=== PATIENT | female | born 1975 | race Hispanic/Latino ===

== ENCOUNTER → 2018-05-16 | Outpatient (CLI) | payer MEDICAID | END | disposition home or self-care (01) | LOC: SLP 20:23 | PROVIDERS: ATTEND Family Medicine | DX: G47.9 Sleep disorder, unspecified (principal); R06.01 Orthopnea | CPT/HCPCS: 95811 ==

== ENCOUNTER 2018-07-28 00:29 | Emergency (ER) | payer MEDICAID ==
[2018-07-28 01:25] LABS: BASOPHILS % (AUTO) 1.1 % (0.0-5.0); EOSINOPHILS % (AUTO) 1.3 % (0.0-8.0); HEMATOCRIT 33.6 % (36-48); LYMPHOCYTES % (AUTO) 22.4 % (21.0-51.0); MEAN CORPUSCULAR HEMOGLOBIN 33.5 pg (27.0-33.0); MEAN CORPUSCULAR HGB CONC 33.5 g/dL (32.0-36.0); MEAN CORPUSCULAR VOLUME 99.8 fL (79-99); MONOCYTES % (AUTO) 8.3 % (3.0-13.0); NEUTROPHILS % (AUTO) 66.9 % (40.0-77.0); PLATELET COUNT (AUTO) 197 K/uL (130-400); RED BLOOD CELL COUNT(AUTO) 3.37 MIL/uL (4.00-5.50); RED CELL DISTRIBUTION WIDTH 15.9 % (11.0-15.5); WHITE BLOOD COUNT (AUTO) 5.4 K/uL (4.8-10.8)
[2018-07-28] MEDS ORDERED: ONDANSETRON HCL 4 MG/2 ML VIAL ONE (01:28)
[2018-07-28] MEDS ORDERED: MORPHINE SULFATE 4 MG/1ML SYG ONE (01:28)
[2018-07-28 01:34] LABS: POTASSIUM 4.2 mmol/L (3.5-5.1)
[2018-07-28 01:38] LABS: ALBUMIN 3.1 g/dL (3.5-5.0); BILIRUBIN,TOTAL 0.6 mg/dL (0.2-1.0); TOTAL PROTEIN, SERUM 7.5 g/dL (6.0-8.3)
[2018-07-28 01:42] LABS: APPEARANCE,URINE Clear (CLEAR); BILIRUBIN,URINE Negative (NEGATIVE); COLOR,URINE Yellow (YELLOW); GLUCOSE, URINE (UA) 250 mg/dL (NEGATIVE); KETONES,URINE Negative (NEGATIVE); LEUKOCYTE ESTERASE ,URINE Small (NEGATIVE); NITRATE,URINE Negative (NEGATIVE); OCCULT BLOOD,URINE Small (NEGATIVE); PH,URINE 8.5 (5.0-8.0); PROTEIN,URINE >=1000 mg/dL (NEGATIVE); UROBILINOGEN,URINE 0.2 mg/dL (0.2-1.0)
[2018-07-28 01:51] LABS: BACTERIA,URINE Few /HPF (None Seen)
[2018-07-28] MEDS ORDERED: SULFAMETHOX-TMP DS 800/160 TAB ONE (03:11)
== END 2018-07-28 03:29 | disposition home or self-care (01) ==
LOC: EDH 00:29
DX: N39.0 Urinary tract infection, site not specified (principal); I12.0 Hypertensive chronic kidney disease with stage 5 chronic kidney disease or end stage renal disease; E11.22 Type 2 diabetes mellitus with diabetic chronic kidney disease; N18.6 End stage renal disease; E78.5 Hyperlipidemia, unspecified; Z99.2 Dependence on renal dialysis; Z79.4 Long term (current) use of insulin
CPT/HCPCS: 36415; 74176; 80053; 81001; 83690; 85025; 96374; 96375; 99284; J2270; J2405

== ENCOUNTER 2018-08-30 08:43 | Emergency (ER) | payer MEDICAID ==
[2018-08-30 09:40] LABS: BASOPHILS % (AUTO) 0.9 % (0.0-5.0); EOSINOPHILS % (AUTO) 1.5 % (0.0-8.0); HEMATOCRIT 34.2 % (36-48); LYMPHOCYTES % (AUTO) 16.7 % (21.0-51.0); MEAN CORPUSCULAR HEMOGLOBIN 32.8 pg (27.0-33.0); MEAN CORPUSCULAR HGB CONC 32.5 g/dL (32.0-36.0); MONOCYTES % (AUTO) 9.1 % (3.0-13.0); NEUTROPHILS % (AUTO) 71.8 % (40.0-77.0); NUCLEATED RED BLOOD CELLS 0.3 % (0.0-0.19); PLATELET COUNT (AUTO) 210 K/uL (130-400); RED BLOOD CELL COUNT(AUTO) 3.38 MIL/uL (4.00-5.50); RED CELL DISTRIBUTION WIDTH 16.6 % (11.0-15.5); WHITE BLOOD COUNT (AUTO) 5.9 K/uL (4.8-10.8)
[2018-08-30 09:46] LABS: CREATININE 7.1 mg/dL (0.5-1.5); POTASSIUM 4.6 mmol/L (3.5-5.1)
[2018-08-30 09:51] LABS: ALBUMIN 3.3 g/dL (3.5-5.0); BILIRUBIN,DIRECT 0.3 mg/dL (0.0-0.3); BILIRUBIN,TOTAL 0.8 mg/dL (0.2-1.0)
[2018-08-30 10:03] LABS: APPEARANCE,URINE CLEAR (CLEAR); BILIRUBIN,URINE SMALL (NEGATIVE); COLOR,URINE YELLOW (YELLOW); GLUCOSE, URINE (UA) 250 mg/dL (NEGATIVE); KETONES,URINE NEGATIVE (NEGATIVE); LEUKOCYTE ESTERASE ,URINE TRACE (NEGATIVE); NITRATE,URINE NEGATIVE (NEGATIVE); OCCULT BLOOD,URINE MODERATE (NEGATIVE); PH,URINE 7.5 (5.0-8.0); PROTEIN,URINE >=300 mg/dL (NEGATIVE)
[2018-08-30 10:09] LABS: BACTERIA,URINE Few /HPF (None Seen); RBC,URINE 0-1 /HPF (0-1)
[2018-08-30 10:10] LABS: HYALINE CASTS, URINE 0-1 /LPF (0-1 /LPF)
[2018-08-30] MEDS ORDERED: CEFTRIAXONE SODIUM 1 GM ONE (11:39)
== END 2018-08-30 12:17 | disposition home or self-care (01) ==
LOC: EDH 08:43
DX: N39.0 Urinary tract infection, site not specified (principal); I12.0 Hypertensive chronic kidney disease with stage 5 chronic kidney disease or end stage renal disease; E11.22 Type 2 diabetes mellitus with diabetic chronic kidney disease; N18.6 End stage renal disease; Z99.2 Dependence on renal dialysis
CPT/HCPCS: 36415; 80048; 80076; 81001; 85025; 96374; 99284; J0696

== ENCOUNTER 2021-01-30 04:38 | Emergency (ER) | payer MEDICAID ==
[~2021-01-30] VITALS: Ht 165.1 cm; Wt 98.9 kg
[2021-01-30 04:39] VITALS: BP 193/89
== END 2021-01-30 05:14 | disposition home or self-care (01) ==
LOC: EDH 04:38
DX: E87.70 Fluid overload, unspecified (principal); E11.22 Type 2 diabetes mellitus with diabetic chronic kidney disease; N18.6 End stage renal disease; I50.9 Heart failure, unspecified; I25.10 Atherosclerotic heart disease of native coronary artery without angina pectoris; Z99.2 Dependence on renal dialysis
CPT/HCPCS: 99281

== ENCOUNTER 2021-02-06 05:43 | Emergency (ER) | payer MEDICAID ==
[~2021-02-06] VITALS: Ht 170.2 cm; Wt 94.8 kg
[2021-02-06] MEDS ORDERED: MAG/ALUM/SIMETH 30 ML UDCUP ONE (06:20)
[2021-02-06] MEDS ORDERED: LIDOCAINE HCL 2% VISCOUS 15 ML UDCUP ONE (06:21)
[2021-02-06 06:27] VITALS: BP 176/82
[2021-02-06 06:28] LABS: BASOPHILS % (AUTO) 0.6 % (0.0-5.0); EOSINOPHILS % (AUTO) 1.7 % (0.0-8.0); HEMATOCRIT 28.6 % (36-48); LYMPHOCYTES % (AUTO) 20.2 % (21.0-51.0); MEAN CORPUSCULAR HEMOGLOBIN 32.6 pg (27.0-33.0); MEAN CORPUSCULAR HGB CONC 31.8 g/dL (32.0-36.0); MEAN CORPUSCULAR VOLUME 102.5 fL (79-99); MONOCYTES % (AUTO) 4.8 % (3.0-13.0); NEUTROPHILS % (AUTO) 72.4 % (40.0-77.0); NUCLEATED RED BLOOD CELLS 0.4 % (0.0-0.19); PLATELET COUNT (AUTO) 273 K/uL (130-400); RED BLOOD CELL COUNT(AUTO) 2.79 MIL/uL (4.00-5.50); RED CELL DISTRIBUTION WIDTH 15.2 % (11.0-15.5); WHITE BLOOD COUNT (AUTO) 6.9 K/uL (4.8-10.8)
[2021-02-06] MEDS ORDERED: MAG/ALUM/SIMETH 30 ML UDCUP PO SCH (06:50)
[2021-02-06 06:55] LABS: ALBUMIN 3.7 g/dL (3.5-5.0); BILIRUBIN,TOTAL 0.5 mg/dL (0.2-1.0); TOTAL PROTEIN, SERUM 8.3 g/dL (6.0-8.3)
[2021-02-06 06:58] LABS: CREATININE 12.8 mg/dL (0.5-1.5); POTASSIUM 6.1 mmol/L (3.5-5.1)
[2021-02-06] MEDS ORDERED: KAYEXALATE 15GM/60ML PO SCH (07:30)
[2021-05-12] MEDS ORDERED: PANT40TA PO (09:11)
[2021-05-12] MEDS ORDERED: DEXA6TAB PO (09:11)
== END 2021-02-06 08:16 | disposition home or self-care (01) ==
LOC: EDH 05:43
DX: K29.70 Gastritis, unspecified, without bleeding (principal); I12.0 Hypertensive chronic kidney disease with stage 5 chronic kidney disease or end stage renal disease; E11.22 Type 2 diabetes mellitus with diabetic chronic kidney disease; N18.6 End stage renal disease
CPT/HCPCS: 36415; 80053; 83690; 85025

== ENCOUNTER 2021-03-06 09:26 | Inpatient (IN) | payer MEDICAID ==
[~2021-03-06] VITALS: Ht 167.6 cm; Wt 92.4 kg
[2021-03-06] VITALS (15 sets, daily range): BP systolic 169–204; BP diastolic 82–110
[2021-03-06 10:33] LABS: BASOPHILS % (AUTO) 0.8 % (0.0-5.0); EOSINOPHILS % (AUTO) 2.5 % (0.0-8.0); HEMATOCRIT 34.1 % (36-48); LYMPHOCYTES % (AUTO) 21.2 % (21.0-51.0); MEAN CORPUSCULAR HEMOGLOBIN 32.5 pg (27.0-33.0); MEAN CORPUSCULAR HGB CONC 30.2 g/dL (32.0-36.0); MEAN CORPUSCULAR VOLUME 107.6 fL (79-99); MONOCYTES % (AUTO) 6.3 % (3.0-13.0); NEUTROPHILS % (AUTO) 68.8 % (40.0-77.0); PLATELET COUNT (AUTO) 231 K/uL (130-400); RED BLOOD CELL COUNT(AUTO) 3.17 MIL/uL (4.00-5.50); WHITE BLOOD COUNT (AUTO) 5.2 K/uL (4.8-10.8)
[2021-03-06 10:52] LABS: CREATININE 7.7 mg/dL (0.5-1.5); POTASSIUM 5.3 mmol/L (3.5-5.1)
[2021-03-06 10:56] LABS: ALBUMIN 3.9 g/dL (3.5-5.0); BILIRUBIN,TOTAL 0.5 mg/dL (0.2-1.0); TOTAL PROTEIN, SERUM 8.5 g/dL (6.0-8.3)
[2021-03-06] MEDS: PANTOPRAZOLE 40 MG/VIAL IVP SCH (12:33)
[2021-03-06] MEDS ORDERED: ACETAMINOPHEN 325 MG TAB PO PRN ×2 (15:00)
[2021-03-06] MEDS ORDERED: DIPHENHYDRAMINE HCL 25 MG CAPSULE PO PRN (15:00)
[2021-03-06] MEDS ORDERED: ONDANSETRON 4MG INJ IV PRN (15:00)
[2021-03-06] MEDS ORDERED: HYDRALAZINE 20MG/ML VIAL ONE (18:56)
[2021-03-06] MEDS ORDERED: HYDRALAZINE 20MG/ML VIAL IV SCH (19:00)
[2021-03-06] MEDS: FAMOTIDINE 20MG VIAL IV SCH (21:03)
[2021-03-06] MEDS ORDERED: MORPHINE 2 MG SYG IVP PRN (22:30)
[2021-03-06] MEDS ORDERED: LABETALOL 20MG VIAL IV PRN (22:30)
[2021-03-07 05:33] LABS: HEMATOCRIT 36.1 % (36-48); MEAN CORPUSCULAR HEMOGLOBIN 33.3 pg (27.0-33.0); MEAN CORPUSCULAR HGB CONC 31.3 g/dL (32.0-36.0); MEAN CORPUSCULAR VOLUME 106.5 fL (79-99); RED BLOOD CELL COUNT(AUTO) 3.39 MIL/uL (4.00-5.50); WHITE BLOOD COUNT (AUTO) 5.9 K/uL (4.8-10.8)
[2021-03-07 05:46] LABS: ALBUMIN 3.9 g/dL (3.5-5.0); BILIRUBIN,DIRECT 0.2 mg/dL (0.0-0.3); BILIRUBIN,TOTAL 0.7 mg/dL (0.2-1.0); CREATININE 6.2 mg/dL (0.5-1.5); POTASSIUM 4.6 mmol/L (3.5-5.1); TOTAL PROTEIN, SERUM 8.6 g/dL (6.0-8.3)
[2021-03-07 08:00] VITALS: BP 164/78
[2021-03-07] MEDS: ENOXAPARIN SODIUM 30 MG/0.3 ML SQ SCH (09:00)
[2021-03-07] MEDS: FAMOTIDINE 20MG VIAL IV SCH ×2 (10:44→20:53)
[2021-03-07] MEDS: PANTOPRAZOLE 40 MG/VIAL IVP SCH (11:30)
[2021-03-07 11:49] VITALS: BP 170/86
[2021-03-07 16:00] VITALS: BP 180/84
[2021-03-07 20:00] VITALS: BP 161/79
[2021-03-08] VITALS (22 sets, daily range): BP systolic 152–190; BP diastolic 68–108
[2021-03-08] MEDS: HYDRALAZINE 20MG/ML VIAL IV PRN ×2 (02:16→15:38)
[2021-03-08 05:38] LABS: BASOPHILS % (AUTO) 0.8 % (0.0-5.0); EOSINOPHILS % (AUTO) 2.3 % (0.0-8.0); HEMATOCRIT 33.9 % (36-48); LYMPHOCYTES % (AUTO) 20.9 % (21.0-51.0); MEAN CORPUSCULAR HEMOGLOBIN 32.8 pg (27.0-33.0); MEAN CORPUSCULAR HGB CONC 31.3 g/dL (32.0-36.0); MONOCYTES % (AUTO) 7.5 % (3.0-13.0); NEUTROPHILS % (AUTO) 68.1 % (40.0-77.0); PLATELET COUNT (AUTO) 221 K/uL (130-400); RED BLOOD CELL COUNT(AUTO) 3.23 MIL/uL (4.00-5.50); RED CELL DISTRIBUTION WIDTH 15.6 % (11.0-15.5); WHITE BLOOD COUNT (AUTO) 5.3 K/uL (4.8-10.8)
[2021-03-08 05:54] LABS: ALBUMIN 3.5 g/dL (3.5-5.0); BILIRUBIN,TOTAL 0.4 mg/dL (0.2-1.0); POTASSIUM 5.2 mmol/L (3.5-5.1); TOTAL PROTEIN, SERUM 7.9 g/dL (6.0-8.3)
[2021-03-08 05:57] LABS: CREATININE 8.3 mg/dL (0.5-1.5)
[2021-03-08] MEDS: INSULIN HUMULIN R 100 UNIT/ML 3ML SQ SCH ×2 (06:18→11:30)
[2021-03-08 07:40] LABS: HEPATITIS Bs ANTIGEN SCREEN P Negative (Negative)
[2021-03-08] MEDS: ENOXAPARIN SODIUM 30 MG/0.3 ML SQ SCH (09:00)
[2021-03-08] MEDS: FAMOTIDINE 20MG VIAL IV SCH (10:25)
[2021-03-08] MEDS: PANTOPRAZOLE 40 MG/VIAL IVP SCH (11:30)
== END 2021-03-08 17:45 | disposition home or self-care (01) ==
LOC: EDH 09:26 → EDHIP 09:27 → 3CH 03-07 04:48
PROVIDERS: ADMIT Hospitalist; ATTEND Hospitalist
PROC: 5A1D70Z Performance of Urinary Filtration, Intermittent, Less than 6 Hours Per Day (ICD-10-PCS; principal; 2021-03-06)
PROC: 5A1D70Z Performance of Urinary Filtration, Intermittent, Less than 6 Hours Per Day (ICD-10-PCS; 2021-03-08)
DX: K80.70 Calculus of gallbladder and bile duct without cholecystitis without obstruction (principal); E11.22 Type 2 diabetes mellitus with diabetic chronic kidney disease; I12.0 Hypertensive chronic kidney disease with stage 5 chronic kidney disease or end stage renal disease; E87.5 Hyperkalemia; N18.6 End stage renal disease; K83.8 Other specified diseases of biliary tract; D64.9 Anemia, unspecified; Z20.822 Contact with and (suspected) exposure to COVID-19; G89.29 Other chronic pain; Z99.2 Dependence on renal dialysis; Z91.19 Patient's noncompliance with other medical treatment and regimen
CPT/HCPCS: 36415; 74181; 76705; 80048; 80053; 80076; 82948; 83690; 85025; 85027; 86704; 86706; 87340; 87635; 90935; C9113; G0378; J0360; J1650; J2405; J3490

== ENCOUNTER 2021-03-31 08:39 | Observation (INO) | payer MEDICAID ==
[2021-03-31] VITALS (12 sets, daily range): BP systolic 173–194; BP diastolic 61–92
[~2021-03-31] VITALS: Ht 165.1 cm; Wt 99.8 kg
[2021-03-31 09:13] LABS: BASOPHILS % (AUTO) 0.9 % (0.0-5.0); EOSINOPHILS % (AUTO) 2.8 % (0.0-8.0); HEMATOCRIT 37.2 % (36-48); LYMPHOCYTES % (AUTO) 26.4 % (21.0-51.0); MEAN CORPUSCULAR HEMOGLOBIN 32.7 pg (27.0-33.0); MEAN CORPUSCULAR HGB CONC 30.4 g/dL (32.0-36.0); MEAN CORPUSCULAR VOLUME 107.5 fL (79-99); MONOCYTES % (AUTO) 6.7 % (3.0-13.0); NEUTROPHILS % (AUTO) 62.9 % (40.0-77.0); NUCLEATED RED BLOOD CELLS 0.5 % (0.0-0.19); PLATELET COUNT (AUTO) 233 K/uL (130-400); RED BLOOD CELL COUNT(AUTO) 3.46 MIL/uL (4.00-5.50); RED CELL DISTRIBUTION WIDTH 15.9 % (11.0-15.5); WHITE BLOOD COUNT (AUTO) 6.4 K/uL (4.8-10.8)
[2021-03-31 09:45] LABS: ALBUMIN 3.7 g/dL (3.5-5.0); BILIRUBIN,TOTAL 0.5 mg/dL (0.2-1.0); TOTAL PROTEIN, SERUM 8.2 g/dL (6.0-8.3)
[2021-03-31 09:55] LABS: POTASSIUM 6.9 mmol/L (3.5-5.1)
[2021-03-31 09:56] LABS: CREATININE 10.9 mg/dL (0.5-1.5)
[2021-03-31] MEDS: FENTANYL CITRATE PF 50 MCG/1 ML 2ML VIAL IVP SCH (09:59)
[2021-03-31] MEDS ORDERED: CALCIUM GLUC 1GM 1 GM in 0.9%NACL 100ML 100 ML IV SCH (10:00)
[2021-03-31] MEDS ORDERED: SODIUM BICARB 8.4% 50ML SYRINGE IVP ONE (10:00)
[2021-03-31] MEDS ORDERED: INSULIN HUMULIN R 100 UNIT/ML 3ML IV ONE (10:00)
[2021-03-31] MEDS ORDERED: SODIUM BICARB 50MEQ 50ML VIAL 50 ML ONE (10:15)
[2021-03-31] MEDS: DEXTROSE 50%-WATER 50 ML DISP.SYRIN IV SCH ×2 (10:27→10:49)
[2021-03-31] MEDS: KAYEXALATE 15GM/60ML PO SCH ×2 (10:28→12:00)
[2021-03-31] MEDS ORDERED: ALBUTEROL 0.083% 2.5 MG/3 ML INH IH ONE (10:35)
[2021-03-31] MEDS ORDERED: IPRATROPIUM 0.5 MG/2.5 ML INH IH PRN (11:30)
[2021-03-31] MEDS ORDERED: ACETAMINOPHEN 325 MG TAB PO PRN ×2 (11:30)
[2021-03-31] MEDS ORDERED: MAG/ALUM/SIMETH 30 ML UDCUP PO PRN (11:30)
[2021-03-31] MEDS ORDERED: HYDROMORPHONE 0.5 MG SYG (0.5MG/0.5ML) IVP PRN (11:30)
[2021-03-31] MEDS: AMLODIPINE 5 MG TAB PO ONE ×2 (11:46→15:05)
[2021-03-31] MEDS: PANTOPRAZOLE 40 MG TAB DR PO SCH (11:52)
[2021-03-31 13:25] LABS: POTASSIUM 5.5 mmol/L (3.5-5.1)
[2021-03-31] MEDS: CEFTRIAXONE 1G VIAL IVP SCH (13:54)
[2021-03-31] MEDS: ALBUTEROL 0.083% 2.5 MG/3 ML INH IH SCH ×2 (14:23→18:00)
[2021-03-31] MEDS ORDERED: AMLODIPINE 5 MG TAB ONE (14:53)
[2021-03-31] MEDS: METRONIDAZOLE 500MG/100ML BAG 100 ML IVPB SCH ×2 (15:05→21:58)
[2021-03-31] MEDS: HYDRALAZINE 25MG TABLET PO SCH ×2 (16:08→20:33)
[2021-03-31] MEDS: HYDRALAZINE 20MG/ML VIAL IV PRN (17:39)
[2021-03-31] MEDS: ONDANSETRON 4MG INJ IV PRN (22:12)
[2021-04-01] VITALS (15 sets, daily range): BP systolic 152–178; BP diastolic 69–82
[2021-04-01] MEDS: ONDANSETRON 4MG INJ IV PRN (04:04)
[2021-04-01] MEDS: ALBUTEROL 0.083% 2.5 MG/3 ML INH IH SCH ×5 (06:00→23:31)
[2021-04-01] MEDS: METRONIDAZOLE 500MG/100ML BAG 100 ML IVPB SCH ×3 (06:08→22:51)
[2021-04-01 06:24] LABS: % IRON SATURATION 19.2 % (22-44)
[2021-04-01 06:27] LABS: HEMOGLOBIN A1C 5.7 % (4.0-6.0)
[2021-04-01 06:50] LABS: THYROID STIMULATING HORMONE 2.93 uIU/mL (0.36-3.74)
[2021-04-01] MEDS: FENTANYL CITRATE PF 50 MCG/1 ML 2ML VIAL IVP SCH (08:28)
[2021-04-01] MEDS: PANTOPRAZOLE 40 MG TAB DR PO SCH ×2 (09:00→09:03)
[2021-04-01] MEDS: HYDRALAZINE 25MG TABLET PO SCH ×3 (09:31→21:06)
[2021-04-01] MEDS: CEFTRIAXONE 1G VIAL IVP SCH (11:28)
[2021-04-01] MEDS ORDERED: 0.9%NACL 1000ML 1,000 ML IV PRN (13:30)
[2021-04-01] MEDS ORDERED: AMLODIPINE 5 MG TAB PO ONE (21:00)
[2021-04-02] MEDS: HYDRALAZINE 20MG/ML VIAL IV PRN (01:09)
[2021-04-02 03:42] LABS: BASOPHILS % (AUTO) 0.5 % (0.0-5.0); EOSINOPHILS % (AUTO) 2.1 % (0.0-8.0); LYMPHOCYTES % (AUTO) 18.7 % (21.0-51.0); MEAN CORPUSCULAR HEMOGLOBIN 32.8 pg (27.0-33.0); MEAN CORPUSCULAR HGB CONC 32.3 g/dL (32.0-36.0); MEAN CORPUSCULAR VOLUME 101.4 fL (79-99); MONOCYTES % (AUTO) 8.4 % (3.0-13.0); NUCLEATED RED BLOOD CELLS 0.3 % (0.0-0.19); PLATELET COUNT (AUTO) 215 K/uL (130-400); RED BLOOD CELL COUNT(AUTO) 3.45 MIL/uL (4.00-5.50); RED CELL DISTRIBUTION WIDTH 15.7 % (11.0-15.5); WHITE BLOOD COUNT (AUTO) 6.2 K/uL (4.8-10.8)
[2021-04-02 04:00] VITALS: BP 133/70
[2021-04-02 04:06] LABS: ALBUMIN 3.4 g/dL (3.5-5.0); BILIRUBIN,TOTAL 0.5 mg/dL (0.2-1.0); CREATININE 6.9 mg/dL (0.5-1.5); PHOSPHORUS 7.3 mg/dL (2.5-4.9); POTASSIUM 4.7 mmol/L (3.5-5.1); TOTAL PROTEIN, SERUM 7.9 g/dL (6.0-8.3)
[2021-04-02] MEDS: METRONIDAZOLE 500MG/100ML BAG 100 ML IVPB SCH ×2 (06:08→14:33)
[2021-04-02] MEDS: ONDANSETRON 4MG INJ IV PRN (06:17)
[2021-04-02 08:07] VITALS: BP 163/88
[2021-04-02 08:14] LABS: HEPATITIS Bs ANTIGEN SCREEN P Negative (Negative)
[2021-04-02] MEDS: HYDRALAZINE 25MG TABLET PO SCH ×2 (09:58→14:33)
[2021-04-02] MEDS: FENTANYL CITRATE PF 50 MCG/1 ML 2ML VIAL IVP SCH (10:00)
[2021-04-02] MEDS: DEXTROSE 50%-WATER 50 ML DISP.SYRIN IV SCH (10:00)
[2021-04-02] MEDS: PANTOPRAZOLE 40 MG TAB DR PO SCH ×2 (10:00→11:30)
[2021-04-02 10:32] VITALS: BP 150/75
[2021-04-02] MEDS: CEFTRIAXONE 1G VIAL IVP SCH (12:56)
[2021-04-02] MEDS ORDERED: AMLODIPINE 5 MG TAB PO SCH (15:00)
[2021-04-02 15:49] VITALS: BP 162/83
== END 2021-04-02 19:13 | disposition home or self-care (01) ==
LOC: EDH 08:39 → INTOOBSV 08:40 → EDHIP 08:40 → UNDOADMIN 10:59 → 4CH 04-01 21:37 → EDHIP 04-01 21:53 → 4CH 04-01 23:51
PROVIDERS: ADMIT Internal Medicine; ATTEND Internal Medicine
DX: K82.8 Other specified diseases of gallbladder (principal); E87.5 Hyperkalemia; I12.0 Hypertensive chronic kidney disease with stage 5 chronic kidney disease or end stage renal disease; E11.22 Type 2 diabetes mellitus with diabetic chronic kidney disease; N18.6 End stage renal disease; D53.9 Nutritional anemia, unspecified; E78.00 Pure hypercholesterolemia, unspecified; E87.70 Fluid overload, unspecified; I44.0 Atrioventricular block, first degree; I45.2 Bifascicular block; N27.0 Small kidney, unilateral; Z99.2 Dependence on renal dialysis; Z87.19 Personal history of other diseases of the digestive system; Z91.19 Patient's noncompliance with other medical treatment and regimen
CPT/HCPCS: 36415 ×3; 74176; 76705; 78227; 80048; 80053 ×2; 82150; 82550; 82607; 82746; 82948 ×8; 83036; 83540; 83550; 83690; 83735; 84100; 84132 ×3; 84145; 84443; 84484; 84702; 85025 ×2; 86140; 86704; 86706; 87340; 93005; 94640 ×5; 96365; 96366 ×3; 96367; 96375; 96376 ×2; 99291; A9537; G0378 ×4; J0360 ×2; J0610; J0696 ×3; J1170; J1815; J2405 ×3; J3010; J3490 ×8; J7070; 90935

== ENCOUNTER 2021-04-21 02:32 | Emergency (ER) | payer MEDICAID ==
[~2021-04-21] VITALS: Ht 170.2 cm; Wt 99.4 kg
[2021-04-21] MEDS ORDERED: ACETAMINOPHEN 500 MG TABLET PO ONE (03:00)
[2021-04-21 03:38] VITALS: BP 171/76
== END 2021-04-21 03:47 | disposition home or self-care (01) ==
LOC: EDH 02:32
DX: J06.9 Acute upper respiratory infection, unspecified (principal); Z20.822 Contact with and (suspected) exposure to COVID-19; I12.0 Hypertensive chronic kidney disease with stage 5 chronic kidney disease or end stage renal disease; E11.22 Type 2 diabetes mellitus with diabetic chronic kidney disease; N18.6 End stage renal disease; Z99.2 Dependence on renal dialysis
CPT/HCPCS: 87635; 87804 ×2; 87880; 99283; C9803

== ENCOUNTER 2021-04-23 01:29 | Emergency (ER) | payer MEDICAID ==
[~2021-04-23] VITALS: Ht 152.4 cm; Wt 102.5 kg
[2021-04-23] MEDS ORDERED: DICYCLOMINE HCL 10 MG/5 ML ML PO ONE (08:00)
[2021-04-23] MEDS ORDERED: MAG/ALUM/SIMETH 30 ML UDCUP PO ONE (08:00)
[2021-04-23] MEDS ORDERED: LIDOCAINE HCL 2% VISCOUS 15 ML UDCUP PO ONE (08:00)
[2021-04-23] MEDS ORDERED: ONDANSETRON 4MG INJ ONE (08:05)
[2021-04-23 08:18] LABS: BASOPHILS % (AUTO) 0.6 % (0.0-5.0); HEMATOCRIT 39.4 % (36-48); LYMPHOCYTES % (AUTO) 21.7 % (21.0-51.0); MEAN CORPUSCULAR HEMOGLOBIN 32.2 pg (27.0-33.0); MEAN CORPUSCULAR HGB CONC 31.7 g/dL (32.0-36.0); MEAN CORPUSCULAR VOLUME 101.5 fL (79-99); MONOCYTES % (AUTO) 6.8 % (3.0-13.0); NEUTROPHILS % (AUTO) 68.5 % (40.0-77.0); PLATELET COUNT (AUTO) 192 K/uL (130-400); RED BLOOD CELL COUNT(AUTO) 3.88 MIL/uL (4.00-5.50); RED CELL DISTRIBUTION WIDTH 15.9 % (11.0-15.5); WHITE BLOOD COUNT (AUTO) 6.9 K/uL (4.8-10.8)
[2021-04-23 08:27] LABS: ALANINE AMINOTRANSFERASE 27 U/L (12-78); ALBUMIN 3.8 g/dL (3.5-5.0); ASPARTATE AMINOTRANSFERASE 18 U/L (10-37); BILIRUBIN,TOTAL 0.6 mg/dL (0.2-1.0); CARBON DIOXIDE 24 mmol/L (21-32); CHLORIDE 95 mmol/L (101-111); GLOMERULAR FILTR. RATE CALC 4 mL/min (>60); GLUCOSE,RANDOM 97 mg/dL (70-105); POTASSIUM 5.3 mmol/L (3.5-5.1); SODIUM SERUM 132 mmol/L (136-145); TOTAL PROTEIN, SERUM 8.4 g/dL (6.0-8.3); UREA NITROGEN, BLOOD 57 mg/dL (7-18)
[2021-04-23 08:28] LABS: LIPASE < 50 U/L (114-286)
[2021-04-23 08:29] LABS: CREATININE 10.9 mg/dL (0.5-1.5)
[2021-04-23 08:55] VITALS: BP 143/100
[2021-04-23] MEDS ORDERED: MAG-55 PO (09:17)
[2021-04-23] MEDS ORDERED: ESOM20CA60 PO (09:17)
[2021-04-23] MEDS ORDERED: ONDANSETRON 4MG INJ IVP ONE (09:30)
== END 2021-04-23 10:17 | disposition home or self-care (01) ==
LOC: EDH 01:29
DX: K29.00 Acute gastritis without bleeding (principal); I12.0 Hypertensive chronic kidney disease with stage 5 chronic kidney disease or end stage renal disease; E11.22 Type 2 diabetes mellitus with diabetic chronic kidney disease; N18.6 End stage renal disease; E78.00 Pure hypercholesterolemia, unspecified
CPT/HCPCS: 36415; 80053; 83690; 85025; 96374; 99284; J2405

== ENCOUNTER 2021-04-27 18:18 | Observation (INO) | payer MEDICAID ==
[~2021-04-27] VITALS: Ht 165.1 cm; Wt 102.6 kg
[~2021-04-27 18:18] MED LIST: ESOM20CA60 PO; MAG-55 PO
[2021-04-27] MEDS ORDERED: IPRATROPIUM/ALBUTEROL SULFATE 3 ML SOLUTION IH ONE (19:00)
[2021-04-27 19:14] LABS: BASOPHILS % (AUTO) 0.3 % (0.0-5.0); EOSINOPHILS % (AUTO) 1.8 % (0.0-8.0); HEMATOCRIT 37.7 % (36-48); LYMPHOCYTES % (AUTO) 19.3 % (21.0-51.0); MEAN CORPUSCULAR HEMOGLOBIN 32.1 pg (27.0-33.0); MEAN CORPUSCULAR HGB CONC 31.3 g/dL (32.0-36.0); MEAN CORPUSCULAR VOLUME 102.4 fL (79-99); NEUTROPHILS % (AUTO) 70.5 % (40.0-77.0); PLATELET COUNT (AUTO) 189 K/uL (130-400); RED BLOOD CELL COUNT(AUTO) 3.68 MIL/uL (4.00-5.50); RED CELL DISTRIBUTION WIDTH 15.9 % (11.0-15.5); WHITE BLOOD COUNT (AUTO) 6.9 K/uL (4.8-10.8)
[2021-04-27 19:28] LABS: INR 1.04 (0.85-1.15); PROTHROMBIN TIME 11.3 SEC (9.6-11.6)
[2021-04-27 19:30] LABS: PARTIAL THROMBOPLASTIN TIME 27.2 SEC (26.3-35.5)
[2021-04-27] MEDS ORDERED: HYDRALAZINE 20MG/ML VIAL IV ONE (19:30)
[2021-04-27 19:32] LABS: ALANINE AMINOTRANSFERASE 27 U/L (12-78); ALBUMIN 3.7 g/dL (3.5-5.0); ASPARTATE AMINOTRANSFERASE 25 U/L (10-37); BILIRUBIN,TOTAL 0.5 mg/dL (0.2-1.0); CARBON DIOXIDE 27 mmol/L (21-32); CHLORIDE 96 mmol/L (101-111); GLOMERULAR FILTR. RATE CALC 4 mL/min (>60); GLUCOSE,RANDOM 101 mg/dL (70-105); SODIUM SERUM 135 mmol/L (136-145); TOTAL PROTEIN, SERUM 8.1 g/dL (6.0-8.3); UREA NITROGEN, BLOOD 69 mg/dL (7-18)
[2021-04-27 19:43] LABS: POTASSIUM 6.7 mmol/L (3.5-5.1)
[2021-04-27 19:49] LABS: CRP QUANTITATIVE < 2.00 mg/L (0.00-9.0)
[2021-04-27] MEDS ORDERED: SODIUM BICARB 50MEQ 50ML VIAL 50 ML ONE (19:50)
[2021-04-27] MEDS ORDERED: KAYEXALATE 15GM/60ML ONE (19:50)
[2021-04-27] MEDS ORDERED: DEXTROSE 50%-WATER 50 ML DISP.SYRIN IV ONE (19:50)
[2021-04-27] MEDS ORDERED: INSULIN HUMULIN R 100 UNIT/ML 3ML ONE (19:51)
[2021-04-27] MEDS ORDERED: SODIUM BICARB 8.4% 50ML SYRINGE IVP ONE (20:00)
[2021-04-27] MEDS ORDERED: INSULIN HUMULIN R 100 UNIT/ML 3ML IV ONE (20:00)
[2021-04-27] MEDS ORDERED: NA ZIRCON CYCLOSIL(LOKELMA 10GM) PO ONE (20:00)
[2021-04-27] MEDS: KAYEXALATE 15GM/60ML PO NR (20:09)
[2021-04-27] MEDS ORDERED: ALBUTEROL 0.083% 2.5 MG/3 ML INH IH ONE (20:15)
[2021-04-27] MEDS ORDERED: CALCIUM GLUC 1GM 1 GM in 0.9%NACL 100ML 100 ML IV ONE (20:30)
[2021-04-27 23:43] VITALS: BP 184/81
[2021-04-27 23:45] VITALS: BP 177/77
[2021-04-28] VITALS (9 sets, daily range): BP systolic 158–193; BP diastolic 63–91
[2021-04-28] MEDS: ALBUTEROL 0.083% 2.5 MG/3 ML INH IH SCH ×5 (00:46→23:38)
[2021-04-28 07:23] LABS: BASOPHILS % (AUTO) 0.5 % (0.0-5.0); HEMATOCRIT 35.8 % (36-48); LYMPHOCYTES % (AUTO) 16.5 % (21.0-51.0); MEAN CORPUSCULAR HEMOGLOBIN 32.5 pg (27.0-33.0); MEAN CORPUSCULAR HGB CONC 31.8 g/dL (32.0-36.0); MONOCYTES % (AUTO) 8.5 % (3.0-13.0); NEUTROPHILS % (AUTO) 73.2 % (40.0-77.0); PLATELET COUNT (AUTO) 174 K/uL (130-400); RED BLOOD CELL COUNT(AUTO) 3.51 MIL/uL (4.00-5.50); WHITE BLOOD COUNT (AUTO) 7.9 K/uL (4.8-10.8)
[2021-04-28] MEDS: INSULIN HUMULIN R 100 UNIT/ML 3ML SQ SCH ×4 (07:30→21:00)
[2021-04-28 07:51] LABS: POTASSIUM 4.6 mmol/L (3.5-5.1)
[2021-04-28 08:00] LABS: CREATININE 9.2 mg/dL (0.5-1.5)
[2021-04-28 08:16] LABS: HEMOGLOBIN A1C 5.9 % (4.0-6.0)
[2021-04-28] MEDS: METOPROLOL SUCCINATE 50 MG TAB.SR.24H PO SCH (08:31)
[2021-04-28] MEDS: FAMOTIDINE 20MG TAB PO SCH (08:31)
[2021-04-28] MEDS: HEPARIN 5,000 UNIT VIAL SQ SCH ×5 (08:31→21:00)
[2021-04-28] MEDS: AMLODIPINE 5 MG TAB PO SCH ×2 (08:31→21:09)
[2021-04-28 10:27] LABS: ALBUMIN 3.5 g/dL (3.5-5.0); BILIRUBIN,DIRECT 0.2 mg/dL (0.0-0.3); BILIRUBIN,TOTAL 0.6 mg/dL (0.2-1.0); TOTAL PROTEIN, SERUM 7.9 g/dL (6.0-8.3)
[2021-04-28] MEDS: KAYEXALATE 15GM/60ML PO NR (20:00)
[2021-04-28] MEDS: HYDRALAZINE 25MG TABLET PO SCH (21:08)
[2021-04-29] VITALS (18 sets, daily range): BP systolic 141–186; BP diastolic 69–94
[2021-04-29 06:30] LABS: ALBUMIN 3.5 g/dL (3.5-5.0); BILIRUBIN,TOTAL 0.6 mg/dL (0.2-1.0); POTASSIUM 5.3 mmol/L (3.5-5.1); TOTAL PROTEIN, SERUM 7.7 g/dL (6.0-8.3)
[2021-04-29 06:33] LABS: CREATININE 11.1 mg/dL (0.5-1.5)
[2021-04-29] MEDS: INSULIN HUMULIN R 100 UNIT/ML 3ML SQ SCH ×2 (06:54→11:30)
[2021-04-29] MEDS: ALBUTEROL 0.083% 2.5 MG/3 ML INH IH SCH ×2 (07:00→11:33)
[2021-04-29 08:14] LABS: HEPATITIS Bs ANTIGEN SCREEN P Negative (Negative)
[2021-04-29] MEDS: HEPARIN 5,000 UNIT VIAL SQ SCH ×2 (09:00→14:00)
[2021-04-29] MEDS: HYDRALAZINE 25MG TABLET PO SCH (09:51)
[2021-04-29] MEDS: METOPROLOL SUCCINATE 50 MG TAB.SR.24H PO SCH (09:52)
[2021-04-29] MEDS: FAMOTIDINE 20MG TAB PO SCH (09:52)
[2021-04-29] MEDS: AMLODIPINE 5 MG TAB PO SCH (09:52)
[2021-04-29] MEDS ORDERED: HYDR25 PO (09:55)
[2021-04-29] MEDS ORDERED: AMLO5TAB4 PO (09:55)
[2021-04-29] MEDS ORDERED: METO50TA9 PO (09:55)
[2021-04-29] MEDS ORDERED: FAMO20TA8 PO (09:55)
[2021-04-29] MEDS ORDERED: ALBUMIN (HUMAN) 25% 100 ML IV PRN (10:30)
== END 2021-04-29 16:55 | disposition home or self-care (01) ==
LOC: EDH 18:18 → INTOOBSV 18:19 → EDHIP 18:19 → 4CH 04-29 03:35
PROVIDERS: ADMIT Internal Medicine; ATTEND Internal Medicine
DX: E87.5 Hyperkalemia (principal); Z20.822 Contact with and (suspected) exposure to COVID-19; I12.0 Hypertensive chronic kidney disease with stage 5 chronic kidney disease or end stage renal disease; N18.6 End stage renal disease; E87.70 Fluid overload, unspecified; E11.22 Type 2 diabetes mellitus with diabetic chronic kidney disease; D63.1 Anemia in chronic kidney disease; E11.21 Type 2 diabetes mellitus with diabetic nephropathy; J90 Pleural effusion, not elsewhere classified; E78.5 Hyperlipidemia, unspecified; E78.00 Pure hypercholesterolemia, unspecified; B19.10 Unspecified viral hepatitis B without hepatic coma; J10.1 Influenza due to other identified influenza virus with other respiratory manifestations; Z99.2 Dependence on renal dialysis; Z91.15 Patient's noncompliance with renal dialysis; Z91.19 Patient's noncompliance with other medical treatment and regimen
CPT/HCPCS: 36415 ×3; 71045; 76705; 80048; 80053 ×2; 80076; 82948 ×5; 83036; 83690; 83735; 84100; 84484; 85025 ×2; 85610; 85730; 86140; 86704; 86706; 87340; 87635; 87804 ×2; 94640 ×9; 94664; 96365; 96375; 99285; C9803; G0378 ×3; J0360; J0610; J1644 ×2; J1815; J3490; J7070; 90935

== ENCOUNTER 2021-05-21 02:21 | Observation (INO) | payer MEDICAID ==
[~2021-05-21] VITALS: Ht 165.1 cm; Wt 101.8 kg
[2021-05-21] VITALS (9 sets, daily range): BP systolic 147–169; BP diastolic 78–89
[~2021-05-21 02:21] MED LIST changes: +AMLO5TAB4 PO; +DEXA6TAB PO; -ESOM20CA60 PO; +HYDR25 PO; -MAG-55 PO; +METO50TA9 PO; +PANT40TA PO
[2021-05-21] MEDS ORDERED: ASPIRIN 325MG TAB PO ONE (03:00)
[2021-05-21] MEDS ORDERED: NITROGLYCERIN 1GM OINT 1 INCH/1GM TD ONE (03:00)
[2021-05-21 03:33] LABS: BASOPHILS % (AUTO) 0.3 % (0.0-5.0); HEMATOCRIT 31.2 % (36-48); LYMPHOCYTES % (AUTO) 6.3 % (21.0-51.0); MEAN CORPUSCULAR HEMOGLOBIN 32.4 pg (27.0-33.0); MEAN CORPUSCULAR HGB CONC 32.7 g/dL (32.0-36.0); MONOCYTES % (AUTO) 2.4 % (3.0-13.0); NEUTROPHILS % (AUTO) 90.7 % (40.0-77.0); PLATELET COUNT (AUTO) 218 K/uL (130-400); RED BLOOD CELL COUNT(AUTO) 3.15 MIL/uL (4.00-5.50); RED CELL DISTRIBUTION WIDTH 15.1 % (11.0-15.5); WHITE BLOOD COUNT (AUTO) 6.2 K/uL (4.8-10.8)
[2021-05-21 03:49] LABS: B-TYPE NATRIURETIC PEPTIDE 1880 pg/mL (0-100)
[2021-05-21 04:15] LABS: ALBUMIN 3.6 g/dL (3.5-5.0); BILIRUBIN,TOTAL 0.8 mg/dL (0.2-1.0); POTASSIUM 4.6 mmol/L (3.5-5.1); TOTAL PROTEIN, SERUM 8.2 g/dL (6.0-8.3)
[2021-05-21 04:21] LABS: CREATININE 9.3 mg/dL (0.5-1.5)
[2021-05-21] MEDS ORDERED: DIPHENHYDRAMINE HCL 25 MG CAPSULE PO PRN (05:00)
[2021-05-21] MEDS ORDERED: ONDANSETRON 4MG INJ IV PRN (05:00)
[2021-05-21] MEDS ORDERED: ACETAMINOPHEN 325 MG TAB PO ONE (05:30)
[2021-05-21] MEDS ORDERED: TRAMADOL HCL 50 MG TABLET PO PRN (09:00)
[2021-05-21] MEDS: HYDRALAZINE 25MG TABLET PO SCH ×2 (09:39→21:07)
[2021-05-21] MEDS: FAMOTIDINE 20MG VIAL IV SCH ×2 (09:39→21:07)
[2021-05-21] MEDS: AMLODIPINE 5 MG TAB PO SCH ×2 (09:40→21:07)
[2021-05-21] MEDS: METOPROLOL SUCCINATE 50 MG TAB.SR.24H PO SCH (09:40)
[2021-05-22] VITALS (19 sets, daily range): BP systolic 141–167; BP diastolic 72–94
[2021-05-22 06:33] LABS: BASOPHILS % (AUTO) 0.5 % (0.0-5.0); EOSINOPHILS % (AUTO) 2.1 % (0.0-8.0); HEMATOCRIT 33.3 % (36-48); LYMPHOCYTES % (AUTO) 23.4 % (21.0-51.0); MEAN CORPUSCULAR HEMOGLOBIN 31.1 pg (27.0-33.0); MEAN CORPUSCULAR HGB CONC 31.2 g/dL (32.0-36.0); MEAN CORPUSCULAR VOLUME 99.7 fL (79-99); MONOCYTES % (AUTO) 9.2 % (3.0-13.0); NEUTROPHILS % (AUTO) 64.6 % (40.0-77.0); PLATELET COUNT (AUTO) 197 K/uL (130-400); RED BLOOD CELL COUNT(AUTO) 3.34 MIL/uL (4.00-5.50); RED CELL DISTRIBUTION WIDTH 15.1 % (11.0-15.5); WHITE BLOOD COUNT (AUTO) 6.3 K/uL (4.8-10.8)
[2021-05-22 06:47] LABS: ALBUMIN 3.5 g/dL (3.5-5.0); BILIRUBIN,TOTAL 0.6 mg/dL (0.2-1.0); MAGNESIUM 2.3 mg/dL (1.80-2.40); PHOSPHORUS 6.2 mg/dL (2.5-4.9); POTASSIUM 4.3 mmol/L (3.5-5.1); TOTAL PROTEIN, SERUM 7.7 g/dL (6.0-8.3)
[2021-05-22 06:56] LABS: CREATININE 8.2 mg/dL (0.5-1.5)
[2021-05-22] MEDS ORDERED: Folic Acid/Vitamin B Comp W-C PO (08:55)
[2021-05-22] MEDS ORDERED: ASPI-1005 PO (08:55)
[2021-05-22] MEDS: FAMOTIDINE 20MG VIAL IV SCH ×2 (09:59→10:01)
[2021-05-22] MEDS: Vitamin B Complex/Vit C/Folic Acid PO SCH (09:59)
[2021-05-22] MEDS: ASPIRIN 81MG CHEW TAB PO SCH (10:00)
[2021-05-22] MEDS: HYDRALAZINE 25MG TABLET PO SCH ×2 (10:42→21:36)
[2021-05-22] MEDS: AMLODIPINE 5 MG TAB PO SCH ×2 (10:42→21:36)
[2021-05-22] MEDS: METOPROLOL SUCCINATE 50 MG TAB.SR.24H PO SCH (10:42)
[2021-05-23] VITALS: BP 150/86
[2021-05-23 04:00] VITALS: BP 132/63
[2021-05-23 08:02] VITALS: BP_SYST 157; BP_DIAS 57; BP_DIAS 73
[2021-05-23] MEDS: ASPIRIN 81MG CHEW TAB PO SCH (09:41)
[2021-05-23] MEDS: FAMOTIDINE 20MG VIAL IV SCH (09:41)
[2021-05-23] MEDS: METOPROLOL SUCCINATE 50 MG TAB.SR.24H PO SCH (09:41)
[2021-05-23] MEDS: HYDRALAZINE 25MG TABLET PO SCH (09:41)
[2021-05-23] MEDS: Vitamin B Complex/Vit C/Folic Acid PO SCH (09:41)
[2021-05-23] MEDS: AMLODIPINE 5 MG TAB PO SCH (09:41)
[2021-05-23] MEDS ORDERED: ATORVASTATIN 10 MG TABLET PO SCH (21:00)
== END 2021-05-23 11:50 | disposition home or self-care (01) ==
LOC: EDH 02:21 → EDHIP 02:22 → INTOOBSV 02:22 → 4DH 05-22 04:07
PROVIDERS: ADMIT Internal Medicine; ATTEND Internal Medicine
DX: R07.89 Other chest pain (principal); Z20.822 Contact with and (suspected) exposure to COVID-19; E11.22 Type 2 diabetes mellitus with diabetic chronic kidney disease; E78.5 Hyperlipidemia, unspecified; E87.5 Hyperkalemia; I12.9 Hypertensive chronic kidney disease with stage 1 through stage 4 chronic kidney disease, or unspecified chronic kidney disease; N18.6 End stage renal disease; I21.A1 Myocardial infarction type 2; I35.8 Other nonrheumatic aortic valve disorders; I45.10 Unspecified right bundle-branch block; J45.909 Unspecified asthma, uncomplicated; Z91.14 Patient's other noncompliance with medication regimen; Z79.899 Other long term (current) drug therapy; Z91.15 Patient's noncompliance with renal dialysis; Z91.19 Patient's noncompliance with other medical treatment and regimen; Z99.2 Dependence on renal dialysis
CPT/HCPCS: 36415 ×2; 71045; 80053 ×2; 80061; 82550 ×5; 82948 ×9; 83735; 83874 ×3; 83880; 84100; 84484 ×5; 85025 ×2; 85378; 93005 ×2; 93880; 96374; 96376 ×2; 99285; G0378 ×58; S0028 ×4; 90935; J3490

== ENCOUNTER 2021-06-05 17:16 | Emergency (ER) | payer MEDICAID ==
[~2021-06-05] VITALS: Ht 165.1 cm; Wt 103.0 kg
[~2021-06-05 17:16] MED LIST changes: +ASPI-1005 PO; +Folic Acid/Vitamin B Comp W-C PO
[2021-06-05 17:18] VITALS: BP 168/81
[2021-06-05 18:28] LABS: BASOPHILS % (AUTO) 0.2 % (0.0-5.0); EOSINOPHILS % (AUTO) 2.1 % (0.0-8.0); HEMATOCRIT 31.8 % (36-48); LYMPHOCYTES % (AUTO) 16.5 % (21.0-51.0); MEAN CORPUSCULAR HEMOGLOBIN 31.4 pg (27.0-33.0); MEAN CORPUSCULAR HGB CONC 31.1 g/dL (32.0-36.0); MONOCYTES % (AUTO) 7.4 % (3.0-13.0); NEUTROPHILS % (AUTO) 73.4 % (40.0-77.0); PLATELET COUNT (AUTO) 172 K/uL (130-400); RED BLOOD CELL COUNT(AUTO) 3.15 MIL/uL (4.00-5.50); RED CELL DISTRIBUTION WIDTH 16.1 % (11.0-15.5); WHITE BLOOD COUNT (AUTO) 5.7 K/uL (4.8-10.8)
[2021-06-05] MEDS ORDERED: 0.9% NACL 500ML IV.SOLN 500 ML IV ONE (18:30)
[2021-06-05 19:00] LABS: POTASSIUM 4.5 mmol/L (3.5-5.1)
[2021-06-05 19:08] LABS: ALBUMIN 3.6 g/dL (3.5-5.0); BILIRUBIN,TOTAL 0.6 mg/dL (0.2-1.0); TOTAL PROTEIN, SERUM 8.3 g/dL (6.0-8.3)
== END 2021-06-05 21:47 | disposition home or self-care (01) ==
LOC: EDH 17:16
DX: R42 Dizziness and giddiness (principal); I12.0 Hypertensive chronic kidney disease with stage 5 chronic kidney disease or end stage renal disease; E11.22 Type 2 diabetes mellitus with diabetic chronic kidney disease; J45.909 Unspecified asthma, uncomplicated; E78.5 Hyperlipidemia, unspecified; N18.6 End stage renal disease; Z79.52 Long term (current) use of systemic steroids; Z79.82 Long term (current) use of aspirin; Z79.899 Other long term (current) drug therapy; Z99.2 Dependence on renal dialysis
CPT/HCPCS: 36415; 70450; 80053; 84703; 85025; 93005

== ENCOUNTER 2021-07-07 18:55 | Emergency (ER) | payer MEDICAID ==
[2021-07-07 19:16] LABS: BASOPHILS % (AUTO) 0.8 % (0.0-5.0); EOSINOPHILS % (AUTO) 1.8 % (0.0-8.0); HEMATOCRIT 33.9 % (36-48); LYMPHOCYTES % (AUTO) 13.8 % (21.0-51.0); MEAN CORPUSCULAR HEMOGLOBIN 32.7 pg (27.0-33.0); MEAN CORPUSCULAR HGB CONC 31.6 g/dL (32.0-36.0); MEAN CORPUSCULAR VOLUME 103.7 fL (79-99); MONOCYTES % (AUTO) 5.2 % (3.0-13.0); NEUTROPHILS % (AUTO) 78.1 % (40.0-77.0); PLATELET COUNT (AUTO) 206 K/uL (130-400); RED BLOOD CELL COUNT(AUTO) 3.27 MIL/uL (4.00-5.50); RED CELL DISTRIBUTION WIDTH 15.3 % (11.0-15.5); WHITE BLOOD COUNT (AUTO) 7.3 K/uL (4.8-10.8)
[2021-07-07 19:40] LABS: ALBUMIN 3.5 g/dL (3.5-5.0); BILIRUBIN,TOTAL 0.6 mg/dL (0.2-1.0); TOTAL PROTEIN, SERUM 8.2 g/dL (6.0-8.3)
[2021-07-07 19:41] LABS: CREATININE 9.5 mg/dL (0.5-1.5)
[2021-07-07] MEDS ORDERED: ALBUTEROL 0.083% 2.5 MG/3 ML INH IH ONE (20:28)
[2021-07-07] MEDS ORDERED: INSULIN HUMULIN R 100 UNIT/ML 3ML IV ONE (20:30)
[2021-07-07] MEDS ORDERED: DEXTROSE 50%-WATER 50 ML DISP.SYRIN IV ONE (20:30)
[2021-07-07] MEDS ORDERED: CALCIUM GLUC 1GM 1 GM in 0.9%NACL 100ML 100 ML IV ONE (21:00)
[2021-07-07] MEDS ORDERED: KAYEXALATE 15GM/60ML PO ONE (21:30)
[2021-07-07 23:10] VITALS: BP 146/79
[2021-07-08] MEDS ORDERED: ALBUTEROL 0.083% 2.5 MG/3 ML INH IH SCH
== END 2021-07-07 23:23 | disposition home or self-care (01) ==
LOC: EDH 18:55
DX: E87.5 Hyperkalemia (principal); I12.0 Hypertensive chronic kidney disease with stage 5 chronic kidney disease or end stage renal disease; E11.22 Type 2 diabetes mellitus with diabetic chronic kidney disease; N18.6 End stage renal disease; E78.00 Pure hypercholesterolemia, unspecified; Z99.2 Dependence on renal dialysis; Z79.899 Other long term (current) drug therapy; Z79.82 Long term (current) use of aspirin; Z98.890 Other specified postprocedural states
CPT/HCPCS: 36415; 71045; 80053; 83880; 84132; 84484 ×2; 84703; 85025; 93005; 94640; 96365; 96375; 99285; J0610; J1815; J7070

== ENCOUNTER 2021-09-15 14:48 | Emergency (ER) | payer MEDICAID ==
[~2021-09-15] VITALS: Ht 165.1 cm; Wt 94.8 kg
[2021-09-15 15:49] LABS: BASOPHILS % (AUTO) 0.9 % (0.0-5.0); EOSINOPHILS % (AUTO) 2.9 % (0.0-8.0); HEMATOCRIT 36.3 % (36-48); LYMPHOCYTES % (AUTO) 25.4 % (21.0-51.0); MEAN CORPUSCULAR HEMOGLOBIN 32.9 pg (27.0-33.0); MEAN CORPUSCULAR HGB CONC 30.9 g/dL (32.0-36.0); MEAN CORPUSCULAR VOLUME 106.8 fL (79-99); MONOCYTES % (AUTO) 8.8 % (3.0-13.0); NEUTROPHILS % (AUTO) 61.6 % (40.0-77.0); NUCLEATED RED BLOOD CELLS 0.4 % (0.0-0.19); PLATELET COUNT (AUTO) 147 K/uL (130-400); RED CELL DISTRIBUTION WIDTH 14.7 % (11.0-15.5); WHITE BLOOD COUNT (AUTO) 5.6 K/uL (4.8-10.8)
[2021-09-15] MEDS ORDERED: 0.9%NACL 1000ML 1,000 ML IV ONE (16:00)
[2021-09-15 16:05] LABS: ALBUMIN 3.7 g/dL (3.5-5.0); BILIRUBIN,TOTAL 0.6 mg/dL (0.2-1.0); POTASSIUM 4.6 mmol/L (3.5-5.1)
[2021-09-15 16:11] LABS: CREATININE 9.8 mg/dL (0.5-1.5)
[2021-09-15 19:10] VITALS: BP 167/77
== END 2021-09-15 19:10 | disposition home or self-care (01) ==
LOC: EDH 14:48
DX: R42 Dizziness and giddiness (principal); I12.0 Hypertensive chronic kidney disease with stage 5 chronic kidney disease or end stage renal disease; E11.22 Type 2 diabetes mellitus with diabetic chronic kidney disease; N18.6 End stage renal disease; Z99.2 Dependence on renal dialysis; Z79.899 Other long term (current) drug therapy; Z79.82 Long term (current) use of aspirin; Z98.890 Other specified postprocedural states
CPT/HCPCS: 36415; 70450; 80053; 82550; 84484; 84702; 85025; 93005

== ENCOUNTER 2021-09-28 06:16 | Emergency (ER) | payer MEDICAID ==
[~2021-09-28] VITALS: Ht 165.1 cm; Wt 100.2 kg
[2021-09-28 07:03] LABS: BASOPHILS % (AUTO) 0.9 % (0.0-5.0); EOSINOPHILS % (AUTO) 3.2 % (0.0-8.0); HEMATOCRIT 35.4 % (36-48); LYMPHOCYTES % (AUTO) 25.1 % (21.0-51.0); MEAN CORPUSCULAR HEMOGLOBIN 33.4 pg (27.0-33.0); MEAN CORPUSCULAR HGB CONC 31.9 g/dL (32.0-36.0); MEAN CORPUSCULAR VOLUME 104.7 fL (79-99); MONOCYTES % (AUTO) 8.3 % (3.0-13.0); NEUTROPHILS % (AUTO) 62.3 % (40.0-77.0); PLATELET COUNT (AUTO) 169 K/uL (130-400); RED BLOOD CELL COUNT(AUTO) 3.38 MIL/uL (4.00-5.50); RED CELL DISTRIBUTION WIDTH 14.8 % (11.0-15.5); WHITE BLOOD COUNT (AUTO) 5.3 K/uL (4.8-10.8)
[2021-09-28 07:19] LABS: ALBUMIN 3.6 g/dL (3.5-5.0); POTASSIUM 5.2 mmol/L (3.5-5.1)
[2021-09-28 07:23] LABS: BILIRUBIN,TOTAL 0.6 mg/dL (0.2-1.0); TOTAL PROTEIN, SERUM 8.1 g/dL (6.0-8.3)
[2021-09-28 07:38] LABS: CREATININE 9.6 mg/dL (0.5-1.5)
[2021-09-28 07:47] VITALS: BP 129/76
[2021-09-28] MEDS ORDERED: MAG/ALUM/SIMETH 30 ML UDCUP PO ONE (08:00)
[2021-09-28] MEDS ORDERED: LIDOCAINE HCL 2% VISCOUS 15 ML UDCUP PO ONE (08:00)
[2021-09-28] MEDS ORDERED: LIDO20SO MM (08:25)
[2021-09-29] MEDS ORDERED: GABA-529 PO (04:25)
== END 2021-09-28 08:28 | disposition home or self-care (01) ==
LOC: EDH 06:16
DX: K29.70 Gastritis, unspecified, without bleeding (principal); E11.9 Type 2 diabetes mellitus without complications; E78.00 Pure hypercholesterolemia, unspecified; I10 Essential (primary) hypertension; Z79.899 Other long term (current) drug therapy; Z79.82 Long term (current) use of aspirin
CPT/HCPCS: 36415; 80053; 83690; 85025

== ENCOUNTER 2021-09-29 02:23 | Emergency (ER) | payer MEDICAID ==
[~2021-09-29] VITALS: Ht 165.1 cm; Wt 100.7 kg
[~2021-09-29 02:23] MED LIST changes: +LIDO20SO MM
[2021-09-29] MEDS ORDERED: GABA-529 PO (04:25)
[2021-09-29 04:30] VITALS: BP 148/76
== END 2021-09-29 04:35 | disposition home or self-care (01) ==
LOC: EDH 02:23
DX: E11.40 Type 2 diabetes mellitus with diabetic neuropathy, unspecified (principal); I12.0 Hypertensive chronic kidney disease with stage 5 chronic kidney disease or end stage renal disease; E11.22 Type 2 diabetes mellitus with diabetic chronic kidney disease; N18.6 End stage renal disease; E78.00 Pure hypercholesterolemia, unspecified; Z79.52 Long term (current) use of systemic steroids; Z79.82 Long term (current) use of aspirin; Z79.899 Other long term (current) drug therapy; Z99.2 Dependence on renal dialysis

== ENCOUNTER 2021-10-25 04:59 | Emergency (ER) | payer MEDICAID ==
[~2021-10-25] VITALS: Ht 167.6 cm; Wt 97.5 kg
[~2021-10-25 04:59] MED LIST changes: +GABA-529 PO
[2021-10-25 07:30] VITALS: BP 140/70
== END 2021-10-25 09:05 | disposition home or self-care (01) ==
LOC: EDH 04:59
DX: M25.522 Pain in left elbow (principal); Z53.21 Procedure and treatment not carried out due to patient leaving prior to being seen by health care provider

== ENCOUNTER 2021-12-23 04:18 | Emergency (ER) | payer MEDICAID ==
[2021-12-23 04:35] LABS: BASOPHILS % (AUTO) 0.6 % (0.0-5.0); HEMATOCRIT 33.9 % (36-48); LYMPHOCYTES % (AUTO) 19.9 % (21.0-51.0); MEAN CORPUSCULAR HEMOGLOBIN 34.3 pg (27.0-33.0); MEAN CORPUSCULAR HGB CONC 33.6 g/dL (32.0-36.0); MEAN CORPUSCULAR VOLUME 102.1 fL (79-99); NEUTROPHILS % (AUTO) 70.3 % (40.0-77.0); PLATELET COUNT (AUTO) 164 K/uL (130-400); RED BLOOD CELL COUNT(AUTO) 3.32 MIL/uL (4.00-5.50); RED CELL DISTRIBUTION WIDTH 13.3 % (11.0-15.5); WHITE BLOOD COUNT (AUTO) 6.5 K/uL (4.8-10.8)
[2021-12-23 04:51] LABS: ALBUMIN 3.8 g/dL (3.5-5.0); POTASSIUM 4.8 mmol/L (3.5-5.1); TOTAL PROTEIN, SERUM 8.6 g/dL (6.0-8.3)
[2021-12-23 04:55] LABS: CREATININE 10.9 mg/dL (0.5-1.5)
[2021-12-23] MEDS ORDERED: SUCRALFATE 1 GM TABLET ONE (05:08)
[2021-12-23] MEDS ORDERED: SUCRALFATE 1 GM TABLET PO SCH (05:30)
[2021-12-23] MEDS ORDERED: OMEP20CA12 PO (06:59)
[2021-12-23 07:07] VITALS: BP 164/89
== END 2021-12-23 07:21 | disposition home or self-care (01) ==
LOC: EDH 04:18
DX: K20.90 Esophagitis, unspecified without bleeding (principal); R07.89 Other chest pain; I12.0 Hypertensive chronic kidney disease with stage 5 chronic kidney disease or end stage renal disease; E11.22 Type 2 diabetes mellitus with diabetic chronic kidney disease; N18.6 End stage renal disease; Z79.52 Long term (current) use of systemic steroids; Z79.82 Long term (current) use of aspirin; Z79.899 Other long term (current) drug therapy
CPT/HCPCS: 36415; 71045; 80053; 84484; 84703; 85025; 93005

== ENCOUNTER 2021-12-29 02:09 | Emergency (ER) | payer MEDICAID ==
[~2021-12-29] VITALS: Ht 170.2 cm; Wt 100.7 kg
[~2021-12-29 02:09] MED LIST changes: +OMEP20CA12 PO
[2021-12-29] MEDS ORDERED: IBUPROFEN 800 MG TAB PO ONE (02:30)
[2021-12-29 02:53] VITALS: BP 175/80
[2021-12-29] MEDS ORDERED: IBUP-2071 PO (03:10)
== END 2021-12-29 03:15 | disposition home or self-care (01) ==
LOC: EDH 02:09
DX: M79.10 Myalgia, unspecified site (principal); R51.9 Headache, unspecified; Z20.822 Contact with and (suspected) exposure to COVID-19; I12.0 Hypertensive chronic kidney disease with stage 5 chronic kidney disease or end stage renal disease; E11.22 Type 2 diabetes mellitus with diabetic chronic kidney disease; N18.6 End stage renal disease; Z99.2 Dependence on renal dialysis; E78.00 Pure hypercholesterolemia, unspecified; Z79.899 Other long term (current) drug therapy; Z79.82 Long term (current) use of aspirin
CPT/HCPCS: 99283; 87635; 87804 ×2; C9803

== ENCOUNTER 2022-01-14 01:52 | Emergency (ER) | payer MEDICAID ==
[~2022-01-14] VITALS: Ht 170.2 cm; Wt 97.5 kg
[~2022-01-14 01:52] MED LIST changes: +IBUP-2071 PO
[2022-01-14 01:53] VITALS: BP 152/76
[2022-01-14] MEDS ORDERED: ALBU8.5H8 IH (04:09)
[2022-01-14] MEDS ORDERED: PRED20TA3 PO (04:09)
[2022-01-14 04:58] LABS: BASOPHILS % (AUTO) 0.7 % (0.0-5.0); EOSINOPHILS % (AUTO) 3.2 % (0.0-8.0); HEMATOCRIT 34.4 % (36-48); LYMPHOCYTES % (AUTO) 16.7 % (21.0-51.0); MEAN CORPUSCULAR HEMOGLOBIN 33.8 pg (27.0-33.0); MEAN CORPUSCULAR HGB CONC 33.4 g/dL (32.0-36.0); MEAN CORPUSCULAR VOLUME 101.2 fL (79-99); MONOCYTES % (AUTO) 7.7 % (3.0-13.0); NEUTROPHILS % (AUTO) 71.2 % (40.0-77.0); PLATELET COUNT (AUTO) 147 K/uL (130-400); RED CELL DISTRIBUTION WIDTH 13.8 % (11.0-15.5)
== END 2022-01-14 05:05 | disposition home or self-care (01) ==
LOC: EDH 01:52
DX: U07.1 COVID-19 (principal); I12.0 Hypertensive chronic kidney disease with stage 5 chronic kidney disease or end stage renal disease; E11.22 Type 2 diabetes mellitus with diabetic chronic kidney disease; N18.6 End stage renal disease; M79.18 Myalgia, other site; Z99.2 Dependence on renal dialysis; Z98.890 Other specified postprocedural states; Z79.899 Other long term (current) drug therapy; Z79.82 Long term (current) use of aspirin
CPT/HCPCS: 99285; 71045; 87635; 85025; 36415; 93005; C9803

== ENCOUNTER 2022-02-01 10:15 | Emergency (ER) | payer MEDICAID ==
[~2022-02-01] VITALS: Ht 165.1 cm; Wt 90.7 kg
[~2022-02-01 10:15] MED LIST changes: +ALBU8.5H8 IH; +PRED20TA3 PO
[2022-02-01 10:42] LABS: BASOPHILS % (AUTO) 0.6 % (0.0-5.0); EOSINOPHILS % (AUTO) 2.8 % (0.0-8.0); HEMATOCRIT 34.7 % (36-48); LYMPHOCYTES % (AUTO) 19.7 % (21.0-51.0); MEAN CORPUSCULAR HEMOGLOBIN 33.7 pg (27.0-33.0); MEAN CORPUSCULAR VOLUME 105.5 fL (79-99); MONOCYTES % (AUTO) 6.6 % (3.0-13.0); NEUTROPHILS % (AUTO) 70.1 % (40.0-77.0); PLATELET COUNT (AUTO) 120 K/uL (130-400); RED BLOOD CELL COUNT(AUTO) 3.29 MIL/uL (4.00-5.50)
[2022-02-01 10:44] VITALS: BP 169/81
[2022-02-01 10:55] LABS: CREATININE 6.3 mg/dL (0.5-1.5); POTASSIUM 4.6 mmol/L (3.5-5.1)
[2022-02-01 11:00] LABS: ALBUMIN 3.6 g/dL (3.5-5.0); TOTAL PROTEIN, SERUM 8.6 g/dL (6.0-8.3)
[2022-02-01] MEDS ORDERED: MECLIZINE HCL 25 MG TABLET PO ONE (12:00)
[2022-02-01] MEDS ORDERED: MECL-226 PO (12:06)
== END 2022-02-01 12:27 | disposition home or self-care (01) ==
LOC: EDH 10:15
DX: H81.10 Benign paroxysmal vertigo, unspecified ear (principal); Z20.822 Contact with and (suspected) exposure to COVID-19; E78.00 Pure hypercholesterolemia, unspecified; I10 Essential (primary) hypertension; E11.22 Type 2 diabetes mellitus with diabetic chronic kidney disease
CPT/HCPCS: 99283; 87635; 80053; 85025; 87804 ×2; 36415; C9803

== ENCOUNTER 2022-06-25 01:52 | Emergency (ER) | payer MEDICAID ==
[~2022-06-25] VITALS: Ht 165.1 cm; Wt 95.3 kg
[~2022-06-25 01:52] MED LIST changes: +MECL-226 PO
[2022-06-25 02:52] LABS: BASOPHILS % (AUTO) 0.5 % (0.0-5.0); EOSINOPHILS % (AUTO) 1.1 % (0.0-8.0); LYMPHOCYTES % (AUTO) 18.1 % (21.0-51.0); MEAN CORPUSCULAR HEMOGLOBIN 33.8 pg (27.0-33.0); MEAN CORPUSCULAR VOLUME 105.7 fL (79-99); MONOCYTES % (AUTO) 5.6 % (3.0-13.0); NEUTROPHILS % (AUTO) 74.2 % (40.0-77.0); PLATELET COUNT (AUTO) 166 K/uL (130-400); RED BLOOD CELL COUNT(AUTO) 3.31 MIL/uL (4.00-5.50); RED CELL DISTRIBUTION WIDTH 15.3 % (11.0-15.5); WHITE BLOOD COUNT (AUTO) 7.3 K/uL (4.8-10.8)
[2022-06-25 03:03] LABS: CREATININE 7.3 mg/dL (0.5-1.5); POTASSIUM 5.6 mmol/L (3.5-5.1)
[2022-06-25 03:07] LABS: ALBUMIN 3.7 g/dL (3.5-5.0); TOTAL PROTEIN, SERUM 8.5 g/dL (6.0-8.3)
[2022-06-25] MEDS ORDERED: ACET-2079 PO (04:53)
[2022-06-25] MEDS ORDERED: ACETAMINOPHEN WITH CODEINE 1 TAB TAB PO ONE (05:00)
[2022-06-25 05:39] VITALS: BP 138/66
== END 2022-06-25 05:50 | disposition home or self-care (01) ==
LOC: EDH 01:52
DX: R10.30 Lower abdominal pain, unspecified (principal); E11.22 Type 2 diabetes mellitus with diabetic chronic kidney disease; I12.0 Hypertensive chronic kidney disease with stage 5 chronic kidney disease or end stage renal disease; N18.6 End stage renal disease; Z79.899 Other long term (current) drug therapy
CPT/HCPCS: 36415; 74176; 80053; 83690; 84703; 85025

== ENCOUNTER 2023-02-26 01:43 | Emergency (ER) | payer MEDICAID ==
[~2023-02-26] VITALS: Ht 165.1 cm; Wt 97.1 kg
[~2023-02-26 01:43] MED LIST changes: +ACET-2079 PO
[2023-02-26 01:45] VITALS: BP 143/87; PULSE 53; RESP 20
[2023-02-26] MEDS ORDERED: HYDROXYZINE 25 MG TABLET PO ONE (02:30)
[2023-02-26] MEDS ORDERED: ACETAMINOPHEN 500 MG TABLET PO ONE (02:30)
[2023-02-26] MEDS ORDERED: MELO-106 PO (03:05)
[2023-02-26] MEDS ORDERED: HYDR50CA50 PO (03:05)
== END 2023-02-26 03:09 | disposition home or self-care (01) ==
LOC: EDH 01:43
DX: M25.50 Pain in unspecified joint (principal); F41.9 Anxiety disorder, unspecified; G47.00 Insomnia, unspecified; I12.0 Hypertensive chronic kidney disease with stage 5 chronic kidney disease or end stage renal disease; E11.22 Type 2 diabetes mellitus with diabetic chronic kidney disease; N18.5 Chronic kidney disease, stage 5; Z99.2 Dependence on renal dialysis; Z79.52 Long term (current) use of systemic steroids; Z79.82 Long term (current) use of aspirin; Z79.899 Other long term (current) drug therapy

== ENCOUNTER 2023-05-22 12:18 | Observation (INO) | payer MEDICAID ==
[~2023-05-22] VITALS: Ht 165.1 cm; Wt 100.7 kg
[~2023-05-22 12:18] MED LIST changes: -ACET-2079 PO; -ALBU8.5H8 IH; -AMLO5TAB4 PO; -ASPI-1005 PO; +CINA30TA5 PO; -DEXA6TAB PO; +FAMO20TA8 PO; -Folic Acid/Vitamin B Comp W-C PO; -GABA-529 PO; -HYDR25 PO; +HYDR50CA50 PO; -IBUP-2071 PO; -LIDO20SO MM; -MECL-226 PO; +METO25TA3 PO; -METO50TA9 PO; -OMEP20CA12 PO; -PANT40TA PO; -PRED20TA3 PO; +ROPI0.5T37 PO
[2023-05-22] MEDS: MORPHINE 2 MG SYG IVP ONE (12:51)
[2023-05-22] MEDS: ONDANSETRON 4MG INJ IVP ONE (12:51)
[2023-05-22 12:53] LABS: BASOPHILS # (AUTO) 0.04 K/uL (0.00-0.20); EOSINOPHILS # (AUTO) 0.09 K/uL (0.00-0.70); EOSINOPHILS % (AUTO) 2.3 % (0.0-8.0); HEMATOCRIT 27.2 % (36-48); IMMATURE GRANULOCYTE ABSOLUTE 0.01 K/uL (0-1); LYMPHOCYTES # (AUTO) 1.7 K/uL (1.0-4.8); LYMPHOCYTES % (AUTO) 41.5 % (21.0-51.0); MEAN CORPUSCULAR HEMOGLOBIN 33.1 pg (27.0-33.0); MEAN CORPUSCULAR HGB CONC 33.8 g/dL (32.0-36.0); MEAN CORPUSCULAR VOLUME 97.8 fL (79-99); MONOCYTES # (AUTO) 0.4 K/uL (0.1-1.0); NEUTROPHILS # (AUTO) 1.8 K/uL (1.8-7.7); NEUTROPHILS % (AUTO) 45.9 % (40.0-77.0); PLATELET COUNT (AUTO) 137 K/uL (130-400); RED BLOOD CELL COUNT(AUTO) 2.78 MIL/uL (4.00-5.50); RED CELL DISTRIBUTION WIDTH 17.3 % (11.0-15.5)
[2023-05-22 13:14] LABS: ALBUMIN 2.9 g/dL (3.5-5.0); CREATININE 4.8 mg/dL (0.5-1.5); POTASSIUM 3.7 mmol/L (3.5-5.1); TOTAL PROTEIN, SERUM 7.5 g/dL (6.0-8.3)
[2023-05-22 14:22] LABS: COVID19 (SARS ANTIGEN RAPID) PRESUMPTIVE NEGATIVE (NEGATIVE)
[2023-05-22 14:24] LABS: INFLUENZA TYPE A Negative For Type A (NEGATIVE); INFLUENZA TYPE B Negative For Type B (NEGATIVE)
[2023-05-22] MEDS: HYDROMORPHONE 0.5 MG SYG (0.5MG/0.5ML) IVP PRN (15:48)
[2023-05-22] MEDS: CEFTRIAXONE 2GM VIAL IVPB SCH (15:49)
[2023-05-22 16:10] LABS: INR 1.07 (0.85-1.15); PROTHROMBIN TIME 12.4 SEC (9.6-11.6)
[2023-05-22 16:20] LABS: THYROID STIMULATING HORMONE 4.48 uIU/mL (0.36-3.74)
[2023-05-22 17:15] VITALS: BP 116/75; PULSE 58; RESP 20; O2SAT 99
[2023-05-22 18:00] VITALS: O2SAT 99
[2023-05-22] MEDS ORDERED: HYDRALAZINE 20MG/ML VIAL IV PRN (19:00)
[2023-05-22 19:48] VITALS: O2SAT 99
[2023-05-22 19:52] VITALS: BP 139/73; PULSE 63; RESP 18
[2023-05-22] MEDS: FAMOTIDINE 20MG VIAL IV SCH (20:35)
[2023-05-22] MEDS: HEPARIN 5,000 UNIT VIAL SQ SCH (20:37)
[2023-05-22] MEDS ORDERED: IBUPROFEN 600 MG TABLET PO SCH (21:00)
[2023-05-22] MEDS ORDERED: IBUPROFEN 600 MG TABLET PO PRN (21:00)
[2023-05-23] VITALS (14 sets, daily range): BP systolic 122–163; BP diastolic 65–91; PULSE 64–71; RESP 18–20; O2SAT 99
[2023-05-23 05:55] LABS: BASOPHILS # (AUTO) 0.05 K/uL (0.00-0.20); BASOPHILS % (AUTO) 1.1 % (0.0-5.0); EOSINOPHILS # (AUTO) 0.08 K/uL (0.00-0.70); EOSINOPHILS % (AUTO) 1.8 % (0.0-8.0); HEMATOCRIT 27.8 % (36-48); IMMATURE GRANULOCYTE ABSOLUTE 0.01 K/uL (0-1); LYMPHOCYTES # (AUTO) 2.1 K/uL (1.0-4.8); LYMPHOCYTES % (AUTO) 45.7 % (21.0-51.0); MEAN CORPUSCULAR HGB CONC 33.5 g/dL (32.0-36.0); MEAN CORPUSCULAR VOLUME 98.6 fL (79-99); MONOCYTES # (AUTO) 0.4 K/uL (0.1-1.0); MONOCYTES % (AUTO) 8.8 % (3.0-13.0); NEUTROPHILS # (AUTO) 1.9 K/uL (1.8-7.7); NEUTROPHILS % (AUTO) 42.4 % (40.0-77.0); PLATELET COUNT (AUTO) 134 K/uL (130-400); RED BLOOD CELL COUNT(AUTO) 2.82 MIL/uL (4.00-5.50); RED CELL DISTRIBUTION WIDTH 17.6 % (11.0-15.5); WHITE BLOOD COUNT (AUTO) 4.6 K/uL (4.8-10.8)
[2023-05-23 06:05] LABS: CREATININE 5.7 mg/dL (0.5-1.5); POTASSIUM 4.3 mmol/L (3.5-5.1)
[2023-05-23 07:20] LABS: ABG BASE EXCESS -0.7 mmol/L (-2.0-3.0); ABG HCO3 23.1 mmol/L (21.0-28.0); ABG OXYGEN SATURATION 86.1 % (95.0-99.0); ABG PCO2 36 mmHg (32-45); ABG PH 7.426 (7.35-7.450); DEVICE COMMENT RR RN; PO2, ARTERIAL BG 49.4 mmHg (83.0-108.0); VENT MODE, BG RA (ROOM AIR)
[2023-05-23] MEDS ORDERED: VANCOMYCIN 750MG VIAL IVPB SCH (12:00)
[2023-05-23] MEDS ORDERED: VANCOMYCIN PROTOCOL PER PHARMACY IV SCH (12:00)
[2023-05-23] MEDS ORDERED: 0.9% NACL 250ML IVPB SCH (12:00)
[2023-05-23] MEDS: PHARMACY COMMUNICATION MISC SCH (13:00)
[2023-05-23] MEDS: VANCOMYCIN 2GM/500 ML BAG 500 ML IV ONE (13:29)
[2023-05-23] MEDS: ZOSYN 3.375GM +NS 50ML IV SCH (14:53)
[2023-05-23] MEDS ORDERED: PHARMACY COMMUNICATION MISC SCH ×2 (17:00→17:30)
[2023-05-23 17:49] LABS: BODY FLUID RBC 1081 /cu. mm.; BODY FLUID WBC 1159 /cu. mm.
[2023-05-23 18:11] LABS: GLUCOSE PLEURAL FLUID 101; PROTEIN PLEURAL FLUID 4.2 mg/dL
[2023-05-23 18:14] LABS: APPEARANCE BODY FLUID SLIGHTLY CLOUDY (CLEAR); COLOR,BODY FLUID YELLOW (LT YELLOW); SPECIMENTYPE,BODY FLUID PLEURAL
[2023-05-23 18:15] LABS: PH PLEURAL FLUID 7; TOTAL VOLUME,BODY FLUID 1100 mL
[2023-05-23 18:20] LABS: BF BASOPHIL 2 %; BF EOSINOPHIL 2 %; BF LYMPHOCYTE 42 %; BF MACROPHAGE 46; BF MESOTHELIAL 2 %; BF MONOCYTE 3 %; BF TOTAL CELLS COUNTED 100
[2023-05-24 03:45] VITALS: BP 134/81; PULSE 64; RESP 18
[2023-05-24 04:04] LABS: CREATININE 7.4 mg/dL (0.5-1.5); POTASSIUM 4.3 mmol/L (3.5-5.1)
[2023-05-24] MEDS: ACETAMINOPHEN 500 MG TABLET PO PRN (06:02)
[2023-05-24 08:00] VITALS: BP 147/75; PULSE 65; RESP 18; O2SAT 96
[2023-05-24 12:00] VITALS: BP 133/71; PULSE 58; RESP 18
[2023-05-24 15:30] VITALS: BP 134/68; PULSE 67; RESP 18
[2023-05-25] MEDS ORDERED: VANCOMYCIN 1G/250ML KIT 250 ML IV SCH (16:00)
== END 2023-05-24 16:10 | disposition home or self-care (01) ==
LOC: EDH 12:18 → EDHIP 12:19 → INTOOBSV 12:19 → EDHIP 15:20 → UNDOADMIN 15:20 → 2AH 16:59
PROVIDERS: ADMIT Internal Medicine; ATTEND Internal Medicine
DX: J96.01 Acute respiratory failure with hypoxia (principal); Z20.822 Contact with and (suspected) exposure to COVID-19; M00.20 Other streptococcal arthritis, unspecified joint; B95.5 Unspecified streptococcus as the cause of diseases classified elsewhere; E87.70 Fluid overload, unspecified; J90 Pleural effusion, not elsewhere classified; J81.1 Chronic pulmonary edema; E87.1 Hypo-osmolality and hyponatremia; I13.0 Hypertensive heart and chronic kidney disease with heart failure and stage 1 through stage 4 chronic kidney disease, or unspecified chronic kidney disease; E11.22 Type 2 diabetes mellitus with diabetic chronic kidney disease; I50.30 Unspecified diastolic (congestive) heart failure; N18.6 End stage renal disease; E78.00 Pure hypercholesterolemia, unspecified; E78.5 Hyperlipidemia, unspecified; K21.9 Gastro-esophageal reflux disease without esophagitis; G89.29 Other chronic pain; J18.9 Pneumonia, unspecified organism; R94.31 Abnormal electrocardiogram [ECG] [EKG]; Z99.2 Dependence on renal dialysis; Z79.899 Other long term (current) drug therapy; W19.XXXA Unspecified fall, initial encounter; Y93.89 Activity, other specified; Y92.89 Other specified places as the place of occurrence of the external cause; Y99.8 Other external cause status
CPT/HCPCS: 99285; 96365; 96375; 71045 ×2; 87426; 84443; 82550; 84484 ×3; 80053; 80305; 84703; 85025 ×2; 85610; 85730; 85651; 87040 ×2; 87804 ×2; 86140; 36415 ×3; 73560; 93005; 84145; 96372 ×3; 93306; 96366 ×2; 71250; 96367; 96368; 82945; 83615 ×2; 84157; 84155; 80048 ×2; 83986; 82803; 89051; 87071; 87205; 87116; 87206; 36600; 96376 ×2; 82948 ×3; J2270; J0696; J2405; J1644 ×4; J1170 ×2; J2543 ×2; J3370; G0378; S0028 ×3; J3490

== ENCOUNTER 2023-07-01 19:07 | Observation (INO) | payer MEDICAID ==
[~2023-07-01] VITALS: Ht 165.1 cm; Wt 102.3 kg
[2023-07-01 19:38] VITALS: PULSE 80; RESP 16
[2023-07-01] MEDS: ALBUTEROL 0.083% 2.5 MG/3 ML INH IH ONE (19:38)
[2023-07-01 19:44] LABS: BASOPHILS # (AUTO) 0.05 K/uL (0.00-0.20); BASOPHILS % (AUTO) 0.7 % (0.0-5.0); EOSINOPHILS % (AUTO) 1.3 % (0.0-8.0); HEMATOCRIT 30.8 % (36-48); IMMATURE GRANULOCYTE ABSOLUTE 0.03 K/uL (0-1); LYMPHOCYTES # (AUTO) 2.6 K/uL (1.0-4.8); LYMPHOCYTES % (AUTO) 34.3 % (21.0-51.0); MEAN CORPUSCULAR HEMOGLOBIN 33.8 pg (27.0-33.0); MEAN CORPUSCULAR HGB CONC 31.5 g/dL (32.0-36.0); MEAN CORPUSCULAR VOLUME 107.3 fL (79-99); MONOCYTES # (AUTO) 0.5 K/uL (0.1-1.0); MONOCYTES % (AUTO) 6.2 % (3.0-13.0); NEUTROPHILS # (AUTO) 4.4 K/uL (1.8-7.7); NEUTROPHILS % (AUTO) 57.1 % (40.0-77.0); PLATELET COUNT (AUTO) 169 K/uL (130-400); RED BLOOD CELL COUNT(AUTO) 2.87 MIL/uL (4.00-5.50); RED CELL DISTRIBUTION WIDTH 16.4 % (11.0-15.5); WHITE BLOOD COUNT (AUTO) 7.6 K/uL (4.8-10.8)
[2023-07-01] MEDS: HYDROCODONE/ACETAMINOPHEN 5/325 MG TAB PO ONE (19:46)
[2023-07-01 20:11] LABS: B-TYPE NATRIURETIC PEPTIDE 1870 pg/mL (0-100)
[2023-07-01 20:13] LABS: CREATININE 4.3 mg/dL (0.5-1.5); POTASSIUM 4.7 mmol/L (3.5-5.1)
[2023-07-01 20:18] LABS: BILIRUBIN,TOTAL 0.8 mg/dL (0.2-1.0); TOTAL PROTEIN, SERUM 8.8 g/dL (6.0-8.3)
[2023-07-01] MEDS: CEFTRIAXONE 2GM VIAL IVPB ONE (21:54)
[2023-07-01] MEDS ORDERED: ACETAMINOPHEN 325 MG TAB PO PRN (22:30)
[2023-07-01] MEDS: HEPARIN 5,000 UNIT VIAL SQ SCH (22:56)
[2023-07-02] VITALS (11 sets, daily range): BP systolic 136–170; BP diastolic 71–82; PULSE 69–87; RESP 16–20; O2SAT 96–100
[2023-07-02] MEDS ORDERED: POTASSIUM CHLORIDE 10% ELIXIR 20 MEQ/15 ML UDCUP PO PRN (01:30)
[2023-07-02] MEDS ORDERED: MAGNESIUM 2GM PREMIX 50ML 50 ML IV PRN (01:30)
[2023-07-02] MEDS ORDERED: POTASSIUM CHLORIDE 10MEQ/100ML 100 ML IV PRN (01:30)
[2023-07-02] MEDS ORDERED: KCL 20 MEQ ERTAB PO PRN (01:30)
[2023-07-02 05:26] LABS: BASOPHILS # (AUTO) 0.04 K/uL (0.00-0.20); BASOPHILS % (AUTO) 0.5 % (0.0-5.0); EOSINOPHILS # (AUTO) 0.07 K/uL (0.00-0.70); EOSINOPHILS % (AUTO) 0.9 % (0.0-8.0); HEMATOCRIT 28.8 % (36-48); IMMATURE GRANULOCYTE ABSOLUTE 0.02 K/uL (0-1); LYMPHOCYTES # (AUTO) 2.3 K/uL (1.0-4.8); LYMPHOCYTES % (AUTO) 29.1 % (21.0-51.0); MEAN CORPUSCULAR HEMOGLOBIN 33.3 pg (27.0-33.0); MEAN CORPUSCULAR HGB CONC 30.9 g/dL (32.0-36.0); MEAN CORPUSCULAR VOLUME 107.9 fL (79-99); MONOCYTES # (AUTO) 0.7 K/uL (0.1-1.0); MONOCYTES % (AUTO) 8.8 % (3.0-13.0); NEUTROPHILS # (AUTO) 4.7 K/uL (1.8-7.7); NEUTROPHILS % (AUTO) 60.4 % (40.0-77.0); PLATELET COUNT (AUTO) 159 K/uL (130-400); RED BLOOD CELL COUNT(AUTO) 2.67 MIL/uL (4.00-5.50); RED CELL DISTRIBUTION WIDTH 16.7 % (11.0-15.5); WHITE BLOOD COUNT (AUTO) 7.7 K/uL (4.8-10.8)
[2023-07-02 05:38] LABS: ALBUMIN 2.7 g/dL (3.5-5.0); BILIRUBIN,TOTAL 0.9 mg/dL (0.2-1.0); CREATININE 4.9 mg/dL (0.5-1.5); POTASSIUM 4.9 mmol/L (3.5-5.1); TOTAL PROTEIN, SERUM 8.4 g/dL (6.0-8.3)
[2023-07-02] MEDS: METOPROLOL TARTRATE 25 MG TAB PO SCH (09:12)
[2023-07-02] MEDS: FAMOTIDINE 20MG TAB PO SCH (09:12)
[2023-07-02] MEDS: ACETAMINOPHEN 325 MG TAB PO PRN (09:19)
[2023-07-02] MEDS ORDERED: ACETAMINOPHEN 500 MG TABLET PO PRN (11:30)
[2023-07-02] MEDS: DOXYCYCLINE 100MG+NS 250ML 250 ML IV SCH (11:42)
[2023-07-02] MEDS: IPRATROPIUM/ALBUTEROL SULFATE 3 ML SOLUTION IH ONE ×2 (13:18→13:27)
[2023-07-02] MEDS: SODIUM CHLORIDE 3% FOR INHALATION 4 ML/AMP VIAL.NEB IH ONE ×2 (13:49→21:09)
[2023-07-02] MEDS: IPRATROPIUM/ALBUTEROL SULFATE 3 ML SOLUTION IH SCH (13:49)
[2023-07-02] MEDS ORDERED: VANCOMYCIN PROTOCOL PER PHARMACY IV SCH (15:30)
[2023-07-02] MEDS: ZOSYN 3.375GM +NS 50ML IV SCH (16:50)
[2023-07-02] MEDS: SEVELAMER HCL 800 MG TABLET PO SCH (17:00)
[2023-07-02] MEDS: VANCOMYCIN 1.75 GM/250 ML BAG 250 ML IV ONE (20:54)
[2023-07-02] MEDS ORDERED: PHARMACY COMMUNICATION MISC SCH (21:00)
[2023-07-02] MEDS ORDERED: CEFTRIAXONE 1G VIAL IVPB SCH (22:30)
[2023-07-03] VITALS (21 sets, daily range): BP systolic 122–162; BP diastolic 52–79; PULSE 67–84; RESP 16–20; TEMP 97.7–98; O2SAT 95–96
[2023-07-03] MEDS ORDERED: SEVE800T27 PO (03:40)
[2023-07-03] MEDS ORDERED: MELO-106 PO (03:40)
[2023-07-03] MEDS ORDERED: ROPI0.5T37 PO (03:40)
[2023-07-03] MEDS ORDERED: HYDR-4030 PO (03:40)
[2023-07-03 04:39] LABS: BASOPHILS # (AUTO) 0.06 K/uL (0.00-0.20); BASOPHILS % (AUTO) 0.9 % (0.0-5.0); EOSINOPHILS # (AUTO) 0.19 K/uL (0.00-0.70); EOSINOPHILS % (AUTO) 2.9 % (0.0-8.0); HEMATOCRIT 30.5 % (36-48); IMMATURE GRANULOCYTE ABSOLUTE 0.01 K/uL (0-1); LYMPHOCYTES # (AUTO) 2.5 K/uL (1.0-4.8); LYMPHOCYTES % (AUTO) 37.3 % (21.0-51.0); MEAN CORPUSCULAR HEMOGLOBIN 33.6 pg (27.0-33.0); MEAN CORPUSCULAR HGB CONC 31.5 g/dL (32.0-36.0); MEAN CORPUSCULAR VOLUME 106.6 fL (79-99); MONOCYTES # (AUTO) 0.7 K/uL (0.1-1.0); NEUTROPHILS # (AUTO) 3.2 K/uL (1.8-7.7); NEUTROPHILS % (AUTO) 48.7 % (40.0-77.0); PLATELET COUNT (AUTO) 153 K/uL (130-400); RED BLOOD CELL COUNT(AUTO) 2.86 MIL/uL (4.00-5.50); RED CELL DISTRIBUTION WIDTH 16.1 % (11.0-15.5); WHITE BLOOD COUNT (AUTO) 6.6 K/uL (4.8-10.8)
[2023-07-03 04:55] LABS: ALBUMIN 2.9 g/dL (3.5-5.0); BILIRUBIN,TOTAL 0.8 mg/dL (0.2-1.0); CREATININE 6.5 mg/dL (0.5-1.5); MAGNESIUM 2.7 mg/dL (1.80-2.40); PHOSPHORUS 6.4 mg/dL (2.5-4.9); POTASSIUM 5.1 mmol/L (3.5-5.1); TOTAL PROTEIN, SERUM 8.7 g/dL (6.0-8.3)
[2023-07-03] MEDS: HYDROXYZINE 25 MG TABLET PO PRN (06:38)
[2023-07-03] MEDS: SODIUM CHLORIDE 3% FOR INHALATION 4 ML/AMP VIAL.NEB IH ONE (07:04)
[2023-07-03] MEDS: CINACALCET 30 MG TAB PO SCH (08:49)
[2023-07-03] MEDS: METOPROLOL SUCCINATE 25 MG TAB.SR.24H PO SCH (08:49)
[2023-07-03] MEDS: SEVELAMER HCL 800 MG TABLET PO SCH (08:49)
[2023-07-03] MEDS: MELOXICAM 7.5 MG TABLET PO SCH (08:49)
[2023-07-03] MEDS ORDERED: EPOETIN ALFA-EPBX (NON-ESRD) 10,000 UNIT/ML VIAL SQ SCH (09:00)
[2023-07-03] MEDS ORDERED: KETOROLAC 15MG/ML VIAL (15MG/ML) IV STA (09:54)
[2023-07-03] MEDS ORDERED: ACETAZOLAMIDE SODIUM 500 MG VIAL IV STA (10:09)
[2023-07-03] MEDS: ACETAMINOPHEN 1,000 MG/100 ML VIAL IV ONE (10:17)
[2023-07-03] MEDS: HYDROMORPHONE 0.5 MG SYG (0.5MG/0.5ML) IVP SCH (10:58)
[2023-07-03] MEDS: ONDANSETRON 4MG INJ IVP PRN (13:19)
[2023-07-03] MEDS ORDERED: VANCOMYCIN 750MG VIAL IVPB SCH (16:00)
[2023-07-03] MEDS ORDERED: ROPINIROLE HCL 0.25 MG TABLET PO SCH (21:00)
[2023-07-05] MEDS ORDERED: EPOETIN ALFA-EPBX (NON-ESRD) 10,000 UNIT/ML VIAL SQ SCH (21:00)
== END 2023-07-03 14:45 | disposition home or self-care (01) ==
LOC: EDH 19:07 → EDHIP 22:25 → 3BH 07-02 00:22
PROVIDERS: ADMIT Internal Medicine; ATTEND Internal Medicine
DX: A41.9 Sepsis, unspecified organism (principal); R65.20 Severe sepsis without septic shock; J96.21 Acute and chronic respiratory failure with hypoxia; J15.69 Pneumonia due to other Gram-negative bacteria; L03.115 Cellulitis of right lower limb; I13.2 Hypertensive heart and chronic kidney disease with heart failure and with stage 5 chronic kidney disease, or end stage renal disease; E11.22 Type 2 diabetes mellitus with diabetic chronic kidney disease; I50.33 Acute on chronic diastolic (congestive) heart failure; N18.6 End stage renal disease; M79.661 Pain in right lower leg; D64.9 Anemia, unspecified; E78.00 Pure hypercholesterolemia, unspecified; E87.1 Hypo-osmolality and hyponatremia; E87.8 Other disorders of electrolyte and fluid balance, not elsewhere classified; F41.9 Anxiety disorder, unspecified; I44.0 Atrioventricular block, first degree; I45.10 Unspecified right bundle-branch block; E66.9 Obesity, unspecified; Z99.2 Dependence on renal dialysis; Z68.37 Body mass index [BMI] 37.0-37.9, adult; Z98.890 Other specified postprocedural states; Z79.899 Other long term (current) drug therapy
CPT/HCPCS: 96372 ×3; 96365; 99285; 84484; 80053 ×3; 83880; 85025 ×3; 85378; 87040 ×2; 83605 ×2; 36415 ×3; 71045 ×2; 93971; 93005; 94640 ×8; 94668 ×4; 96366 ×2; 96367 ×2; 82948 ×6; 78582; 36600; 96375 ×2; 80202; 83735; 84100; 90935; G0378 ×37; J0696; J1644 ×4; J2543; J3490; J3370; A9540; A9558; J2405; J1170; 94667; G0257; Q5106

== ENCOUNTER 2024-01-25 21:36 | Observation (INO) | payer MEDICAID ==
[~2024-01-25] VITALS: Ht 165.1 cm; Wt 116.1 kg
[~2024-01-25 21:36] MED LIST changes: +ACET-66 PO; -FAMO20TA8 PO; +HYDR-4030 PO; -HYDR50CA50 PO; +MELO-106 PO; +SEVE800T27 PO
[2024-01-25 22:24] LABS: BASOPHILS # (AUTO) 0.05 K/uL (0.00-0.20); BASOPHILS % (AUTO) 1.1 % (0.0-5.0); EOSINOPHILS # (AUTO) 0.12 K/uL (0.00-0.70); EOSINOPHILS % (AUTO) 2.7 % (0.0-8.0); HEMATOCRIT 33.2 % (36-48); IMMATURE GRANULOCYTE ABSOLUTE 0.02 K/uL (0-1); LYMPHOCYTES % (AUTO) 23.4 % (21.0-51.0); MEAN CORPUSCULAR HEMOGLOBIN 32.3 pg (27.0-33.0); MEAN CORPUSCULAR HGB CONC 32.2 g/dL (32.0-36.0); MEAN CORPUSCULAR VOLUME 100.3 fL (79-99); MONOCYTES # (AUTO) 0.5 K/uL (0.1-1.0); MONOCYTES % (AUTO) 10.2 % (3.0-13.0); NEUTROPHILS # (AUTO) 2.7 K/uL (1.8-7.7); NEUTROPHILS % (AUTO) 62.1 % (40.0-77.0); PLATELET COUNT (AUTO) 186 K/uL (130-400); RED BLOOD CELL COUNT(AUTO) 3.31 MIL/uL (4.00-5.50); RED CELL DISTRIBUTION WIDTH 15.3 % (11.0-15.5); WHITE BLOOD COUNT (AUTO) 4.4 K/uL (4.8-10.8)
[2024-01-25 22:28] LABS: CREATININE 5.1 mg/dL (0.5-1.0); POTASSIUM 3.7 mmol/L (3.5-5.1)
[2024-01-25] MEDS ORDERED: ROPI0.2535 PO (23:15)
[2024-01-25] MEDS ORDERED: GABA-529 PO (23:15)
[2024-01-25] MEDS: morPHINE 2 MG SYG IVP ONE (23:50)
[2024-01-26] VITALS (19 sets, daily range): BP systolic 141–179; BP diastolic 73–96; PULSE 71–77; RESP 16–22; TEMP 97–97.6; O2SAT 97–99
[2024-01-26] MEDS ORDERED: GLUCAGON 1MG KIT 1 MG ML IM PRN (01:30)
[2024-01-26] MEDS ORDERED: guaiFENesin-DM 200/20MG 10ML PO PRN (01:30)
[2024-01-26] MEDS ORDERED: DEXTROSE 50%-WATER 50 ML DISP.SYRIN IV PRN (01:30)
[2024-01-26 06:31] LABS: BASOPHILS # (AUTO) 0.05 K/uL (0.00-0.20); BASOPHILS % (AUTO) 1.2 % (0.0-5.0); EOSINOPHILS # (AUTO) 0.15 K/uL (0.00-0.70); EOSINOPHILS % (AUTO) 3.5 % (0.0-8.0); HEMATOCRIT 31.8 % (36-48); IMMATURE GRANULOCYTE ABSOLUTE 0.01 K/uL (0-1); LYMPHOCYTES # (AUTO) 1.3 K/uL (1.0-4.8); LYMPHOCYTES % (AUTO) 29.7 % (21.0-51.0); MEAN CORPUSCULAR HEMOGLOBIN 32.1 pg (27.0-33.0); MEAN CORPUSCULAR HGB CONC 31.4 g/dL (32.0-36.0); MEAN CORPUSCULAR VOLUME 101.9 fL (79-99); MONOCYTES # (AUTO) 0.5 K/uL (0.1-1.0); MONOCYTES % (AUTO) 11.2 % (3.0-13.0); NEUTROPHILS # (AUTO) 2.3 K/uL (1.8-7.7); NEUTROPHILS % (AUTO) 54.2 % (40.0-77.0); PLATELET COUNT (AUTO) 185 K/uL (130-400); RED BLOOD CELL COUNT(AUTO) 3.12 MIL/uL (4.00-5.50); RED CELL DISTRIBUTION WIDTH 15.7 % (11.0-15.5); WHITE BLOOD COUNT (AUTO) 4.3 K/uL (4.8-10.8)
[2024-01-26] MEDS: INSULIN humuLIN R 100 UNIT/ML 3ML SQ SCH (06:42)
[2024-01-26 07:06] LABS: B-TYPE NATRIURETIC PEPTIDE 1210 pg/mL (0-100)
[2024-01-26 07:08] LABS: ALBUMIN 2.8 g/dL (3.5-5.0); BILIRUBIN,DIRECT 0.6 mg/dL (0.0-0.3); CREATININE 5.5 mg/dL (0.5-1.0); MAGNESIUM 2.3 mg/dL (1.80-2.40); POTASSIUM 3.7 mmol/L (3.5-5.1); TOTAL PROTEIN, SERUM 8.5 g/dL (6.0-8.3)
[2024-01-26 07:39] LABS: ERYTHROCYTE SEDIMENTATION RATE 92 MM/HR (0-20)
[2024-01-26 09:28] LABS: % IRON SATURATION 36.5 % (22-44)
[2024-01-26] MEDS: metOPROLol sucCINATE 25 MG TAB.SR.24H PO SCH (09:29)
[2024-01-26] MEDS: furoSEMIDE 20 MG TABLET PO SCH (09:30)
[2024-01-26] MEDS: sevELAMer HCL 800 MG TABLET PO SCH (09:30)
[2024-01-26] MEDS ORDERED: hydrOXYzine 25 MG TABLET PO PRN (09:30)
[2024-01-26] MEDS: GABApentin 100 MG CAPSULE PO SCH (09:32)
[2024-01-26] MEDS: CINACALCET 30 MG TAB PO SCH (09:32)
[2024-01-26] MEDS: FAMOTIDINE 20MG TAB PO SCH (09:33)
[2024-01-26] MEDS: 0.9%NACL 1000ML 1,000 ML IV SCH (15:00)
[2024-01-26] MEDS: ropiNIRole HCL 0.25 MG TABLET PO SCH (21:43)
[2024-01-26] MEDS: hydrALAZine 20MG/ML VIAL IV PRN (21:44)
[2024-01-27] VITALS (18 sets, daily range): BP systolic 130–175; BP diastolic 64–98; PULSE 68–77; RESP 16–18; TEMP 97.3–98
[2024-01-27] MEDS: HYDROcodone/APAP 5/325 1 TAB TABLET PO ONE (00:52)
[2024-01-27 04:37] LABS: HEMATOCRIT 33.8 % (36-48); MEAN CORPUSCULAR HEMOGLOBIN 32.4 pg (27.0-33.0); MEAN CORPUSCULAR HGB CONC 31.4 g/dL (32.0-36.0); MEAN CORPUSCULAR VOLUME 103.4 fL (79-99); RED BLOOD CELL COUNT(AUTO) 3.27 MIL/uL (4.00-5.50); RED CELL DISTRIBUTION WIDTH 15.5 % (11.0-15.5); WHITE BLOOD COUNT (AUTO) 3.8 K/uL (4.8-10.8)
[2024-01-27 04:58] LABS: ALBUMIN 2.7 g/dL (3.5-5.0); BILIRUBIN,TOTAL 0.9 mg/dL (0.2-1.0); CREATININE 5.4 mg/dL (0.5-1.0); MAGNESIUM 2.2 mg/dL (1.80-2.40); PHOSPHORUS 4.8 mg/dL (2.5-4.9); POTASSIUM 3.6 mmol/L (3.5-5.1); TOTAL PROTEIN, SERUM 8.6 g/dL (6.0-8.3)
[2024-01-27] MEDS ORDERED: METO25TA3 PO (11:51)
[2024-01-27] MEDS ORDERED: METO-408 PO (11:52)
[2024-01-27] MEDS: 0.9%NACL 1000ML 1,000 ML IV SCH (12:54)
[2024-02-08] MEDS ORDERED: ACET-2079 PO (23:48)
== END 2024-01-27 17:18 | disposition home or self-care (01) ==
LOC: EDH 21:36 → INTOOBSV 21:37 → EDHIP 21:37 → 2DH 01-26 03:14
PROVIDERS: ADMIT Internal Medicine; ATTEND Internal Medicine
DX: I26.09 Other pulmonary embolism with acute cor pulmonale (principal); I13.2 Hypertensive heart and chronic kidney disease with heart failure and with stage 5 chronic kidney disease, or end stage renal disease; E11.22 Type 2 diabetes mellitus with diabetic chronic kidney disease; I50.33 Acute on chronic diastolic (congestive) heart failure; N18.6 End stage renal disease; I50.811 Acute right heart failure; D63.1 Anemia in chronic kidney disease; R34 Anuria and oliguria; E87.70 Fluid overload, unspecified; I27.20 Pulmonary hypertension, unspecified; E66.01 Morbid (severe) obesity due to excess calories; G25.81 Restless legs syndrome; M79.89 Other specified soft tissue disorders; E78.5 Hyperlipidemia, unspecified; R60.1 Generalized edema; R19.00 Intra-abdominal and pelvic swelling, mass and lump, unspecified site; I16.0 Hypertensive urgency; R60.0 Localized edema; Z99.2 Dependence on renal dialysis; Z79.899 Other long term (current) drug therapy; Z86.718 Personal history of other venous thrombosis and embolism; Z68.42 Body mass index [BMI] 45.0-49.9, adult
CPT/HCPCS: 80048 ×2; 85025 ×2; 36415 ×3; 71045; 73562; 93970; 96374; 99291; 96375; 83540; 83550; 80076; 83735 ×2; 84484; 83880; 85651; 82948 ×8; 76705; 93306; 93005; 90935 ×2; 84100; 80053; 85027; J2270; J0360; G0378 ×2; 86704; 86706; 86803; 87340; G0257

== ENCOUNTER 2024-03-01 10:25 | Emergency (ER) | payer MEDICAID ==
[~2024-03-01] VITALS: Ht 165.1 cm; Wt 99.8 kg
[~2024-03-01 10:25] MED LIST changes: +GABA-529 PO; +LACT PO; +LEVO-70 PO; +LOSA-417 PO; -MELO-106 PO
[2024-03-01 10:26] VITALS: TEMP 99
--- NOTE | 2024-03-01 10:36 | ERN ---
General Chief Complaint: Hip Pain/Injury Stated Complaint: HIP PAIN Time Seen by MD: 10:26 History of Present Illness Initial Comments 48-year-old female brought in by EMS from home with left hip pain for the last three days. Patient reports no trauma. Pain is in the left lower back left hip and radiates down the left buttock to the left lower knee. Waxes and wanes. Moderate to severe at times. She reports feeling hot, subjective fever, but did not take her temperature. No nausea or vomiting. She is dialysis dependent, she does not produce urine. There is no flank pain. No abdominal pain. No GI symptoms. 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 Helper: Aisha Allergies: Coded Allergies: No Known Allergies (Verified Allergy, Unknown, 07/03/23) Home Meds Active Scripts Lactulose (Cephulac/Enulose Soln) 20 Gram/30 Ml Soln, 20 GM PO BID, #500 ML 1 Refill Titrate to 2-3 bowel movements per day Prov:NOLBERTO DAVILA MD 02/15/24 Levofloxacin (Levofloxacin) 500 Mg Tablet, 1 TAB PO Q48H, #5 TAB 0 Refills Prov:NOLBERTO DAVILA MD 02/15/24 Losartan Potassium (Cozaar) 25 Mg Tablet, 25 MG PO DAILY, #30 TAB 0 Refills Prov:NOLBERTO DAVILA MD 02/15/24 Metoprolol Succinate (Toprol Xl) 25 Mg Tab.er.24h, 25 MG PO DAILY for HIGH BLOOD PRESSURE for 30 Days, #30 TAB 2 Refills Prov:KADEN WHITE MD 01/27/24 Acetaminophen (Tylenol) 500 Mg Tab, 500 MG PO q6 for 5 Days, #30 TAB Prov:KATHRYN TURNER MD 01/02/24 Reported Medications Gabapentin (Gabapentin) 100 Mg Capsule, 100 MG PO TID, CAP 01/25/24 Sevelamer HCl (Sevelamer HCl) 800 Mg Tablet, 2400 MG PO TID, #270 TAB 07/03/23 Hydroxyzine Pamoate (Hydroxyzine Pamoate) 25 Mg Capsule, 25 MG PO QIDP PRN for Anxiety and/or insomnia, #60 CAP 1 Refill 07/03/23 Ropinirole HCl (Ropinirole HCl) 0.5 Mg Tablet, 0.5 MG PO PM, #30 TAB 0 Refills 07/03/23 Cinacalcet HCl (Cinacalcet HCl) 30 Mg Tablet, 60 MG PO DAILY, TAB 3 Refills 05/08/23 Past Medical History Past Medical History: Diabetes-Type II, High Cholesterol, Hypertension, Renal Disese Medical History Other: CKD ON DIALYSIS Past Surgical History: LAVA Surgical History Other: DIALYSIS SHUNT TO LEFT ARM Family History Family History: Negative Social History Social History: Negative, Lives with family Female( History) History: Not Applicable ROS Dictation CONSTITUTIONAL: No chills, no fever, no weakness, no diaphoresis, no malaise. HEAD/FACE: No signs of trauma. EENT: No eye pain, no blurred vision, no tearing, no double vision, no ear pain, no ear discharge, no nose pain, no nasal congestion, no throat pain, no throat swelling, no mouth pain. RESPIRATORY: No cough, no orthopnea, no SOB, no stridor, no wheezing. CARDIOVASCULAR: No chest pain, no edema, no palpitations, no syncope. GASTROINTESTINAL/ABDOMINAL: No abdominal pain, no constipation, no diarrhea, no nausea, no vomiting. GENITOURINARY: No abnormal discharge, no dysuria, no frequent urination, no hematuria. No complaints of pain in the genitals. MUSCULOSKELETAL: Left hip pain, left lower back pain INTEGUMENTARY: No change in color, no change in hair/nails, no dryness, no lesion, no lumps, no rash. NEUROLOGICAL/PSYCH: No anxiety, not depressed, no emotional problem, no headache, no numbness, no pre-existing deficit, no history of seizures, no tremors, no weakness. HEMATOLOGIC/LYMPHATIC: Not anemic, no history of blood clots, no apparent bleeding, no bruising, glands not swollen. All Systems Negative, Except as Noted. Physical Exam Physical Exam Dictation VITAL SIGNS: Reviewed. GENERAL APPEARANCE: Alert, oriented x3, no acute distress, obese. HEAD AND FACE: Non-traumatic. EYES: PERRL, pink conjunctivas, eyelid no trauma, anterior chamber clear. EARS: Pinnas intact and no signs of trauma or erythema. Ear canals clear and no discharge. TMs no erythema. NOSE: No discharge, no bleeding. OROPHARYNX: Mouth normal, teeth no caries, tongue pink. Pharynx clear, no erythema. Tonsils no exudates, no abscesses noted. Mucous membrane moist. NECK: Supple, non-tender, no thyromegaly, no masses, no JVD, no bruits. BREAST: Deferred. CHEST: No tenderness, no crepitus, no paradoxical movement, no retractions. LUNGS: Clear, well-ventilated, symmetric, no rales, no wheezing, no rhonchi, no stridor, good breath sounds bilaterally. HEART: Regular rate, regular rhythm, no murmur, no gallops. VASCULAR: No peripheral edema. ABDOMEN: Soft, positive bowel sounds, nondistended, no guarding, nontender, no rebound, no masses no hepatomegaly, no splenomegaly, no Sam's sign, no hernias. RECTAL: Deferred. GENITAL: Deferred. NEUROLOGICAL: Normal speech, gross motor function intact, gross sensory function intact. MUSCULOSKELETAL: Neck nontender, full range of motion, back nontender, full range of motion. EXTREMITIES: Nontender, full range of motion. SKIN: Color pink, dry, no turgor, no rash, no lacerations, no abrasions, no contusions. LYMPHATICS: Deferred. Results Laboratory and Microbiology Lab and Micro Result Laboratory Tests Test 03/01/24 10:50 White Blood Count 5.9 K/uL (4.8-10.8) Red Blood Count 3.51 MIL/uL (4.00-5.50) L Hemoglobin 11.7 g/dL (12.0-16.0) L Hematocrit 36.2 % (36-48) Mean Corpuscular Volume 103.1 fL (79-99) H Mean Corpuscular Hemoglobin 33.3 pg (27.0-33.0) H Mean Corpuscular Hemoglobin Concent 32.3 g/dL (32.0-36.0) Red Cell Distribution Width 16.8 % (11.0-15.5) H Platelet Count 153 K/uL (130-400) Mean Platelet Volume 8.8 fL (7.5-10.5) Immature Granulocyte % (Auto) 0.2 % (0-1) Neutrophils (%) (Auto) 72.3 % (40.0-77.0) Lymphocytes (%) (Auto) 17.1 % (21.0-51.0) L Monocytes (%) (Auto) 9.4 % (3.0-13.0) Eosinophils (%) (Auto) 0.5 % (0.0-8.0) Basophils (%) (Auto) 0.5 % (0.0-5.0) Neutrophils # (Auto) 4.2 K/uL (1.8-7.7) Lymphocytes # (Auto) 1.0 K/uL (1.0-4.8) Monocytes # (Auto) 0.6 K/uL (0.1-1.0) Eosinophils # (Auto) 0.03 K/uL (0.00-0.70) Basophils # (Auto) 0.03 K/uL (0.00-0.20) Absolute Immature Granulocyte (auto 0.01 K/uL (0-1) Nucleated Red Blood Cells 0.0 % (0.0-0.19) Sodium Level 137 mmol/L (136-145) Potassium Level 3.9 mmol/L (3.5-5.1) Chloride Level 97 mmol/L (101-111) L Carbon Dioxide Level 30 mmol/L (21-32) Blood Urea Nitrogen 26 mg/dL (7-18) H Creatinine 4.9 mg/dL (0.5-1.0) H Glomerular Filtration Rate Calc 10 mL/min (>90) Random Glucose 107 mg/dL (70-105) H Total Calcium 7.7 mg/dL (8.5-10.1) L MDM CC: L hip & back pain, atraumatic Historian: patient Comorbidities: Obesity, ESRD on dialysis, HTN, DM Initial concern for bony abnormality, musculoskeletal type pain, sciatica, other Blood pressure shows hypertension otherwise unremarkable. Patient is on 2 L nasal cannula is a baseline for patient. CBC no leukocytosis. Macrocytic anemia hemoglobin 11.7. Chemistries stable electrolytes. Creatinine 4.9 BUN 26. Patient received IV Toradol, p.o. [place] in the ER. CT L spine per my independent interpretation: no obvious fractures. DJD. CT pelvis per my independent interpretation: no obvious bony abnormalities. Symptoms consistent with sciatica. WIll DC w/ pain control and recommend PCP f/u. REASON: L lower back pain ORDERING PHYSICIAN: BILL WISE DO PROCEDURE: PELVIS WO - CT PELVIS W/O CONTRAST CT PELVIS W/O CONTRAST REASON: L lower back pain COMPARISON: None TECHNIQUE: Routine imaging protocol was performed from above the iliac crests through the perineum. Sagittal and coronal reconstruction images were performed. FINDINGS: There is a periumbilical ventral hernia. This contains a bowel loop, there is no evidence of strangulation or obstruction. Bowel loops appear otherwise unremarkable. There are some calcified fibroids in the uterus, pelvic soft tissues appear otherwise normal. Lower lumbar spine appears normal as do bones of the pelvis. Proximal femurs appear normal as well. There is diffuse edema in the subcutaneous soft tissues the anterior abdominal wall which anasarca. IMPRESSION: 1. Small peribronchial ventral hernia containing at least one bowel loop, no evidence of strangulation or obstruction. 2. Probable anasarca. 3. Otherwise unremarkable exam. REASON: L lower back pain ORDERING PHYSICIAN: BILL WISE DO PROCEDURE: L SPIN WO - CT LUMBAR SPINE W/O CONTRAST CT LUMBAR SPINE W/O CONTRAST REASON: L lower back pain COMPARISON: None TECHNIQUE: Routine lumbar imaging protocol was performed from T11-12 through the sacrum. Sagittal and coronal reconstruction images were then performed. FINDINGS: There are normal-appearing lumbar vertebral bodies. Interspace heights are preserved. Alignment is normal. There are no focal osseous lesions. Axial images show moderate degenerative change in the facets and ligamenta flava. There is diffuse annular bulging at the L5-S1 level. AP diameter in the midline is decreased to between 7 and 8 mm consistent with mild spinal stenosis, narrowing is more prominent in the lateral recesses. There are similar findings at the L4-5 level. AP diameter is also between 7 and 8 mm. There is annular bulge but no discrete the disc herniation. Remaining interspaces are widely patent. Surrounding soft tissues appear unremarkable. IMPRESSION: 1. Mild to moderate degenerative changes in the posterior facets, there is mild spinal stenosis at L4-5 and L5-S1 on a degenerative basis. 2. Otherwise unremarkable exam. ED Course Orders Procedure Category Date Status Time Cbc With Differential LAB 03/01/24 Complete 10: Basic Metabolic Panel LAB 03/01/24 Complete 10: Ketorolac PHA 03/01/24 Complete Tromethamine 15mg/Ml 10:30 Hydrocodone/Apap PHA 03/01/24 Complete 5/325 ([place] 5/325mg) 10:30 Ct Lumbar Spine W/O CT 03/01/24 Resulted Contrast 10:26 Ct Pelvis W/O Contrast CT 03/01/24 Resulted 10:26 Current Medications Medications (Trade) Dose Ordered Sig/[place] Route PRN Reason Start Time Stop Time Status Last Admin Dose Admin Acetaminophen/ Hydrocodone Bitart (NORco 5/325MG) 1 tab ONCE ONCE PO 03/01/24 10:30 03/01/24 10:31 DC 03/01/24 10:56 Ketorolac Tromethamine (toRADol) 15 mg ONCE ONCE IV 03/01/24 10:30 03/01/24 10:31 DC 03/01/24 10:56 Vital Signs Date Time Temp Pulse Resp B/P (MAP) Pulse Ox O2 Delivery O2 Flow Rate FiO2 03/01/24 11:03 72 17 147/60 96 Nasal Cannula* 2 28 03/01/24 10:26 99.0 89 16 173/85 93 Nasal Cannula* 2 28 03/01/24 10:26 99.0 89 16 173/85 93 2.0 DX & DISP Disposition: Discharge Departure Impression: Primary Impression: Sciatic nerve pain Additional Impression: ESRD (end stage renal disease) on dialysis Condition: Stable Scripts Acetaminophen with Codeine (Acetaminophen-Cod #3 Tablet) 300 Mg-30 Mg Tablet 1 TAB PO Q6HPRN PRN for pain for 5 Days, #20 TAB 0 Refills Prov: BILL WISE DO 03/01/24 Orphenadrine Citrate (Norflex) 100 Mg Srtab 100 MG PO BID for back spasm, #20 TAB.SR Prov: BILL WISE DO 03/01/24 Meloxicam (Meloxicam) 15 Mg Tablet 15 MG PO DAILY PRN for PAIN for 5 Days, #5 TAB Prov: BILL WISE DO 03/01/24 Additional Instructions: Your symptoms are consistent with sciatic nerve pain. Your lab work is stable. The CT scan does show a small ventral hernia that is unlikely related to your symptoms. You also have some degenerative disc disease in your lower back. These appear to be chronic problems. I have prescribed meloxicam, orphenadrine, and Tylenol with codeine (T3) to use as needed for the next few days for pain. I also recommend the use a heating pad. Please follow up with your primary doctor. You may need further treatment or studies. Return to the emergency department as needed. Referrals: EPIFANIO BOWMAN MD (PCP) BILL WISE DO Mar 01, 2024 10:36
--- NOTE | 2024-03-01 10:41 | NUR ---
PT JUST NOW BEING PLACED IN MY ED BED [address] [facility].
--- NOTE | 2024-03-01 10:53 | NUR ---
ASSESSMENT CONTINUED: PT HAS = STRENGTH RYAN BUT C/O DISCOMFORT TO MID L BUTTOCK. +CMS DISTALLY.
[2024-03-01 10:56] LABS: BASOPHILS # (AUTO) 0.03 K/uL (0.00-0.20); BASOPHILS % (AUTO) 0.5 % (0.0-5.0); EOSINOPHILS # (AUTO) 0.03 K/uL (0.00-0.70); EOSINOPHILS % (AUTO) 0.5 % (0.0-8.0); HEMATOCRIT 36.2 % (36-48); IMMATURE GRANULOCYTE ABSOLUTE 0.01 K/uL (0-1); LYMPHOCYTES % (AUTO) 17.1 % (21.0-51.0); MEAN CORPUSCULAR HEMOGLOBIN 33.3 pg (27.0-33.0); MEAN CORPUSCULAR HGB CONC 32.3 g/dL (32.0-36.0); MEAN CORPUSCULAR VOLUME 103.1 fL (79-99); MONOCYTES # (AUTO) 0.6 K/uL (0.1-1.0); MONOCYTES % (AUTO) 9.4 % (3.0-13.0); NEUTROPHILS # (AUTO) 4.2 K/uL (1.8-7.7); NEUTROPHILS % (AUTO) 72.3 % (40.0-77.0); PLATELET COUNT (AUTO) 153 K/uL (130-400); RED BLOOD CELL COUNT(AUTO) 3.51 MIL/uL (4.00-5.50); RED CELL DISTRIBUTION WIDTH 16.8 % (11.0-15.5); WHITE BLOOD COUNT (AUTO) 5.9 K/uL (4.8-10.8)
[2024-03-01] MEDS: HYDROcodone/APAP 5/325 1 TAB TABLET PO ONE (10:56)
[2024-03-01] MEDS: ketOROlac 15MG/ML VIAL (15MG/ML) IV ONE (10:56)
[2024-03-01 11:03] VITALS: BP 147/60; PULSE 72; RESP 17; O2SAT 96
[2024-03-01 11:05] LABS: CREATININE 4.9 mg/dL (0.5-1.0); POTASSIUM 3.9 mmol/L (3.5-5.1)
--- NOTE | 2024-03-01 12:45 | NUR ---
PT JUST RETURNED FROM CT SCAN VIA STRETCHER AND TRANSPORTER JOVANA
--- NOTE | 2024-03-01 13:26 | HMCIMG ---
CT PELVIS W/O CONTRAST REASON: L lower back pain COMPARISON: None TECHNIQUE: Routine imaging protocol was performed from above the iliac crests through the perineum. Sagittal and coronal reconstruction images were performed. FINDINGS: There is a periumbilical ventral hernia. This contains a bowel loop, there is no evidence of strangulation or obstruction. Bowel loops appear otherwise unremarkable. There are some calcified fibroids in the uterus, pelvic soft tissues appear otherwise normal. Lower lumbar spine appears normal as do bones of the pelvis. Proximal femurs appear normal as well. There is diffuse edema in the subcutaneous soft tissues the anterior abdominal wall which anasarca. IMPRESSION: 1. Small peribronchial ventral hernia containing at least one bowel loop, no evidence of strangulation or obstruction. 2. Probable anasarca. 3. Otherwise unremarkable exam.
--- NOTE | 2024-03-01 13:29 | HMCIMG ---
CT LUMBAR SPINE W/O CONTRAST REASON: L lower back pain COMPARISON: None TECHNIQUE: Routine lumbar imaging protocol was performed from T11-12 through the sacrum. Sagittal and coronal reconstruction images were then performed. FINDINGS: There are normal-appearing lumbar vertebral bodies. Interspace heights are preserved. Alignment is normal. There are no focal osseous lesions. Axial images show moderate degenerative change in the facets and ligamenta flava. There is diffuse annular bulging at the L5-S1 level. AP diameter in the midline is decreased to between 7 and 8 mm consistent with mild spinal stenosis, narrowing is more prominent in the lateral recesses. There are similar findings at the L4-5 level. AP diameter is also between 7 and 8 mm. There is annular bulge but no discrete the disc herniation. Remaining interspaces are widely patent. Surrounding soft tissues appear unremarkable. IMPRESSION: 1. Mild to moderate degenerative changes in the posterior facets, there is mild spinal stenosis at L4-5 and L5-S1 on a degenerative basis. 2. Otherwise unremarkable exam.
[2024-03-01] MEDS ORDERED: ACET-2079 PO (13:52)
[2024-03-01] MEDS ORDERED: MELO-108 PO (13:52)
[2024-03-01] MEDS ORDERED: ORPH100 PO (13:52)
--- NOTE | 2024-03-01 14:50 | NUR ---
I JUST SPOKE TO PTS SIGNIFICANT OTHER AND HE STATED HE WOULD MAKE SOME CALLS AND TRY TO GET SOMEONE TO COME AND ZONE MANAGER THE PT. HE WOULD RETURN MY CALL.
== END 2024-03-01 15:15 | disposition home or self-care (01) ==
LOC: EDH 10:25
DX: M54.32 Sciatica, left side (principal); I12.0 Hypertensive chronic kidney disease with stage 5 chronic kidney disease or end stage renal disease; E11.22 Type 2 diabetes mellitus with diabetic chronic kidney disease; N18.6 End stage renal disease; Z99.2 Dependence on renal dialysis; E66.9 Obesity, unspecified; E78.00 Pure hypercholesterolemia, unspecified; Z79.899 Other long term (current) drug therapy
CPT/HCPCS: 36415; 72131; 72192; 80048; 85025; 96374; 99285; J1885

== ENCOUNTER 2024-03-20 14:45 | Emergency (ER) | payer MEDICAID ==
[~2024-03-20] VITALS: Ht 165.1 cm; Wt 98.4 kg
[~2024-03-20 14:45] MED LIST changes: -LEVO-70 PO; +MELO-108 PO; +ORPH100 PO
--- NOTE | 2024-03-20 15:17 | EKG ---
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
--- NOTE | 2024-03-20 15:35 | ERN ---
ED Note History of Present Illness Stated Complaint: NAUSEA AND FEET PAIN Chief Complaint: Nausea,Vomiting,Diarrhea Time Seen by MD: 14:48 Time Seen by Midlevel: 14:50 Dictation: 48-year-old female with a history of ESRD, TTS, last dialysis being Wednesday and hypertension coming in complaining of nausea that started couple hours ago. Denies any abdominal pain or actual vomiting or diarrhea. Denies having any shortness of breath, chest pain, fever, body aches or chills. Allergies: Coded Allergies: No Known Allergies (Verified Allergy, Unknown, 07/03/23) Home Meds Active Scripts Orphenadrine Citrate (Norflex) 100 Mg Srtab, 100 MG PO BID for back spasm, #20 TAB.SR Prov:BILL WISE DO 03/01/24 Meloxicam (Meloxicam) 15 Mg Tablet, 15 MG PO DAILY PRN for PAIN for 5 Days, #5 TAB Prov:BILL WISE DO 03/01/24 Lactulose (Cephulac/Enulose Soln) 20 Gram/30 Ml Soln, 20 GM PO BID, #500 ML 1 Refill Titrate to 2-3 bowel movements per day Prov:NOLBERTO DAVILA MD 02/15/24 Losartan Potassium (Cozaar) 25 Mg Tablet, 25 MG PO DAILY, #30 TAB 0 Refills Prov:NOLBERTO DAVILA MD 02/15/24 Metoprolol Succinate (Toprol Xl) 25 Mg Tab.er.24h, 25 MG PO DAILY for HIGH BLOOD PRESSURE for 30 Days, #30 TAB 2 Refills Prov:KADEN WHITE MD 01/27/24 Acetaminophen (Tylenol) 500 Mg Tab, 500 MG PO q6 for 5 Days, #30 TAB Prov:KATHRYN TURNER MD 01/02/24 Reported Medications Gabapentin (Gabapentin) 100 Mg Capsule, 100 MG PO TID, CAP 01/25/24 Sevelamer HCl (Sevelamer HCl) 800 Mg Tablet, 2400 MG PO TID, #270 TAB 07/03/23 Hydroxyzine Pamoate (Hydroxyzine Pamoate) 25 Mg Capsule, 25 MG PO QIDP PRN for Anxiety and/or insomnia, #60 CAP 1 Refill 07/03/23 Ropinirole HCl (Ropinirole HCl) 0.5 Mg Tablet, 0.5 MG PO PM, #30 TAB 0 Refills 07/03/23 Cinacalcet HCl (Cinacalcet HCl) 30 Mg Tablet, 60 MG PO DAILY, TAB 3 Refills 05/08/23 Discontinued Scripts Acetaminophen with Codeine (Acetaminophen-Cod #3 Tablet) 300 Mg-30 Mg Tablet, 1 TAB PO Q6HPRN PRN for pain for 5 Days, #20 TAB 0 Refills Prov:BILL WISE DO 03/01/24 Levofloxacin (Levofloxacin) 500 Mg Tablet, 1 TAB PO Q48H, #5 TAB 0 Refills Prov:NOLBERTO DAVILA MD 02/15/24 Past Medical History Past Medical History: Diabetes-Type II, Hypertension, Renal Failure Additional Past Medical Hx: HD Surgical History: Other Surgical History Other: PICC LINE, HD CATH Family History: Negative Social History: Negative, Lives with family History: Not Applicable Review of System Dictation Constitutional: Negative for fever,chills, and weight loss Eyes: Negative for injury, pain,redness, and discharge ENT: Negative for injury,pain or swelling Cardiovascular: Negative for chest pain, palpitations, and edema Respiratory: Negative for shortness of breath, cough, and wheezing, Abdomen/GI: Negative for abdominal pain, , vomiting, diarrhea, and constipation, complaining of nausea Back: Negative for injury and pain : Negative for injury, bleeding and discharge MS/Extremity: Negative for injury and deformity Skin: Negative for rash, and discoloration Neuro: Negative for headache, weakness, numbness, tingling, and seizure Psych: Negative for suicide ideation, homicidal ideation, and hallucinations Review of Systems: was completed Initial Vital Sign VS Vital Signs Date Time Temp Pulse Resp B/P (MAP) Pulse Ox O2 Delivery O2 Flow Rate FiO2 03/20/24 14:47 97.7 62 18 155/79 94 Room Air 0 03/20/24 15:49 21 Physical Exam Dictation General: awake, alert, NAD Head/Face: Normocephalic, atraumatic Eyes: PERRL, EOMI, vision at baseline ENT: oral cavity clear, TMs clear, no signs of infection Neck: Trachea midline, supple, no nuchal rigidity Cardiovascular: RRR, normal S1/S2, No MRGs, no JVD Respiratory: CTAB, no respiratory distress, No rales or wheezes Abdomen: Soft, non-tender, non-distended, normal bowel sounds, no guarding or rebound. Skin: Warm, dry, normal turgor, no rash MS/Extremity: Pulses equal, no cyanosis, neurovascular intact, FROM Neuro: COAx4, GCS 15, strength 5/5, CN 2-12 intact, normal cerebellar exam, norm al gait, Psych: Normal behavior, mood, and affect normal Results (Laboratory/Radiology) Laboratory/Radiology Laboratory Tests Test 03/20/24 15:43 03/20/24 17:21 03/20/24 18:55 White Blood Count 5.2 K/uL (4.8-10.8) Red Blood Count 2.15 MIL/uL (4.00-5.50) L Hemoglobin 7.3 g/dL (12.0-16.0) L Hematocrit 22.7 % (36-48) L Mean Corpuscular Volume 105.6 fL (79-99) H Mean Corpuscular Hemoglobin 34.0 pg (27.0-33.0) H Mean Corpuscular Hemoglobin Concent 32.2 g/dL (32.0-36.0) Red Cell Distribution Width 18.9 % (11.0-15.5) H Platelet Count 204 K/uL (130-400) Mean Platelet Volume 9.1 fL (7.5-10.5) Immature Granulocyte % (Auto) 0.2 % (0-1) Neutrophils (%) (Auto) 57.9 % (40.0-77.0) Lymphocytes (%) (Auto) 29.1 % (21.0-51.0) Monocytes (%) (Auto) 10.3 % (3.0-13.0) Eosinophils (%) (Auto) 1.5 % (0.0-8.0) Basophils (%) (Auto) 1.0 % (0.0-5.0) Neutrophils # (Auto) 3.0 K/uL (1.8-7.7) Lymphocytes # (Auto) 1.5 K/uL (1.0-4.8) Monocytes # (Auto) 0.5 K/uL (0.1-1.0) Eosinophils # (Auto) 0.08 K/uL (0.00-0.70) Basophils # (Auto) 0.05 K/uL (0.00-0.20) Absolute Immature Granulocyte (auto 0.01 K/uL (0-1) Nucleated Red Blood Cells 0.0 % (0.0-0.19) Red Blood Cell Morphology See comments Sodium Level 133 mmol/L (136-145) L Potassium Level 5.7 mmol/L (3.5-5.1) H 5.3 mmol/L (3.5-5.1) H Chloride Level 96 mmol/L (101-111) L Carbon Dioxide Level 29 mmol/L (21-32) Blood Urea Nitrogen 74 mg/dL (7-18) H Creatinine 6.4 mg/dL (0.5-1.0) H Glomerular Filtration Rate Calc 8 mL/min (>90) Random Glucose 108 mg/dL (70-105) H Total Calcium 9.0 mg/dL (8.5-10.1) Total Creatine Kinase 63 U/L (21-232) # Whole Blood Glucose 111 MG/DL (70-110) H Labs Reviewed?: Yes EKG Comment: Date:03/20/24 Time:1514 Ventricular rate:63 IA interval:210 QRS duration:81 QT/QTc:490/502 EKG interpretation: Sinus rhythm, prolonged IA interval, IRBBB Reviewed by ED Attending no STEMI interpreted by ER MD ED Course ED Course Orders Procedure Category Date Status Time Cbc With Differential LAB 03/20/24 Complete 14:57 Basic Metabolic Panel LAB 03/20/24 Complete 14:57 12 Lead Ekg Tracing- EKG 03/20/24 Resulted Technical 14:57 Creatine Kinase, Total LAB 03/20/24 Complete 14:57 Chest 1vw RAD 03/20/24 Resulted 14:57 Ondansetron 4mg Inj PHA 03/20/24 Complete (Zofran 4mg Inj) 15:00 Na Zircon PHA 03/20/24 Complete Cyclosil-Lokelma 10g 16:43 Calcium Gluc 1gm PHA 03/20/24 Complete (Calcium Gluc 1gm 16:43 Insulin Regular, PHA 03/20/24 Complete Human 3ml (Humulin R 16:43 Dextrose 50%-Water PHA 03/20/24 Complete (D50w) 16:43 Sodium Bicarb 50meq PHA 03/20/24 Complete 50ml Vial (Sodium Bi 16:43 Morphine 2mg Syg PHA 03/20/24 Complete (Morphine 2mg Syg) 17:22 Acetaminophen 500mg PHA 03/20/24 Complete Tab (Tylenol 500mg T 17:22 Potassium LAB 03/20/24 Complete 18:40 Sodium Polystyr Sulf PHA 03/20/24 Complete 15gm (Kayexalate 15 19:17 Current Medications Medications (Trade) Dose Ordered Sig/Haven Route PRN Reason Start Time Stop Time Status Last Admin Dose Admin Acetaminophen (TYLenol 500MG TAB) 1,000 mg ONCE STAT PO 03/20/24 17:22 03/20/24 17:23 DC 03/20/24 17:26 Calcium Gluconate (Calcium Gluc 1gm Vial) 1 gm PROTOCOL STAT IVPB 03/20/24 16:43 03/20/24 16:46 DC 03/20/24 17:20 Dextrose (D50w) 50 ml ONCE STAT IV 03/20/24 16:43 03/20/24 16:46 DC 03/20/24 17:23 Insulin Human Regular (humuLIN R 100 UNIT/ML 3ML) 5 unit ONCE STAT IV 03/20/24 16:43 03/20/24 16:46 DC 03/20/24 17:23 Morphine Sulfate (morPHINE 2MG SYG) 2 mg ONCE STAT IVP 03/20/24 17:22 03/20/24 17:23 DC 03/20/24 17:26 Ondansetron HCl (zoFRAN 4MG INJ) 4 mg ONCE STAT IVP 03/20/24 15:00 03/20/24 15:01 DC 03/20/24 15:45 Sodium Polystyrene Sulfonate (kayEXALate 15 GM/60 ML) 30 gm ONCE STAT PO 03/20/24 19:17 03/20/24 19:21 DC 03/20/24 19:33 Sodium Bicarbonate (Sodium Bicarb 50meq 50ml Vial) 50 meq ONCE STAT IV 03/20/24 16:43 03/20/24 16:46 DC 03/20/24 17:20 Sodium Zirconium Cyclosilicate (Lokelma 10gm Powder) 10 gm ONCE STAT PO 03/20/24 16:43 03/20/24 16:46 DC 03/20/24 17:20 Vital Signs Date Time Temp Pulse Resp B/P (MAP) Pulse Ox O2 Delivery O2 Flow Rate FiO2 03/20/24 19:39 98.6 60 17 128/52 96 Room Air* 0 21 24 18:20 97.7 62 18 136/78 94 Room Air* 0 03/20/24 17:45 97.7 62 18 151/96 94 Room Air* 0 03/20/24 17:00 97.7 62 18 140/71 94 Room Air* 0 03/20/24 15:49 62 18 132/69 97 Room Air* 0 03/20/24 14:47 97.7 62 18 155/79 94 Room Air 0 Medical Decision Making MDM MDM: 48-year-old female with a history of ESRD, TTS, last dialysis being Wednesday and hypertension coming in complaining of nausea that started couple hours ago. Denies any abdominal pain or actual vomiting or diarrhea. Denies having any shortness of breath, chest pain, fever, body aches or chills.CBC shows no leukocytosis, macrocytic anemia, no thrombocytopenia. Chemistry shows mild hyponatremia at 1:33 a.m., potassium is 5.7. Elevated creatinine at six this is consistent with patient's history of ESRD and on dialysis. Spoke to Dr. Leonard for possible dialysis orders, he stated to give patient Lokelma and have patient go to her scheduled dialysis tomorrow morning. Gave patient the hyperkalemic cocktail, a repeat potassium is 5.3, we will give Kayexalate prior to discharge and have patient go tomorrow to her regular dialysis. Vital signs have remained stable, no tachypnea or hypoxia. Educated patient on plan, patient agreed. Differential diagnosis: Gastroenteritis, by dehydration, electrolyte abnormality, elevated potassium Rationale: Tests considered and ordered secondary to shared decision making include: Previous outside records reviewed: Old ER visits. Risk of complication and/or morbidity or mortality of patient management: None Medications-Per medication reconciliation Need for hospitalization: Patient does not meet criteria for hospitalization. Need for emergency major/minor surgery: No There are no social concerns with this patient. Prescription drug management Prescriptions will include symptomatic care Patient's prior external medical records from other ER visits were reviewed by me as indicated. Prior testing and results from previous visits were reviewed. Prior tests were taken into account with medical decision making and resource utilization, independent historian/historians were used to obtain complete me dical history. I independently interpreted the test that were performed, results were reviewed by me and considered findings on radiology if ordered. Medical management and examination interpretation discussions were had by me with other qualified healthcare professionals as indicated for the patient's care. DX & DISP Disposition: Discharge Departure Impression: Primary Impression: Nausea Additional Impressions: Hyperkalemia, ESRD (end stage renal disease) Condition: Stable Additional Instructions: Go to your scheduled dialysis tomorrow morning. Return to the ER if your symptoms worsen. Referrals: EPIFANIO BOWMAN MD (PCP) Time of Disposition: 19:24 I have reviewed the case, and I agree with, Diagnosis and Plan I performed this substantive portion of this visit. I have reviewed and personally made and approve the management plan that is documented in the note by myself or the MONO. I acknowledge full responsibility for the patient's management plan. SRINIVASAN GARRIDO NP Mar 20, 2024 15:35 KATHRYN TURNER MD Mar 21, 2024 10:18
[2024-03-20] MEDS: ondanSETRON 4MG INJ IVP STA (15:45)
[2024-03-20 15:50] LABS: BASOPHILS # (AUTO) 0.05 K/uL (0.00-0.20); EOSINOPHILS # (AUTO) 0.08 K/uL (0.00-0.70); EOSINOPHILS % (AUTO) 1.5 % (0.0-8.0); HEMATOCRIT 22.7 % (36-48); IMMATURE GRANULOCYTE ABSOLUTE 0.01 K/uL (0-1); LYMPHOCYTES # (AUTO) 1.5 K/uL (1.0-4.8); LYMPHOCYTES % (AUTO) 29.1 % (21.0-51.0); MEAN CORPUSCULAR HGB CONC 32.2 g/dL (32.0-36.0); MEAN CORPUSCULAR VOLUME 105.6 fL (79-99); MONOCYTES # (AUTO) 0.5 K/uL (0.1-1.0); MONOCYTES % (AUTO) 10.3 % (3.0-13.0); NEUTROPHILS % (AUTO) 57.9 % (40.0-77.0); PLATELET COUNT (AUTO) 204 K/uL (130-400); RED BLOOD CELL COUNT(AUTO) 2.15 MIL/uL (4.00-5.50); RED CELL DISTRIBUTION WIDTH 18.9 % (11.0-15.5); WHITE BLOOD COUNT (AUTO) 5.2 K/uL (4.8-10.8)
[2024-03-20 16:07] LABS: CREATININE 6.4 mg/dL (0.5-1.0); POTASSIUM 5.7 mmol/L (3.5-5.1)
--- NOTE | 2024-03-20 16:07 | HMCIMG ---
CHEST 1VW HISTORY: Nausea COMPARISON: 03/04/2024 FINDINGS: A frontal projection of the chest was obtained. There are bilateral pulmonary infiltrates suggestive of pulmonary vascular congestion with possible superimposed pneumonitis. The heart is borderline enlarged. Poor inspiratory effort is seen. No evidence of aortic calcification is seen. IMPRESSION: 1. Bilateral pulmonary infiltrates are seen suggestive of pulmonary vascular congestion with possible superimposed pneumonitis.
[2024-03-20] MEDS: NA ZIRCON CYCLOSIL(LOKELMA 10GM) PO STA (17:20)
[2024-03-20] MEDS: CALCIUM GLUC 1GM/10ML VIAL IVPB STA (17:20)
[2024-03-20] MEDS: SODIUM BICARB 50MEQ 50ML VIAL IV STA (17:20)
[2024-03-20] MEDS: DEXTROSE 50%-WATER 50 ML DISP.SYRIN IV STA (17:23)
[2024-03-20] MEDS: INSULIN humuLIN R 100 UNIT/ML 3ML IV STA (17:23)
[2024-03-20] MEDS: morPHINE 2 MG SYG IVP STA (17:26)
[2024-03-20] MEDS: acetaMINOPHEN 500 MG TABLET PO STA (17:26)
[2024-03-20] MEDS: kayEXALate 15GM/60ML PO STA (19:33)
[2024-03-20 19:39] VITALS: BP 128/52; PULSE 60; RESP 17; TEMP 98.6; O2SAT 96
[2024-03-24] MEDS ORDERED: TRAM50TA4 PO (08:17)
[2024-03-24] MEDS ORDERED: ACET-2079 PO (08:17)
[2024-03-24] MEDS ORDERED: AMIT25TA9 PO (08:17)
[2024-03-24] MEDS ORDERED: LOSA25TA41 PO (08:17)
[2024-03-29] MEDS ORDERED: PANT40TA55 PO (16:53)
== END 2024-03-20 19:40 | disposition home or self-care (01) ==
LOC: EDH 14:45
DX: E87.5 Hyperkalemia (principal); I12.0 Hypertensive chronic kidney disease with stage 5 chronic kidney disease or end stage renal disease; E11.22 Type 2 diabetes mellitus with diabetic chronic kidney disease; N18.6 End stage renal disease; R11.0 Nausea; Z79.899 Other long term (current) drug therapy
CPT/HCPCS: 99285; 96365; 96375; 71045; 82550; 80048; 85025; 82948; 36415; 93005; 84132; J1815; J0612; J2270; J3490; J7070; J2405

== ENCOUNTER 2024-09-16 15:11 | Inpatient (IN) | payer MEDICAID ==
[2024-09-16] VITALS (7 sets, daily range): BP systolic 96–123; BP diastolic 40–59; PULSE 68–80; RESP 18–22; TEMP 96.5–97.5; O2SAT 94
[~2024-09-16] VITALS: Ht 165.1 cm; Wt 103.9 kg
[~2024-09-16 15:11] MED LIST changes: +AMIT25TA9 PO; -LOSA-417 PO; +LOSA25TA41 PO; -MELO-108 PO; +METO-408 PO; -METO25TA3 PO; -ORPH100 PO; +PANT40TA55 PO; +PRED20TA3 PO
[2024-09-16 15:50] LABS: BASOPHILS # (AUTO) 0.04 K/uL (0.00-0.20); BASOPHILS % (AUTO) 0.8 % (0.0-5.0); EOSINOPHILS # (AUTO) 0.05 K/uL (0.00-0.70); HEMATOCRIT 24.5 % (36-48); IMMATURE GRANULOCYTE ABSOLUTE 0.01 K/uL (0-1); LYMPHOCYTES # (AUTO) 1.5 K/uL (1.0-4.8); LYMPHOCYTES % (AUTO) 29.7 % (21.0-51.0); MEAN CORPUSCULAR HEMOGLOBIN 32.1 pg (27.0-33.0); MEAN CORPUSCULAR HGB CONC 31.4 g/dL (32.0-36.0); MEAN CORPUSCULAR VOLUME 102.1 fL (79-99); MONOCYTES # (AUTO) 0.5 K/uL (0.1-1.0); MONOCYTES % (AUTO) 9.8 % (3.0-13.0); NEUTROPHILS % (AUTO) 58.5 % (40.0-77.0); PLATELET COUNT (AUTO) 173 K/uL (130-400); RED CELL DISTRIBUTION WIDTH 16.9 % (11.0-15.5); WHITE BLOOD COUNT (AUTO) 5.1 K/uL (4.8-10.8)
[2024-09-16 16:24] LABS: ALBUMIN 2.4 g/dL (3.5-5.0); BILIRUBIN,TOTAL 0.8 mg/dL (0.2-1.0); CREATININE 6.5 mg/dL (0.5-1.0); POTASSIUM 5.2 mmol/L (3.5-5.1); TOTAL PROTEIN, SERUM 7.6 g/dL (6.0-8.3)
--- NOTE | 2024-09-16 17:03 | ERN ---
General Chief Complaint: Hematemesis/Vomiting Blood Stated Complaint: VOMITING BLOOD Time Seen by MD: 15:13 Source: patient History of Present Illness Initial Comments Patient is a 49-year-old female coming in to be evaluated for vomiting blood. Patient states that this began a couple of days ago. She also states that she has had similar episodes in the past. No fever no chills. Allergies: Coded Allergies: No Known Allergies (Verified Allergy, Unknown, 07/03/23) Home Meds Active Scripts Prednisone (Prednisone) 20 Mg Tablet, 1 TAB PO DAILY for 5 Days, #5 TAB 0 Refills Prov:NOLBERTO DAVLIA MD 08/05/24 Pantoprazole Sodium (Protonix) 40 Mg Ectab, 40 MG PO BID, #60 TAB.EC Prov:NOLBERTO DAVILA MD 03/29/24 Lactulose (Cephulac/Enulose Soln) 20 Gram/30 Ml Soln, 20 GM PO BID, #500 ML 1 Re fill Titrate to 2-3 bowel movements per day Prov:NOLBERTO DAVILA MD 02/15/24 Acetaminophen (Tylenol) 500 Mg Tab, 500 MG PO q6 for 5 Days, #30 TAB Prov:KATHRYN TURNER MD 01/02/24 Reported Medications Metoprolol Succinate (Metoprolol Succinate) 25 Mg Tab.er.24h, 1 TAB PO DAILY 08/03/24 Losartan Potassium (Losartan Potassium) 25 Mg Tablet, 1 TAB PO DAILY 03/24/24 Amitriptyline HCl (Amitriptyline HCl) 25 Mg Tablet, 1 TAB PO HS 03/24/24 Gabapentin (Gabapentin) 100 Mg Capsule, 100 MG PO TID, CAP 01/25/24 Sevelamer HCl (Sevelamer HCl) 800 Mg Tablet, 2400 MG PO TID, #270 TAB 07/03/23 Hydroxyzine Pamoate (Hydroxyzine Pamoate) 25 Mg Capsule, 25 MG PO QIDP PRN for Anxiety and/or insomnia, #60 CAP 1 Refill 07/03/23 Ropinirole HCl (Ropinirole HCl) 0.5 Mg Tablet, 0.5 MG PO PM, #30 TAB 0 Refills 07/03/23 Cinacalcet HCl (Cinacalcet HCl) 30 Mg Tablet, 60 MG PO DAILY, TAB 3 Refills 05/08/23 Past Medical History Past Medical History: Diabetes-Type II, GERD, Hypertension, Renal Disese, Renal Failure Medical History Other: HD, BLOODY EMESIS, BLOOD TRANSFUSION Past Surgical History: Other Surgical History Other: PICC LINE, HD CATH Family History Family History: Negative Social History Social History: Negative, Lives with family Female( History) History: Not Applicable ROS Dictation CONSTITUTIONAL: No chills, no fever, no weakness, no diaphoresis, no malaise. HEAD/FACE: No signs of trauma. EENT: No eye pain, no blurred vision, no tearing, no double vision, no ear pain, no ear discharge, no nose pain, no nasal congestion, no throat pain, no throat swelling, no mouth pain. RESPIRATORY: No cough, no orthopnea, no SOB, no stridor, no wheezing. CARDIOVASCULAR: No chest pain, no edema, no palpitations, no syncope. GASTROINTESTINAL/ABDOMINAL: No abdominal pain, no constipation, no diarrhea, no nausea, no vomiting. GENITOURINARY: No abnormal discharge, no dysuria, no frequent urination, no hematuria. No complaints of pain in the genitals. MUSCULOSKELETAL: No back pain, no gout, no joint pain, no joint swelling, no muscle pain, no muscle stiffness, no neck pain. INTEGUMENTARY: No change in color, no change in hair/nails, no dryness, no lesion, no lumps, no rash. NEUROLOGICAL/PSYCH: No anxiety, not depressed, no emotional problem, no headache, no numbness, no pre-existing deficit, no history of seizures, no tremors, no weakness. HEMATOLOGIC/LYMPHATIC: Not anemic, no history of blood clots, no apparent bleeding, no bruising, glands not swollen. All Systems Negative, Except as Noted. Physical Exam Physical Exam Dictation VITAL SIGNS: Reviewed. GENERAL APPEARANCE: Alert, oriented x3, no acute distress, obese. HEAD AND FACE: Non-traumatic. EYES: PERRL, pink conjunctivas, eyelid no trauma, anterior chamber clear. EARS: Pinnas intact and no signs of trauma or erythema. Ear canals clear and no discharge. TMs no erythema. NOSE: No discharge, no bleeding. OROPHARYNX: Mouth normal, teeth no caries, tongue pink. Pharynx clear, no erythema. Tonsils no exudates, no abscesses noted. Mucous membrane moist. NECK: Supple, non-tender, no thyromegaly, no masses, no JVD, no bruits. BREAST: Deferred. CHEST: No tenderness, no crepitus, no paradoxical movement, no retractions. LUNGS: Clear, well-ventilated, symmetric, no rales, no wheezing, no rhonchi, no stridor, good breath sounds bilaterally. HEART: Regular rate, regular rhythm, no murmur, no gallops. VASCULAR: No peripheral edema. ABDOMEN: Soft, positive bowel sounds, nondistended, no guarding, nontender, no rebound, no masses no hepatomegaly, no splenomegaly, no Sam's sign, no hernias. RECTAL: Deferred. GENITAL: Deferred. NEUROLOGICAL: Normal speech, gross motor function intact, gross sensory function intact. MUSCULOSKELETAL: Neck nontender, full range of motion, back nontender, full range of motion. EXTREMITIES: Nontender, full range of motion. SKIN: Color pink, dry, no turgor, no rash, no lacerations, no abrasions, no contusions. LYMPHATICS: Deferred. Results Laboratory and Microbiology Lab and Micro Result Laboratory Tests Test 09/16/24 15:44 09/16/24 16:00 White Blood Count 5.1 K/uL (4.8-10.8) Red Blood Count 2.40 MIL/uL (4.00-5.50) L Hemoglobin 7.7 g/dL (12.0-16.0) L Hematocrit 24.5 % (36-48) L Mean Corpuscular Volume 102.1 fL (79-99) H Mean Corpuscular Hemoglobin 32.1 pg (27.0-33.0) Mean Corpuscular Hemoglobin Concent 31.4 g/dL (32.0-36.0) L Red Cell Distribution Width 16.9 % (11.0-15.5) H Platelet Count 173 K/uL (130-400) Mean Platelet Volume 9.1 fL (7.5-10.5) Immature Granulocyte % (Auto) 0.2 % (0-1) Neutrophils (%) (Auto) 58.5 % (40.0-77.0) Lymphocytes (%) (Auto) 29.7 % (21.0-51.0) Monocytes (%) (Auto) 9.8 % (3.0-13.0) Eosinophils (%) (Auto) 1.0 % (0.0-8.0) Basophils (%) (Auto) 0.8 % (0.0-5.0) Neutrophils # (Auto) 3.0 K/uL (1.8-7.7) Lymphocytes # (Auto) 1.5 K/uL (1.0-4.8) Monocytes # (Auto) 0.5 K/uL (0.1-1.0) Eosinophils # (Auto) 0.05 K/uL (0.00-0.70) Basophils # (Auto) 0.04 K/uL (0.00-0.20) Absolute Immature Granulocyte (auto 0.01 K/uL (0-1) Nucleated Red Blood Cells 0.0 % (0.0-0.19) Sodium Level 135 mmol/L (136-145) L Potassium Level 5.2 mmol/L (3.5-5.1) H Chloride Level 96 mmol/L (101-111) L Carbon Dioxide Level 30 mmol/L (21-32) Blood Urea Nitrogen 86 mg/dL (7-18) *H Creatinine 6.5 mg/dL (0.5-1.0) H Glomerular Filtration Rate Calc 7 mL/min (>90) Random Glucose 139 mg/dL (70-105) H Total Calcium 8.7 mg/dL (8.5-10.1) Total Bilirubin 0.8 mg/dL (0.2-1.0) Aspartate Amino Transf (AST/SGOT) 34 U/L (10-37) Alanine Aminotransferase (ALT/SGPT) 22 U/L (12-78) Alkaline Phosphatase 215 U/L (50-136) H Total Protein 7.6 g/dL (6.0-8.3) Albumin 2.4 g/dL (3.5-5.0) L Stool Occult Blood POSITIVE (NEGATIVE) H Labs Reviewed?: Yes MDM MDM: Differential diagnosis: GI bleed, end-stage renal disease, anemia Rationale: Tests considered and ordered secondary to shared decision making include: labs, ECG and radiology Previous outside records reviewed: Old ER visits. Risk of complication and/or morbidity or mortality of patient management: None Medications-Per medication reconciliation Need for hospitalization: Patient does meet criteria for hospitalization. Need for emergency major/minor surgery: No There are no social concerns with this patient. Prescription drug management Prescriptions will include symptomatic care Patient's prior external medical records from other ER visits were reviewed by me as indicated. Prior testing and results from previous visits were reviewed. Prior tests were taken into account with medical decision making and resource utilization, independent historian/historians were used to obtain complete medical history. I independently interpreted the test that were performed, results were reviewed by me and considered findings on radiology if ordered. Medical management and examination interpretation discussions were had by me with other qualified healthcare professionals as indicated for the patient's care. Be admitted under the care of hospitalist group for ongoing management ED Course Orders Procedure Category Date Status Time Cbc With Differential LAB 09/16/24 Complete 15:34 Comprehensive LAB 09/16/24 Complete Metabolic Panel 15:34 Urinalysis Profile LAB 09/16/24 Logged 15:34 Occult Blood Stool LAB 09/16/24 Complete Single Only 15:34 Hydroxyzine 25mg Tab PHA 09/16/24 Complete (Atarax 25mg Tab) 17:30 Hydrocortisone 25mg PHA 09/16/24 Complete Supp (Anusol-Hc 25mg 18:30 Current Medications Medications (Trade) Dose Ordered Sig/Haven Route PRN Reason Start Time Stop Time Status Last Admin Dose Admin Hydrocortisone Acetate (anuSOL-HC 25MG SUPP) 1 supp ONCE ONCE WI 09/16/24 18:30 09/16/24 18:31 Hydroxyzine HCl (ATArax 25MG TAB) 25 mg ONCE ONCE PO 09/16/24 17:30 09/16/24 17:31 DC 09/16/24 17:22 Vital Signs Date Time Temp Pulse Resp B/P (MAP) Pulse Ox O2 Delivery O2 Flow Rate FiO2 09/16/24 17:22 97.3 74 16 109/47 100 Room Air* 0 21 09/16/24 15:14 98.1 79 17 114/54 96 Room Air* 0 21 09/16/24 15:14 98.1 79 17 114/54 96 Room Air 0 DX & DISP Disposition: Inpatient Decision to Admit Time: 18:32 Departure Impression: Primary Impression: GI bleeding Additional Impressions: Diabetes mellitus, End-stage renal disease on hemodialysis Condition: Stable Referrals: VIDA ROUSE (PCP) KATHRYN TURNER MD September 16, 2024 17:03
[2024-09-16] MEDS: hydrOXYzine 25 MG TABLET PO ONE (17:22)
[2024-09-16] MEDS: hydroCORTISONE 25 MG SUPPOSITORY PR ONE (18:43)
--- NOTE | 2024-09-16 19:01 | HP ---
[facility] HISTORY AND PHYSICAL Date of Service: September 16, 2024 Time of Service: 18:48 Tu Kapadia SANDRATN HISTORY OF PRESENT ILLNESS: This is a 49 year old female with past medical history of end-stage renal disease on hemodialysis Wednesday and Wednesday, diabetes type 2, hypertension, hyperlipidemia, myalgia diabetic neuropathy, insomnia, anemia, CHF , GI bleed and respiratory failure who as brought by EMS to the ED for complaints of vomiting blood and dark colored stool.Patient reports she started having black stool yesterday.Initially she thought it was nothing but then today she started having another episode of black stool and vomited blood x1 today as well ,she felt weak and having headache so she decided to come to the ED for evaluation.Patient reports she had an EGD and colonoscopy done 2 months ago and there was no findings she said.Patient denies taking any blood thinner. Patient reports his health information director is Dr. Elise and she also missed her dialysis today.Patient states her GI doctor is Seen and examined patient in the ED sitting up in chair,awake,alert and coherent appears uncomfortable ,complaining of abdominal pain and rectal pain. Patient denies fever, chills, cough, chest pain, palpitation and shortness of breaths. V/S temperature 97.3, heart rate 74, blood pressure 109/47 saturation 100% on room air. Labs: Hemoglobin 7.7, hematocrit 24, platelet count 173. Sodium 135, potassium 5.2, chloride 96, BUN 86, creatinine 6.5 GFR seven random glucose 139 alkaline phosphatase 215 albumin 2.4. Stool occult blood positive. While in the ER patient received Atarax 25 mg tab and Anusol suppository. We will admit patient for further medical management. REVIEW OF SYSTEMS CONSTITUTIONAL: Denies fevers, chills, or night sweats. No unintentional weight loss reported. NEUROLOGICAL: Denies headache, amaurosis fugax, motor weakness, sensory deficit, vertigo/spinning sensation, gait abnormalities, or tremors. ENT: No hearing loss, otalgia, otorrhea, rhinitis, rhinorrhea, hoarseness, or sore throat. CARDIOVASCULAR: Denies any exertional angina, dyspnea on exertion, orthopnea, paroxysmal nocturnal dyspnea, palpitations, life-threatening arrhythmias, claudication. PULMONARY: Denies any shortness of breath, cough, phlegm/sputum, hemoptysis, pleuritic chest pain. SLEEP: Denies morning headaches, daytime somnolence or napping. Denies diffic ulty falling asleep, staying asleep, waking from sleep. Denies knowledge of snoring. GASTROINTESTINAL:Complaints of vomiting blood and bloody stool. Denies any type of dysphagia to either liquids or solids. Denies pyrosis, early satiety, diarrhea, constipation. GENITOURINARY: Denies frequency, urgency, nocturia, hematuria or incontinence (Storage/Irritative symptoms.) Low urinary stream, straining to void, urinary intermittency or hesitancy, splitting of the voiding stream, terminal dribbling. ENDOCRINOLOGIC: Denies polyuria, polydipsia, polyphagia or heat/cold intolerances. HEMATOLOGIC: Denies thrombophilia/previous clots, or coagulopathy/bleeding disorders. ONCOLOGIC: Denies personal history of malignancy. DERMATOLOGIC: Denies rashes or pruritus. PSYCHIATRIC: Denies any suicidal or homicidal ideation. Denies hallucinations. PAST MEDICAL HISTORY: [end-stage renal disease on hemodialysis Wednesday and Wednesday, diabetes type 2, hypertension, hyperlipidemia, myalgia diabetic neuropathy, insomnia, anemia, CHF , GI bleed and respiratory failure on home O2 at 2 L ] PAST SURGICAL HISTORY: [ EGD , colonoscopy and Lava] PAST SOCIAL HISTORY: [ Patient lives with . Patient denies alcohol tobacco and recreational drug use ] FAMILY HISTORY: [ Hypertension, lung cancer, kidney cancer, diabetes autism and asthma ] Coded Allergies: No Known Allergies (Verified Allergy, Unknown, 07/03/23) PHYSICAL EXAM GENERAL APPEARANCE: The patient is awake, alert, and oriented, in no acute cardiopulmonary distress. NEUROLOGICAL: Cranial nerves II-XII grossly intact. Motor is 5/5 in bilateral upper and lower extremities proximal to distal. No sensory deficits. HEENT: Face is symmetric. Pupils are equal and reactive. Extraocular movements are intact. NECK: Supple. No JVD. No thyromegaly. No submental, submandibular, pre- /postauricular, occipital or supraclavicular lymphadenopathy. CHEST: Normal chest expansion. No Telemetry. LUNGS: Absence of any rales, rhonchi or any wheezing. CARDIOVASCULAR: Regular. S1 and S2 normal. No appreciable rubs, murmurs or gallops. ABDOMEN: Soft and nondistended. There is no rebound, voluntary guarding, or rigidity. : Deferred. No Georges. EXTREMITIES:edema to bilateral lower extremities SKIN: No skin breakdown. Vital Sign (Last 24 Hours) 09/16/24 17:22 Temp 97.3 Pulse 74 Resp 16 B/P (MAP) 109/47 Pulse Ox 100 O2 Delivery Room Air* O2 Flow Rate 0 FiO2 21 LABS: Laboratory: Test 09/16/24 16:00 09/16/24 15:44 Range/Units Stool Occult Blood POSITIVE H NEGATIVE White Blood Count 5.1 4.8-10.8 K/uL Red Blood Count 2.40 L 4.00-5.50 MIL/uL Hemoglobin 7.7 L 12.0-16.0 g/dL Hematocrit 24.5 L 36-48 % Mean Corpuscular Volume 102.1 H 79-99 fL Mean Corpuscular Hemoglobin 32.1 27.0-33.0 pg Mean Corpuscular Hemoglobin Concent 31.4 L 32.0-36.0 g/dL Red Cell Distribution Width 16.9 H 11.0-15.5 % Platelet Count 173 130-400 K/uL Mean Platelet Volume 9.1 7.5-10.5 fL Immature Granulocyte % (Auto) 0.2 0-1 % Neutrophils (%) (Auto) 58.5 40.0-77.0 % Lymphocytes (%) (Auto) 29.7 21.0-51.0 % Monocytes (%) (Auto) 9.8 3.0-13.0 % Eosinophils (%) (Auto) 1.0 0.0-8.0 % Basophils (%) (Auto) 0.8 0.0-5.0 % Neutrophils # (Auto) 3.0 1.8-7.7 K/uL Lymphocytes # (Auto) 1.5 1.0-4.8 K/uL Monocytes # (Auto) 0.5 0.1-1.0 K/uL Eosinophils # (Auto) 0.05 0.00-0.70 K/uL Basophils # (Auto) 0.04 0.00-0.20 K/uL Absolute Immature Granulocyte (auto 0.01 0-1 K/uL Nucleated Red Blood Cells 0.0 0.0-0.19 % Sodium Level 135 L 136-145 mmol/L Potassium Level 5.2 H 3.5-5.1 mmol/L Chloride Level 96 L 101-111 mmol/L Carbon Dioxide Level 30 21-32 mmol/L Blood Urea Nitrogen 86 *H 7-18 mg/dL Creatinine 6.5 H 0.5-1.0 mg/dL Glomerular Filtration Rate Calc 7 >90 mL/min Random Glucose 139 H 70-105 mg/dL Total Calcium 8.7 8.5-10.1 mg/dL Total Bilirubin 0.8 0.2-1.0 mg/dL Aspartate Amino Transf (AST/SGOT) 34 10-37 U/L Alanine Aminotransferase (ALT/SGPT) 22 12-78 U/L Alkaline Phosphatase 215 H 50-136 U/L Total Protein 7.6 6.0-8.3 g/dL Albumin 2.4 L 3.5-5.0 g/dL DIAGNOSTICS / RADIOLOGY: [ ] ASSESSMENT: Acute GI bleed POA Acute on chronic anemia POA End stage renal disease on hemodialysis POA Diabetes POA Hyponatremia POA Protein calorie malnutrition POA Chronic respiratory failure on home O2 POA HyperlipidemiaPOA CHF POA Diabetic neuropathy POA PLAN: We will admit patient in PCCU We will keep patient nothing by mouth Will start on Protonix 40 mg IV daily for GI prophylaxis We will start on insulin sliding scale AC & HS with hypoglycemia protocol We will add prn medication for fever,pain,cough, nausea and vomiting We will reconcile home meds once medlist available Will do serial H&H Q6H x3 May transfuse PRBC to keep Hemoglobin above 7. Will seek Gastroenterology consultation Will seek Nephrology consultation We will request labs in am Further orders to follow depending on above results Case discussed with attending physician and came up with above treatment and plan of care. ADVANCED CARE PLANNING 1. Which of the following were discussed? Hospice Care - No Therapeutic options - Yes Advance Directives - No Other discussions - 2. Discussed with who? Patient 3. Voluntary nature of this service was explained to the patient? Yes 4. Amount of time spent - __25 5. Reviewed by Physician? (if this service was performed by NPP) Yes Patient seen and examined by me. Agree with note by BEHAVIORAL ASSISTANT SEE ADDITIONAL ORDERS PER CHART DISCUSSED WITH NURSING STAFF GRANT CAUSEY September 16, 2024 19:00
[2024-09-16] MEDS ORDERED: ondanSETRON 4MG INJ IV PRN (19:30)
[2024-09-16] MEDS ORDERED: GLUCAGON 1MG KIT 1 MG ML IM PRN (19:30)
[2024-09-16 19:40] LABS: HEMATOCRIT 24.5 % (36-48)
[2024-09-16] MEDS: INSULIN humuLIN R 100 UNIT/ML 3ML SQ SCH (21:00)
[2024-09-16] MEDS: PANTOPrazole 40 MG/VIAL ONE (21:09)
[2024-09-16] MEDS: PANTOPrazole 40MG INJ 80 MG in 0.9%NACL 100ML 100 ML IV SCH (21:09)
[2024-09-16] MEDS: PANTOPrazole 40 MG/VIAL IVP ONE (21:09)
--- NOTE | 2024-09-16 21:17 | NUR ---
SPOKEN TO BALJIT CONCEPT ARTIST, PT ACTIVELY HAVING MELENA X2 SINCE 19.30, HB 7.7, SHE SAID TO HAVE TRANSFUSION DURING DIALYSIS ALSO TOLD ME TO CALL GI FOR POSSIBLE EGD OR COLO (PAGED, AWAITING TO CALL BACK) AND RENAL DR SPOKEN TO DR CAMPOS ORDERS MADE, TO HAVE IN PATIENT DIALYSIS ARRANGED HD, TO BE DONE IN THE FLOOR SPOKEN TO C/0 HD NURSE [place], TO ASK ON-CALL NURSE NORM TO DIALYSED PT MOE SECURED CONSENTS FOR BLOOD TRANSFUSION AND HD HOUSE SUP, ER CHARGE NURSE AWARE HANDED REPORT TO NURSE PORTER TRANSFERRED PT TO ROOM 405
--- NOTE | 2024-09-16 21:30 | NUR ---
ADMIT Patient admitted from ER, report given by nurse Pérez. Alertx4, assisted to restroom, steady gait. Vitals stable. Denies nausea/vomiting. Denies pain. Educated on fall risk precautions and use of call light, verbalized understanding. Left arm precautions. Protonix drip to Right hand 18 g IV patent/ intact. Plan of care discussed. Call light within reach. Bed alarm on.
--- NOTE | 2024-09-16 22:47 | NUR ---
PATIENT STATES FEELING ITCHY AND VERY ANXIOUS, DIALYSIS NURSE AT BEDSIDE. PAGED GRANT CAUSEY NP. NEW ORDER FOR BENADRYL 12.5 MG IV ONCE. CALL LIGHT WITHIN REACH. BED ALARM ON.
--- NOTE | 2024-09-16 22:55 | NUR ---
As per labor/excavator Rae, patient with positive RBC antibody, special unit of blood to be ordered. Delay for blood possibly until tomorrow.
[2024-09-16] MEDS ORDERED: 0.9% NACL 250ML 250 ML IV SCH (23:00)
[2024-09-16] MEDS: miDODRine HCL 5 MG TABLET PO PRN (23:04)
[2024-09-16] MEDS: DiphenhydrAMINE HCL 50 MG/ML VIAL IV ONE (23:05)
--- NOTE | 2024-09-16 23:13 | NUR ---
Notified Michaela Gonzalez Np regarding delay in blood transfusion.
[2024-09-16] MEDS: hydroMORPHone 0.5 MG SYG (0.5MG/0.5ML) IVP ONE (23:38)
--- NOTE | 2024-09-16 23:40 | NUR ---
Patient screaming stating severe pain all over body while on dialysis. 01/26 pain. Notified Michaela Gonzalez np, new order for Dilaudid 0.2 mg IV once. Vitals stable.
[2024-09-17] VITALS (14 sets, daily range): BP systolic 84–121; BP diastolic 48–70; PULSE 66–80; RESP 14–20; TEMP 96.7–98.2; O2SAT 94–95
--- NOTE | 2024-09-17 | NUR ---
Patient pending to bring home medications, states boyfriend will bring.
[2024-09-17] MEDS: ALBUMIN (HUMAN) 25% 50 ML IV.SOLN. IV PRN (00:27)
[2024-09-17] MEDS: 0.9%NACL 1000ML 1,000 ML IV SCH (00:28)
[2024-09-17 04:01] LABS: BASOPHILS # (AUTO) 0.04 K/uL (0.00-0.20); BASOPHILS % (AUTO) 0.8 % (0.0-5.0); EOSINOPHILS # (AUTO) 0.09 K/uL (0.00-0.70); EOSINOPHILS % (AUTO) 1.8 % (0.0-8.0); HEMATOCRIT 22.8 % (36-48); IMMATURE GRANULOCYTE ABSOLUTE 0.02 K/uL (0-1); LYMPHOCYTES # (AUTO) 1.5 K/uL (1.0-4.8); LYMPHOCYTES % (AUTO) 31.1 % (21.0-51.0); MEAN CORPUSCULAR HEMOGLOBIN 32.6 pg (27.0-33.0); MEAN CORPUSCULAR HGB CONC 32.5 g/dL (32.0-36.0); MEAN CORPUSCULAR VOLUME 100.4 fL (79-99); MONOCYTES # (AUTO) 0.6 K/uL (0.1-1.0); MONOCYTES % (AUTO) 12.9 % (3.0-13.0); NEUTROPHILS # (AUTO) 2.6 K/uL (1.8-7.7); PLATELET COUNT (AUTO) 170 K/uL (130-400); RED BLOOD CELL COUNT(AUTO) 2.27 MIL/uL (4.00-5.50); RED CELL DISTRIBUTION WIDTH 16.8 % (11.0-15.5)
[2024-09-17 04:30] LABS: INR 1.23 (0.85-1.15); PROTHROMBIN TIME 12.8 SEC (9.6-11.6)
[2024-09-17 04:31] LABS: PARTIAL THROMBOPLASTIN TIME 31.3 SEC (26.3-35.5)
[2024-09-17 04:47] LABS: ALBUMIN 2.6 g/dL (3.5-5.0); BILIRUBIN,TOTAL 0.9 mg/dL (0.2-1.0); CREATININE 4.8 mg/dL (0.5-1.0); MAGNESIUM 2.2 mg/dL (1.80-2.40); POTASSIUM 4.3 mmol/L (3.5-5.1); TOTAL PROTEIN, SERUM 7.3 g/dL (6.0-8.3)
[2024-09-17 07:33] LABS: HEMATOCRIT 28.1 % (36-48)
[2024-09-17] MEDS ORDERED: PANTOPrazole 40 MG/VIAL IVP SCH (09:00)
--- NOTE | 2024-09-17 11:10 | NUR ---
MESSAGE SENT TO DR. MACIAS REGARDING CONSULT, PENDING RESPONSE.
[2024-09-17] MEDS ORDERED: COMPOUND IV REFRIGERATED 1 EACH IVSOLN MISC PRN (12:00)
--- NOTE | 2024-09-17 13:33 | CONS ---
NEPHROLOGY CONSULTATION NOTE Date/Time Patient Seen: Sep 17, 2024 HISTORY OF PRESENT ILLNESS: This is a 49 year old female with past medical history of end-stage renal disease on hemodialysis Wednesday and Wednesday, diabetes type 2, hypertension, hyperlipidemia, myalgia diabetic neuropathy, insomnia, anemia, CHF , GI bleed and respiratory failure She was brought by EMS to the ED for complaints of vomiting blood and dark colored stool. Stool occult blood positive. Pending further GI recommendations. Dialysis done yesterday Hemoglobin has remained stable Electrolytes are stable She denies any shortness of breath or chest pain She was seen in the medical floor, in no acute distress She was counseled on the importance of fluid restriction Family at the bedside Prognosis remains guarded REVIEW OF SYSTEMS: GENERAL: Negative for any nausea, vomiting, fevers, chills, or weight loss. NEUROLOGIC: Negative for any blurry vision, blind spots, double vision, facial asymmetry, dysphagia, dysarthria, hemiparesis, hemisensory deficits, vertigo, ataxia. HEENT: Negative for any head trauma, neck trauma, neck stiffness, photophobia, phonophobia, sinusitis, rhinitis. CARDIAC: Negative for any chest pain, dyspnea on exertion, paroxysmal nocturnal dyspnea, peripheral edema. PULMONARY: Negative for any shortness of breath, wheezing, COPD, or TB exposure. GASTROINTESTINAL: Negative for any abdominal pain, nausea, vomiting, bright red blood per rectum, melena. GENITOURINARY: Negative for any dysuria, hematuria, incontinence. INTEGUMENTARY: Negative for any rashes, cuts, insect bites. RHEUMATOLOGIC: Negative for any joint pains, photosensitive rashes, history of vasculitis or kidney problems. HEMATOLOGIC: Negative for any abnormal bruising, frequent infections or bleeding. PAST MEDICAL HISTORY: end-stage renal disease on hemodialysis Wednesday and Wednesday, diabetes type 2, hypertension, hyperlipidemia, myalgia diabetic neuropathy, insomnia, anemia, CHF , GI bleed and respiratory failure PAST SURGICAL HISTORY: EGD, colonoscopy, av access creation PAST SOCIAL HISTORY: Denies use of alcohol, tobacco or illicit drugs FAMILY HISTORY: Noncontributory PHYSICAL EXAM: GENERAL: Alert and oriented x 3. No acute distress. Well-nourished. EYES: EOMI. Anicteric. HENT: Moist mucous membranes. No scleral icterus. No cervical lymphadenopathy. LUNGS: Clear to auscultation bilaterally. No accessory muscle use. CARDIOVASCULAR: Regular rate and rhythm. No murmur. No JVD. ABDOMEN: Soft, non-tender and non-distended. No palpable masses. EXTREMITIES: No edema. Non-tender. SKIN: No rashes or lesions. Warm. NEUROLOGIC: No focal neurological deficits. CN II-XII grossly intact, but not individually tested. PSYCHIATRIC: Cooperative. Appropriate mood and affect. MEDICATIONS: [ ] Current Medications Medications (Trade) Dose Ordered Sig/Haven Route PRN Reason Start Time Stop Time Status Last Admin Dose Admin Albumin Human (Albumin (Human) 25%) 100 ml ONCE PRN IV HYPOTENSION DESPITE FLUIDS 09/16/24 23:00 09/17/24 22:59 09/17/24 00:27 100 ML Dextrose (D50w) 50 ml AD PRN IV HYPOGLYCEMIA PROTOCOL 09/16/24 19:30 10/16/24 19:29 Glucagon (Glucagon 1mg Kit) 1 mg AD PRN IM HYPOGLYCEMIA PROTOCOL 09/16/24 19:30 10/16/24 19:29 Insulin Human Regular (humuLIN R 100 UNIT/ML 3ML) INSULIN SLIDING SCAL... ACHS SQ 09/16/24 21:00 10/16/24 20:59 Midodrine (PROAMatine 5 MG TABLET) 10 mg ONCE PRN PO HYPOTENSION W/HD TX 09/16/24 23:00 10/16/24 22:59 09/16/24 23:04 10 MG Ondansetron HCl (zoFRAN 4MG INJ) 4 mg Q6H PRN IV NAUSEA/VOMITING 09/16/24 19:30 10/16/24 19:29 Pantoprazole Sodium (PROTonix 40MG INJ) 40 mg DAILY IVP 09/17/24 09:00 09/16/24 20:56 DC Pantoprazole Sodium 80 mg/ Sodium Chloride 100 ml @ 10 mls/hr Q10H IV 09/16/24 21:00 10/16/24 20:59 09/17/24 05:15 10 MLS/HR Sodium Chloride 250 ml @ 0 mls/hr AD IV 09/16/24 23:00 10/16/24 22:59 Sodium Chloride 1,000 ml @ 0 mls/hr AD IV 09/16/24 23:00 10/16/24 22:59 09/17/24 00:28 100 MLS/HR Vital Signs (last 8hr) Date Time Temp Pulse Resp B/P (MAP) Pulse Ox O2 Delivery O2 Flow Rate FiO2 09/17/24 11:18 97.5 80 19 115/60 90 Room Air 09/17/24 08:00 94 Room Air* 0 21 09/17/24 07:38 97.9 77 18 107/50 94 Room Air DIAGNOSTICS / RADIOLOGY: LABORATORY: [ ] Hematology Labs: Test 09/17/24 07:19 09/17/24 03:01 Range/Units Hemoglobin 9.2 #L 12.0-16.0 g/dL Hematocrit 28.1 #L 36-48 % White Blood Count 5.0 4.8-10.8 K/uL Red Blood Count 2.27 L 4.00-5.50 MIL/uL Mean Corpuscular Volume 100.4 H 79-99 fL Mean Corpuscular Hemoglobin 32.6 27.0-33.0 pg Mean Corpuscular Hemoglobin Concent 32.5 32.0-36.0 g/dL Red Cell Distribution Width 16.8 H 11.0-15.5 % Platelet Count 170 130-400 K/uL Mean Platelet Volume 9.6 7.5-10.5 fL Immature Granulocyte % (Auto) 0.4 0-1 % Neutrophils (%) (Auto) 53.0 40.0-77.0 % Lymphocytes (%) (Auto) 31.1 21.0-51.0 % Monocytes (%) (Auto) 12.9 3.0-13.0 % Eosinophils (%) (Auto) 1.8 0.0-8.0 % Basophils (%) (Auto) 0.8 0.0-5.0 % Neutrophils # (Auto) 2.6 1.8-7.7 K/uL Lymphocytes # (Auto) 1.5 1.0-4.8 K/uL Monocytes # (Auto) 0.6 0.1-1.0 K/uL Eosinophils # (Auto) 0.09 0.00-0.70 K/uL Basophils # (Auto) 0.04 0.00-0.20 K/uL Absolute Immature Granulocyte (auto 0.02 0-1 K/uL Nucleated Red Blood Cells 0.0 0.0-0.19 % Chemistry Labs: Test 09/17/24 10:35 09/17/24 03:01 Range/Units Whole Blood Glucose 71 70-110 MG/DL Sodium Level 136 136-145 mmol/L Potassium Level 4.3 3.5-5.1 mmol/L Chloride Level 99 L 101-111 mmol/L Carbon Dioxide Level 23 21-32 mmol/L Blood Urea Nitrogen 81 *H 7-18 mg/dL Creatinine 4.8 H 0.5-1.0 mg/dL Glomerular Filtration Rate Calc 11 >90 mL/min Random Glucose 90 70-105 mg/dL Total Calcium 8.2 L 8.5-10.1 mg/dL Magnesium Level 2.20 1.80-2.40 mg/dL Total Bilirubin 0.9 0.2-1.0 mg/dL Aspartate Amino Transf (AST/SGOT) 28 10-37 U/L Alanine Aminotransferase (ALT/SGPT) 19 12-78 U/L Alkaline Phosphatase 195 H 50-136 U/L Total Protein 7.3 6.0-8.3 g/dL Albumin 2.6 L 3.5-5.0 g/dL Coagulation Labs: Test 09/17/24 03:01 Range/Units Prothrombin Time 12.8 H 9.6-11.6 SEC Prothromb Time International Ratio 1.23 H 0.85-1.15 Activated Partial Thromboplast Time 31.3 26.3-35.5 SEC ASSESSMENT: Acute GI bleed POA Acute on chronic anemia POA End stage renal disease on hemodialysis POA Diabetes POA Hyponatremia POA Protein calorie malnutrition POA Chronic respiratory failure on home O2 POA HyperlipidemiaPOA CHF POA Diabetic neuropathy POA PLAN: Labs and Diagnostics/ Radiology personally reviewed and interpreted by myself a nd supervising physician We have reviewed dialysis and external records in detail Continue dialysis schedule Wednesday She was counseled on the importance of fluid restriction Pending further GI recommendations 1.5 L fluid restriction Continue to monitor H&H Epogen on dialysis days, as needed Continue with frequent monitoring of renal function, anemia, and electrolytes Order CBC, BMP, and electrolytes in the morning May use Dilaudid 0.5 mg IV every 6 hours as needed for severe pain Monitor blood pressure adjust medication doses as needed Maintain normotensive state; Strict intake, output, and daily weight should be monitored Please renally adjust medications. Avoid nephrotoxics and nonsteroidal drugs. We will continue to monitor the patient closely We have discussed with the other team physicians in detail about the care plan Thank you for allowing us to participate in the care of this patient ATTESTATION BY PHYSICIAN I have seen and examined the patient. I reviewed the documentation, medical decision making, and treatment plan as noted by the mid-level provider above. I agree with the findings and plan of care. ARELIS CAMPOS MD, [facility] Sep 17, 2024 13:33
[2024-09-17 13:35] LABS: BASOPHILS # (AUTO) 0.04 K/uL (0.00-0.20); EOSINOPHILS % (AUTO) 2.4 % (0.0-8.0); HEMATOCRIT 25.2 % (36-48); IMMATURE GRANULOCYTE ABSOLUTE 0.01 K/uL (0-1); LYMPHOCYTES # (AUTO) 1.2 K/uL (1.0-4.8); LYMPHOCYTES % (AUTO) 29.5 % (21.0-51.0); MEAN CORPUSCULAR HEMOGLOBIN 32.7 pg (27.0-33.0); MEAN CORPUSCULAR HGB CONC 32.1 g/dL (32.0-36.0); MEAN CORPUSCULAR VOLUME 101.6 fL (79-99); MONOCYTES # (AUTO) 0.3 K/uL (0.1-1.0); NEUTROPHILS # (AUTO) 2.4 K/uL (1.8-7.7); NEUTROPHILS % (AUTO) 58.9 % (40.0-77.0); PLATELET COUNT (AUTO) 191 K/uL (130-400); RED BLOOD CELL COUNT(AUTO) 2.48 MIL/uL (4.00-5.50); WHITE BLOOD COUNT (AUTO) 4.1 K/uL (4.8-10.8)
--- NOTE | 2024-09-17 14:13 | NUR ---
DCP: INITIAL ASSESSMENT Patient lives with boyfriend. Shahzad Elise. She has no home health but does have [facility] X 30 hours a week. Patient has dialysis on TTS at [facility] in [place] at 3:45pm. She uses medical transportation to and from treatments. Patient has rollator, O2 concentrator/portable but does not remember the name of the company that services home O2. Patient needs help with ADLs and does not drive. Family assists as needed. PCP is INES Ye. Pharmacy is [facility] in [place]. Patient voiced no safety concerns regarding returning home and states she has no difficulty with housing or buying food. DCP is home. Addendum: 09/17/24 at 1417 by SHIRLEY PERDOMO SS Amended: Links added.
--- NOTE | 2024-09-17 14:37 | PN ---
[facility] PROGRESS NOTE Date of Service: Sep 17, 2024 Time of Service: 14:30 SUBJECTIVE: 09/17 patient seen at bedside, no acute events overnight. Patient was transfused with 1 unit packed red blood cells, hemoglobin increased from 7.4 up to 9.2, before trending back down to 8.1. GI recommendations still pending, we will follow up REVIEW OF SYSTEMS 12 point ROS negative unless noted in HPI PHYSICAL EXAM GENERAL APPEARANCE: The patient is awake, alert, and oriented, in no acute cardiopulmonary distress. NEUROLOGICAL: Cranial nerves II-XII grossly intact. Motor is 5/5 in bilateral upper and lower extremities proximal to distal. No sensory deficits. HEENT: Face is symmetric. Pupils are equal and reactive. Extraocular movements are intact. NECK: Supple. No JVD. No thyromegaly. No submental, submandibular, pre- /postauricular, occipital or supraclavicular lymphadenopathy. CHEST: Normal chest expansion. No Telemetry. LUNGS: Absence of any rales, rhonchi or any wheezing. CARDIOVASCULAR: Regular. S1 and S2 normal. No appreciable rubs, murmurs or gallops. ABDOMEN: Soft and nondistended. There is no rebound, voluntary guarding, or rigidity. : Deferred. No Georges. EXTREMITIES:edema to bilateral lower extremities SKIN: No skin breakdown. Vital Signs (last 8hr) Date Time Temp Pulse Resp B/P (MAP) Pulse Ox O2 Delivery O2 Flow Rate FiO2 09/17/24 11:18 97.5 80 19 115/60 90 Room Air 09/17/24 08:00 94 Room Air* 0 21 09/17/24 07:38 97.9 77 18 107/50 94 Room Air LABS: Laboratory: Test 09/17/24 13:20 09/17/24 10:35 09/17/24 03:01 09/16/24 16:00 Range/Units White Blood Count 4.1 L 4.8-10.8 K/uL Red Blood Count 2.48 L 4.00-5.50 MIL/uL Hemoglobin 8.1 L 12.0-16.0 g/dL Hematocrit 25.2 L 36-48 % Mean Corpuscular Volume 101.6 H 79-99 fL Mean Corpuscular Hemoglobin 32.7 27.0-33.0 pg Mean Corpuscular Hemoglobin Concent 32.1 32.0-36.0 g/dL Red Cell Distribution Width 17.0 H 11.0-15.5 % Platelet Count 191 130-400 K/uL Mean Platelet Volume 9.0 7.5-10.5 fL Immature Granulocyte % (Auto) 0.2 0-1 % Neutrophils (%) (Auto) 58.9 40.0-77.0 % Lymphocytes (%) (Auto) 29.5 21.0-51.0 % Monocytes (%) (Auto) 8.0 3.0-13.0 % Eosinophils (%) (Auto) 2.4 0.0-8.0 % Basophils (%) (Auto) 1.0 0.0-5.0 % Neutrophils # (Auto) 2.4 1.8-7.7 K/uL Lymphocytes # (Auto) 1.2 1.0-4.8 K/uL Monocytes # (Auto) 0.3 0.1-1.0 K/uL Eosinophils # (Auto) 0.10 0.00-0.70 K/uL Basophils # (Auto) 0.04 0.00-0.20 K/uL Absolute Immature Granulocyte (auto 0.01 0-1 K/uL Nucleated Red Blood Cells 0.0 0.0-0.19 % Whole Blood Glucose 71 70-110 MG/DL Prothrombin Time 12.8 H 9.6-11.6 SEC Prothromb Time International Ratio 1.23 H 0.85-1.15 Activated Partial Thromboplast Time 31.3 26.3-35.5 SEC Sodium Level 136 136-145 mmol/L Potassium Level 4.3 3.5-5.1 mmol/L Chloride Level 99 L 101-111 mmol/L Carbon Dioxide Level 23 21-32 mmol/L Blood Urea Nitrogen 81 *H 7-18 mg/dL Creatinine 4.8 H 0.5-1.0 mg/dL Glomerular Filtration Rate Calc 11 >90 mL/min Random Glucose 90 70-105 mg/dL Total Calcium 8.2 L 8.5-10.1 mg/dL Magnesium Level 2.20 1.80-2.40 mg/dL Total Bilirubin 0.9 0.2-1.0 mg/dL Aspartate Amino Transf (AST/SGOT) 28 10-37 U/L Alanine Aminotransferase (ALT/SGPT) 19 12-78 U/L Alkaline Phosphatase 195 H 50-136 U/L Total Protein 7.3 6.0-8.3 g/dL Albumin 2.6 L 3.5-5.0 g/dL Stool Occult Blood POSITIVE H NEGATIVE Current Medications Medications (Trade) Dose Ordered Sig/Haven Route PRN Reason Start Time Stop Time Status Last Admin Dose Admin Albumin Human (Albumin (Human) 25%) 100 ml ONCE PRN IV HYPOTENSION DESPITE FLUIDS 09/16/24 23:00 09/17/24 22:59 09/17/24 00:27 100 ML Dextrose (D50w) 50 ml AD PRN IV HYPOGLYCEMIA PROTOCOL 09/16/24 19:30 10/16/24 19:29 Glucagon (Glucagon 1mg Kit) 1 mg AD PRN IM HYPOGLYCEMIA PROTOCOL 09/16/24 19:30 10/16/24 19:29 Insulin Human Regular (humuLIN R 100 UNIT/ML 3ML) INSULIN SLIDING SCAL... ACHS SQ 09/16/24 21:00 10/16/24 20:59 Midodrine (PROAMatine 5 MG TABLET) 10 mg ONCE PRN PO HYPOTENSION W/HD TX 09/16/24 23:00 10/16/24 22:59 09/16/24 23:04 10 MG Ondansetron HCl (zoFRAN 4MG INJ) 4 mg Q6H PRN IV NAUSEA/VOMITING 09/16/24 19:30 10/16/24 19:29 Pantoprazole Sodium (PROTonix 40MG INJ) 40 mg DAILY IVP 09/17/24 09:00 09/16/24 20:56 DC Pantoprazole Sodium 80 mg/ Sodium Chloride 100 ml @ 10 mls/hr Q10H IV 09/16/24 21:00 10/16/24 20:59 09/17/24 05:15 10 MLS/HR Sodium Chloride 250 ml @ 0 mls/hr AD IV 09/16/24 23:00 10/16/24 22:59 Sodium Chloride 1,000 ml @ 0 mls/hr AD IV 09/16/24 23:00 10/16/24 22:59 09/17/24 00:28 100 MLS/HR DIAGNOSTICS / RADIOLOGY: [ ] ASSESSMENT: Acute GI bleed POA Acute on chronic anemia POA End stage renal disease on hemodialysis POA Diabetes POA Hyponatremia POA Protein calorie malnutrition POA Chronic respiratory failure on home O2 POA HyperlipidemiaPOA CHF POA Diabetic neuropathy POA PLAN: Continue PCCU We will keep patient nothing by mouth Continue Protonix 40 mg IV daily for GI prophylaxis Continue insulin sliding scale AC & HS with hypoglycemia protocol Will do serial H&H Q6H x3 Hold transfusion and defer to nephrology for all transfusions to avoid volume overload GI consulted, appreciate recommendations Nephrology consulted to managed hemodialysis Disposition: Pending GI recommendations, resolution of GI bleed NLOBERTO DAVILA MD Sep 17, 2024 14:37
[2024-09-17] MEDS: DEXTROSE 50%-WATER 50 ML DISP.SYRIN IV PRN (15:39)
[2024-09-17] MEDS: GABApentin 100 MG CAPSULE PO SCH (16:45)
--- NOTE | 2024-09-17 20:00 | NUR ---
NOTE Patient sitting in chair very drowsy, easily aroused. Informed of nothing to eat after midnight due to pending procedure in the morning, verbalized understanding. Refused to get back in bed,states bed hurts her back. Chair alarm in place. Educated on use of call light and fall precautions, verbalized understanding. Patient fell back to sleep in chair. Call light within reach, chair alarm on.
--- NOTE | 2024-09-17 21:01 | NUR ---
NOTE Patient awake and alert x4. Continue to refuse to get back in bed. Chair alarm on. Educated on fall risk precautions and use of call light when ready to get back in bed,verbalized understanding. Patient eating a jello. Denies pain. Denies nausea/vomiting. Call light and bedside table within reach.
--- NOTE | 2024-09-17 21:22 | CONS ---
NEPHROLOGY CONSULTATION REASON FOR CONSULTATION: The patient was brought to the emergency room with GI bleeding, found to have shortness of breath and has end-stage renal disease and missed dialysis. HISTORY OF PRESENT ILLNESS: This patient has multiple medical problems. He has end-stage renal disease, on dialysis on Wednesday, and Wednesday, and noncompliance with dialysis and fluid intake and type 2 diabetes, hypertension, hyperlipidemia, anemia and underlying diabetes with multiple complications. The patient is generally weak. The patient now admitted with acute hypoxic respiratory failure, brought in by EMS Service with GI bleeding. The patient has been vomiting blood as well as having melena. The patient has anemia and has relatively low blood pressure. No other associated findings. No other aggravating or relieving factor. PAST MEDICAL HISTORY: Diabetes, hypertension, end-stage renal disease, anemia, hyperlipidemia, diabetes and multiple complications, insomnia. PAST SURGICAL HISTORY: AV access, EGD, colonoscopies. SOCIAL HISTORY: Denies any smoking. Lives with the family. No alcohol abuse. FAMILY HISTORY: Unremarkable for present contacts. Reported diabetes, lung cancer, kidney cancer, and hypertension in the family. ALLERGIES: None. REVIEW OF SYSTEMS: CONSTITUTIONAL: The patient has been weak. No fever, chills, or rigors. HEENT: With no headache, oral ulcer, sore throat, or difficulty swallowing. No new vision complaints. RESPIRATORY: Has no cough, expectoration. Has shortness of breath. CARDIOVASCULAR: Shortness of breath. No orthopnea or PND. GASTROINTESTINAL: As above with GI bleeding, vomiting blood as well as melena. No abdominal pain. GENITOURINARY: Negative for dysuria or hematuria. Underlying end-stage renal disease. DERMATOLOGIC: No rashes or pruritus. ENDOCRINE: No polyuria, polydipsia, polyphagia. PSYCHIATRIC: Negative for anxiety, depression, or hallucinations. NEUROLOGIC: No seizure or syncope. LYMPHATIC AND HEMATOPOIETIC: No other bleeding tendencies or swelling noted in lymph node areas. Other systems unchanged. PHYSICAL EXAMINATION: GENERAL: Obese, lying in bed. VITAL SIGNS: Blood pressure is 109/47, pulse 74, respiratory rate 16, afebrile. HEENT: Head is atraumatic, normocephalic. Pupils are round, reactive to light. Sclerae are anicteric. Conjunctiva not pale. Oral mucosa is not dry. NECK: Supple. No masses or bruits. Thyroid is palpable. Neck has no bruits. CHEST: Shows equal thoracic percussion note being resonant in all areas. CARDIAC: Regular rhythm. No rub, no S3 or S4. No parasternal heave. ABDOMEN: No guarding, tenderness. Bowel sounds are normoactive. No free fluid. EXTREMITIES: With no edema and no cyanosis or clubbing. NEUROLOGIC: Awake, alert, and nonfocal. LABORATORY DATA: We have reviewed available labs in detail. Labs have shown hemoglobin has been low up to 7.7. White cell count normal. Platelet count has been normal at 173. Potassium is elevated at 5.2, BUN of 86, creatinine is 8.5. IMAGING STUDIES: Personally reviewed. Chest x-ray has been previously increased marking. Old records have been reviewed. External records reviewed. We have discussed with the mother. Comorbidities are present. PROBLEMS: * The patient is admitted with GI bleed. * The patient has shortness of breath and fluid overload. * End-stage renal disease. * Diabetic nephropathy. * Hypertension. * Hyperlipidemia. * Anemia, multifactorial. * Noncompliance. * Hyperlipidemia. * Diabetes, nephropathy, hypertension and multiple other comorbidities. The patient is critically ill. PLAN: * The patient is being admitted. * We will get a dialysis arranged. * Intake, output, weight monitoring. * Protonix 40 mg daily. * Avoid aspirin. * IV Zofran for nausea and vomiting. * GI consultation. * Contrast and nonsteroidal to be avoided. * Transfusion as necessary. * Fluid restriction. * IV Dilaudid can be used for pain 0.5 q. 6 hours. * Previous record, external records reviewed. * Labs and x-rays were personally reviewed and interpreted. * The patient will get followup on blood pressure, electrolyte, renal function, and overall status. Followup CBC, CMP ordered. Condition is critical and guarded. Seen several times. We will be monitoring closely. Overall condition is critical. Total time spent was more than 75 minutes. TID: [id number] RECEIPT: [id number]
[2024-09-18] VITALS (25 sets, daily range): BP systolic 99–151; BP diastolic 46–84; PULSE 70–81; RESP 14–20; TEMP 97.3–98.1; O2SAT 96–100
--- NOTE | 2024-09-18 01:26 | NUR ---
NOTE Patient assisted to restroom and is laying comfortably in bed. Denies pain. Denies nausea/vomiting. Bed alarm on. Call light within reach.
[2024-09-18 06:12] LABS: HEMATOCRIT 23.8 % (36-48); MEAN CORPUSCULAR HEMOGLOBIN 32.5 pg (27.0-33.0); MEAN CORPUSCULAR HGB CONC 32.4 g/dL (32.0-36.0); MEAN CORPUSCULAR VOLUME 100.4 fL (79-99); PLATELET COUNT (AUTO) 189 K/uL (130-400); RED BLOOD CELL COUNT(AUTO) 2.37 MIL/uL (4.00-5.50); RED CELL DISTRIBUTION WIDTH 17.2 % (11.0-15.5); WHITE BLOOD COUNT (AUTO) 4.4 K/uL (4.8-10.8)
[2024-09-18 06:41] LABS: ALBUMIN 2.6 g/dL (3.5-5.0); BILIRUBIN,TOTAL 0.8 mg/dL (0.2-1.0); PHOSPHORUS 6.6 mg/dL (2.5-4.9); POTASSIUM 4.7 mmol/L (3.5-5.1); TOTAL PROTEIN, SERUM 7.5 g/dL (6.0-8.3)
[2024-09-18 07:05] LABS: BASOPHILS % (MANUAL) 2 % (0-2); EOSINOPHILS % (MANUAL) 3 % (1-6); LYMPHOCYTES % (MANUAL) 38 % (22-44); MAN.DIFF COMMENT-IMPRESSION MANUAL DIFFERENTIAL; MONOCYTES % (MANUAL) 3 % (2-9); PLATELET MORPHOLOGY COMMENT ADEQUATE; REACTIVE LYMPHOCYTES 1 % (0-0); SEGMENTED NEUTROPHILS % 53 % (40-70); TOTAL CELLS COUNTED 100; WBC MORPHOLOGY HYPERSEGMENT NEUT 1+
--- NOTE | 2024-09-18 09:49 | PN ---
FOLLOWUP PROGRESS NOTE SUBJECTIVE: A 49-year-old female with history of diabetes mellitus and hypertension. She has a history of end-stage renal disease on dialysis 3 times per week. The patient presented to the hospital and found to have underlying GI bleeding. The patient is scheduled for EGD later today. The patient also with a history of noncompliance with her general medical care including her dialysis sessions. The patient is being seen as a followup visit for all of the above. REVIEW OF SYSTEMS: CONSTITUTIONAL: The patient is feeling weak and tired. HEENT: No change in vision. No change in hearing. No nasal discharge. No sore throat. CARDIOVASCULAR: There are no current chest pain or palpitations. PULMONARY: No shortness of breath. GASTROINTESTINAL: As described above. MUSCULOSKELETAL: Complains of weakness. PHYSICAL EXAMINATION: VITAL SIGNS: Blood pressure is 147/71, pulse 70, afebrile. GENERAL: She is a chronically ill, much older than appearing female, lying in bed on the medical floor. HEENT: Head is atraumatic. Pupils are equal, roving to light. Oropharynx is without exudate. Nares clear. NECK: There is no JVP. There is no thyromegaly, no mass. CARDIOVASCULAR: Regular. There is no S3, S4 or gallop. LUNGS: Coarse with equal thoracic movement. ABDOMEN: Soft, nondistended and nontender. EXTREMITIES: Reveal no clubbing, no cyanosis. NEUROLOGICAL: She is awake. She is alert. She is at her baseline. LABORATORY DATA: Sodium 136, potassium 4.7, BUN 89, creatinine is 6, hemoglobin 7.7, hematocrit 23, white blood cell count is 4000. IMPRESSION: * GI bleeding. * Diabetes mellitus. * Hypertension. * ESRD. PLAN: The patient's GI workup is ongoing. The patient will be started on Epogen with the dialysis sessions. We will obtain iron levels for completeness. Labs can be repeated in the a.m. We will continue to follow closely. The patient with multiple questions, all of which were answered. TID: [id number] RECEIPT: [id number]
[2024-09-18] MEDS: 0.9% NACL 500ML IV.SOLN 500 ML IV ONE (10:34)
--- NOTE | 2024-09-18 10:34 | PN ---
[facility] PROGRESS NOTE Date of Service: Sep 18, 2024 Time of Service: 10:32 SUBJECTIVE: 09/17 patient seen at bedside, no acute events overnight. Patient was transfused with 1 unit packed red blood cells, hemoglobin increased from 7.4 up to 9.2, before trending back down to 8.1. GI recommendations still pending, we will follow up 09/18 patient is seen and examined at bedside, case discussed with the RN, no acute events overnight, blood pressure 147/71, afebrile, saturating 100% on room air. The patient received 1 unit of PRBC since admission, hemoglobin today 7.7, hematocrit 23.8, WBC 4.4, with a platelet count of 189. Sodium 136, potassium 4.7, BUN of 89, creatinine 6.0. Stool occult blood is positive. Patient back in the room from having EGD with the following findings: -grade 1 esophageal varices -portal hypertensive gastropathy -normal examined duodenum -no specimens collected Recommendations: -full liquid diet -no aspirin, ibuprofen, naproxen or other nonsteroidal anti-inflammatory drugs -cirrhosis workup and HCC screening as outpatient -return to GI clinic in one week The above findings were discussed with the patient. REVIEW OF SYSTEMS 12 point ROS negative unless noted in HPI PHYSICAL EXAM GENERAL APPEARANCE: The patient is awake, alert, and oriented, in no acute cardiopulmonary distress. NEUROLOGICAL: Cranial nerves II-XII grossly intact. Motor is 5/5 in bilateral upper and lower extremities proximal to distal. No sensory deficits. HEENT: Face is symmetric. Pupils are equal and reactive. Extraocular movements are intact. NECK: Supple. No JVD. No thyromegaly. No submental, submandibular, pre- /postauricular, occipital or supraclavicular lymphadenopathy. CHEST: Normal chest expansion. No Telemetry. LUNGS: Absence of any rales, rhonchi or any wheezing. CARDIOVASCULAR: Regular. S1 and S2 normal. No appreciable rubs, murmurs or gallops. ABDOMEN: Soft and nondistended. There is no rebound, voluntary guarding, or rigidity. : Deferred. No Georges. EXTREMITIES:edema to bilateral lower extremities SKIN: No skin breakdown. Vital Signs (last 8hr) Date Time Temp Pulse Resp B/P (MAP) Pulse Ox O2 Delivery O2 Flow Rate FiO2 09/18/24 09:57 100 Room Air* 0 21 09/18/24 07:44 98.1 77 20 147/71 100 Room Air 09/18/24 04:13 98.1 76 18 135/69 97 Room Air 21 LABS: Laboratory: Test 09/18/24 09:23 09/18/24 05:57 09/18/24 05:37 09/17/24 13:20 Range/Units Serum Test, Qualitative NEGATIVE NEGATIVE White Blood Count 4.4 L 4.8-10.8 K/uL Red Blood Count 2.37 L 4.00-5.50 MIL/uL Hemoglobin 7.7 L 12.0-16.0 g/dL Hematocrit 23.8 L 36-48 % Mean Corpuscular Volume 100.4 H 79-99 fL Mean Corpuscular Hemoglobin 32.5 27.0-33.0 pg Mean Corpuscular Hemoglobin Concent 32.4 32.0-36.0 g/dL Red Cell Distribution Width 17.2 H 11.0-15.5 % Platelet Count 189 130-400 K/uL Mean Platelet Volume 8.6 7.5-10.5 fL Segmented Neutrophils % 53 40-70 % Lymphocytes % (Manual) 38 22-44 % Monocytes % (Manual) 3 2-9 % Eosinophils % (Manual) 3 1-6 % Basophils % (Manual) 2 0-2 % Nucleated Red Blood Cells 0.0 0.0-0.19 % Differential Comment MANUAL DIFFERENTIAL Reactive Lymphocytes 1 H 0-0 % White Cell Morphology Comment HYPERSEGMENT NEUT 1+ Platelet Morphology Comment ADEQUATE Red Blood Cell Morphology See comments Sodium Level 136 136-145 mmol/L Potassium Level 4.7 3.5-5.1 mmol/L Chloride Level 98 L 101-111 mmol/L Carbon Dioxide Level 24 21-32 mmol/L Blood Urea Nitrogen 89 *H 7-18 mg/dL Creatinine 6.0 H 0.5-1.0 mg/dL Glomerular Filtration Rate Calc 8 >90 mL/min Random Glucose 74 70-105 mg/dL Total Calcium 8.7 8.5-10.1 mg/dL Phosphorus Level 6.6 H 2.5-4.9 mg/dL Total Bilirubin 0.8 0.2-1.0 mg/dL Aspartate Amino Transf (AST/SGOT) 27 10-37 U/L Alanine Aminotransferase (ALT/SGPT) 14 12-78 U/L Alkaline Phosphatase 189 H 50-136 U/L Total Protein 7.5 6.0-8.3 g/dL Albumin 2.6 L 3.5-5.0 g/dL Whole Blood Glucose 77 70-110 MG/DL Immature Granulocyte % (Auto) 0.2 0-1 % Neutrophils (%) (Auto) 58.9 40.0-77.0 % Lymphocytes (%) (Auto) 29.5 21.0-51.0 % Monocytes (%) (Auto) 8.0 3.0-13.0 % Eosinophils (%) (Auto) 2.4 0.0-8.0 % Basophils (%) (Auto) 1.0 0.0-5.0 % Neutrophils # (Auto) 2.4 1.8-7.7 K/uL Lymphocytes # (Auto) 1.2 1.0-4.8 K/uL Monocytes # (Auto) 0.3 0.1-1.0 K/uL Eosinophils # (Auto) 0.10 0.00-0.70 K/uL Basophils # (Auto) 0.04 0.00-0.20 K/uL Absolute Immature Granulocyte (auto 0.01 0-1 K/uL Test 09/17/24 03:01 09/16/24 16:00 Range/Units Prothrombin Time 12.8 H 9.6-11.6 SEC Prothromb Time International Ratio 1.23 H 0.85-1.15 Activated Partial Thromboplast Time 31.3 26.3-35.5 SEC Magnesium Level 2.20 1.80-2.40 mg/dL Stool Occult Blood POSITIVE H NEGATIVE Current Medications Medications (Trade) Dose Ordered Sig/Haven Route PRN Reason Start Time Stop Time Status Last Admin Dose Admin Albumin Human (Albumin (Human) 25%) 100 ml ONCE PRN IV HYPOTENSION DESPITE FLUIDS 09/16/24 23:00 09/17/24 22:59 DC 09/17/24 00:27 100 ML Dextrose (D50w) 50 ml AD PRN IV HYPOGLYCEMIA PROTOCOL 09/16/24 19:30 10/16/24 19:29 09/17/24 15:39 50 ML Epoetin Raúl-epbx (Retacrit) 10,000 unit QTUTHSA[DIALYSIS] SQ 09/19/24 16:00 10/19/24 15:59 Gabapentin (NEURontin 100 mg CAP) 100 mg TID PO 09/17/24 16:30 10/17/24 16:29 09/17/24 20:49 100 MG Glucagon (Glucagon 1mg Kit) 1 mg AD PRN IM HYPOGLYCEMIA PROTOCOL 09/16/24 19:30 10/16/24 19:29 Insulin Human Regular (humuLIN R 100 UNIT/ML 3ML) INSULIN SLIDING SCAL... ACHS SQ 09/16/24 21:00 10/16/24 20:59 Midodrine (PROAMatine 5 MG TABLET) 10 mg ONCE PRN PO HYPOTENSION W/HD TX 09/16/24 23:00 10/16/24 22:59 09/16/24 23:04 10 MG Ondansetron HCl (zoFRAN 4MG INJ) 4 mg Q6H PRN IV NAUSEA/VOMITING 09/16/24 19:30 10/16/24 19:29 Pantoprazole Sodium (PROTonix 40MG INJ) 40 mg DAILY IVP 09/17/24 09:00 09/16/24 20:56 DC Pantoprazole Sodium 80 mg/ Sodium Chloride 100 ml @ 10 mls/hr Q10H IV 09/16/24 21:00 10/16/24 20:59 09/18/24 01:58 10 MLS/HR Sodium Chloride 250 ml @ 0 mls/hr AD IV 09/16/24 23:00 10/16/24 22:59 Sodium Chloride 1,000 ml @ 0 mls/hr AD IV 09/16/24 23:00 10/16/24 22:59 09/17/24 00:28 100 MLS/HR DIAGNOSTICS / RADIOLOGY: [ ] ASSESSMENT: Acute GI bleed POA Acute on chronic anemia POA End stage renal disease on hemodialysis POA Diabetes POA Hyponatremia POA Protein calorie malnutrition POA Chronic respiratory failure on home O2 POA HyperlipidemiaPOA CHF POA Diabetic neuropathy POA PLAN: Remains admitted to the medical floor We will keep patient nothing by mouth Continue Protonix 40 mg IV daily for GI prophylaxis Continue insulin sliding scale AC & HS with hypoglycemia protocol Continue to follow serial CBC transfuse 1 unit of PRBC if hemoglobin less than seven Continue to follow Nephrology input recommendation GI consultation requested, follow input and recommendation A.m. labs Disposition: Pending GI recommendations, resolution of GI bleed KADEN WHITE MD Sep 18, 2024 10:34
[2024-09-18] MEDS ORDERED: proPOFol 10 MG/ML 20ML VIAL IV ONE (11:34)
[2024-09-18] MEDS ORDERED: LIDOCAINE HCL 400MG/20ML VIAL ONE (11:34)
[2024-09-18] MEDS: sevELAMer HCL 800 MG TABLET PO SCH (13:11)
[2024-09-18 13:55] LABS: HEMATOCRIT 26.8 % (36-48); MEAN CORPUSCULAR HEMOGLOBIN 32.2 pg (27.0-33.0); MEAN CORPUSCULAR HGB CONC 32.1 g/dL (32.0-36.0); MEAN CORPUSCULAR VOLUME 100.4 fL (79-99); RED BLOOD CELL COUNT(AUTO) 2.67 MIL/uL (4.00-5.50); RED CELL DISTRIBUTION WIDTH 16.9 % (11.0-15.5); WHITE BLOOD COUNT (AUTO) 3.6 K/uL (4.8-10.8)
[2024-09-18] MEDS: PANTOPrazole 40 MG TAB DR PO SCH (21:40)
[2024-09-18] MEDS: hydrOXYzine 25 MG TABLET PO PRN (23:02)
[2024-09-18 23:35] LABS: HEMATOCRIT 23.2 % (36-48); MEAN CORPUSCULAR HEMOGLOBIN 32.2 pg (27.0-33.0); MEAN CORPUSCULAR HGB CONC 31.5 g/dL (32.0-36.0); MEAN CORPUSCULAR VOLUME 102.2 fL (79-99); RED BLOOD CELL COUNT(AUTO) 2.27 MIL/uL (4.00-5.50); RED CELL DISTRIBUTION WIDTH 16.9 % (11.0-15.5)
[2024-09-19] VITALS (20 sets, daily range): BP systolic 95–121; BP diastolic 41–66; PULSE 64–77; RESP 14–22; TEMP 96.7–98.4; O2SAT 95
[2024-09-19 04:15] LABS: BASOPHILS # (AUTO) 0.04 K/uL (0.00-0.20); EOSINOPHILS # (AUTO) 0.11 K/uL (0.00-0.70); EOSINOPHILS % (AUTO) 2.7 % (0.0-8.0); HEMATOCRIT 22.9 % (36-48); IMMATURE GRANULOCYTE ABSOLUTE 0.01 K/uL (0-1); LYMPHOCYTES # (AUTO) 1.2 K/uL (1.0-4.8); LYMPHOCYTES % (AUTO) 29.7 % (21.0-51.0); MEAN CORPUSCULAR HEMOGLOBIN 32.4 pg (27.0-33.0); MEAN CORPUSCULAR HGB CONC 31.9 g/dL (32.0-36.0); MEAN CORPUSCULAR VOLUME 101.8 fL (79-99); MONOCYTES # (AUTO) 0.3 K/uL (0.1-1.0); MONOCYTES % (AUTO) 7.7 % (3.0-13.0); NEUTROPHILS # (AUTO) 2.4 K/uL (1.8-7.7); NEUTROPHILS % (AUTO) 58.7 % (40.0-77.0); PLATELET COUNT (AUTO) 208 K/uL (130-400); RED BLOOD CELL COUNT(AUTO) 2.25 MIL/uL (4.00-5.50); RED CELL DISTRIBUTION WIDTH 17.2 % (11.0-15.5)
[2024-09-19 04:30] LABS: ALBUMIN 2.8 g/dL (3.5-5.0); BILIRUBIN,TOTAL 0.7 mg/dL (0.2-1.0); CREATININE 7.3 mg/dL (0.5-1.0); MAGNESIUM 2.6 mg/dL (1.80-2.40); PHOSPHORUS 7.8 mg/dL (2.5-4.9); POTASSIUM 5.8 mmol/L (3.5-5.1)
[2024-09-19] MEDS: metOPROLol sucCINATE 25 MG TAB.SR.24H PO SCH (09:47)
--- NOTE | 2024-09-19 10:34 | PN ---
GASTROENTEROLOGY PROGRESS NOTE Date of Visit: Sep 19, 2024 Time of Visit: 10:34 Events / Notes: [ ] Review of Systems: CONSTITUTIONAL: No malaise or change in sensation of wellbeing. ENMT: No rhinorrhea, otorrhea, sinus pain, ear ache. CARDIOVASCULAR: No angina, palpitations, orthopnea or paroxysmal dyspnea. RESPIRATORY: No SOB. GASTROINTESTINAL: No abdominal pain, nausea, vomiting, diarrhea, hematemesis, melena or change in the patient's habitual bowel movements consistency/number. GENITOURINARY: No dysuria, hematuria or change in bladder continence. MUSCULOSKELETAL: No new muscle pain or decrease in muscular strength. No new joint swelling, redness or tenderness. SKIN: No new rash. Physical Exam: GEN: Awake, alert, oriented in person, time and place, and in no acute distress. HEENT: No sinus tenderness. Tympanic membranes were not examined. No rhinorrhea. Oral pharyngeal mucosa is pink, moist and within normal limits. Neck is supple with no cervical lymphadenopathy, thyromegaly or JVD. CHEST: Inspection, palpation and percussion of the chest were unremarkable. Lung auscultation revealed normal breath sounds bilaterally. CARDIAC: PMI is within normal limits. Heart sounds are regular. Normal S1, S2. No gallop or murmur. ABD: Soft, non-tender and not distended. No peritoneal signs on palpation. No organomegaly. Normal bowel sounds. EXT: No cyanosis or clubbing. No edema. SKIN: Intact. No rashes. JOINTS: No evidence of synovitis or acute arthritis. NEURO: Alert and oriented to name, place and person. Cranial nerve examination is unremarkable. No focal motor deficits. Normal speech. Gait is normal. Strength is normal. Vital Signs (last 8hr) Date Time Temp Pulse Resp B/P (MAP) Pulse Ox O2 Delivery O2 Flow Rate FiO2 09/19/24 10:07 95 Room Air* 0 21 09/19/24 08:05 98.1 73 18 118/58 95 Room Air 09/19/24 03:59 98.4 72 18 120/66 94 Room Air 21 Laboratory: [ ] Laboratory: Test 09/19/24 05:35 09/19/24 04:02 09/18/24 09:23 09/18/24 05:57 Range/Units Whole Blood Glucose 97 70-110 MG/DL White Blood Count 4.0 L 4.8-10.8 K/uL Red Blood Count 2.25 L 4.00-5.50 MIL/uL Hemoglobin 7.3 L 12.0-16.0 g/dL Hematocrit 22.9 L 36-48 % Mean Corpuscular Volume 101.8 H 79-99 fL Mean Corpuscular Hemoglobin 32.4 27.0-33.0 pg Mean Corpuscular Hemoglobin Concent 31.9 L 32.0-36.0 g/dL Red Cell Distribution Width 17.2 H 11.0-15.5 % Platelet Count 208 130-400 K/uL Mean Platelet Volume 9.4 7.5-10.5 fL Immature Granulocyte % (Auto) 0.2 0-1 % Neutrophils (%) (Auto) 58.7 40.0-77.0 % Lymphocytes (%) (Auto) 29.7 21.0-51.0 % Monocytes (%) (Auto) 7.7 3.0-13.0 % Eosinophils (%) (Auto) 2.7 0.0-8.0 % Basophils (%) (Auto) 1.0 0.0-5.0 % Neutrophils # (Auto) 2.4 1.8-7.7 K/uL Lymphocytes # (Auto) 1.2 1.0-4.8 K/uL Monocytes # (Auto) 0.3 0.1-1.0 K/uL Eosinophils # (Auto) 0.11 0.00-0.70 K/uL Basophils # (Auto) 0.04 0.00-0.20 K/uL Absolute Immature Granulocyte (auto 0.01 0-1 K/uL Nucleated Red Blood Cells 0.0 0.0-0.19 % Sodium Level 129 L 136-145 mmol/L Potassium Level 5.8 H 3.5-5.1 mmol/L Chloride Level 93 L 101-111 mmol/L Carbon Dioxide Level 25 21-32 mmol/L Blood Urea Nitrogen 100 *H 7-18 mg/dL Creatinine 7.3 H 0.5-1.0 mg/dL Glomerular Filtration Rate Calc 6 >90 mL/min Random Glucose 106 H 70-105 mg/dL Total Calcium 8.8 8.5-10.1 mg/dL Phosphorus Level 7.8 H 2.5-4.9 mg/dL Magnesium Level 2.60 H 1.80-2.40 mg/dL Iron Level 74 50-170 mcg/dL Total Iron Binding Capacity 246 L 250-450 mcg/dL Percent Iron Saturation 30.0 22-44 % Total Bilirubin 0.7 0.2-1.0 mg/dL Aspartate Amino Transf (AST/SGOT) 22 10-37 U/L Alanine Aminotransferase (ALT/SGPT) 16 12-78 U/L Alkaline Phosphatase 203 H 50-136 U/L Total Protein 8.0 6.0-8.3 g/dL Albumin 2.8 L 3.5-5.0 g/dL Serum Test, Qualitative NEGATIVE NEGATIVE Segmented Neutrophils % 53 40-70 % Lymphocytes % (Manual) 38 22-44 % Monocytes % (Manual) 3 2-9 % Eosinophils % (Manual) 3 1-6 % Basophils % (Manual) 2 0-2 % Differential Comment MANUAL DIFFERENTIAL Reactive Lymphocytes 1 H 0-0 % White Cell Morphology Comment HYPERSEGMENT NEUT 1+ Platelet Morphology Comment ADEQUATE Red Blood Cell Morphology See comments Current Medications Medications (Trade) Dose Ordered Sig/Haven Route PRN Reason Start Time Stop Time Status Last Admin Dose Admin Albumin Human (Albumin (Human) 25%) 100 ml ONCE PRN IV HYPOTENSION DESPITE FLUIDS 09/16/24 23:00 09/17/24 22:59 DC 09/17/24 00:27 100 ML Dextrose (D50w) 50 ml AD PRN IV HYPOGLYCEMIA PROTOCOL 09/16/24 19:30 10/16/24 19:29 09/17/24 15:39 50 ML Epoetin Raúl-epbx (Retacrit) 10,000 unit QTUTHSA[DIALYSIS] SQ 09/19/24 16:00 10/19/24 15:59 Gabapentin (NEURontin 100 mg CAP) 100 mg TID PO 09/17/24 16:30 10/17/24 16:29 09/19/24 09:46 100 MG Glucagon (Glucagon 1mg Kit) 1 mg AD PRN IM HYPOGLYCEMIA PROTOCOL 09/16/24 19:30 10/16/24 19:29 Hydroxyzine HCl (ATArax 25MG TAB) 25 mg QID PRN PO Anxiety and/or insomnia 09/18/24 11:00 10/18/24 10:59 09/19/24 10:16 25 MG Insulin Human Regular (humuLIN R 100 UNIT/ML 3ML) INSULIN SLIDING SCAL... ACHS SQ 09/16/24 21:00 10/16/24 20:59 Metoprolol Succinate (TopROL XL) 25 mg DAILY PO 09/19/24 09:00 10/19/24 08:59 09/19/24 09:47 25 MG Midodrine (PROAMatine 5 MG TABLET) 10 mg ONCE PRN PO HYPOTENSION W/HD TX 09/16/24 23:00 09/19/24 07:36 DC 09/16/24 23:04 10 MG Ondansetron HCl (zoFRAN 4MG INJ) 4 mg Q6H PRN IV NAUSEA/VOMITING 09/16/24 19:30 10/16/24 19:29 Pantoprazole Sodium (PROTonix 40MG INJ) 40 mg DAILY IVP 09/17/24 09:00 09/16/24 20:56 DC Pantoprazole Sodium (PROTonix 40MG TAB) 40 mg BID PO 09/18/24 21:00 10/18/24 20:59 09/19/24 09:47 40 MG Pantoprazole Sodium 80 mg/ Sodium Chloride 100 ml @ 10 mls/hr Q10H IV 09/16/24 21:00 09/18/24 12:08 DC 09/18/24 01:58 10 MLS/HR Sevelamer HCl (RENAgel 800 MG TAB) 2,400 mg TID PO 09/18/24 14:00 10/18/24 13:59 09/19/24 09:47 2,400 MG Sodium Chloride 250 ml @ 0 mls/hr AD IV 09/16/24 23:00 10/16/24 22:59 Sodium Chloride 1,000 ml @ 0 mls/hr AD IV 09/16/24 23:00 10/16/24 22:59 09/17/24 00:28 100 MLS/HR Diagnostics / Radiology: [COPY/PASTE HERE IF NO REPORTS PLEASE DELETE SECTION] Assessment: [ ] Plan: [ ] RIGO CELESTIN [facility] Sep 19, 2024 10:34
--- NOTE | 2024-09-19 10:36 | PN ---
[facility] PROGRESS NOTE Date of Service: Sep 19, 2024 Time of Service: 10:34 SUBJECTIVE: 09/17 patient seen at bedside, no acute events overnight. Patient was transfused with 1 unit packed red blood cells, hemoglobin increased from 7.4 up to 9.2, before trending back down to 8.1. GI recommendations still pending, we will follow up 09/18 patient is seen and examined at bedside, case discussed with the RN, no acute events overnight, blood pressure 147/71, afebrile, saturating 100% on room air. The patient received 1 unit of PRBC since admission, hemoglobin today 7.7, hematocrit 23.8, WBC 4.4, with a platelet count of 189. Sodium 136, potassium 4.7, BUN of 89, creatinine 6.0. Stool occult blood is positive. Patient back in the room from having EGD with the following findings: -grade 1 esophageal varices -portal hypertensive gastropathy -normal examined duodenum -no specimens collected Recommendations: -full liquid diet -no aspirin, ibuprofen, naproxen or other nonsteroidal anti-inflammatory drugs -cirrhosis workup and HCC screening as outpatient -return to GI clinic in one week The above findings were discussed with the patient. 09/19 patient remains hemodynamically stable, blood pressure 118/58, afebrile, saturating normal on room air. Patient currently on full liquid diet. Hemoglobin still low at 7.3, hematocrit 22.9. Sodium 129, potassium 5.8, BUN of 100, creatinine 7.3. Discharge home after HD today REVIEW OF SYSTEMS 12 point ROS negative unless noted in HPI PHYSICAL EXAM GENERAL APPEARANCE: The patient is awake, alert, and oriented, in no acute cardiopulmonary distress. NEUROLOGICAL: Cranial nerves II-XII grossly intact. Motor is 5/5 in bilateral upper and lower extremities proximal to distal. No sensory deficits. HEENT: Face is symmetric. Pupils are equal and reactive. Extraocular movements are intact. NECK: Supple. No JVD. No thyromegaly. No submental, submandibular, pre- /postauricular, occipital or supraclavicular lymphadenopathy. CHEST: Normal chest expansion. No Telemetry. LUNGS: Absence of any rales, rhonchi or any wheezing. CARDIOVASCULAR: Regular. S1 and S2 normal. No appreciable rubs, murmurs or gallops. ABDOMEN: Soft and nondistended. There is no rebound, voluntary guarding, or rigidity. : Deferred. No Georges. EXTREMITIES:edema to bilateral lower extremities SKIN: No skin breakdown. Vital Signs (last 8hr) Date Time Temp Pulse Resp B/P (MAP) Pulse Ox O2 Delivery O2 Flow Rate FiO2 09/19/24 10:07 95 Room Air* 0 21 09/19/24 08:05 98.1 73 18 118/58 95 Room Air 09/19/24 03:59 98.4 72 18 120/66 94 Room Air 21 LABS: Laboratory: Test 09/19/24 05:35 09/19/24 04:02 09/18/24 09:23 09/18/24 05:57 Range/Units Whole Blood Glucose 97 70-110 MG/DL White Blood Count 4.0 L 4.8-10.8 K/uL Red Blood Count 2.25 L 4.00-5.50 MIL/uL Hemoglobin 7.3 L 12.0-16.0 g/dL Hematocrit 22.9 L 36-48 % Mean Corpuscular Volume 101.8 H 79-99 fL Mean Corpuscular Hemoglobin 32.4 27.0-33.0 pg Mean Corpuscular Hemoglobin Concent 31.9 L 32.0-36.0 g/dL Red Cell Distribution Width 17.2 H 11.0-15.5 % Platelet Count 208 130-400 K/uL Mean Platelet Volume 9.4 7.5-10.5 fL Immature Granulocyte % (Auto) 0.2 0-1 % Neutrophils (%) (Auto) 58.7 40.0-77.0 % Lymphocytes (%) (Auto) 29.7 21.0-51.0 % Monocytes (%) (Auto) 7.7 3.0-13.0 % Eosinophils (%) (Auto) 2.7 0.0-8.0 % Basophils (%) (Auto) 1.0 0.0-5.0 % Neutrophils # (Auto) 2.4 1.8-7.7 K/uL Lymphocytes # (Auto) 1.2 1.0-4.8 K/uL Monocytes # (Auto) 0.3 0.1-1.0 K/uL Eosinophils # (Auto) 0.11 0.00-0.70 K/uL Basophils # (Auto) 0.04 0.00-0.20 K/uL Absolute Immature Granulocyte (auto 0.01 0-1 K/uL Nucleated Red Blood Cells 0.0 0.0-0.19 % Sodium Level 129 L 136-145 mmol/L Potassium Level 5.8 H 3.5-5.1 mmol/L Chloride Level 93 L 101-111 mmol/L Carbon Dioxide Level 25 21-32 mmol/L Blood Urea Nitrogen 100 *H 7-18 mg/dL Creatinine 7.3 H 0.5-1.0 mg/dL Glomerular Filtration Rate Calc 6 >90 mL/min Random Glucose 106 H 70-105 mg/dL Total Calcium 8.8 8.5-10.1 mg/dL Phosphorus Level 7.8 H 2.5-4.9 mg/dL Magnesium Level 2.60 H 1.80-2.40 mg/dL Iron Level 74 50-170 mcg/dL Total Iron Binding Capacity 246 L 250-450 mcg/dL Percent Iron Saturation 30.0 22-44 % Total Bilirubin 0.7 0.2-1.0 mg/dL Aspartate Amino Transf (AST/SGOT) 22 10-37 U/L Alanine Aminotransferase (ALT/SGPT) 16 12-78 U/L Alkaline Phosphatase 203 H 50-136 U/L Total Protein 8.0 6.0-8.3 g/dL Albumin 2.8 L 3.5-5.0 g/dL Serum Test, Qualitative NEGATIVE NEGATIVE Segmented Neutrophils % 53 40-70 % Lymphocytes % (Manual) 38 22-44 % Monocytes % (Manual) 3 2-9 % Eosinophils % (Manual) 3 1-6 % Basophils % (Manual) 2 0-2 % Differential Comment MANUAL DIFFERENTIAL Reactive Lymphocytes 1 H 0-0 % White Cell Morphology Comment HYPERSEGMENT NEUT 1+ Platelet Morphology Comment ADEQUATE Red Blood Cell Morphology See comments Current Medications Medications (Trade) Dose Ordered Sig/Haven Route PRN Reason Start Time Stop Time Status Last Admin Dose Admin Albumin Human (Albumin (Human) 25%) 100 ml ONCE PRN IV HYPOTENSION DESPITE FLUIDS 09/16/24 23:00 09/17/24 22:59 DC 09/17/24 00:27 100 ML Dextrose (D50w) 50 ml AD PRN IV HYPOGLYCEMIA PROTOCOL 09/16/24 19:30 10/16/24 19:29 09/17/24 15:39 50 ML Epoetin Raúl-epbx (Retacrit) 10,000 unit QTUTHSA[DIALYSIS] SQ 09/19/24 16:00 10/19/24 15:59 Gabapentin (NEURontin 100 mg CAP) 100 mg TID PO 09/17/24 16:30 10/17/24 16:29 09/19/24 09:46 100 MG Glucagon (Glucagon 1mg Kit) 1 mg AD PRN IM HYPOGLYCEMIA PROTOCOL 09/16/24 19:30 10/16/24 19:29 Hydroxyzine HCl (ATArax 25MG TAB) 25 mg QID PRN PO Anxiety and/or insomnia 09/18/24 11:00 10/18/24 10:59 09/19/24 10:16 25 MG Insulin Human Regular (humuLIN R 100 UNIT/ML 3ML) INSULIN SLIDING SCAL... ACHS SQ 09/16/24 21:00 10/16/24 20:59 Metoprolol Succinate (TopROL XL) 25 mg DAILY PO 09/19/24 09:00 10/19/24 08:59 09/19/24 09:47 25 MG Midodrine (PROAMatine 5 MG TABLET) 10 mg ONCE PRN PO HYPOTENSION W/HD TX 09/16/24 23:00 09/19/24 07:36 DC 09/16/24 23:04 10 MG Ondansetron HCl (zoFRAN 4MG INJ) 4 mg Q6H PRN IV NAUSEA/VOMITING 09/16/24 19:30 10/16/24 19:29 Pantoprazole Sodium (PROTonix 40MG INJ) 40 mg DAILY IVP 09/17/24 09:00 09/16/24 20:56 DC Pantoprazole Sodium (PROTonix 40MG TAB) 40 mg BID PO 09/18/24 21:00 10/18/24 20:59 09/19/24 09:47 40 MG Pantoprazole Sodium 80 mg/ Sodium Chloride 100 ml @ 10 mls/hr Q10H IV 09/16/24 21:00 09/18/24 12:08 DC 09/18/24 01:58 10 MLS/HR Sevelamer HCl (RENAgel 800 MG TAB) 2,400 mg TID PO 09/18/24 14:00 10/18/24 13:59 09/19/24 09:47 2,400 MG Sodium Chloride 250 ml @ 0 mls/hr AD IV 09/16/24 23:00 10/16/24 22:59 Sodium Chloride 1,000 ml @ 0 mls/hr AD IV 09/16/24 23:00 10/16/24 22:59 09/17/24 00:28 100 MLS/HR DIAGNOSTICS / RADIOLOGY: [ ] ASSESSMENT: Acute GI bleed POA Status post EGD 09/18/2024 -grade 1 esophageal varices -portal hypertensive gastropathy Acute on chronic anemia POA End stage renal disease on hemodialysis POA Diabetes POA Hyponatremia POA Protein calorie malnutrition POA Chronic respiratory failure on home O2 POA HyperlipidemiaPOA CHF POA Diabetic neuropathy POA PLAN: Remains admitted to the medical floor Patient on full liquid diet, we will advanced to GI soft. Continue Protonix 40 mg IV daily for GI prophylaxis Continue insulin sliding scale AC & HS with hypoglycemia protocol Continue to follow CBC in a.m., transfuse as needed Continue to follow Nephrology input recommendation GI consultation requested, follow input and recommendation A.m. labs Disposition: Pending Improvement in clinical condition KADEN WHITE MD Sep 19, 2024 10:36
[2024-09-19] MEDS ORDERED: PANT40TA55 PO (13:17)
[2024-09-19] MEDS ORDERED: GABA100C PO (13:17)
[2024-09-19] MEDS: EPOETIN ALFA-EPBX (NON-ESRD) 10,000 UNIT/ML VIAL SQ SCH (16:38)
--- NOTE | 2024-09-19 17:16 | NUR ---
DISCHARGE Pt was educated regarding anxiety and self relaxation techniques. IV was removed without complications. Pt verbalized understanding and denied needing further assistance. Pt was transported to the main entrance via W/C by [employer]. No s/s of distress.
--- NOTE | 2024-09-19 18:29 | PN ---
DIALYSIS NOTE SUBJECTIVE: The patient is seen and evaluated on hemodialysis, prescription noted. OBJECTIVE: VITAL SIGNS: Blood pressure 121/41. CARDIOVASCULAR: Regular. LUNGS: Coarse. IMPRESSION: ESRD. PLAN: The patient will continue with maximal ultrafiltration as blood pressure allows. The patient remains on the Epogen for the anemia. We will continue to follow the patient closely. TID: [id number] RECEIPT: [id number]
== END 2024-09-19 17:16 | disposition home or self-care (01) | DRG 242 ==
LOC: EDH 15:11 → EDHIP 15:12 → 4BH 20:54
PROVIDERS: ADMIT Internal Medicine; ATTEND Internal Medicine
PROC: 5A1D70Z Performance of Urinary Filtration, Intermittent, Less than 6 Hours Per Day (ICD-10-PCS; 2024-09-16)
PROC: 0DJ08ZZ Inspection of Upper Intestinal Tract, Via Natural or Artificial Opening Endoscopic (ICD-10-PCS; principal; 2024-09-18)
PROC: 5A1D70Z Performance of Urinary Filtration, Intermittent, Less than 6 Hours Per Day (ICD-10-PCS; 2024-09-19)
DX: I85.01 Esophageal varices with bleeding (principal); I13.2 Hypertensive heart and chronic kidney disease with heart failure and with stage 5 chronic kidney disease, or end stage renal disease; K76.6 Portal hypertension; N18.6 End stage renal disease; E46 Unspecified protein-calorie malnutrition; E87.1 Hypo-osmolality and hyponatremia; E11.22 Type 2 diabetes mellitus with diabetic chronic kidney disease; E11.40 Type 2 diabetes mellitus with diabetic neuropathy, unspecified; K31.89 Other diseases of stomach and duodenum; D62 Acute posthemorrhagic anemia; E78.5 Hyperlipidemia, unspecified; K62.89 Other specified diseases of anus and rectum; I50.9 Heart failure, unspecified; Z99.2 Dependence on renal dialysis; Z91.158 Patient's noncompliance with renal dialysis for other reason; Z99.81 Dependence on supplemental oxygen; Z82.49 Family history of ischemic heart disease and other diseases of the circulatory system; Z82.5 Family history of asthma and other chronic lower respiratory diseases; Z80.1 Family history of malignant neoplasm of trachea, bronchus and lung; Z80.51 Family history of malignant neoplasm of kidney; Z83.3 Family history of diabetes mellitus; Z68.38 Body mass index [BMI] 38.0-38.9, adult
CPT/HCPCS: 36415; 43235; 80053; 82270; 82948; 83540; 83550; 83735; 84100; 84703; 85014; 85018; 85025; 85027; 85610; 85730; 86850; 86870; 86900; 86901; 86905; 86922; 90935; 99285; A4606; G0378; J1171; J1200; J2470; J2704; J3490; J7040; J7070; P9047; A4215; A4620; Q5106

== ENCOUNTER 2025-02-20 11:21 | Inpatient (IN) | payer MEDICAID ==
[~2025-02-20] VITALS: Ht 165.1 cm; Wt 116.1 kg
[2025-02-20] VITALS (7 sets, daily range): BP systolic 98–119; BP diastolic 61–64; PULSE 52–62; RESP 18–24; TEMP 97–97.5; O2SAT 94–96
[~2025-02-20 11:21] MED LIST changes: -ACET-66 PO; -AMIT25TA9 PO; -CINA30TA5 PO; -GABA-529 PO; -HYDR-4030 PO; -LACT PO; -LOSA25TA41 PO; -PANT40TA55 PO; -PRED20TA3 PO; -ROPI0.5T37 PO
--- NOTE | 2025-02-20 11:27 | ERN ---
ED Note History of Present Illness Stated Complaint: CHEST PAIN W/HYPOTENSION Chief Complaint: Chest Pain Time Seen by MD: 11:23 Dictation: PATIENT IS A 49-YEAR-OLD FEMALE COMING IN VIA EMS FROM A LOCAL [facility] WITH CHEST PAIN THAT IS STARTED THIS MORNING INTERMITTENTLY. SHE HAS A HEMODIALYSIS PATIENT WAS SCHEDULED FOR HEMODIALYSIS TODAY AND MISSED IT DUE TO THE CHEST PAIN. ADDITIONALLY SHE HAD BEEN GIVEN A DOSE OF METOPROLOL WHILE AT THE [facility], BECAME HYPOTENSIVE AND REQUIRED A 250 CC BOLUS TO BRING HER BLOOD PRESSURE UP TO THE 90S. Allergies: Coded Allergies: No Known Allergies (Verified Allergy, Unknown, 07/03/23) Home Meds Reported Medications Metoprolol Succinate (Metoprolol Succinate) 25 Mg Tab.er.24h, 1 TAB PO DAILY 08/03/24 Sevelamer HCl (Sevelamer HCl) 800 Mg Tablet, 2400 MG PO TID, #270 TAB 07/03/23 Past Medical History Past Medical History: Diabetes-Type II, GERD, Hypertension, Renal Disese, Renal Failure Additional Past Medical Hx: HD, BLOODY EMESIS, BLOOD TRANSFUSION Surgical History: Other, LAVA Surgical History Other: PICC LINE, HD CATH Family History: Negative Social History: Negative, Lives with family History: Not Applicable RN Note Reviewed/Agreed w/PFSH: Yes Review of System Dictation CONSTITUTIONAL: NEGATIVE EXCEPT FOR HPI HEAD/FACE: NEGATIVE EXCEPT FOR HPI EENT: NEGATIVE EXCEPT FOR HPI RESPIRATORY: NEGATIVE EXCEPT FOR HPI CHEST PAIN GASTROINTESTINAL/ABDOMINAL: NEGATIVE EXCEPT FOR HPI GENITOURINARY: NEGATIVE EXCEPT FOR HPI MUSCULOSKELETAL: NEGATIVE EXCEPT FOR HPI INTEGUMENTARY: NEGATIVE EXCEPT FOR HPI NEUROLOGICAL/PSYCH: NEGATIVE EXCEPT FOR HPI HEMATOLOGIC/LYMPHATIC: NEGATIVE EXCEPT FOR HPI ALL SYSTEMS NEGATIVE, EXCEPT NOTED ABOVE. 13 POINT REVIEW OF SYSTEMS ASSESSED AND ALL NEGATIVE EXCEPT FOR ABOVE. Initial Vital Sign VS Vital Signs Date Time Temp Pulse Resp B/P (MAP) Pulse Ox O2 Delivery O2 Flow Rate FiO2 02/20/25 11:28 98.2 57 18 86/56 98 Nasal Cannula 2.0 02/20/25 12:59 21 Physical Exam Dictation VITAL SIGNS REVIEWED GENERAL APPEARANCE: ALERT, ORIENTED X 3, MILD ACUTE DISTRESS, WELL DEVELOPED, NOURISHED. HEAD AND FACE: NON-TRAUMATIC. EYES: PERRL, PINK CONJUNCTIVAS, EYELID NO TRAUMA, ANTERIOR CHAMBER WITH ARCUS SENILIS. EARS: PINNAS INTACT AND NO SIGNS OF TRAUMA OR ERYTHEMA EAR CANALS CLEAR AND NO DISCHARGE TM NO ERYTHEMA NOSE: NO DISCHARGE, NO BLEEDING. OROPHARYNX: MOUTH NORMAL, TONGUE PINK, PHARYNX CLEAR,NO ERYTHEMA, TONSILS NO EXUDATES, NO ABSCESSES NOTED, MUCOUS MEMBRANE MOIST NECK: SUPPLE, NON-TENDER, NO THYROMEGALY, NO MASSES, NO JVD, NO BRUITS BREAST:DEFERRED CHEST:NO TENDERNESS, NO CREPITUS, NO PARADOXICAL MOVEMENT, NO RETRACTIONS LUNGS:CLEAR, WELL-VENTILATED, SYMMETRIC, NO RALES, NO WHEEZING, NO RHONCHI, NO STRIDOR, GOOD BREATH SOUNDS BILATERALLY HEART: BRADYCARDIC AND REGULAR, NO MURMUR, NO GALLOPS VASCULAR: NO PERIPHERAL EDEMA, ABDOMEN: SOFT, POSITIVE BOWEL SOUNDS, NONDISTENDED, NO GUARDING, NONTENDER, NO REBOUND, NO MASSES NO HEPATOMEGALY, NO SPLENOMEGALY, NO DALEY'S SIGN, NO HERNIAS. RECTAL: DEFERRED GENITAL: DEFERRED NEUROLOGICAL: NORMAL SPEECH, MOTOR FUNCTION INTACT, SENSORY FUNCTION INTACT MUSCULOSKELETAL: NECK NONTENDER, FULL RANGE OF MOTION, BACK NONTENDER, FULL RANGE OF MOTION, EXTREMITIES: NONTENDER, FULL RANGE OF MOTION SKIN: COLOR PINK, DRY, NO TURGOR, NO RASH, NO LACERATIONS, NO ABRASIONS, NO CONTUSIONS. LYMPHATIC: DEFERRED Results (Laboratory/Radiology) Laboratory/Radiology Laboratory Tests Test 02/20/25 11:43 White Blood Count 5.5 K/uL (4.8-10.8) Red Blood Count 2.76 MIL/uL (4.00-5.50) L Hemoglobin 8.9 g/dL (12.0-16.0) L Hematocrit 28.3 % (36-48) L Mean Corpuscular Volume 102.5 fL (79-99) H Mean Corpuscular Hemoglobin 32.2 pg (27.0-33.0) Mean Corpuscular Hemoglobin Concent 31.4 g/dL (32.0-36.0) L Red Cell Distribution Width 22.2 % (11.0-15.5) H Platelet Count 229 K/uL (130-400) Mean Platelet Volume 8.8 fL (7.5-10.5) Immature Granulocyte % (Auto) 0.4 % (0-1) Neutrophils (%) (Auto) 72.6 % (40.0-77.0) Lymphocytes (%) (Auto) 16.8 % (21.0-51.0) L Monocytes (%) (Auto) 8.4 % (3.0-13.0) Eosinophils (%) (Auto) 1.3 % (0.0-8.0) Basophils (%) (Auto) 0.5 % (0.0-5.0) Neutrophils # (Auto) 4.0 K/uL (1.8-7.7) Lymphocytes # (Auto) 0.9 K/uL (1.0-4.8) L Monocytes # (Auto) 0.5 K/uL (0.1-1.0) Eosinophils # (Auto) 0.07 K/uL (0.00-0.70) Basophils # (Auto) 0.03 K/uL (0.00-0.20) Absolute Immature Granulocyte (auto 0.02 K/uL (0-1) Nucleated Red Blood Cells 0.5 % (0.0-0.19) H Red Blood Cell Morphology See comments Sodium Level 124 mmol/L (136-145) L Potassium Level 4.7 mmol/L (3.5-5.1) Chloride Level 88 mmol/L (101-111) *L Carbon Dioxide Level 28 mmol/L (21-32) Blood Urea Nitrogen 58 mg/dL (7-18) H Creatinine 4.9 mg/dL (0.5-1.0) H Glomerular Filtration Rate Calc 10 mL/min (>90) Random Glucose 125 mg/dL (70-105) H Total Calcium 7.7 mg/dL (8.5-10.1) L Magnesium Level 2.70 mg/dL (1.80-2.40) H Troponin I High Sensitivity 123 ng/L (4-50) *H B-Type Natriuretic Peptide 1070 pg/mL (0-100) H EXAM: CR Chest, 1 View. CLINICAL HISTORY: CHEST PAIN COMPARISON: Radiograph dated December 11, 2024 FINDINGS: There is bilateral perihilar and bibasilar airspace disease that may reflect pulmonary edema. Unchanged elevation of the right hemidiaphragm. Small to moderate right pleural effusion. Stable cardiomegaly. Pulmonary vascular congestion. No pneumothorax is appreciated. IMPRESSION: 1. Bilateral perihilar and bibasilar airspace disease, possibly representing pulmonary edema, with pulmonary vascular congestion and small to moderate right pleural effusion. 2. Cardiomegaly, unchanged. 3. Persistent elevation of the right hemidiaphragm. /[place] DICTATED BY: RADHA HERRERA Jr., MD DATE: 02/20/251338 ELECTRONICALLY SIGNED BY: RADHA HERRERA Jr., MD DATE: 02/20/25 133 Labs Reviewed?: Yes EKG Comment: 1131/EKG SINUS BRADYCARDIA WITH A FIRST-DEGREE AV BLOCK/RIGHT BUNDLE BRANCH BLOCK ED Course ED Course Orders Procedure Category Date Status Time Cbc With Differential LAB 02/20/25 Complete 11:24 Chest 1vw RAD 02/20/25 Resulted 11:24 12 Lead Ekg Tracing- EKG 02/20/25 Complete Technical 11:24 Magnesium LAB 02/20/25 Complete 11:24 Troponin I High LAB 02/20/25 Complete Sensitivity 11:24 Basic Metabolic Panel LAB 02/20/25 Complete 11:24 B-Type Natriuretic LAB 02/20/25 Complete Peptide 11:24 0.9% Nacl 500ml PHA 02/20/25 Complete Iv.Soln (Ns 500ml 11:30 Aspirin 325mg Tab PHA 02/20/25 In Process (Aspirin 325mg Tab) 13:30 Edm Admit Bridge Order ADM 02/20/25 Transmitted 13:22 Current Medications Medications (Trade) Dose Ordered Sig/Haven Route PRN Reason Start Time Stop Time Status Last Admin Dose Admin Aspirin (Aspirin 325mg Tab) 325 mg ONCE ONCE PO 02/20/25 13:30 02/20/25 13:31 Sodium Chloride 500 ml @ 0 mls/hr ONCE ONCE IV 02/20/25 11:30 02/20/25 11:31 DC 02/20/25 11:55 Vital Signs Date Time Temp Pulse Resp B/P (MAP) Pulse Ox O2 Delivery O2 Flow Rate FiO2 02/20/25 13:14 97.9 54 14 103/54 98 Nasal Cannula* 2 28 02/20/25 12:59 97.9 55 14 103/48 97 Room Air* 0 21 02/20/25 11:28 98.2 57 18 86/56 98 Nasal Cannula 2.0 1320/M REPORT TO REGARDING EKG LABS CHEST X-RAY AND INTERVENTIONS FOR HYPOTENSION AND AN ASPIRIN 325 ORDERED HE AGREED TO PROCEED HEART Score Response (Comments) Value EKG: Repolarization changes 1 Age: > 65yrs (+2) 2 Risk Factors: 3+ risk factors (+2) 2 Total 5 Medical Decision Making MDM MDM: DIFFERENTIAL DIAGNOSIS: ACS/AMI/ELECTROLYTE IMBALANCE/FLUID OVERLOAD/ESRD N EEDING HEMODIALYSIS/EFFUSION/PNEUMONIA RATIONALE: TESTS CONSIDERED AND ORDERED SECONDARY TO SHARED DECISION MAKING INCLUDE: LABS, ECG AND RADIOLOGY PREVIOUS OUTSIDE RECORDS REVIEWED: OLD ER VISITS. RISK OF COMPLICATION AND/OR MORBIDITY OR MORTALITY OF PATIENT MANAGEMENT: NONE MEDICATIONS-PER MEDICATION RECONCILIATION NEED FOR HOSPITALIZATION: PATIENT DOES MEET CRITERIA FOR HOSPITALIZATION. PATIENT WILL NEED TO BE ADMITTED FOR ACS, CARDIOLOGY FOLLOW UP AND DIALYSIS NEED FOR EMERGENCY MAJOR/MINOR SURGERY: NO THERE ARE NO SOCIAL CONCERNS WITH THIS PATIENT. PRESCRIPTION DRUG MANAGEMENT PRESCRIPTIONS WILL INCLUDE SYMPTOMATIC CARE PATIENT'S PRIOR EXTERNAL MEDICAL RECORDS FROM OTHER ER VISITS WERE REVIEWED BY ME INDICATED. PRIOR TESTING AND RESULTS FROM PREVIOUS VISITS WERE REVIEWED. PRIOR TESTS WERE TAKEN INTO ACCOUNT WITH MEDICAL DECISION MAKING AND RESOURCE UTILIZATION, INDEPENDENT HISTORIAN/HISTORIANS WERE USED TO OBTAIN COMPLETE MEDICAL HISTORY. I INDEPENDENTLY INTERPRETED THE TEST THAT WERE PERFORMED, RESULTS WERE REVIEWED BY ME AND CONSIDERED FINDINGS ON RADIOLOGY IF ORDERED. MEDICAL MANAGEMENT AND EXAMINATION INTERPRETATION DISCUSSIONS WERE HAD BY ME WITH OTHER QUALIFIED HEALTHCARE PROFESSIONALS INDICATED FOR THE PATIENT'S CARE. DX & DISP Disposition: Inpatient Decision to Admit Time: 13:24 Departure Impression: Primary Impression: ACS (acute coronary syndrome) Additional Impressions: Hyponatremia, Hypochloremia, ESRD needing dialysis, Hypocalcemia, Anemia, chronic renal failure, Bilateral pleural effusion Condition: Stable Referrals: VIDA ROUSE (PCP) Time of Disposition: 13:24 I have reviewed the case, and I agree with, Diagnosis and Plan DAVID CAVAZOS Feb 20, 2025 11:27
--- NOTE | 2025-02-20 11:37 | EKG ---
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
[2025-02-20 11:54] LABS: CREATININE 4.9 mg/dL (0.5-1.0); GLOMERULAR FILTR. RATE CALC 10.0 mL/min (>90); GLUCOSE,RANDOM 125.0 mg/dL (70-105); SODIUM SERUM 124.0 mmol/L (136-145); UREA NITROGEN, BLOOD 58.0 mg/dL (7-18)
[2025-02-20] MEDS: 0.9% NACL 500ML IV.SOLN 500 ML IV ONE (11:55)
[2025-02-20 12:06] LABS: IMMATURE GRANULOCYTE ABSOLUTE 0.02 K/uL (0-1); NUCLEATED RED BLOOD CELLS 0.5 % (0.0-0.19); PLATELET COUNT (AUTO) 229 K/uL (130-400); RED BLOOD CELL COUNT(AUTO) 2.76 MIL/uL (4.00-5.50); RED CELL DISTRIBUTION WIDTH 22.2 % (11.0-15.5); WHITE BLOOD COUNT (AUTO) 5.5 K/uL (4.8-10.8)
--- NOTE | 2025-02-20 12:40 | HMCIMG ---
EXAM: CR Chest, 1 View. CLINICAL HISTORY: CHEST PAIN COMPARISON: Radiograph dated December 11, 2024 FINDINGS: There is bilateral perihilar and bibasilar airspace disease that may reflect pulmonary edema. Unchanged elevation of the right hemidiaphragm. Small to moderate right pleural effusion. Stable cardiomegaly. Pulmonary vascular congestion. No pneumothorax is appreciated. IMPRESSION: 1. Bilateral perihilar and bibasilar airspace disease, possibly representing pulmonary edema, with pulmonary vascular congestion and small to moderate right pleural effusion. 2. Cardiomegaly, unchanged. 3. Persistent elevation of the right hemidiaphragm. /[place]
--- NOTE | 2025-02-20 13:30 | NUR ---
DR MERCHANT AT BEDSIDE
[2025-02-20 13:52] LABS: INR 1.19 (0.85-1.15)
[2025-02-20 13:56] LABS: LACTATE DEHYDROGENASE 223.0 U/L (81-234)
--- NOTE | 2025-02-20 13:57 | HP ---
[facility] HISTORY [facility] PHYSICAL Date of Service: Feb 20, 2025 Time of Service: 13:57 HISTORY OF PRESENT ILLNESS: Date of service: 02/20/2025, patient was seen in ER room 12 This is a 49-year-old female with history of type 2 diabetes mellitus, peripheral vascular disease, ESRD on hemodialysis since 2018, history of GI bleed, anemia, respiratory failure with pleural effusion who presented to the ER for further evaluation of hypotension. Patient states that she was getting dialyzed today when she started having hypotension and chest pain. Patient was given 250 cc of bolus of IV fluid with improvement of blood pressure in the 90s. Patient states that the chest pain resolved and denies active chest pain currently. Patient is followed by Dr. Leonard with Nephrology as outpatient for management of hemodialysis. She has been maintained on Wednesday, , Wednesday hemodialysis sessions. She is also followed by wound care and she has a history of significant lower extremity edema and bilateral lower extremity wounds. She has been having some subjective chills, cough as well as shortness of breath since yesterday. She denies any syncopal episodes or recent falls. She has been feeling more sleepy today as well. On presentation to the hospital, patient was noted to be afebrile with T-max of 98.2 F, heart rate of 57, blood pressure of 86/56. Labs on presentation showed WBC count of 5500, hemoglobin of 8.9, MCV of 102.5, platelet count of 016318. BMP showed sodium of 124, potassium 4.7, chloride of 88, BUN of 58, creatinine 4.9, high sensitivity cardiac troponin 123, CRP of 42.5, BNP of 10 70. Chest x-ray showed cardiomegaly with bilateral infiltrates in the lungs with [id number] right-sided pleural effusion. On Review of medications from [facility] [place] [facility], patient was being prescribed a IV meropenem that was started on 02/15/2025 as well as Eliquis 2.5 mg bid. Patient is on midodrine as outpatient during dialysis days. Patient also was receiving Eliquis 2.5 mg b.i.d. which was held today due to be bleeding from bilateral lower extremity wounds. , patient with no further bleeding noted from the wounds on presentation to the ER. Patient will be admitted for further management of acute hypoxemic respiratory failure, outpatient hypotension with infiltrates in the lungs and bilateral lower extremity wounds with worsening lower extremity swelling. Patient will receive broad-spectrum antibiotics. Consultation with Nephrology will be requested for dialysis. 2D echocardiogram will be obtained and cardiac troponin will be trended to rule out active ACS. We will see how patient progresses in the next 72 hours. Patient remains high-risk due to multiple comorbidities. REVIEW OF SYSTEMS CONSTITUTIONAL: Lethargy , chills, malaise NEUROLOGICAL: Denies headache, amaurosis fugax, motor weakness, sensory deficit, vertigo/spinning sensation, gait abnormalities, or tremors. ENT: No hearing loss, otalgia, otorrhea, rhinitis, rhinorrhea, hoarseness, or sore throat. CARDIOVASCULAR: Chest did during dialysis today PULMONARY: Reports having shortness of breath and cough SLEEP: Denies morning headaches, daytime somnolence or napping. Denies difficulty falling asleep, staying asleep, waking from sleep. Denies knowledge of snoring. GASTROINTESTINAL: Denies any type of dysphagia to either liquids or solids. Denies nausea, vomiting, pyrosis, early satiety, abdominal pain, diarrhea, constipation, or changes in stool consistency or caliber. Denies coffee-ground emesis, hematemesis, hematochezia, or melanotic stools. GENITOURINARY: Denies frequency, urgency, nocturia, hematuria or incontinence (Storage/Irritative symptoms.) Low urinary stream, straining to void, urinary intermittency or hesitancy, splitting of the voiding stream, terminal dribbling. ENDOCRINOLOGIC: Denies polyuria, polydipsia, polyphagia or heat/cold intolerances. HEMATOLOGIC: Denies thrombophilia/previous clots, or coagulopathy/bleeding disorders. ONCOLOGIC: Denies personal history of malignancy. DERMATOLOGIC: Denies rashes or pruritus. PSYCHIATRIC: Denies any suicidal or homicidal ideation. Denies hallucinations. PAST MEDICAL HISTORY: Hypertension, hyperlipidemia, DM 2, end-stage renal disease on hemodialysis, GERD, peripheral vascular disease, anemia, History of GI bleed requiring hospitalization in 09/2024 with findings of esophageal varices, portal gastropathy, history of severe tricuspid valve regurgitation noted from 2D echocardiogram from 01/2024, Chronic bilateral lower extremity wounds with chronic edema, history of lower extremity venogram by Dr. Gillespie on 11/2024 which showed no significant venous stricture on bilateral lower extremities PAST SURGICAL HISTORY: Reports having AV fistula of left upper extremity. Reports having had previous histories of EGD, colonoscopy, [place] [facility] [place] PAST SOCIAL HISTORY: Denies active smoking or alcohol consumption, No drug history FAMILY HISTORY: Patient's mother has cancer, patient does not remember further details. History of DM and MN in father., Patient has: No known drug allergies Home medications: Family will be bringing list of home medications to be reconciled and updated Coded Allergies: No Known Allergies (Verified Allergy, Unknown, 07/03/23) PHYSICAL EXAM GENERAL APPEARANCE: Patient is sitting up in bed and appears drowsy, patient awakens to verbal stimuli but falls asleep NEUROLOGICAL: Cranial nerves II-XII grossly intact. Neurological examination is nonfocal, patient is moving her upper and lower extremity HEENT: Face is symmetric. Pupils are equal and reactive. Extraocular movements are intact. NECK: Supple. No JVD. No thyromegaly. No submental, submandibular, pre- /postauricular, occipital or supraclavicular lymphadenopathy. CHEST: Normal chest expansion. No Telemetry. LUNGS: Crackles noted at bilateral lung bases with rhonchorous breath sounds CARDIOVASCULAR: Regular. S1 and S2 normal. No appreciable rubs, murmurs or gallops. ABDOMEN: Soft, nontender, and nondistended. There is no rebound, voluntary guarding, or rigidity. : Deferred. No Georges. EXTREMITIES: 3+ pitting edema noted of bilateral extremity with chronic wounds, there is erythema with bilateral venous stasis SKIN: as noted above Vital Sign (Last 24 Hours) 02/20/25 13:14 Temp 97.9 Pulse 54 Resp 14 B/P (MAP) 103/54 Pulse Ox 98 O2 Delivery Nasal Cannula* O2 Flow Rate 2 FiO2 28 LABS: Laboratory: Test 02/20/25 11:43 Range/Units White Blood Count 5.5 4.8-10.8 K/uL Red Blood Count 2.76 L 4.00-5.50 MIL/uL Hemoglobin 8.9 L 12.0-16.0 g/dL Hematocrit 28.3 L 36-48 % Mean Corpuscular Volume 102.5 H 79-99 fL Mean Corpuscular Hemoglobin 32.2 27.0-33.0 pg Mean Corpuscular Hemoglobin Concent 31.4 L 32.0-36.0 g/dL Red Cell Distribution Width 22.2 H 11.0-15.5 % Platelet Count 229 130-400 K/uL Mean Platelet Volume 8.8 7.5-10.5 fL Immature Granulocyte % (Auto) 0.4 0-1 % Neutrophils (%) (Auto) 72.6 40.0-77.0 % Lymphocytes (%) (Auto) 16.8 L 21.0-51.0 % Monocytes (%) (Auto) 8.4 3.0-13.0 % Eosinophils (%) (Auto) 1.3 0.0-8.0 % Basophils (%) (Auto) 0.5 0.0-5.0 % Neutrophils # (Auto) 4.0 1.8-7.7 K/uL Lymphocytes # (Auto) 0.9 L 1.0-4.8 K/uL Monocytes # (Auto) 0.5 0.1-1.0 K/uL Eosinophils # (Auto) 0.07 0.00-0.70 K/uL Basophils # (Auto) 0.03 0.00-0.20 K/uL Absolute Immature Granulocyte (auto 0.02 0-1 K/uL Nucleated Red Blood Cells 0.5 H 0.0-0.19 % Red Blood Cell Morphology See comments Prothrombin Time 12.4 H 9.6-11.6 SEC Prothromb Time International Ratio 1.19 H 0.85-1.15 Activated Partial Thromboplast Time 34.4 26.3-35.5 SEC Sodium Level 124 L 136-145 mmol/L Potassium Level 4.7 3.5-5.1 mmol/L Chloride Level 88 *L 101-111 mmol/L Carbon Dioxide Level 28 21-32 mmol/L Blood Urea Nitrogen 58 H 7-18 mg/dL Creatinine 4.9 H 0.5-1.0 mg/dL Glomerular Filtration Rate Calc 10 >90 mL/min Random Glucose 125 H 70-105 mg/dL Total Calcium 7.7 L 8.5-10.1 mg/dL Magnesium Level 2.70 H 1.80-2.40 mg/dL Lactate Dehydrogenase 223 81-234 U/L Troponin I High Sensitivity 123 *H 4-50 ng/L C-Reactive Protein, Quantitative 42.50 H 0.5-3.0 mg/L B-Type Natriuretic Peptide 1070 H 0-100 pg/mL Current Medications Medications (Trade) Dose Ordered Sig/[place]aven Route PRN Reason Start Time Stop Time Status Last Admin Dose Admin Acetaminophen (TYLenol 325MG TAB) 650 mg Q6H PRN PO MILD PAIN (1-3) 02/20/25 14:00 03/22/25 13:59 Aspirin (Aspirin 81mg Chew Tab) 81 mg DAILY PO 02/21/25 09:00 03/23/25 08:59 Dextrose (D50w) 50 ml AD PRN IV HYPOGLYCEMIA PROTOCOL 02/20/25 14:00 03/22/25 13:59 Glucagon (Glucagon 1mg Kit) 1 mg AD PRN IM HYPOGLYCEMIA PROTOCOL 02/20/25 14:00 03/22/25 13:59 Insulin Human Regular (humuLIN R 100 UNIT/ML 3ML) INSULIN SLIDING SCAL... ACHS SQ 02/20/25 16:30 03/22/25 16:29 Midodrine (PROAMatine 5 MG TABLET) 5 mg TID PRN PO IF bp less than 90/60 02/20/25 14:00 03/22/25 13:59 Nitroglycerin (Nitrostat) 0.4 mg AD PRN SL CHEST PAIN 02/20/25 14:00 03/22/25 13:59 Ondansetron HCl (zoFRAN 4MG INJ) 4 mg Q6H PRN IVP NAUSEA/VOMITING 02/20/25 14:00 03/22/25 13:59 Pantoprazole Sodium (PROTonix 40MG INJ) 40 mg Q24H IVP 02/20/25 14:00 03/22/25 13:59 Piperacillin Sod/ Tazobactam Sod (Zosyn 3.375gm+NS 50ml) 3.375 gm Q12H IVPB 02/20/25 14:00 03/02/25 13:59 Vancomycin HCl (Vancomycin Protocol) 1 each AD IV 02/20/25 14:00 03/06/25 13:59 Vitamin B Complex/ Vit C/Folic Acid (Nephrovite Tablet) 1 cap DAILY PO 02/21/25 09:00 03/23/25 08:59 DIAGNOSTICS / RADIOLOGY: SERVICE [id number] REASON: CHEST PAIN ORDERING PHYSICIAN: DAVID CAVAZOS [employer] PROCEDURE: CXR1VW - CHEST 1VW EXAM: CR Chest, 1 View. CLINICAL HISTORY: CHEST PAIN COMPARISON: Radiograph dated December 11, 2024 FINDINGS: There is bilateral perihilar and bibasilar airspace disease that may reflect pulmonary edema. Unchanged elevation of the right hemidiaphragm. Small to moderate right pleural effusion. Stable cardiomegaly. Pulmonary vascular congestion. No pneumothorax is appreciated. IMPRESSION: 1. Bilateral perihilar and bibasilar airspace disease, possibly representing pulmonary edema, with pulmonary vascular congestion and small to moderate right pleural effusion. 2. Cardiomegaly, unchanged. 3. Persistent elevation of the right hemidiaphragm. /[place] DICTATED BY: RADHA HERRERA Jr., MD DATE: 02/20/251338 ELECTRONICALLY SIGNED BY: RADHA HERRERA Jr., MD DATE: 02/20/251338 ASSESSMENT: Acute hypoxemic respiratory failure, POA Hypotension status post IV fluids as outpatient, resolving, POA Elevated troponin, rule out active ACS, POA Decompensated heart failure exacerbation, POA Toxic/metabolic encephalopathy, POA Rule out developing community-acquired pneumonia, POA Right-sided pleural effusion, POA r/o Pulmonary HTN, POA Pulmonary edema, POA History of complicated wounds involving bilateral lower extremities with superimposed active cellulitis, POA Debility/frailty, POA History of ESRD, POA Anemia, POA [place] of [place] [facility] [place], POA Rule out cirrhosis of the liver , POA History of severe tricuspid regurgitation noted on 2D echocardiogram from 01/2024, POA Obesity, POA Hyponatremia, POA Hyperlipidemia, POA PLAN: Patient will be admitted to cardiac telemetry floor Patient received IV fluids by EMS with blood pressure improving, we will avoid any IV fluids due to volume overload Consultation with Nephrology will be requested for hemodialysis during inpatient stay, patient will be placed on fluid restrictions Blood cultures will be obtained, we will start patient on broad-spectrum antibiotics including vancomycin, we will continue with IV meropenem which patient was receiving starting 02/15/2025 in nursing facility, we will rule out pneumonia as well as lower extremity cellulitis Cardiac panel will be trended to rule out active ACS Consultation with Cardiology will be requested 2D echocardiogram will be obtained Patient was started aspirin 81 mg daily We will avoid any sedatives/narcotics due to underlying lethargy We will obtain a CT head without contrast and CT chest without contrast We will obtain a lower extremity venous Doppler to rule out deep vein thrombosis of the lower extremity Consultation with Wound Care will be requested We will continue with supplemental O2 therapy to maintain O2 saturations greater than 92%, we will obtain arterial blood gas We will check ammonia level due to underlying lethargy we will monitor this patient closely with regards to underlying lethargy and neurologic status Patient appears very debilitated, we will request consultation with Physical therapy tomorrow, case management assist with discharge planning We will keep patient on sliding scale insulin a.c. and HS, we will keep patient on hypoglycemia precautions Keep patient on GI prophylaxis with Protonix, monitor troponin trend closely, we will keep patient on DVT prophylaxis with heparin, further episodes of bleeding tonight, we will restart patient back on Eliquis tomorrow 2.5 mg twice daily We will check iron panel, B12 and folate levels with a.m. labs tomorrow Prognosis: Guarded condition: Critical Plan of care was discussed with patient at bedside, Alan Min MD Advanced Care Planning: Which of the following were discussed: Hospice care: Yes __ No _X_ Therapeutic options: Yes _X_ No __ Advance directives: Yes _X_ No __ Other discussions: Discussed with who?: Patient Voluntary nature of this service was explained to the patient? Yes _x_ No __ Amount of time spent: 20 minutes ALAN MIN MD Feb 20, 2025 13:57
[2025-02-20] MEDS ORDERED: NITROGLYCERIN 0.4 MG SL TAB SL PRN (14:00)
[2025-02-20] MEDS ORDERED: GLUCAGON 1MG KIT 1 MG ML IM PRN (14:00)
[2025-02-20] MEDS ORDERED: DEXTROSE 50%-WATER 50 ML DISP.SYRIN IV PRN (14:00)
[2025-02-20] MEDS ORDERED: VANCOMYCIN PROTOCOL PER PHARMACY IV SCH (14:00)
[2025-02-20 14:17] LABS: ABG BASE EXCESS -2.3 mmol/L (-2.0-3.0); ABG HCO3 22.4 mmol/L (21.0-28.0); ABG OXYGEN SATURATION 88.0 % (94.0-98.0); ABG PCO2 38 mmHg (32-45); ABG PH 7.388 (7.350-7.450); CARBON MONOXIDE 1.0 % (0.5-1.5); PO2, ARTERIAL BG 59.7 mmHg (83.0-108.0); TEMPERATURE, CELSIUS BG 37.0 CELSIUS (35.5-37.0); VENT MODE, BG 3L NC (ROOM AIR)
[2025-02-20] MEDS: BUDESONIDE 0.5 MG/2 ML INH IH SCH (14:18)
[2025-02-20] MEDS: SODIUM CHLORIDE 3% FOR INHALATION 4 ML/AMP VIAL.NEB IH ONE ×3 (14:18→23:44)
--- NOTE | 2025-02-20 14:29 | CONS ---
[facility] CONSULTATION NOTE Date Patient Seen: Feb 20, 2025 Time of Visit: 14:24 Supervising Physician: [Dr Dockery Reason for Consultation: acute respiratory failure Primary Care Physician: [ ] Outpatient Specialists: [ ] Inpatient Consults: [Dr Leonard, PROBLEM LIST: Acute hypoxemic respiratory failure Pulmonary Edema Chronic pleural effusion Elevated diaphragm Atelectasis ESRD in need of HD PAD Bilateral lower extremity wounds HPI: This is a 49-year-old female with history of type 2 diabetes mellitus, peripheral vascular disease, ESRD on hemodialysis since 2018, history of GI bleed, anemia, respiratory failure with pleural effusion who presented to the ER for further evaluation of hypotension. Patient states that she was getting dialyzed today when she started having hypotension and chest pain. Patient was given 250 cc of bolus of IV fluid with improvement of blood pressure in the 90s. Patient states that the chest pain resolved and denies active chest pain currently. Patient is followed by Dr. Leonard with Nephrology as outpatient for management of hemodialysis. She has been maintained on Wednesday, , Wednesday hemodialysis sessions. She is also followed by wound care and she has a history of significant lower extremity edema and bilateral lower extremity wounds. She has been having some subjective chills, cough as well as shortness of breath since yesterday. She denies any syncopal episodes or recent falls. She has been feeling more sleepy today as well. BMP showed sodium of 124, potassium 4.7, chloride of 88, BUN of 58, creatinine 4.9, high sensitivity cardiac troponin 123, CRP of 42.5, BNP of 10 70. Chest x-ray showed cardiomegaly with bilateral infiltrates in the lungs with [id number] right-sided pleural effusion for this reason we were consulted. Patient is seen and evaluated in the ED sitting up in the stretcher appears to be weak, and hypoxemic requiring 3 liters via nasal cannula. Pt reports she uses 3L via n/c at home. PT denies recurrent chest discomfort, chest pain at this time. Chest x ray reviewed, it appears patient has chronic right effusion once compared to CT scan of the chest from 11/2024. Patient is also noted to have elevated diaphragm. Recommend SNiff test. Ok to continue with current antibiotic regimen. Obtain PT/PTT in AM. Aggressive fluid removal with HD today. Will obtain bedside ultrasound in AM to re evalaute the right effusion. PLAN: Supplemental oxygen as needed Wean off as tolerates Duonebs as needed Obtain SNIFF test Aggressive fluid removal with HD Obtain PT / PTT Bedside US in AM to evaluate effusion PAST MEDICAL HX: see above PAST SURGICAL HX: noncontributory SOCIAL HISTORY: No tobacco, ETOH, or illicit drug use Coded Allergies: No Known Allergies (Verified Allergy, Unknown, 07/03/23) REVIEW OF SYSTEMS: 12 point ROS reviewed with patient. Pertinent positives mentioned above. Otherwise negative. PHYSICAL EXAM: GENERAL: alert, weak, awake oriented x 3 HEENT: EOMI, Sclera non icteric, moist mucosa NECK: Supple, no JVD, trachea midline LUNGS: Clear breath sounds bilaterally. No wheezes HEART: Regular rate and rhythm. Normal S1 and S2, without murmurs ABD: Abdomen soft, nontender. Bowel sounds present EXT: No clubbing cyanosis or edema NEURO: Alert and oriented to person, follows commands Vital Signs (last 8hr) Date Time Temp Pulse Resp B/P (MAP) Pulse Ox O2 Delivery O2 Flow Rate FiO2 02/20/25 14:17 54 24 02/20/25 14:15 54 24 N/Cannula Low lpm 3.0 02/20/25 13:14 97.9 54 14 103/54 98 Nasal Cannula* 2 28 02/20/25 12:59 97.9 55 14 103/48 97 Room Air* 0 21 02/20/25 11:28 98.2 57 18 86/56 98 Nasal Cannula 2.0 LABS: Hematology Labs: Test 02/20/25 11:43 Range/Units White Blood Count 5.5 4.8-10.8 K/uL Red Blood Count 2.76 L 4.00-5.50 MIL/uL Hemoglobin 8.9 L 12.0-16.0 g/dL Hematocrit 28.3 L 36-48 % Mean Corpuscular Volume 102.5 H 79-99 fL Mean Corpuscular Hemoglobin 32.2 27.0-33.0 pg Mean Corpuscular Hemoglobin Concent 31.4 L 32.0-36.0 g/dL Red Cell Distribution Width 22.2 H 11.0-15.5 % Platelet Count 229 130-400 K/uL Mean Platelet Volume 8.8 7.5-10.5 fL Immature Granulocyte % (Auto) 0.4 0-1 % Neutrophils (%) (Auto) 72.6 40.0-77.0 % Lymphocytes (%) (Auto) 16.8 L 21.0-51.0 % Monocytes (%) (Auto) 8.4 3.0-13.0 % Eosinophils (%) (Auto) 1.3 0.0-8.0 % Basophils (%) (Auto) 0.5 0.0-5.0 % Neutrophils # (Auto) 4.0 1.8-7.7 K/uL Lymphocytes # (Auto) 0.9 L 1.0-4.8 K/uL Monocytes # (Auto) 0.5 0.1-1.0 K/uL Eosinophils # (Auto) 0.07 0.00-0.70 K/uL Basophils # (Auto) 0.03 0.00-0.20 K/uL Absolute Immature Granulocyte (auto 0.02 0-1 K/uL Nucleated Red Blood Cells 0.5 H 0.0-0.19 % Red Blood Cell Morphology See comments Erythrocyte Sedimentation Rate 119 H 0-20 MM/HR Chemistry Labs: Test 02/20/25 11:43 Range/Units Sodium Level 124 L 136-145 mmol/L Potassium Level 4.7 3.5-5.1 mmol/L Chloride Level 88 *L 101-111 mmol/L Carbon Dioxide Level 28 21-32 mmol/L Blood Urea Nitrogen 58 H 7-18 mg/dL Creatinine 4.9 H 0.5-1.0 mg/dL Glomerular Filtration Rate Calc 10 >90 mL/min Random Glucose 125 H 70-105 mg/dL Total Calcium 7.7 L 8.5-10.1 mg/dL Magnesium Level 2.70 H 1.80-2.40 mg/dL Lactate Dehydrogenase 223 81-234 U/L Troponin I High Sensitivity 123 *H 4-50 ng/L C-Reactive Protein, Quantitative 42.50 H 0.5-3.0 mg/L B-Type Natriuretic Peptide 1070 H 0-100 pg/mL Procalcitonin 0.31 0.05-0.5 ng/mL Coagulation Labs: Test 02/20/25 11:43 Range/Units Prothrombin Time 12.4 H 9.6-11.6 SEC Prothromb Time International Ratio 1.19 H 0.85-1.15 Activated Partial Thromboplast Time 34.4 26.3-35.5 SEC DIAGNOSTICS / RADIOLOGY RESULTS: [ ] PLAN NEURO: Minimize central acting medications as possible. Maintain fall precautions, adequate lighting during the day PULMONARY: Supplemental 02 as needed. Maintain aspiration precautions at all times CARDIOVASCULAR: Follow hemodynamics. Vital signs per facility protocol GI & NUTRITION: Continue with nutritional support. Continue stool softeners and laxatives as needed. KIDNEYS & ELECTROLYTES: Strict monitoring of intake, output and overall fluid balance. Avoid nephrotoxic medications to the extent possible. Medications to be dosed according to renal function. Monitor electrolytes and replace as needed ENDOCRINE: Maintain blood glucose between 100-180 at all times. Hypoglycemia protocol in place INFECTIOUS DISEASE: Trend temperature, WBC and procalcitonin level Follow cultures, deescalate antibiotics as soon as possible. Panculture if new onset fever ONCOLOGY/HEMATOLOGY/COAGULATION: Monitor for s/s of bleeding Monitor hemoglobin, coagulation studies as needed SKIN: Pressure ulcer prevention per facility protocol Specialty mattress ORTHO/REHAB: Continue PT/OT Prophylaxis: Continue GI and DVT prophylaxis Code Status: Full Resuscitation Disposition: As per attending ATTESTATION BY PHYSICIAN I reviewed the documentation, medical decision making, and treatment plan as noted by the mid-level provider above. I agree with the findings and plan of care. [place] Dockery MD, ECTOR N FNP Feb 20, 2025 14:29
--- NOTE | 2025-02-20 14:43 | HMCIMG ---
EXAM: US for Deep Venous Thrombosis, bilateral Lower Extremity. CLINICAL HISTORY: Leg Pain and Swelling TECHNIQUE: Real-time ultrasound scan of the veins of the bilateral lower extremity with color Doppler flow, spectral waveform analysis and compression. COMPARISON: None provided. FINDINGS: Technologist reports severe edema limiting exam. DEEP VEINS: The common femoral, superficial femoral, and popliteal veins are echolucent and compressible. There is normal color Doppler flow throughout. The visualized calf veins appear patent. SOFT TISSUES: No popliteal fossa cyst or other abnormalities. IMPRESSION: No deep venous thrombosis evident on bilateral lower extremity examination. /[place]ena
[2025-02-20] MEDS: ZOSYN 3.375GM +NS 50ML IVPB SCH (14:57)
[2025-02-20] MEDS: ASPIRIN 325MG TAB PO ONE (14:57)
[2025-02-20 15:15] LABS: ASPARTATE AMINOTRANSFERASE 48.0 U/L (10-37); TOTAL PROTEIN, SERUM 9.0 g/dL (6.0-8.3)
[2025-02-20 15:30] LABS: CREATINE KINASE, TOTAL 61.0 U/L (21-232)
[2025-02-20] MEDS: VANCOMYCIN 2GM/500 ML BAG 500 ML IV ONE (15:39)
[2025-02-20 15:50] LABS: SARS-CoV-2, RNA, NAAT NEGATIVE SARS CoV-2 (NEGATIVE)
[2025-02-20 15:54] LABS: INFLUENZA TYPE A Negative For Type A (NEGATIVE); INFLUENZA TYPE B Negative For Type B (NEGATIVE)
[2025-02-20] MEDS ORDERED: PHARMACY COMMUNICATION MISC SCH (16:00)
--- NOTE | 2025-02-20 16:14 | NUR ---
DCP:HOME Pt was at [facility] for the past 2/3 months prior to coming into [facility]. Pt states that she uses a wheelchair and walker. pt does go to dialysis at [facility]. Pt states that the staff at [facility] assist her with completing her ADLs. PCP is tSeffi Ye and uses [facility] for any RX needs. At [place] pt states that she will return to [place] due to repairs still happening in her home.
--- NOTE | 2025-02-20 16:37 | HMCIMG ---
EXAM: CT Head Without IV contrast. CLINICAL HISTORY: LETHARGY, HYPOTENSION TECHNIQUE: Axial computed tomography images of the head/brain without intravenous contrast. COMPARISON: None provided. FINDINGS: BRAIN: No evidence of acute hemorrhage. No mass lesion. No CT evidence for acute territorial infarct. No midline shift or extra-axial collections. VENTRICLES: No hydrocephalus. ORBITS: The orbits are unremarkable. SINUSES AND MASTOIDS: The paranasal sinuses and mastoid air cells are clear. BONES: No fracture. SOFT TISSUES: Unremarkable. Probable lipoma in the nasal region IMPRESSION: No acute intracranial abnormality. /[place]
--- NOTE | 2025-02-20 18:39 | HMCSR ---
APPROVED REPORT EXAM: Two-dimensional and M-mode echocardiogram with Doppler and color Doppler. INDICATION ICD: elevated troponin, hx of tr, esrd 2D Dimensions RVDd 6.0 cm LVEF(%) 69.4 (>50%) LVED Vol(simp.) 122.8 mL IVSd 1.2 (0.7-1.1cm) FS(%) 39 % LVES Vol(simp.) 54.1 mL LVDd 4.5 (3.8-5.6cm) LA (2D) 4.6 (1.6-4.0cm) LVEF(%, simp.) 56 % PWd 1.7 (0.7-1.1cm) Ao Root(2D) 2.9 (2.0-3.7cm) LA ESV INDEX (BP) 59.61 mL/m2 LVDs 2.8 (2.5-4.0cm) LVOT diam 1.9 (1.8-2.4cm) IVC diam 3.5 cm Deformation Strain Apical 4 -13.9 % Apical 2 -7.4 % Apical 3 -14.3 % Global Strain -11.9 % M-Mode Dimensions EPSS 0.5 cm LA (MM) 4.8 (1.6-4.0cm) Ao Root(MM) 3.1 (2.0-3.7cm) Aortic Valve AoV Vmax 1.8 m/s Ao Peak GR 13.6 mmHg LVOT Vmax 1.4 m/s AoV VTI 0.4 m Ao Mean GR 6.8 mmHg LVOT VTI 0.36 m TJ (VMAX) 2.19 cm2 TJ (VTI) 2.3 cm2 Mitral Valve MV E Vmax 141.2 cm/s DECEL Time 295 ms MV A Vmax 93.2 cm/s P 1/2 T 120 ms E/A ratio 1.5 MVA (PHT) 1.8 cm2 TDI E/E' Medial 25.4 E/E' Lateral 17.0 Medial E' Peak V 5.56 cm/s Lateral E' Peak V 8.30 cm/s Pulmonary Valve PV Vmax 1.0 m/s PV VTI 0.32 m PV Mean GR 2.0 mmHg PV Peak GR 3.8 mmHg Tricuspid Valve TR Vmax 3.0 m/s RAP (EST) 15 mmHg RVSP 57.4 mmHg TR Peak GR 42.4 mmHg Left Ventricle The left ventricle is normal size. Mild to moderate left ventricular hypertrophy. LVEF is 55-60%. Stage II diastolic dysfunction. Right Ventricle The right ventricle is severely dilated. Right ventricular systolic function is mildly reduced. Atria The left atrium is severely dilated. The right atrium is severely dilated. Aortic Valve The aortic valve is calcified but opens well. No aortic regurgitation is present. There is no aortic valvular stenosis. Mitral Valve Posterior mitral valve leaflet is severely calcified. Mild mitral annular calcification present. There is no evidence of significant mitral regurgitation. There is no mitral valve stenosis. Tricuspid Valve The tricuspid valve is normal in structure. There is severe tricuspid valve regurgitation noted. RVSP 54 mm hg. Pulmonic Valve The pulmonary valve is normal in structure. There is mild pulmonic valvular regurgitation. Great Vessels The aortic root is normal in size. The inferior vena cava is severely dilated with a decrease in inspiratory collapse. Pericardium There is no pericardial effusion. Conclusion The left ventricle is normal size. Mild to moderate left ventricular hypertrophy. LVEF is 55-60%. Stage II diastolic dysfunction. The right ventricle is severely dilated. Right ventricular systolic function is mildly reduced. The left atrium is severely dilated. The right atrium is severely dilated. Posterior mitral valve leaflet is severely calcified. Mild mitral annular calcification present. There is severe tricuspid valve regurgitation noted. RVSP 54 mm hg. The inferior vena cava is severely dilated with a decrease in inspiratory collapse. There is no pericardial effusion.
--- NOTE | 2025-02-20 19:00 | NUR ---
Pt arrival note Pt arrives. Pt aax3. No distress. 3L NC @ 94% O2 saturation. VS stable per pt baseline. Pt states no discomfort at this time; denies SOB, palpitations, chest pain. Meds to be reconciled per emar sent from [facility]. Per pt, okay to return there at [facility]. Plan of care reviewed. Pt states family is aware of her arrival. Addendum: 02/20/25 at 2342 by LYRIC PRO LVN LVN Addendum to add: room and call light orientation done, fall risk education done. All needs addressed. Call light left in reach.
--- NOTE | 2025-02-20 20:00 | NUR ---
Assessment Focused assessment done per scope
[2025-02-20] MEDS: MEROPENEM 500MG 500 MG VIAL IVPB SCH (20:11)
[2025-02-20] MEDS ORDERED: SENN8.6T32 PO (21:20)
[2025-02-20] MEDS ORDERED: GENT15CR7 TP (21:20)
[2025-02-20] MEDS ORDERED: METO5 PO (21:20)
[2025-02-20] MEDS ORDERED: PANT40TA55 PO (21:20)
[2025-02-20] MEDS ORDERED: GABA-529 PO (21:20)
[2025-02-20] MEDS ORDERED: MIDO10TA3 PO (21:20)
[2025-02-20] MEDS ORDERED: APIX2.5T PO (21:20)
[2025-02-20] MEDS ORDERED: ACET-2079 PO (21:20)
[2025-02-20] MEDS ORDERED: DOCU100C33 PO (21:20)
[2025-02-20] MEDS ORDERED: POLY17PO4 PO (21:20)
[2025-02-20] MEDS ORDERED: ASPI-1005 PO (21:20)
[2025-02-20] MEDS ORDERED: HONE44PA TP (21:20)
[2025-02-20] MEDS ORDERED: TEMA15CA PO (21:20)
[2025-02-20] MEDS ORDERED: CINA30TA5 PO (21:20)
[2025-02-20] MEDS ORDERED: HYDR-3421 PO (21:20)
[2025-02-20] MEDS ORDERED: ATOR40TA71 PO (21:20)
[2025-02-21] VITALS (35 sets, daily range): BP systolic 85–141; BP diastolic 33–76; PULSE 52–69; RESP 7–30; TEMP 97.4–98.2; O2SAT 95–96
[2025-02-21 04:41] LABS: IMMATURE GRANULOCYTE ABSOLUTE 0.02 K/uL (0-1); NUCLEATED RED BLOOD CELLS 0.9 % (0.0-0.19); PLATELET COUNT (AUTO) 229 K/uL (130-400); RED BLOOD CELL COUNT(AUTO) 2.83 MIL/uL (4.00-5.50); RED CELL DISTRIBUTION WIDTH 21.8 % (11.0-15.5); WHITE BLOOD COUNT (AUTO) 5.4 K/uL (4.8-10.8)
[2025-02-21 04:56] LABS: INR 1.21 (0.85-1.15)
--- NOTE | 2025-02-21 05:11 | HMCIMG ---
EXAM: CT Chest Without IV contrast. CLINICAL HISTORY: Right pleural effusion and lung infiltrates TECHNIQUE: Thin collimated axial CT images of the chest were obtained with sagittal and coronal reformatted images also submitted for interpretation. The total dose length product has been recorded in the electronic medical record. CT scan done according to ALARA (As Low As Reasonably Achievable). COMPARISON: CR and CT chest dated 02/20/2025 and 12/09/2024, respectively. FINDINGS: Redemonstrated relatively unchanged, consolidations in the right lower lobe and right middle lobe. Mosaic attenuation in the bilateral lung blanc. Relatively increased moderate right pleural effusion with underlying partial collapse of the right lower lobe. Linear and subsegmental atelectasis in the bilateral lung blanc. No pericardial effusion. Moderate cardiomegaly. The main pulmonary artery is prominent, suggesting persistent pulmonary arterial hypertension. No axillary, supraclavicular, or mediastinal lymphadenopathy. Diffuse enlargement of the thyroid gland with small hyperdense nodules. Limited views of the upper abdomen demonstrate hepatomegaly. Splenic arterial wall calcifications. No acute or suspicious osseous abnormality. IMPRESSION: 1. Increased moderate right pleural effusion with partial right lower lobe collapse. 2. Unchanged consolidations in right lower and middle lobes. 3. Moderate cardiomegaly with prominent main pulmonary artery, suggesting persistent pulmonary arterial hypertension. /Dena
[2025-02-21 05:17] LABS: % IRON SATURATION 30.7 % (22-44); IRON, SERUM 79.0 mcg/dL (50-170)
--- NOTE | 2025-02-21 05:26 | HMCIMG ---
EXAMINATION: ULTRASOUND OF THE ABDOMEN WITH COLOR DOPPLER. CLINICAL HISTORY: To assess for cirrhosis and ascites. COMPARISON: Prior CT dated 03/05/2024. TECHNIQUE: Real-time grayscale ultrasound images of the abdomen. In addition, color Doppler is medically necessary to perform in order to evaluate vascularity and blood flow. FINDINGS: Liver: Enlarged liver with fatty tissue. There is no focal hepatic abnormality or intrahepatic biliary ductal dilatation. There is normal spectral Doppler of the main portal vein. Gallbladder: Contracted with mild wall thickening (0.55 cm). There is a calculus that measures 1.0 cm. Common bile duct is normal in caliber, measuring 0.5 cm. Spleen is bulky in caliber and measures 12.5 cm in craniocaudal dimension. No focal lesions. Pancreas: Obscured by overlying bowel gas. The kidneys are smaller in caliber, the right kidney measures 6.0 x 4.0 x 4.1 cm and the left kidney measures 7.0 x 3.0 x 3.8 cm in craniocaudal, AP, and transverse dimensions respectively. There is renal cortical thinning and increased cortical echogenicity. There is no renal calculus or hydronephrosis. The abdominal aorta is obscured by overlying bowel gas. The inferior vena cava is dilated and measures 3.8 cm. There is subcutaneous edema in the right and left lower quadrants. IMPRESSION: Hepatosplenomegaly with fatty infiltration of the liver. Contracted gallbladder with calculus. No Brad cholecystic fluid or gallbladder wall thickening. Bilateral smaller kidneys with renal parenchymal disease. No hydronephrosis. Dilated inferior vena cava. /[place]
[2025-02-21 05:35] LABS: ASPARTATE AMINOTRANSFERASE 50.0 U/L (10-37); CREATININE 5.5 mg/dL (0.5-1.0); GLOMERULAR FILTR. RATE CALC 9.0 mL/min (>90); GLUCOSE,RANDOM 87.0 mg/dL (70-105); SODIUM SERUM 123.0 mmol/L (136-145); TOTAL PROTEIN, SERUM 8.7 g/dL (6.0-8.3); UREA NITROGEN, BLOOD 64.0 mg/dL (7-18)
--- NOTE | 2025-02-21 05:45 | NUR ---
Notification Notified hospitalist team of pt prior soft BPs. ESRD. Maps currently 66. Pt remains asymptomatic. Addendum: 02/21/25 at 0803 by LYRIC PRO LVN LVN addendum: notified of imaging results just seen interpreted in system.
[2025-02-21] MEDS: ASPIRIN 81MG CHEW TAB PO SCH (09:00)
[2025-02-21] MEDS: HONEY 1 APPL/ML TUBE TP SCH (09:00)
[2025-02-21] MEDS: SENNOSIDES 8.6 MG TABLET PO SCH (09:00)
[2025-02-21] MEDS ORDERED: ASPIRIN 81MG CHEW TAB PO SCH (09:00)
[2025-02-21] MEDS: CINACALCET 30 MG TAB PO SCH (09:00)
[2025-02-21] MEDS: Vitamin B Complex/Vit C/Folic Acid PO SCH (09:00)
[2025-02-21] MEDS ORDERED: 0.9% NACL 250ML 250 ML IV SCH (10:00)
--- NOTE | 2025-02-21 10:16 | PN ---
[facility] PROGRESS NOTE Date Patient Seen: Feb 21, 2025 Time of Visit: 10:16 Supervising Physician: Dr Berlin Dockery Primary Care Physician: [ ] Outpatient Specialists: [ ] Inpatient Consults: [Dr Leonard, PROBLEM LIST: Acute hypoxemic respiratory failure Pulmonary Edema Chronic pleural effusion Elevated diaphragm Atelectasis ESRD in need of HD PAD Bilateral lower extremity wounds Noncompliance with hemodialysis INTERVAL HISTORY: Patient was seen and examined she is awake alert and oriented currently in hemodialysis Patient's vitals are a little on the weak side during dialysis. We are considering possibly transferring her to the ICU in putting on pressors So that we can go ahead and continue with pulling. Goal right now is anywhere between 1-2 L. She is scheduled for dialysis tomorrow as well. She has a moderate right pleural effusion. If after a day or so of pulling we can not reduce the volume we will consider a thoracentesis. Nursing reports no acute events overnight patient is afebrile Vitals are stable but on the soft side Tolerating diet Patient's echo reveals EF of 55-60% stage II diastolic heart failure. She has a RSV P of 54 with moderate tricuspid regurg, ultrasounds were done of the lower extremities were revealed no DVT Head CT revealed no signs of bleed In the chest CT revealed the moderate right pleural effusion. We also have an ultrasound of the abdomen revealing fatty liver. Plan: We will continue to diurese through hemodialysis she is scheduled for today and tomorrow Possible upgrade if we need pressors Follow nephrology recommendations Telemetry Diabetic diet Total critical care time 44 minutes, time excludes any procedures or educational time. REVIEW OF SYSTEMS: 12 point ROS reviewed with patient. Pertinent positives mentioned above. Otherwise negative. PHYSICAL EXAM: GENERAL: alert, weak, awake oriented x 3 HEENT: EOMI, Sclera non icteric, moist mucosa NECK: Supple, no JVD, trachea midline LUNGS: Clear breath sounds bilaterally. No wheezes HEART: Regular rate and rhythm. Normal S1 and S2, without murmurs ABD: Abdomen soft, nontender. Bowel sounds present EXT: No clubbing cyanosis or edema NEURO: Alert and oriented to person, follows commands Vital Signs (last 8hr) Date Time Temp Pulse Resp B/P (MAP) Pulse Ox O2 Delivery O2 Flow Rate FiO2 02/21/25 06:31 59 20 02/21/25 06:31 22 N/Cannula Low lpm 3.0 32 02/21/25 04:45 93/55 02/21/25 04:00 85/47 02/21/25 04:00 97.3 52 18 87/33 93 Nasal Cannula 2.0 LABS: Hematology Labs: Test 02/21/25 04:33 02/20/25 11:43 Range/Units White Blood Count 5.4 4.8-10.8 K/uL Red Blood Count 2.83 L 4.00-5.50 MIL/uL Hemoglobin 9.0 L 12.0-16.0 g/dL Hematocrit 28.4 L 36-48 % Mean Corpuscular Volume 100.4 H 79-99 fL Mean Corpuscular Hemoglobin 31.8 27.0-33.0 pg Mean Corpuscular Hemoglobin Concent 31.7 L 32.0-36.0 g/dL Red Cell Distribution Width 21.8 H 11.0-15.5 % Platelet Count 229 130-400 K/uL Mean Platelet Volume 8.9 7.5-10.5 fL Immature Granulocyte % (Auto) 0.4 0-1 % Neutrophils (%) (Auto) 68.3 40.0-77.0 % Lymphocytes (%) (Auto) 20.3 L 21.0-51.0 % Monocytes (%) (Auto) 9.4 3.0-13.0 % Eosinophils (%) (Auto) 0.7 0.0-8.0 % Basophils (%) (Auto) 0.9 0.0-5.0 % Neutrophils # (Auto) 3.7 1.8-7.7 K/uL Lymphocytes # (Auto) 1.1 1.0-4.8 K/uL Monocytes # (Auto) 0.5 0.1-1.0 K/uL Eosinophils # (Auto) 0.04 0.00-0.70 K/uL Basophils # (Auto) 0.05 0.00-0.20 K/uL Absolute Immature Granulocyte (auto 0.02 0-1 K/uL Nucleated Red Blood Cells 0.9 H 0.0-0.19 % Red Blood Cell Morphology See comments Erythrocyte Sedimentation Rate 119 H 0-20 MM/HR Chemistry Labs: Test 02/21/25 06:31 02/21/25 04:33 02/20/25 14:32 02/20/25 11:43 Range/Units Whole Blood Glucose 77 70-110 MG/DL Sodium Level 123 L 136-145 mmol/L Potassium Level 5.7 H 3.5-5.1 mmol/L Chloride Level 87 *L 101-111 mmol/L Carbon Dioxide Level 26 21-32 mmol/L Blood Urea Nitrogen 64 H 7-18 mg/dL Creatinine 5.5 H 0.5-1.0 mg/dL Glomerular Filtration Rate Calc 9 >90 mL/min Random Glucose 87 70-105 mg/dL Total Calcium 7.3 L 8.5-10.1 mg/dL Magnesium Level 2.60 H 1.80-2.40 mg/dL Iron Level 79 50-170 mcg/dL Total Iron Binding Capacity 257 250-450 mcg/dL Percent Iron Saturation 30.7 22-44 % Ferritin 1586 H 15-150 ng/mL Total Bilirubin 0.9 # 0.2-1.0 mg/dL Aspartate Amino Transf (AST/SGOT) 50 H 10-37 U/L Alanine Aminotransferase (ALT/SGPT) 31 12-78 U/L Alkaline Phosphatase 493 H 50-136 U/L Total Protein 8.7 H 6.0-8.3 g/dL Albumin 2.2 L 3.5-5.0 g/dL Vitamin B12 Level 869 193-986 pg/mL Folic Acid (LAB) 13.00 2-20 ng/mL Direct Bilirubin 0.5 H 0.0-0.3 mg/dL Ammonia 17 11-32 umol/L Total Creatine Kinase 61 # 21-232 U/L Troponin I High Sensitivity 115.1 *H 4-50 ng/L Lactate Dehydrogenase 223 81-234 U/L C-Reactive Protein, Quantitative 42.50 H 0.5-3.0 mg/L B-Type Natriuretic Peptide 1070 H 0-100 pg/mL Procalcitonin 0.31 0.05-0.5 ng/mL Coagulation Labs: Test 02/21/25 04:33 Range/Units Prothrombin Time 12.6 H 9.6-11.6 SEC Prothromb Time International Ratio 1.21 H 0.85-1.15 Activated Partial Thromboplast Time 36.2 H 26.3-35.5 SEC DIAGNOSTICS / RADIOLOGY RESULTS: [ ] PLAN NEURO: Minimize central acting medications as possible. Maintain fall precautions, adequate lighting during the day PULMONARY: Supplemental 02 as needed. Maintain aspiration precautions at all times CARDIOVASCULAR: Follow hemodynamics. Vital signs per facility protocol GI & NUTRITION: Continue with nutritional support. Continue stool softeners and laxatives as needed. KIDNEYS & ELECTROLYTES: Strict monitoring of intake, output and overall fluid balance. Avoid nephrotoxic medications to the extent possible. Medications to be dosed according to renal function. Monitor electrolytes and replace as needed ENDOCRINE: Maintain blood glucose between 100-180 at all times. Hypoglycemia protocol in place INFECTIOUS DISEASE: Trend temperature, WBC and procalcitonin level Follow cultures, deescalate antibiotics as soon as possible. Panculture if new onset fever ONCOLOGY/HEMATOLOGY/COAGULATION: Monitor for s/s of bleeding Monitor hemoglobin, coagulation studies as needed SKIN: Pressure ulcer prevention per facility protocol Specialty mattress ORTHO/REHAB: Continue PT/OT Prophylaxis: Continue GI and DVT prophylaxis Code Status: Full Resuscitation Disposition: As per attending ANNE ARCE PAC Feb 21, 2025 10:16
[2025-02-21] MEDS ORDERED: PHARMACY COMMUNICATION 1 EACH EACH MISC SCH (11:00)
[2025-02-21] MEDS: ALBUMIN (HUMAN) 25% 50 ML IV.SOLN. IV SCH (11:01)
[2025-02-21] MEDS: 0.9%NACL 1000ML 1,000 ML IV SCH (11:05)
--- NOTE | 2025-02-21 11:35 | CONS ---
[facility] CARDIOLOGY CONSULTATION REPORT Cardiology consultation note dictated for Jared Melendrez MD Primary menagerie caretaker: Alf Gillespie MD Date Patient Seen: Feb 21, 2025 Time of Visit: 11:21 Requesting Physician: Mary Ann Min MD Reason for Consultation: Chest pain History of Present Illness: This is a 49-year-old female with a past medical history hypotension on Midodrine therapy, hyperlipidemia, diabetes mellitus type 2, end-stage renal disease and on HD TTS, stasis dermatitis of bilateral lower extremities, bilateral iliofemoral intravascular ultrasound on 12/14/2024 revealing no significant venous stricture on either side done by Dr. Gillespie and noncompliance who presented to the ED with complaints of hypotension and chest pain. Cardiology has been consulted for chest pain. The patient is a poor historian but was able to state she was at the [facility] when her chest discomfort b ciara. During the episode, she reported her systolic blood pressure was in the 70s to 80s range. Ti 123 and 115. EKG on admission demonstrated normal sinus rhythm with a heart rate of 56bpm, with a RBBB and an LPFB with no acute ischemia present, similar to prior EKG on 12/07/2024. BNP of 1070. CTA of the chest on 02/20 demonstrated pulmonary edema, pulmonary vascular congestion, and a [id number] right pleural effusion. 2D echocardiogram on 02/20/2025 with an LVEF of 55-60%, stage II diastolic dysfunction, severe biatrial dilation, severely dilated RV, and severe TR with RVSP of 54 mmHg. Past Medical History: As per HPI and summarized below Past Surgical History: LUE AV fistula Family History: The patient's mother has stage IV cancer and the patient's father has diabetes mellitus type 2. Social History: The patient lives with family. Habits: The patient denies alcohol, tobacco, or illicit drug use. Home Meds: Tylenol No. 3 every 6 hours p.r.n. pain Eliquis 2.5 mg b.i.d. for DVT Metoprolol succinate 25 mg daily if systolic BP less than 110 Aspirin 81 mg daily Atorvastatin 40 mg q.h.s. Midodrine 10 mg TTS, hold for systolic BP greater than 110 mmHg Pantoprazole 40 mg daily MiraLax 17 g pack daily Senna 8.6 mg daily Temazepam 15 mg q.h.s. p.r.n. anxiety Sevelamer 2400 mg t.i.d. Cinacalcet 30 mg daily Docusate sodium 100 mg b.i.d. Gabapentin 300 mg TTS q.h.s. Hydroxyzine 25 mg every 6 hours p.r.n. anxiety Reglan 5 mg t.i.d. Gentamicin 0.1% cream, applied to left lower extremity daily Medihoney applied to left lower extremity daily Current Meds: Medications Dose Ordered Sig/Haven Start Time Stop Time Status Last Admin Pantoprazole Sodium 40 mg Q24H 02/20/25 14:00 03/22/25 13:59 02/20/25 14:57 Vancomycin HCl 1 each AD 02/20/25 14:00 03/06/25 13:59 Acetaminophen 650 mg Q6H PRN 02/20/25 14:00 03/22/25 13:59 02/21/25 02:27 Ondansetron HCl 4 mg Q6H PRN 02/20/25 14:00 03/22/25 13:59 Aspirin 81 mg DAILY 02/21/25 09:00 03/23/25 08:59 Dextrose 50 ml AD PRN 02/20/25 14:00 03/22/25 13:59 Glucagon 1 mg AD PRN 02/20/25 14:00 03/22/25 13:59 Insulin Human Regular INSULIN SLIDING SCAL... ACHS 02/20/25 16:30 03/22/25 16:29 Vitamin B Complex/ Vit C/Folic Acid 1 cap DAILY 02/21/25 09:00 03/23/25 08:59 Nitroglycerin 0.4 mg AD PRN 02/20/25 14:00 03/22/25 13:59 Vancomycin HCl 750 mg QTUTHSA[DIALYSIS] 02/22/25 16:00 03/04/25 15:59 Budesonide 0.5 mg BIDRESP 02/20/25 14:00 03/22/25 13:59 02/21/25 06:29 Albuterol 1 udvial Q6H PRN 02/20/25 14:00 03/22/25 13:59 Heparin Sodium (Porcine) 5,000 unit Q12H 02/20/25 21:00 03/22/25 20:59 02/20/25 20:11 Meropenem 500 mg Q24H 02/20/25 18:00 02/27/25 17:59 02/20/25 20:11 Atorvastatin Calcium 40 mg HS 02/21/25 21:00 03/23/25 20:59 Cinacalcet 30 mg DAILY 02/21/25 09:00 03/23/25 08:59 Docusate Sodium 100 mg BID 02/21/25 09:00 03/23/25 08:59 Gentamicin Sulfate 1 APPL DAILY 02/21/25 09:00 03/07/25 08:59 Leptospermum Honey 1 APPL DAILY 02/21/25 09:00 03/23/25 08:59 Hydroxyzine HCl 25 mg Q12H PRN 02/20/25 22:00 03/22/25 21:59 02/21/25 01:57 Metoclopramide HCl 5 mg TID 02/21/25 09:00 03/23/25 08:59 Sennosides 1 tab DAILY 02/21/25 09:00 03/23/25 08:59 Sevelamer HCl 2,400 mg TID 02/21/25 09:00 03/23/25 08:59 Gabapentin 300 mg QTUTHSA@2100 02/22/25 21:00 03/22/25 21:59 Midodrine 10 mg TID 02/21/25 09:30 03/22/25 13:59 02/21/25 09:55 Epoetin [id number]-epbx 10,000 unit QTUTHSA[DIALYSIS] 02/22/25 16:00 03/24/25 15:59 Sodium Chloride 250 ml @ 0 mls/hr AD 02/21/25 10:00 03/23/25 09:59 Albumin Human 100 ml ONCE 02/21/25 10:00 02/22/25 09:59 02/21/25 11:01 Sodium Chloride 1,000 ml @ 0 mls/hr ONCE 02/21/25 10:00 03/23/25 09:59 02/21/25 11:05 Review of Systems: CONST: No fever, fatigue, or weight changes. EYES: No recent vision problems. ENT: No congestion, ear pain, or sore throat. C/V: No chest pain, palpitations, or edema. RESP: No cough, congestion, wheezing or shortness of breath. GI: No abdominal pain, nausea, vomiting, constipation, or diarrhea. : No incontinence or dysuria. SKIN: No rash. NEURO: No headache, focal numbness or weakness, dizziness, or seizures. PSYCH: No depression or anxiety. HEME: No abnormal bruising or bleeding. LYMPH: No swollen glands. Physical Examination: GENERAL: No acute distress. HEAD: Normal with no signs of head trauma. EYES: PERRLA, EOMI, conjunctiva and sclera normal. ENT: Hearing grossly intact, normal oropharynx. NECK: Supple without JVD. Normal carotid upstrokes without bruits. LUNGS: Clear breath sounds bilaterally. No wheezes, or rhonchi. HEART: Normal rate and rhythm. Normal S1 and S2 without murmurs, gallop or rub. VASC: Peripheral pulses +2 bilaterally. ABD: Bowel sounds normal, soft, nontender, no masses, no organomegaly. No audible bruits. : Not examined LYMPH: No lymphadenopathy noted. EXT: LUE with AV fistula positive for bruit and thrill SKIN: BLE with 2+ edema and dressings in place. NEURO: Awake, alert, and oriented x3. No focal sensory or strength deficits noted. Vital Signs (last 8hr) Date Time Temp Pulse Resp B/P (MAP) Pulse Ox O2 Delivery O2 Flow Rate FiO2 02/21/25 11:10 55 14 96/53 Nasal Cannula 2.0 02/21/25 10:55 54 14 93/47 Nasal Cannula 2.0 02/21/25 10:40 55 16 111/52 Nasal Cannula 2.0 02/21/25 10:25 97.3 53 18 102/54 Nasal Cannula 2.0 02/21/25 09:50 97.3 56 20 109/70 Nasal Cannula 2.0 02/21/25 06:31 59 20 02/21/25 06:31 22 N/Cannula Low lpm 3.0 32 02/21/25 04:45 93/55 02/21/25 04:00 85/47 02/21/25 04:00 97.3 52 18 87/33 93 Nasal Cannula 2.0 Laboratory: Hematology Labs: Test 02/21/25 04:33 02/20/25 11:43 Range/Units White Blood Count 5.4 4.8-10.8 K/uL Red Blood Count 2.83 L 4.00-5.50 MIL/uL Hemoglobin 9.0 L 12.0-16.0 g/dL Hematocrit 28.4 L 36-48 % Mean Corpuscular Volume 100.4 H 79-99 fL Mean Corpuscular Hemoglobin 31.8 27.0-33.0 pg Mean Corpuscular Hemoglobin Concent 31.7 L 32.0-36.0 g/dL Red Cell Distribution Width 21.8 H 11.0-15.5 % Platelet Count 229 130-400 K/uL Mean Platelet Volume 8.9 7.5-10.5 fL Immature Granulocyte % (Auto) 0.4 0-1 % Neutrophils (%) (Auto) 68.3 40.0-77.0 % Lymphocytes (%) (Auto) 20.3 L 21.0-51.0 % Monocytes (%) (Auto) 9.4 3.0-13.0 % Eosinophils (%) (Auto) 0.7 0.0-8.0 % Basophils (%) (Auto) 0.9 0.0-5.0 % Neutrophils # (Auto) 3.7 1.8-7.7 K/uL Lymphocytes # (Auto) 1.1 1.0-4.8 K/uL Monocytes # (Auto) 0.5 0.1-1.0 K/uL Eosinophils # (Auto) 0.04 0.00-0.70 K/uL Basophils # (Auto) 0.05 0.00-0.20 K/uL Absolute Immature Granulocyte (auto 0.02 0-1 K/uL Nucleated Red Blood Cells 0.9 H 0.0-0.19 % Red Blood Cell Morphology See comments Erythrocyte Sedimentation Rate 119 H 0-20 MM/HR Chemistry Labs: Test 02/21/25 06:31 02/21/25 04:33 02/20/25 14:32 02/20/25 11:43 Range/Units Whole Blood Glucose 77 70-110 MG/DL Sodium Level 123 L 136-145 mmol/L Potassium Level 5.7 H 3.5-5.1 mmol/L Chloride Level 87 *L 101-111 mmol/L Carbon Dioxide Level 26 21-32 mmol/L Blood Urea Nitrogen 64 H 7-18 mg/dL Creatinine 5.5 H 0.5-1.0 mg/dL Glomerular Filtration Rate Calc 9 >90 mL/min Random Glucose 87 70-105 mg/dL Total Calcium 7.3 L 8.5-10.1 mg/dL Magnesium Level 2.60 H 1.80-2.40 mg/dL Iron Level 79 50-170 mcg/dL Total Iron Binding Capacity 257 250-450 mcg/dL Percent Iron Saturation 30.7 22-44 % Ferritin 1586 H 15-150 ng/mL Total Bilirubin 0.9 # 0.2-1.0 mg/dL Aspartate Amino Transf (AST/SGOT) 50 H 10-37 U/L Alanine Aminotransferase (ALT/SGPT) 31 12-78 U/L Alkaline Phosphatase 493 H 50-136 U/L Total Protein 8.7 H 6.0-8.3 g/dL Albumin 2.2 L 3.5-5.0 g/dL Vitamin B12 Level 869 193-986 pg/mL Folic Acid (LAB) 13.00 2-20 ng/mL Direct Bilirubin 0.5 H 0.0-0.3 mg/dL Ammonia 17 11-32 umol/L Total Creatine Kinase 61 # 21-232 U/L Troponin I High Sensitivity 115.1 *H 4-50 ng/L Lactate Dehydrogenase 223 81-234 U/L C-Reactive Protein, Quantitative 42.50 H 0.5-3.0 mg/L B-Type Natriuretic Peptide 1070 H 0-100 pg/mL Procalcitonin 0.31 0.05-0.5 ng/mL Coagulation Labs: Test 02/21/25 04:33 Range/Units Prothrombin Time 12.6 H 9.6-11.6 SEC Prothromb Time International Ratio 1.21 H 0.85-1.15 Activated Partial Thromboplast Time 36.2 H 26.3-35.5 SEC Diagnostics / Radiology: 2D echocardiogram on 02/20/2025 Conclusion The left ventricle is normal size. Mild to moderate left ventricular hypertrophy. LVEF is 55-60%. Stage II diastolic dysfunction. The right ventricle is severely dilated. Right ventricular systolic function is mildly reduced. The left atrium is severely dilated. The right atrium is severely dilated. Posterior mitral valve leaflet is severely calcified. Mild mitral annular calcification present. There is severe tricuspid valve regurgitation noted. RVSP 54 mm hg. The inferior vena cava is severely dilated with a decrease in inspiratory collapse. There is no pericardial effusion. DICTATED BY: JARED MELENDREZ MD DATE: 02/20/25 8164 Impression and Plan: Hypotension on Midodrine therapy Chest pain Fluid overload Hyperlipidemia Diabetes mellitus type 2 ESRD HD TTS Hx of DVT to unknown extremity was on AC, currently on hold Stasis dermatitis of bilateral lower extremities Bilateral iliofemoral intravascular ultrasound on 12/14/2024 revealing no significant venous stricture on either side done by Dr. Gillespie 2D echocardiogram on 02/20/2025 with an LVEF of 55-60%, stage II diastolic dysfunction, severe biatrial dilation, severely dilated RV, and severe TR with RVSP of 54 mmHg Noncompliance Chest pain Chest discomfort began during an episode of hypotension with self reported SBP's in the 70s to 80s range Ti 123 and 115 EKG on admission demonstrated normal sinus rhythm with a heart rate of 56bpm, with a RBBB and an LPFB with no acute ischemia present, similar to prior EKG on 12/07/2024 2D echo on 02/20 with an EF of 55-60%, stage II diastolic dysfunction, severe biatrial dilation, and a severely dilated RV Right ventricular failure contributing to hypotension -Continue Aspirin, Atorvastatin, and Midodrine 10mg TID Fluid overload The patient missed hemodialysis yesterday due to hospital admission BNP of 1070 CTA of the chest on 02/20 demonstrated pulmonary edema, pulmonary vascular congestion, and a [id number] right pleural effusion 2D echocardiogram on 02/20/2025 with an LVEF of 55-60% with stage II diastolic dysfunction, and severe TR with RVSP of 54 mmHg -Fluid removal in hemodialysis as tolerated ANAIS WALSH Feb 21, 2025 11:35 JARED MELENDREZ MD Feb 21, 2025 16:39
--- NOTE | 2025-02-21 11:48 | PN ---
[facility] PROGRESS NOTE Date of Service: Feb 21, 2025 Time of Service: 11:45 SUBJECTIVE: 02/21 patient is seen and examined at bedside, case discussed with the RN, no acute events overnight, patient remains comfortably in bed, alert oriented x3, she has been admitted to the PCU. At the time of my visit she is getting hemodialysis, tolerating well. No chest pain, shortness shortness for breath, no nausea, no vomiting. She remains on supplemental oxygen via nasal cannula at 3 L, saturating 98%. Hemoglobin 9.0, hematocrit 28.4. Sodium 133, potassium 5.7, BUN of 64, creatinine 5.5. Serology test to include influenza and SARS antigen negative. We will downgraded the patient to the medical floor, continue antibiotics, continue hemodialysis per Nephrology recommendation, follow a.m. labs. Chest x-ray reported as follows: 1. Bilateral perihilar and bibasilar airspace disease, possibly representing pulmonary edema, with pulmonary vascular congestion and small to moderate right pleural effusion. 2. Cardiomegaly, unchanged. 3. Persistent elevation of the right hemidiaphragm. CT chest reported as follows: 1. Increased moderate right pleural effusion with partial right lower lobe collapse. 2. Unchanged consolidations in right lower and middle lobes. 3. Moderate cardiomegaly with prominent main pulmonary artery, suggesting persistent pulmonary arterial hypertension. REVIEW OF SYSTEMS CONSTITUTIONAL: Lethargy , chills, malaise NEUROLOGICAL: Denies headache, amaurosis fugax, motor weakness, sensory deficit, vertigo/spinning sensation, gait abnormalities, or tremors. ENT: No hearing loss, otalgia, otorrhea, rhinitis, rhinorrhea, hoarseness, or sore throat. CARDIOVASCULAR: Chest did during dialysis today PULMONARY: Reports having shortness of breath and cough SLEEP: Denies morning headaches, daytime somnolence or napping. Denies difficulty falling asleep, staying asleep, waking from sleep. Denies knowledge of snoring. GASTROINTESTINAL: Denies any type of dysphagia to either liquids or solids. Denies nausea, vomiting, pyrosis, early satiety, abdominal pain, diarrhea, constipation, or changes in stool consistency or caliber. Denies coffee-ground emesis, hematemesis, hematochezia, or melanotic stools. GENITOURINARY: Denies frequency, urgency, nocturia, hematuria or incontinence (Storage/Irritative symptoms.) Low urinary stream, straining to void, urinary intermittency or hesitancy, splitting of the voiding stream, terminal dribbling. ENDOCRINOLOGIC: Denies polyuria, polydipsia, polyphagia or heat/cold intolerances. HEMATOLOGIC: Denies thrombophilia/previous clots, or coagulopathy/bleeding disorders. ONCOLOGIC: Denies personal history of malignancy. DERMATOLOGIC: Denies rashes or pruritus. PSYCHIATRIC: Denies any suicidal or homicidal ideation. Denies hallucinations. PHYSICAL EXAM GENERAL APPEARANCE: Patient is sitting up in bed and appears drowsy, patient awakens to verbal stimuli but falls asleep NEUROLOGICAL: Cranial nerves II-XII grossly intact. Neurological examination is nonfocal, patient is moving her upper and lower extremity HEENT: Face is symmetric. Pupils are equal and reactive. Extraocular movements are intact. NECK: Supple. No JVD. No thyromegaly. No submental, submandibular, pre- /postauricular, occipital or supraclavicular lymphadenopathy. CHEST: Normal chest expansion. No Telemetry. LUNGS: Crackles noted at bilateral lung bases with rhonchorous breath sounds CARDIOVASCULAR: Regular. S1 and S2 normal. No appreciable rubs, murmurs or gallops. ABDOMEN: Soft, nontender, and nondistended. There is no rebound, voluntary guarding, or rigidity. : Deferred. No Georges. EXTREMITIES: 3+ pitting edema noted of bilateral extremity with chronic wounds, there is erythema with bilateral venous stasis SKIN: as noted above Vital Signs (last 8hr) Date Time Temp Pulse Resp B/P (MAP) Pulse Ox O2 Delivery O2 Flow Rate FiO2 02/21/25 11:25 56 14 100/45 Nasal Cannula 2.0 02/21/25 11:10 55 14 96/53 Nasal Cannula 2.0 02/21/25 10:55 54 14 93/47 Nasal Cannula 2.0 02/21/25 10:40 55 16 111/52 Nasal Cannula 2.0 02/21/25 10:25 97.3 53 18 102/54 Nasal Cannula 2.0 02/21/25 09:50 97.3 56 20 109/70 Nasal Cannula 2.0 02/21/25 06:31 59 20 02/21/25 06:31 22 N/Cannula Low lpm 3.0 32 02/21/25 04:45 93/55 02/21/25 04:00 85/47 02/21/25 04:00 97.3 52 18 87/33 93 Nasal Cannula 2.0 LABS: Laboratory: Test 02/21/25 06:31 02/21/25 04:33 02/20/25 15:28 02/20/25 14:32 Range/Units Whole Blood Glucose 77 70-110 MG/DL White Blood Count 5.4 4.8-10.8 K/uL Red Blood Count 2.83 L 4.00-5.50 MIL/uL Hemoglobin 9.0 L 12.0-16.0 g/dL Hematocrit 28.4 L 36-48 % Mean Corpuscular Volume 100.4 H 79-99 fL Mean Corpuscular Hemoglobin 31.8 27.0-33.0 pg Mean Corpuscular Hemoglobin Concent 31.7 L 32.0-36.0 g/dL Red Cell Distribution Width 21.8 H 11.0-15.5 % Platelet Count 229 130-400 K/uL Mean Platelet Volume 8.9 7.5-10.5 fL Immature Granulocyte % (Auto) 0.4 0-1 % Neutrophils (%) (Auto) 68.3 40.0-77.0 % Lymphocytes (%) (Auto) 20.3 L 21.0-51.0 % Monocytes (%) (Auto) 9.4 3.0-13.0 % Eosinophils (%) (Auto) 0.7 0.0-8.0 % Basophils (%) (Auto) 0.9 0.0-5.0 % Neutrophils # (Auto) 3.7 1.8-7.7 K/uL Lymphocytes # (Auto) 1.1 1.0-4.8 K/uL Monocytes # (Auto) 0.5 0.1-1.0 K/uL Eosinophils # (Auto) 0.04 0.00-0.70 K/uL Basophils # (Auto) 0.05 0.00-0.20 K/uL Absolute Immature Granulocyte (auto 0.02 0-1 K/uL Nucleated Red Blood Cells 0.9 H 0.0-0.19 % Prothrombin Time 12.6 H 9.6-11.6 SEC Prothromb Time International Ratio 1.21 H 0.85-1.15 Activated Partial Thromboplast Time 36.2 H 26.3-35.5 SEC Sodium Level 123 L 136-145 mmol/L Potassium Level 5.7 H 3.5-5.1 mmol/L Chloride Level 87 *L 101-111 mmol/L Carbon Dioxide Level 26 21-32 mmol/L Blood Urea Nitrogen 64 H 7-18 mg/dL Creatinine 5.5 H 0.5-1.0 mg/dL Glomerular Filtration Rate Calc 9 >90 mL/min Random Glucose 87 70-105 mg/dL Total Calcium 7.3 L 8.5-10.1 mg/dL Magnesium Level 2.60 H 1.80-2.40 mg/dL Iron Level 79 50-170 mcg/dL Total Iron Binding Capacity 257 250-450 mcg/dL Percent Iron Saturation 30.7 22-44 % Ferritin 1586 H 15-150 ng/mL Total Bilirubin 0.9 # 0.2-1.0 mg/dL Aspartate Amino Transf (AST/SGOT) 50 H 10-37 U/L Alanine Aminotransferase (ALT/SGPT) 31 12-78 U/L Alkaline Phosphatase 493 H 50-136 U/L Total Protein 8.7 H 6.0-8.3 g/dL Albumin 2.2 L 3.5-5.0 g/dL Vitamin B12 Level 869 193-986 pg/mL Folic Acid (LAB) 13.00 2-20 ng/mL Influenza Type A Antigen Negative For Type A NEGATIVE Influenza Type B Antigen Negative For Type B NEGATIVE SARS-CoV-2, RNA, NAAT NEGATIVE SARS CoV-2 NEGATIVE Direct Bilirubin 0.5 H 0.0-0.3 mg/dL Ammonia 17 11-32 umol/L Total Creatine Kinase 61 # 21-232 U/L Troponin I High Sensitivity 115.1 *H 4-50 ng/L Test 02/20/25 14:15 02/20/25 11:43 Range/Units Blood Gas Specimen Type Arterial Arterial Blood pH 7.388 7.350-7.450 Arterial Blood Partial Pressure CO2 38 32-45 mmHg Arterial Blood Partial Pressure O2 59.7 L 83.0-108.0 mmHg Arterial Blood HCO3 22.4 21.0-28.0 mmol/L Arterial Blood Oxygen Saturation 88.0 L 94.0-98.0 % Arterial Blood Base Excess -2.3 L -2.0-3.0 mmol/L Hemoglobin (Blood Gas) 9.9 L 12.0-16.0 g/dL Sodium (Blood Gas) 127 L 136-145 MMOL/L Bedside Potassium (Blood Gas) 5.1 H 3.4-4.5 MMOL/L Bedside Chloride (Blood Gas) 92 L 98-107 MMOL/L Bedside Glucose (Blood Gas) 96 H 65-95 MG/DL Bedside Ionized Calcium (Blood Gas) 1.02 L 1.15-1.33 MMOL/L Bedside Lactic Acid (Blood Gas) 1.11 H 0.36-0.75 MMOL/L Blood Gas Temperature 37.0 35.5-37.0 CELSIUS Blood Gas Flow-by 3.00 0.00-15.00 L/min Blood Gas Vent Mode 3L NC ROOM AIR FiO2 32.0 % Blood Gas Specimen Comment DR MERCHANT Red Blood Cell Morphology See comments Erythrocyte Sedimentation Rate 119 H 0-20 MM/HR Lactate Dehydrogenase 223 81-234 U/L C-Reactive Protein, Quantitative 42.50 H 0.5-3.0 mg/L B-Type Natriuretic Peptide 1070 H 0-100 pg/mL Procalcitonin 0.31 0.05-0.5 ng/mL Current Medications Medications (Trade) Dose Ordered Sig/Haven Route PRN Reason Start Time Stop Time Status Last Admin Dose Admin Acetaminophen (TYLenol 325MG TAB) 650 mg Q6H PRN PO MILD PAIN (1-3) 02/20/25 14:00 03/22/25 13:59 02/21/25 02:27 650 MG Albumin Human (Albumin (Human) 25%) 100 ml ONCE IV 02/21/25 10:00 02/22/25 09:59 02/21/25 11:01 100 ML Albuterol (DUOneb) 1 udvial Q6H PRN IH SHORTNESS OF BREATH 02/20/25 14:00 03/22/25 13:59 Aspirin (Aspirin 81mg Chew Tab) 81 mg DAILY PO 02/21/25 09:00 02/20/25 22:04 DC Aspirin (Aspirin 81mg Chew Tab) 81 mg DAILY PO 02/21/25 09:00 03/23/25 08:59 Atorvastatin Calcium (LIPItor 40MG) 40 mg HS PO 02/21/25 21:00 03/23/25 20:59 Budesonide (Pulmicort 0.5 Mg/2ml) 0.5 mg BIDRESP IH 02/20/25 14:00 03/22/25 13:59 02/21/25 06:29 0.5 MG Cinacalcet (Sensipar 30mg Tab) 30 mg DAILY PO 02/21/25 09:00 03/23/25 08:59 Dextrose (D50w) 50 ml AD PRN IV HYPOGLYCEMIA PROTOCOL 02/20/25 14:00 03/22/25 13:59 Docusate Sodium (COLace 100MG CAP) 100 mg BID PO 02/21/25 09:00 03/23/25 08:59 Epoetin Raúl-epbx (Retacrit) 10,000 unit QTUTHSA[DIALYSIS] SQ 02/22/25 16:00 03/24/25 15:59 Gabapentin (NEURontin 100 mg CAP) 300 mg AD PO 02/20/25 22:00 02/21/25 07:17 DC Gabapentin (NEURontin 300 MG CAP) 300 mg QTUTHSA@2100 PO 02/22/25 21:00 03/22/25 21:59 Gentamicin Sulfate (GENTAmicin SULFate 15 gm cream) 1 APPL DAILY TP 02/21/25 09:00 03/07/25 08:59 Glucagon (Glucagon 1mg Kit) 1 mg AD PRN IM HYPOGLYCEMIA PROTOCOL 02/20/25 14:00 03/22/25 13:59 Heparin Sodium (Porcine) (HEParin 5,000 UNIT VIAL) 5,000 unit Q12H SQ 02/20/25 21:00 03/22/25 20:59 02/20/25 20:11 5,000 UNIT Hydroxyzine HCl (ATArax 25MG TAB) 25 mg Q12H PRN PO ANXIETY 02/20/25 22:00 03/22/25 21:59 02/21/25 01:57 25 MG Insulin Human Regular (humuLIN R 100 UNIT/ML 3ML) INSULIN SLIDING SCAL... ACHS SQ 02/20/25 16:30 03/22/25 16:29 Leptospermum Honey (Medihoney) 1 APPL DAILY TP 02/21/25 09:00 03/23/25 08:59 Meropenem (Merrem 500mg) 500 mg Q24H IVPB 02/20/25 18:00 02/27/25 17:59 02/20/25 20:11 500 MG Metoclopramide HCl (regLAN 5 MG TAB) 5 mg TID PO 02/21/25 09:00 03/23/25 08:59 Midodrine (PROAMatine 5 MG TABLET) 5 mg TID PRN PO IF bp less than 90/60 02/20/25 14:00 02/21/25 09:13 DC 02/21/25 04:28 5 MG Midodrine (PROAMatine 5 MG TABLET) 10 mg TID PO 02/21/25 09:30 03/22/25 13:59 02/21/25 09:55 10 MG Nitroglycerin (Nitrostat) 0.4 mg AD PRN SL CHEST PAIN 02/20/25 14:00 03/22/25 13:59 Ondansetron HCl (zoFRAN 4MG INJ) 4 mg Q6H PRN IVP NAUSEA/VOMITING 02/20/25 14:00 03/22/25 13:59 Pantoprazole Sodium (PROTonix 40MG INJ) 40 mg Q24H IVP 02/20/25 14:00 03/22/25 13:59 02/20/25 14:57 40 MG Pharmacy Profile Note (Lace Assessment) 1 each AD MISC 02/21/25 11:00 02/21/25 10:59 DC Pharmacy Profile Note (Pharmacy Communication) 1 each ONCE MISC 02/20/25 16:00 02/20/25 15:58 DC Piperacillin Sod/ Tazobactam Sod (Zosyn 3.375gm+NS 50ml) 3.375 gm Q12H IVPB 02/20/25 14:00 02/20/25 15:53 DC 02/20/25 14:57 3.375 GM Sennosides (Senna) 1 tab DAILY PO 02/21/25 09:00 03/23/25 08:59 Sevelamer HCl (RENAgel 800 MG TAB) 2,400 mg TID PO 02/21/25 09:00 03/23/25 08:59 Sodium Chloride 250 ml @ 0 mls/hr AD IV 02/21/25 10:00 03/23/25 09:59 Sodium Chloride 1,000 ml @ 0 mls/hr ONCE IV 02/21/25 10:00 03/23/25 09:59 02/21/25 11:05 100 MLS/HR Vancomycin HCl (Vancomycin 750mg) 750 mg QTUTHSA[DIALYSIS] IVPB 02/22/25 16:00 03/04/25 15:59 Vancomycin HCl (Vancomycin Protocol) 1 each AD IV 02/20/25 14:00 03/06/25 13:59 Vitamin B Complex/ Vit C/Folic Acid (Nephrovite Tablet) 1 cap DAILY PO 02/21/25 09:00 03/23/25 08:59 DIAGNOSTICS / RADIOLOGY: [ ] ASSESSMENT: Acute hypoxemic respiratory failure, POA Hypotension status post IV fluids as outpatient, resolving, POA Elevated troponin, rule out active ACS, POA Decompensated heart failure exacerbation, POA Toxic/metabolic encephalopathy, POA Rule out developing community-acquired pneumonia, POA Right-sided pleural effusion, POA r/o Pulmonary HTN, POA Pulmonary edema, POA History of complicated wounds involving bilateral lower extremities with superimposed active cellulitis, POA Debility/frailty, POA History of ESRD, POA Anemia, POA History of GI bleed [place] [facility] [place], POA Rule out cirrhosis of the liver , POA History of severe tricuspid regurgitation noted on 2D echocardiogram from 01/2024, POA Obesity, POA Hyponatremia, POA Hyperlipidemia, POA PLAN: patient is seen and examined at bedside, case discussed with the RN, no acute events overnight, patient remains comfortably in bed, alert oriented x3, she has been admitted to the PCU. At the time of my visit she is getting hemodialysis, tolerating well. No chest pain, shortness shortness for breath, no nausea, no vomiting. She remains on supplemental oxygen via nasal cannula at 3 L, saturating 98%. Hemoglobin 9.0, hematocrit 28.4. Sodium 133, potassium 5.7, BUN of 64, creatinine 5.5. Serology test to include influenza and SARS antigen negative. We will downgraded the patient to the medical floor, continue antibiotics, continue hemodialysis per Nephrology recommendation, follow a.m. labs. Chest x-ray reported as follows: 1. Bilateral perihilar and bibasilar airspace disease, possibly representing pulmonary edema, with pulmonary vascular congestion and small to moderate right pleural effusion. 2. Cardiomegaly, unchanged. 3. Persistent elevation of the right hemidiaphragm. CT chest reported as follows: 1. Increased moderate right pleural effusion with partial right lower lobe collapse. 2. Unchanged consolidations in right lower and middle lobes. 3. Moderate cardiomegaly with prominent main pulmonary artery, suggesting persistent pulmonary arterial hypertension. NEURO: Minimize central acting medications as possible. Fall Precautions. Well lighted room through the day and minimize interruptions through the night to prevent acute delirium. PULMONARY: Supplemental 02 as needed BiPAP as necessary, for respiratory distress Titrate Fio2 to keep Spo2 > or = 90% DuoNebs and CPT as needed IS hourly while awake for pulmonary hygiene prn Out of bed to chair as tolerated Maintain aspiration precautions at all times CARDIOVASCULAR: Follow hemodynamics. Vital signs per facility protocol GI & NUTRITION: Continue nutritional support Aspirations precautions Prokinetic agents and laxatives as needed KIDNEYS & ELECTROLYTES: Strict monitoring of intake and output Daily weights Avoid nephrotoxic agents Monitor electrolytes and replace as needed Goal urine output of 30mL/hr or 0.5mL/kg/hr Medications to be dosed according to renal function. Avoid contrast if possible ENDOCRINE: Maintain blood glucose between 100-180 at all times. Insulin sliding scale for blood glucose management Hypoglycemia and hyperglycemia protocol in place INFECTIOUS DISEASE: Trend temperature, WBC and procalcitonin level Follow cultures, deescalate antibiotics as soon as possible. Panculture if new onset fever HEMATOLOGY & COAGULATION: Monitor H&H. Keep Hgb > 7 Transfuse 1 unit of PRBC for Hgb < 7 Transfuse 1 pack of platelets of platelets < 20, 000 Watch for any signs and symptoms of bleeding SKIN: Pressure ulcer prevention per facility protocol Specialty mattress as needed ORTHO/REHAB Continue PT/OT PRN: MEDICATIONS Tylenol 650 mg po every 4 hrs for fever zofran 4 mg IV every 6 hrs for n/v Hydralazine 5 mg IV every 4 hrs systolic pressure > 160 bowel regiment: lactulose 20 gm PO BID PRN constipation Supportive measures: Continue GI and DVT prophylaxis Disposition: Pending improvement in clinical condition All questions answered time spent: > 35 min KADEN WHITE MD Feb 21, 2025 11:48
--- NOTE | 2025-02-21 14:41 | NUR ---
[facility] Consult: Patient assessed by wound healing team. See wound assessment. Assessment and recommendations provided to primary nurse. Education provided. Wound care done.
--- NOTE | 2025-02-21 15:08 | CONS ---
CONSULTATION NOTE Date of Service: Feb 21, 2025 Reason for Consultation: [ bilateral lower leg wounds ] Requesting Physician: [ Dr. Mni ] HISTORY OF PRESENT ILLNESS: Patient is evaluated at bedside in room 205 for wound care evaluation for venous ulcers to bilateral lower legs.She is also followed by wound care at [facility] and she has a history of significant lower extremity edema and bilateral lower extremity wounds. Patient was being prescribed IV meropenem that was started on 02/15/2025 for wound culture positive for Pseudomonas aeruginosa. Patient was receiving Eliquis 2.5 mg b.i.d. which was held due to be bleeding from left lower extremity wound. Patient with no further bleeding noted from the wounds on presentation to the ER. Patient reports she has had ulcers to bilateral legs for over 4 months. This is a 49-year-old female with history of type 2 diabetes mellitus, peripheral vascular disease, ESRD on hemodialysis since 2017, history of GI bleed, anemia, respiratory failure with pleural effusion who presented to the ER for further evaluation of hypotension. Patient states that she was getting dialyzed today when she started having hypotension and chest pain. Patient was given 250 cc of bolus of IV fluid with improvement of blood pressure in the 90s. Patient states that the chest pain resolved and denies active chest pain currently. Patient is followed by Dr. Leonard with [facility] as outpatient for management of hemodialysis. She has been maintained on Wednesday, , Wednesday hemodialysis sessions. She has been having some subjective chills, cough as well as shortness of breath since yesterday. She denies any syncopal episodes or recent falls. She has been feeling more sleepy today as well. On presentation to the hospital, patient was noted to be afebrile with T-max of 98.2 F, heart rate of 57, blood pressure of 86/56. Labs on presentation showed WBC count of 5500, hemoglobin of 8.9, MCV of 102.5, platelet count of 657902.BMP showed sodium of 124, potassium 4.7, chloride of 88, BUN of 58, creatinine 4.9, high sensitivity cardiac troponin 123, CRP of 42.5, BNP of 10 70.Chest x-ray showed cardiomegaly with bilateral infiltrates in the lungs with [id number] right-sided pleural effusion. Patient admitted for further medical management. REVIEW OF SYSTEMS CONSTITUTIONAL: Denies fever, chills, or fatigue. HEAD/FACE: No signs of trauma. EENT: Denies eye pain, blurred vision, double vision, or light sensitivity. RESPIRATORY: Positive shortness of breath, cough, wheezing CARDIOVASCULAR: Denies chest pain, palpitation, syncope GASTROINTESTINAL/ABDOMINAL: Denies abdominal pain, constipation, diarrhea, nausea or vomiting GENITOURINARY: Denies dysuria or hematuria. MUSCULOSKELETAL: Denies joint pain, tenderness, or trauma. INTEGUMENTARY: Chronic ulcer to bilateral lower legs with edema and erythema NEUROLOGICAL/PSYCH: Denies anxiety, depression, heat or cold intolerance. PAST MEDICAL HISTORY: Hypertension, hyperlipidemia, DM 2, end-stage renal disease on hemodialysis, GERD, peripheral vascular disease, anemia, History of GI bleed requiring hospitalization in 09/2024 with findings of esophageal varices, portal gastropathy, history of severe tricuspid valve regurgitation noted from 2D echocardiogram from 01/2024, Chronic bilateral lower extremity wounds with chronic edema, history of lower extremity venogram by Dr. Gillespie on 11/2024 which showed no significant venous stricture on bilateral lower extremities PAST SURGICAL HISTORY: Reports having AV fistula of left upper extremity. Reports having had previous histories of EGD, colonoscopy, [place] [facility] [place] PAST SOCIAL HISTORY: Denies active smoking or alcohol consumption, No drug history FAMILY HISTORY: Patient's mother has cancer, patient does not remember further details. History of DM and MD in father., Coded Allergies: No Known Allergies (Verified Allergy, Unknown, 07/03/23) PHYSICAL EXAM EYES: Anicteric. Pupils equal and reactive. HENT: No oral thrush seen, moist Oral mucosa NECK: Supple, no JVD or thyromegaly. LUNGS: rales and rhonchi on o2 2l CARDIOVASCULAR: S1, S2 regular. No murmur heard. ABDOMEN: Soft, non tender, bowel sounds present, no organomegaly CENTRAL NERVOUS SYSTEM: Awake, alert, oriented x 3. No focal deficits. SKIN: Bilateral lower legs noted with venous ulcers with granulation and slough with moderate amount of serous drainage, no foul odor noted, no bleeding noted LYMPHATICS: No peripheral lymphadenopathy MUSCULOSKELETAL: +3 edema noted with erythema to bilateral lower legs EXTREMITIES: No cyanosis or clubbing BACK: No deformity, no pressure ulcer. GENITOURINARY: No dysuria or hematuria Vital Sign (Last 24 Hours) 02/21/25 02/21/25 08:00 12:25 Temp 97.9 Pulse 57 Resp 16 B/P (MAP) 116/48 Pulse Ox 93 O2 Delivery Nasal Cannula O2 Flow Rate 2.0 FiO2 32 Intake & Output (last 24hrs) 02/20/25 02/20/25 02/21/25 15:00 23:00 07:00 Intake Total 175.0 ml Balance 175.0 ml LABS: Laboratory: Test 02/21/25 06:31 02/21/25 04:33 02/20/25 15:28 02/20/25 14:32 Range/Units Whole Blood Glucose 77 70-110 MG/DL White Blood Count 5.4 4.8-10.8 K/uL Red Blood Count 2.83 L 4.00-5.50 MIL/uL Hemoglobin 9.0 L 12.0-16.0 g/dL Hematocrit 28.4 L 36-48 % Mean Corpuscular Volume 100.4 H 79-99 fL Mean Corpuscular Hemoglobin 31.8 27.0-33.0 pg Mean Corpuscular Hemoglobin Concent 31.7 L 32.0-36.0 g/dL Red Cell Distribution Width 21.8 H 11.0-15.5 % Platelet Count 229 130-400 K/uL Mean Platelet Volume 8.9 7.5-10.5 fL Immature Granulocyte % (Auto) 0.4 0-1 % Neutrophils (%) (Auto) 68.3 40.0-77.0 % Lymphocytes (%) (Auto) 20.3 L 21.0-51.0 % Monocytes (%) (Auto) 9.4 3.0-13.0 % Eosinophils (%) (Auto) 0.7 0.0-8.0 % Basophils (%) (Auto) 0.9 0.0-5.0 % Neutrophils # (Auto) 3.7 1.8-7.7 K/uL Lymphocytes # (Auto) 1.1 1.0-4.8 K/uL Monocytes # (Auto) 0.5 0.1-1.0 K/uL Eosinophils # (Auto) 0.04 0.00-0.70 K/uL Basophils # (Auto) 0.05 0.00-0.20 K/uL Absolute Immature Granulocyte (auto 0.02 0-1 K/uL Nucleated Red Blood Cells 0.9 H 0.0-0.19 % Prothrombin Time 12.6 H 9.6-11.6 SEC Prothromb Time International Ratio 1.21 H 0.85-1.15 Activated Partial Thromboplast Time 36.2 H 26.3-35.5 SEC Sodium Level 123 L 136-145 mmol/L Potassium Level 5.7 H 3.5-5.1 mmol/L Chloride Level 87 *L 101-111 mmol/L Carbon Dioxide Level 26 21-32 mmol/L Blood Urea Nitrogen 64 H 7-18 mg/dL Creatinine 5.5 H 0.5-1.0 mg/dL Glomerular Filtration Rate Calc 9 >90 mL/min Random Glucose 87 70-105 mg/dL Total Calcium 7.3 L 8.5-10.1 mg/dL Magnesium Level 2.60 H 1.80-2.40 mg/dL Iron Level 79 50-170 mcg/dL Total Iron Binding Capacity 257 250-450 mcg/dL Percent Iron Saturation 30.7 22-44 % Ferritin 1586 H 15-150 ng/mL Total Bilirubin 0.9 # 0.2-1.0 mg/dL Aspartate Amino Transf (AST/SGOT) 50 H 10-37 U/L Alanine Aminotransferase (ALT/SGPT) 31 12-78 U/L Alkaline Phosphatase 493 H 50-136 U/L Total Protein 8.7 H 6.0-8.3 g/dL Albumin 2.2 L 3.5-5.0 g/dL Vitamin B12 Level 869 193-986 pg/mL Folic Acid (LAB) 13.00 2-20 ng/mL Influenza Type A Antigen Negative For Type A NEGATIVE Influenza Type B Antigen Negative For Type B NEGATIVE SARS-CoV-2, RNA, NAAT NEGATIVE SARS CoV-2 NEGATIVE Direct Bilirubin 0.5 H 0.0-0.3 mg/dL Ammonia 17 11-32 umol/L Total Creatine Kinase 61 # 21-232 U/L Troponin I High Sensitivity 115.1 *H 4-50 ng/L Test 02/20/25 14:15 02/20/25 11:43 Range/Units Blood Gas Specimen Type Arterial Arterial Blood pH 7.388 7.350-7.450 Arterial Blood Partial Pressure CO2 38 32-45 mmHg Arterial Blood Partial Pressure O2 59.7 L 83.0-108.0 mmHg Arterial Blood HCO3 22.4 21.0-28.0 mmol/L Arterial Blood Oxygen Saturation 88.0 L 94.0-98.0 % Arterial Blood Base Excess -2.3 L -2.0-3.0 mmol/L Hemoglobin (Blood Gas) 9.9 L 12.0-16.0 g/dL Sodium (Blood Gas) 127 L 136-145 MMOL/L Bedside Potassium (Blood Gas) 5.1 H 3.4-4.5 MMOL/L Bedside Chloride (Blood Gas) 92 L 98-107 MMOL/L Bedside Glucose (Blood Gas) 96 H 65-95 MG/DL Bedside Ionized Calcium (Blood Gas) 1.02 L 1.15-1.33 MMOL/L Bedside Lactic Acid (Blood Gas) 1.11 H 0.36-0.75 MMOL/L Blood Gas Temperature 37.0 35.5-37.0 CELSIUS Blood Gas Flow-by 3.00 0.00-15.00 L/min Blood Gas Vent Mode 3L NC ROOM AIR FiO2 32.0 % Blood Gas Specimen Comment DR MIN Red Blood Cell Morphology See comments Erythrocyte Sedimentation Rate 119 H 0-20 MM/HR Lactate Dehydrogenase 223 81-234 U/L C-Reactive Protein, Quantitative 42.50 H 0.5-3.0 mg/L B-Type Natriuretic Peptide 1070 H 0-100 pg/mL Procalcitonin 0.31 0.05-0.5 ng/mL DIAGNOSTICS / RADIOLOGY: [ ] PROBLEM LIST : Medical Problems: Chronic 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 Thank You for the consult and allowing us to participate in the care of this patient. ATTESTATION BY PHYSICIAN I have seen and examined the patient. I reviewed the documentation, medical decision making, and treatment plan as noted by the mid-level provider above. I agree with the findings and plan of care. VERONICA VIDES MD, [facility] Feb 21, 2025 15:08
--- NOTE | 2025-02-21 17:45 | NUR ---
RECEIOVED PATIENT FROM [facility], FROM ROOM 205 BY BED, AWAKE, ALERT IN NO DISTRESS. PATIENT WAS SETTLED IN THE ROOM.
--- NOTE | 2025-02-21 19:35 | CONS ---
REFERRING PHYSICIAN: Alan Min MD I did speak with the primary team. REASON FOR CONSULTATION: ESRD, volume overload. HISTORY OF PRESENT ILLNESS: A 49-year-old female with a history of diabetes mellitus and hypertension. She has a history of vascular disease. The patient with a history of end-stage renal disease on dialysis 3 times a week. The patient initially presented to the hospital with significant hypotension. The patient with systolic blood pressures in the 90s. The patient had not been receiving any antihypertensive medications. The patient's chest x-ray reveals pulmonary vascular congestion. 2D echo results are all noted and she is being seen in consultation for all of the above. PAST MEDICAL HISTORY: Diabetes mellitus, hypertension, ESRD, cirrhosis. PAST SURGICAL HISTORY: AV access, EGD. SOCIAL HISTORY: No alcohol or tobacco use. FAMILY HISTORY: There is no renal disease in family. ALLERGIES: There are no allergies. MEDICATIONS: All noted. REVIEW OF SYSTEMS: GENERAL: He is feeling weak and tired. HEENT: No change in vision. No change in hearing. CARDIOVASCULAR: There are no current chest pains or palpitations. PULMONARY: She has chronic shortness of breath. GASTROINTESTINAL: The patient is tolerating diet. MUSCULOSKELETAL: Complains of weakness. NEUROLOGIC: No history of seizures or focal deficits. PSYCHIATRIC: No history of hallucinations or psychosis. ENDOCRINE: Diabetes mellitus. No history of thyroid disease. HEME: History of anemia. No history of malignancy. PHYSICAL EXAMINATION: VITAL SIGNS: Blood pressure 105/62. Pulse is in the 60s. GENERAL: She is a chronically ill female, much older than appearing. HEENT: Head is atraumatic. Pupils were equal, round and reactive to light. Oropharynx is without exudate. Nares clear. NECK: There is no JVP. There is no thyromegaly or mass. CARDIOVASCULAR: Regular. There is no S3 or S4 gallop. LUNGS: Coarse with equal thoracic movement. ABDOMEN: Soft, nondistended, nontender. EXTREMITIES: Reveal no clubbing, no cyanosis. NEUROLOGIC: She is awake. She is alert. LABORATORY DATA: Hemoglobin 9, hematocrit 28. Sodium 123, potassium 5.7, BUN 64, creatinine 5. Chest x-ray is noted. 2D echo also noted. IMPRESSION: * Respiratory failure, volume overload. * Diabetes mellitus. * Hypotension. * ESRD. PLAN: The patient presents with significant respiratory distress. The patient with hypotension. We will add midodrine 10 mg t.i.d. to the medical regimen. The patient did not receive her dialysis on 02/20/2025 secondary to admission. The patient will receive dialysis on the day of this consultation. She can continue on a Wednesday, , and Wednesday schedule. The patient's blood cultures have been sent. She was started on broad-spectrum antibiotics. The patient will be given Epogen for her anemia. We will continue to follow closely. All labs including the phosphorus will be rechecked in the a.m. We will continue to follow closely patient with multiple questions, all of which were answered. TID: [id number] RECEIPT: [id number]
[2025-02-22] VITALS (53 sets, daily range): BP systolic 95–131; BP diastolic 48–79; PULSE 60–69; RESP 11–22; TEMP 97.5–97.9; O2SAT 93–98
[2025-02-22 04:07] LABS: IMMATURE GRANULOCYTE ABSOLUTE 0.02 K/uL (0-1); NUCLEATED RED BLOOD CELLS 1.4 % (0.0-0.19); PLATELET COUNT (AUTO) 217 K/uL (130-400); RED BLOOD CELL COUNT(AUTO) 2.70 MIL/uL (4.00-5.50); RED CELL DISTRIBUTION WIDTH 21.7 % (11.0-15.5); WHITE BLOOD COUNT (AUTO) 4.4 K/uL (4.8-10.8)
[2025-02-22 04:23] LABS: ASPARTATE AMINOTRANSFERASE 51.0 U/L (10-37); CREATININE 5.2 mg/dL (0.5-1.0); GLOMERULAR FILTR. RATE CALC 10.0 mL/min (>90); GLUCOSE,RANDOM 95.0 mg/dL (70-105); PHOSPHORUS 4.4 mg/dL (2.5-4.9); SODIUM SERUM 125.0 mmol/L (136-145); TOTAL PROTEIN, SERUM 8.6 g/dL (6.0-8.3); UREA NITROGEN, BLOOD 62.0 mg/dL (7-18)
--- NOTE | 2025-02-22 05:31 | HMCIMG ---
EXAM: CR Chest, 1 View. CLINICAL HISTORY: pp COMPARISON: CR and CT dated 02/20/2025 FINDINGS: LUNGS: Relatively stable right moderate pleural effusion with right mid and lower zone consolidation. No pneumothorax. MEDIASTINUM: Stable cardiomegaly with pulmonary vascular congestion. BONES: No aggressive appearing osseous lesion seen. IMPRESSION: 1. Stable right moderate pleural effusion with right mid and lower zone consolidation. 2. Stable cardiomegaly with pulmonary vascular congestion. No significant interval changes. /Topping
[2025-02-22] MEDS: SODIUM HYPOCHLORITE 0.25% [HALF STRENGTH] 473 ML TOPICAL SOLN TP SCH (08:30)
--- NOTE | 2025-02-22 08:40 | PN ---
[facility] CARDIOLOGY PROGRESS NOTE Date Patient Seen: Feb 22, 2025 Time of Visit: 08:36 Problem List: Chest pain Elevated troponin [id number] Interval History: Seen this AM Transferred to ICU due to hypotension during HD requiring temporary vasopressor support. She is on midodrine therapy Reports leg swelling at her normal Physical Examination: GENERAL: [No acute distress.] HEAD: [Normal with no signs of head trauma.] NECK: [ Normal carotid upstrokes without bruits.] LUNGS: [Clear breath sounds bilaterally. No wheezes, or rhonchi.] HEART: [Normal rate and rhythm. Normal S1 and S2 without murmurs, gallop or rub.] EXT: [No clubbing, cyanosis or edema.] SKIN: [No rashes or lesions noted.] NEURO: [Awake, alert, and oriented x3. No focal sensory or strength deficits noted.] Laboratory: [ ] Hematology Labs: Test 02/22/25 03:48 02/20/25 11:43 Range/Units White Blood Count 4.4 L 4.8-10.8 K/uL Red Blood Count 2.70 L 4.00-5.50 MIL/uL Hemoglobin 8.7 L 12.0-16.0 g/dL Hematocrit 26.9 L 36-48 % Mean Corpuscular Volume 99.6 H 79-99 fL Mean Corpuscular Hemoglobin 32.2 27.0-33.0 pg Mean Corpuscular Hemoglobin Concent 32.3 32.0-36.0 g/dL Red Cell Distribution Width 21.7 H 11.0-15.5 % Platelet Count 217 130-400 K/uL Mean Platelet Volume 8.6 7.5-10.5 fL Immature Granulocyte % (Auto) 0.5 0-1 % Neutrophils (%) (Auto) 61.9 40.0-77.0 % Lymphocytes (%) (Auto) 21.6 21.0-51.0 % Monocytes (%) (Auto) 13.7 H 3.0-13.0 % Eosinophils (%) (Auto) 1.4 0.0-8.0 % Basophils (%) (Auto) 0.9 0.0-5.0 % Neutrophils # (Auto) 2.7 1.8-7.7 K/uL Lymphocytes # (Auto) 1.0 1.0-4.8 K/uL Monocytes # (Auto) 0.6 0.1-1.0 K/uL Eosinophils # (Auto) 0.06 0.00-0.70 K/uL Basophils # (Auto) 0.04 0.00-0.20 K/uL Absolute Immature Granulocyte (auto 0.02 0-1 K/uL Nucleated Red Blood Cells 1.4 H 0.0-0.19 % Red Blood Cell Morphology See comments Erythrocyte Sedimentation Rate 119 H 0-20 MM/HR Chemistry Labs: Test 02/22/25 06:31 02/22/25 03:48 02/21/25 04:33 02/20/25 14:32 Range/Units Whole Blood Glucose 105 70-110 MG/DL Sodium Level 125 L 136-145 mmol/L Potassium Level 5.1 3.5-5.1 mmol/L Chloride Level 88 *L 101-111 mmol/L Carbon Dioxide Level 26 21-32 mmol/L Blood Urea Nitrogen 62 H 7-18 mg/dL Creatinine 5.2 H 0.5-1.0 mg/dL Glomerular Filtration Rate Calc 10 >90 mL/min Random Glucose 95 70-105 mg/dL Total Calcium 7.7 L 8.5-10.1 mg/dL Phosphorus Level 4.4 2.5-4.9 mg/dL Magnesium Level 2.70 H 1.80-2.40 mg/dL Total Bilirubin 0.8 0.2-1.0 mg/dL Aspartate Amino Transf (AST/SGOT) 51 H 10-37 U/L Alanine Aminotransferase (ALT/SGPT) 33 12-78 U/L Alkaline Phosphatase 445 H 50-136 U/L Total Protein 8.6 H 6.0-8.3 g/dL Albumin 2.3 L 3.5-5.0 g/dL Iron Level 79 50-170 mcg/dL Total Iron Binding Capacity 257 250-450 mcg/dL Percent Iron Saturation 30.7 22-44 % Ferritin 1586 H 15-150 ng/mL Vitamin B12 Level 869 193-986 pg/mL Folic Acid (LAB) 13.00 2-20 ng/mL Direct Bilirubin 0.5 H 0.0-0.3 mg/dL Ammonia 17 11-32 umol/L Total Creatine Kinase 61 # 21-232 U/L Troponin I High Sensitivity 115.1 *H 4-50 ng/L Test 02/20/25 11:43 Range/Units Lactate Dehydrogenase 223 81-234 U/L C-Reactive Protein, Quantitative 42.50 H 0.5-3.0 mg/L B-Type Natriuretic Peptide 1070 H 0-100 pg/mL Procalcitonin 0.31 0.05-0.5 ng/mL Coagulation Labs: Test 02/21/25 04:33 Range/Units Prothrombin Time 12.6 H 9.6-11.6 SEC Prothromb Time International Ratio 1.21 H 0.85-1.15 Activated Partial Thromboplast Time 36.2 H 26.3-35.5 SEC Diagnostics / Radiology: 2D echocardiogram on 02/20/2025 Conclusion The left ventricle is normal size. Mild to moderate left ventricular hypertrophy. LVEF is 55-60%. Stage II diastolic dysfunction. The right ventricle is severely dilated. Right ventricular systolic function is mildly reduced. The left atrium is severely dilated. The right atrium is severely dilated. Posterior mitral valve leaflet is severely calcified. Mild mitral annular calcification present. There is severe tricuspid valve regurgitation noted. RVSP 54 mm hg. The inferior vena cava is severely dilated with a decrease in inspiratory collapse. There is no pericardial effusion. DICTATED BY: JARED HERNANDEZ MD DATE: 02/20/251435 Impression and Plan: Hypotension on Midodrine therapy Chest pain Fluid overload, pulmonary vascular congestion, [id number] right pleural effusion Hyperlipidemia Diabetes mellitus type 2 ESRD HD TTS, anuric Hx of DVT to unknown extremity, duplex 02/20 negative, OAC currently on hold Stasis dermatitis of bilateral lower extremities Bilateral iliofemoral intravascular ultrasound on 12/14/2024 revealing no significant venous stricture on either side done by Dr. Gillespie 2D echocardiogram on 02/20/2025 with an LVEF of 55-60%, stage II diastolic dysfunction, severe biatrial dilation, severely dilated RV, and severe TR with RVSP of 54 mmHg Noncompliance Chest pain Chest discomfort began during an episode of hypotension Troponin mildly elevated in flat pattern, 123 and 115 EKG on admission demonstrated normal sinus rhythm with a heart rate of 56bpm, with a RBBB and an LPFB with no acute ischemia present, similar to prior EKG on 12/07/2024 2D echo on 02/20 with an EF of 55-60%, stage II diastolic dysfunction, severe biatrial dilation, and a severely dilated RV Right ventricular failure contributing to hypotension -Continue Aspirin, Atorvastatin, and Midodrine 10mg TID -Limited CHF GDMT due to need for midodrine therapy -Patient with poor outpatient follow up -- has not been seen in office in 2021. When euvolemic, can consider non invasive ischemic evaluation - Pending thoracentesis tentatively Wednesday after [place] 48h holds LUCA MCINTOSH DO Feb 22, 2025 08:40
[2025-02-22] MEDS ORDERED: NOREPINEPHRIN 4MG/NS 250ML 250 ML IV PRN (11:00)
--- NOTE | 2025-02-22 13:08 | PN ---
[facility] PROGRESS NOTE Date Patient Seen: Feb 22, 2025 Time of Visit: 13:05 Supervising Physician: Dr Suzie Pablo Primary Care Physician: [ ] Outpatient Specialists: [ ] Inpatient Consults: [Dr Leonard, PROBLEM LIST: Acute hypoxemic respiratory failure Pulmonary Edema Chronic pleural effusion Elevated diaphragm Atelectasis ESRD in need of HD PAD Bilateral lower extremity wounds Noncompliance with hemodialysis INTERVAL HISTORY: Patient transferred to the ICU for pressors during her hemodialysis. She is only tolerate about 500 out yesterday. Pending dialysis this afternoon. No acute events overnight patient is afebrile Patient's Eliquis has been on hold since 02/20, she continues to need supplemental O2 Plan is to do a thoracentesis on Wednesday morning and hopefully allow her to have a heart catheterization next week. She continues on nasal cannula at 2 L, midodrine 10 t.i.d. She is alert and oriented She is tolerating her diet Plan: Following Nephrology recommendations, pressors if needed during hemodialysis Continue with midodrine Chest x-ray Wednesday with thoracentesis to follow Continue to hold her Eliquis Nephrology diet Total critical care time 39 minutes, time excludes any procedures or educational time. REVIEW OF SYSTEMS: 12 point ROS reviewed with patient. Pertinent positives mentioned above. Otherwise negative. PHYSICAL EXAM: GENERAL: alert, weak, awake oriented x 3 HEENT: EOMI, Sclera non icteric, moist mucosa NECK: Supple, no JVD, trachea midline LUNGS: Clear breath sounds bilaterally. No wheezes HEART: Regular rate and rhythm. Normal S1 and S2, without murmurs ABD: Abdomen soft, nontender. Bowel sounds present EXT: No clubbing cyanosis or edema NEURO: Alert and oriented to person, follows commands Vital Signs (last 8hr) Date Time Temp Pulse Resp B/P (MAP) Pulse Ox O2 Delivery O2 Flow Rate FiO2 02/22/25 12:00 93 Nasal Cannula* 4 36 02/22/25 12:00 97.9 66 12 106/62 93 Nasal Cannula 4.0 02/22/25 11:34 66 22 N/Cannula Low lpm 3.0 32 02/22/25 11:00 64 16 131/52 96 Nasal Cannula 4.0 02/22/25 10:00 64 15 103/60 94 Nasal Cannula 4.0 02/22/25 09:00 65 14 110/52 96 Nasal Cannula 4.0 02/22/25 08:00 97.5 67 12 113/69 95 Nasal Cannula 4.0 02/22/25 08:00 95 Nasal Cannula* 4 36 02/22/25 07:00 64 16 121/70 100 Nasal Cannula 4.0 02/22/25 06:48 64 22 N/Cannula Low lpm 3.0 32 02/22/25 06:48 64 20 02/22/25 06:30 63 13 120/72 99 Nasal Cannula 4.0 02/22/25 06:00 63 13 121/70 96 Nasal Cannula 4.0 02/22/25 05:30 64 13 122/65 96 Nasal Cannula 4.0 LABS: Hematology Labs: Test 02/22/25 03:48 Range/Units White Blood Count 4.4 L 4.8-10.8 K/uL Red Blood Count 2.70 L 4.00-5.50 MIL/uL Hemoglobin 8.7 L 12.0-16.0 g/dL Hematocrit 26.9 L 36-48 % Mean Corpuscular Volume 99.6 H 79-99 fL Mean Corpuscular Hemoglobin 32.2 27.0-33.0 pg Mean Corpuscular Hemoglobin Concent 32.3 32.0-36.0 g/dL Red Cell Distribution Width 21.7 H 11.0-15.5 % Platelet Count 217 130-400 K/uL Mean Platelet Volume 8.6 7.5-10.5 fL Immature Granulocyte % (Auto) 0.5 0-1 % Neutrophils (%) (Auto) 61.9 40.0-77.0 % Lymphocytes (%) (Auto) 21.6 21.0-51.0 % Monocytes (%) (Auto) 13.7 H 3.0-13.0 % Eosinophils (%) (Auto) 1.4 0.0-8.0 % Basophils (%) (Auto) 0.9 0.0-5.0 % Neutrophils # (Auto) 2.7 1.8-7.7 K/uL Lymphocytes # (Auto) 1.0 1.0-4.8 K/uL Monocytes # (Auto) 0.6 0.1-1.0 K/uL Eosinophils # (Auto) 0.06 0.00-0.70 K/uL Basophils # (Auto) 0.04 0.00-0.20 K/uL Absolute Immature Granulocyte (auto 0.02 0-1 K/uL Nucleated Red Blood Cells 1.4 H 0.0-0.19 % Chemistry Labs: Test 02/22/25 11:34 02/22/25 03:48 02/21/25 04:33 02/20/25 14:32 Range/Units Whole Blood Glucose 91 70-110 MG/DL Sodium Level 125 L 136-145 mmol/L Potassium Level 5.1 3.5-5.1 mmol/L Chloride Level 88 *L 101-111 mmol/L Carbon Dioxide Level 26 21-32 mmol/L Blood Urea Nitrogen 62 H 7-18 mg/dL Creatinine 5.2 H 0.5-1.0 mg/dL Glomerular Filtration Rate Calc 10 >90 mL/min Random Glucose 95 70-105 mg/dL Total Calcium 7.7 L 8.5-10.1 mg/dL Phosphorus Level 4.4 2.5-4.9 mg/dL Magnesium Level 2.70 H 1.80-2.40 mg/dL Total Bilirubin 0.8 0.2-1.0 mg/dL Aspartate Amino Transf (AST/SGOT) 51 H 10-37 U/L Alanine Aminotransferase (ALT/SGPT) 33 12-78 U/L Alkaline Phosphatase 445 H 50-136 U/L Total Protein 8.6 H 6.0-8.3 g/dL Albumin 2.3 L 3.5-5.0 g/dL Iron Level 79 50-170 mcg/dL Total Iron Binding Capacity 257 250-450 mcg/dL Percent Iron Saturation 30.7 22-44 % Ferritin 1586 H 15-150 ng/mL Vitamin B12 Level 869 193-986 pg/mL Folic Acid (LAB) 13.00 2-20 ng/mL Direct Bilirubin 0.5 H 0.0-0.3 mg/dL Ammonia 17 11-32 umol/L Total Creatine Kinase 61 # 21-232 U/L Troponin I High Sensitivity 115.1 *H 4-50 ng/L Coagulation Labs: Test 02/21/25 04:33 Range/Units Prothrombin Time 12.6 H 9.6-11.6 SEC Prothromb Time International Ratio 1.21 H 0.85-1.15 Activated Partial Thromboplast Time 36.2 H 26.3-35.5 SEC DIAGNOSTICS / RADIOLOGY RESULTS: [ ] PLAN NEURO: Minimize central acting medications as possible. Fall Precautions. Well lighted room through the day and minimize interruptions through the night to prevent acute delirium. PULMONARY: Supplemental 02 as needed Titrate Fio2 to keep Spo2 > or = 90% DuoNebs and CPT as needed IS hourly while awake for pulmonary hygiene Out of bed to chair as tolerated VAP Bundle Vent/BIPAP Settings: [ ] Driving pressure: [ ] P Plat: [ ] Static C: [ ] Static R: [ ] P/F Ratio: [ ] CARDIOVASCULAR: Follow hemodynamics. Titrate vasopressor to keep MAP >65 or systolic blood pressure >95mmHg DIPS: [ ] LINES: [ ] GI & NUTRITION: Continue nutritional support Aspirations precautions Prokinetic agents and laxatives as needed KIDNEYS & ELECTROLYTES: Strict monitoring of intake and output Daily weights Avoid nephrotoxic agents Monitor electrolytes and replace as needed Goal urine output of 30mL/hr or 0.5mL/kg/hr Urine output: [ ] Fluid Balance: [ ] ENDOCRINE: Maintain blood glucose between 100-180 at all times. Insulin sliding scale for blood glucose management INFECTIOUS DISEASE: Trend temperature. Moran-culture if febrile. Micro: [ ] Antibiotics: [ ] HEMATOLOGY & COAGULATION: Monitor H&H. Keep Hgb > 7 Transfuse 1 unit of PRBC for Hgb < 7 Transfuse 1 pack of platelets of platelets < 20, 000 Watch for any signs and symptoms of bleeding SKIN: Pressure ulcer prevention per facility protocol Rehab: PT/OT Prophylaxis: GI: [ ] DVT: [ ] Code Status: Full Resuscitation Disposition: [ ] Case was discussed and seen with my supervising physician. The above plan was formulated and agreed upon. total critical care time: 45 min ANNE ARCE PAC Feb 22, 2025 13:08 SUZIE MONTANEZ MD Feb 23, 2025 07:17
--- NOTE | 2025-02-22 13:17 | PN ---
[facility] PROGRESS NOTE Date of Service: Feb 22, 2025 Time of Service: 13:16 SUBJECTIVE: 02/21 patient is seen and examined at bedside, case discussed with the RN, no acute events overnight, patient remains comfortably in bed, alert oriented x3, she has been admitted to the PCU. At the time of my visit she is getting hemodialysis, tolerating well. No chest pain, shortness shortness for breath, no nausea, no vomiting. She remains on supplemental oxygen via nasal cannula at 3 L, saturating 98%. Hemoglobin 9.0, hematocrit 28.4. Sodium 133, potassium 5.7, BUN of 64, creatinine 5.5. Serology test to include influenza and SARS antigen negative. We will downgraded the patient to the medical floor, continue antibiotics, continue hemodialysis per Nephrology recommendation, follow a.m. labs. Chest x-ray reported as follows: 1. Bilateral perihilar and bibasilar airspace disease, possibly representing pulmonary edema, with pulmonary vascular congestion and small to moderate right pleural effusion. 2. Cardiomegaly, unchanged. 3. Persistent elevation of the right hemidiaphragm. CT chest reported as follows: 1. Increased moderate right pleural effusion with partial right lower lobe collapse. 2. Unchanged consolidations in right lower and middle lobes. 3. Moderate cardiomegaly with prominent main pulmonary artery, suggesting persistent pulmonary arterial hypertension. 02/22 the patient has been seen and examined at bedside, case discussed with the RN, patient upgraded to the ICU yesterday due to shortness a breath with desaturation, at the time of my visit comfortably in bed, alert oriented x3, supplemental oxygen via nasal cannula at 3 L, saturating 98%, she is scheduled for hemodialysis today. BP 106/62, afebrile. Hemoglobin 8.7, hematocrit 26.9. Sodium 135, potassium 5.1, BUN 62, creatinine 5.2. Chest x-ray stable right moderate pleural effusion with right mid and lower zone consolidation, stable cardiomegaly with pulmonary vascular congestion patient to continue broad- spectrum IV antibiotics, continue to follow critical care input recommendation. Continue hemodialysis per occupational health and safety manager. REVIEW OF SYSTEMS CONSTITUTIONAL: Lethargy , chills, malaise NEUROLOGICAL: Denies headache, amaurosis fugax, motor weakness, sensory deficit, vertigo/spinning sensation, gait abnormalities, or tremors. ENT: No hearing loss, otalgia, otorrhea, rhinitis, rhinorrhea, hoarseness, or sore throat. CARDIOVASCULAR: Chest did during dialysis today PULMONARY: Reports having shortness of breath and cough SLEEP: Denies morning headaches, daytime somnolence or napping. Denies difficulty falling asleep, staying asleep, waking from sleep. Denies knowledge of snoring. GASTROINTESTINAL: Denies any type of dysphagia to either liquids or solids. Denies nausea, vomiting, pyrosis, early satiety, abdominal pain, diarrhea, constipation, or changes in stool consistency or caliber. Denies coffee-ground emesis, hematemesis, hematochezia, or melanotic stools. GENITOURINARY: Denies frequency, urgency, nocturia, hematuria or incontinence (Storage/Irritative symptoms.) Low urinary stream, straining to void, urinary intermittency or hesitancy, splitting of the voiding stream, terminal dribbling. ENDOCRINOLOGIC: Denies polyuria, polydipsia, polyphagia or heat/cold intolerances. HEMATOLOGIC: Denies thrombophilia/previous clots, or coagulopathy/bleeding disorders. ONCOLOGIC: Denies personal history of malignancy. DERMATOLOGIC: Denies rashes or pruritus. PSYCHIATRIC: Denies any suicidal or homicidal ideation. Denies hallucinations. PHYSICAL EXAM GENERAL APPEARANCE: Patient is sitting up in bed and appears drowsy, patient awakens to verbal stimuli but falls asleep NEUROLOGICAL: Cranial nerves II-XII grossly intact. Neurological examination is nonfocal, patient is moving her upper and lower extremity HEENT: Face is symmetric. Pupils are equal and reactive. Extraocular movements are intact. NECK: Supple. No JVD. No thyromegaly. No submental, submandibular, pre- /postauricular, occipital or supraclavicular lymphadenopathy. CHEST: Normal chest expansion. No Telemetry. LUNGS: Crackles noted at bilateral lung bases with rhonchorous breath sounds CARDIOVASCULAR: Regular. S1 and S2 normal. No appreciable rubs, murmurs or gallops. ABDOMEN: Soft, nontender, and nondistended. There is no rebound, voluntary guarding, or rigidity. : Deferred. No Georges. EXTREMITIES: 3+ pitting edema noted of bilateral extremity with chronic wounds, there is erythema with bilateral venous stasis SKIN: as noted above Vital Signs (last 8hr) Date Time Temp Pulse Resp B/P (MAP) Pulse Ox O2 Delivery O2 Flow Rate FiO2 02/22/25 12:00 93 Nasal Cannula* 4 36 02/22/25 12:00 97.9 66 12 106/62 93 Nasal Cannula 4.0 02/22/25 11:34 66 22 N/Cannula Low lpm 3.0 32 02/22/25 11:00 64 16 131/52 96 Nasal Cannula 4.0 02/22/25 10:00 64 15 103/60 94 Nasal Cannula 4.0 02/22/25 09:00 65 14 110/52 96 Nasal Cannula 4.0 02/22/25 08:00 97.5 67 12 113/69 95 Nasal Cannula 4.0 02/22/25 08:00 95 Nasal Cannula* 4 36 02/22/25 07:00 64 16 121/70 100 Nasal Cannula 4.0 02/22/25 06:48 64 22 N/Cannula Low lpm 3.0 32 02/22/25 06:48 64 20 02/22/25 06:30 63 13 120/72 99 Nasal Cannula 4.0 02/22/25 06:00 63 13 121/70 96 Nasal Cannula 4.0 02/22/25 05:30 64 13 122/65 96 Nasal Cannula 4.0 LABS: Laboratory: Test 02/22/25 11:34 02/22/25 03:48 02/21/25 04:33 02/20/25 15:28 Range/Units Whole Blood Glucose 91 70-110 MG/DL White Blood Count 4.4 L 4.8-10.8 K/uL Red Blood Count 2.70 L 4.00-5.50 MIL/uL Hemoglobin 8.7 L 12.0-16.0 g/dL Hematocrit 26.9 L 36-48 % Mean Corpuscular Volume 99.6 H 79-99 fL Mean Corpuscular Hemoglobin 32.2 27.0-33.0 pg Mean Corpuscular Hemoglobin Concent 32.3 32.0-36.0 g/dL Red Cell Distribution Width 21.7 H 11.0-15.5 % Platelet Count 217 130-400 K/uL Mean Platelet Volume 8.6 7.5-10.5 fL Immature Granulocyte % (Auto) 0.5 0-1 % Neutrophils (%) (Auto) 61.9 40.0-77.0 % Lymphocytes (%) (Auto) 21.6 21.0-51.0 % Monocytes (%) (Auto) 13.7 H 3.0-13.0 % Eosinophils (%) (Auto) 1.4 0.0-8.0 % Basophils (%) (Auto) 0.9 0.0-5.0 % Neutrophils # (Auto) 2.7 1.8-7.7 K/uL Lymphocytes # (Auto) 1.0 1.0-4.8 K/uL Monocytes # (Auto) 0.6 0.1-1.0 K/uL Eosinophils # (Auto) 0.06 0.00-0.70 K/uL Basophils # (Auto) 0.04 0.00-0.20 K/uL Absolute Immature Granulocyte (auto 0.02 0-1 K/uL Nucleated Red Blood Cells 1.4 H 0.0-0.19 % Sodium Level 125 L 136-145 mmol/L Potassium Level 5.1 3.5-5.1 mmol/L Chloride Level 88 *L 101-111 mmol/L Carbon Dioxide Level 26 21-32 mmol/L Blood Urea Nitrogen 62 H 7-18 mg/dL Creatinine 5.2 H 0.5-1.0 mg/dL Glomerular Filtration Rate Calc 10 >90 mL/min Random Glucose 95 70-105 mg/dL Total Calcium 7.7 L 8.5-10.1 mg/dL Phosphorus Level 4.4 2.5-4.9 mg/dL Magnesium Level 2.70 H 1.80-2.40 mg/dL Total Bilirubin 0.8 0.2-1.0 mg/dL Aspartate Amino Transf (AST/SGOT) 51 H 10-37 U/L Alanine Aminotransferase (ALT/SGPT) 33 12-78 U/L Alkaline Phosphatase 445 H 50-136 U/L Total Protein 8.6 H 6.0-8.3 g/dL Albumin 2.3 L 3.5-5.0 g/dL Prothrombin Time 12.6 H 9.6-11.6 SEC Prothromb Time International Ratio 1.21 H 0.85-1.15 Activated Partial Thromboplast Time 36.2 H 26.3-35.5 SEC Iron Level 79 50-170 mcg/dL Total Iron Binding Capacity 257 250-450 mcg/dL Percent Iron Saturation 30.7 22-44 % Ferritin 1586 H 15-150 ng/mL Vitamin B12 Level 869 193-986 pg/mL Folic Acid (LAB) 13.00 2-20 ng/mL Influenza Type A Antigen Negative For Type A NEGATIVE Influenza Type B Antigen Negative For Type B NEGATIVE SARS-CoV-2, RNA, NAAT NEGATIVE SARS CoV-2 NEGATIVE Test 02/20/25 14:32 02/20/25 14:15 Range/Units Direct Bilirubin 0.5 H 0.0-0.3 mg/dL Ammonia 17 11-32 umol/L Total Creatine Kinase 61 # 21-232 U/L Troponin I High Sensitivity 115.1 *H 4-50 ng/L Blood Gas Specimen Type Arterial Arterial Blood pH 7.388 7.350-7.450 Arterial Blood Partial Pressure CO2 38 32-45 mmHg Arterial Blood Partial Pressure O2 59.7 L 83.0-108.0 mmHg Arterial Blood HCO3 22.4 21.0-28.0 mmol/L Arterial Blood Oxygen Saturation 88.0 L 94.0-98.0 % Arterial Blood Base Excess -2.3 L -2.0-3.0 mmol/L Hemoglobin (Blood Gas) 9.9 L 12.0-16.0 g/dL Sodium (Blood Gas) 127 L 136-145 MMOL/L Bedside Potassium (Blood Gas) 5.1 H 3.4-4.5 MMOL/L Bedside Chloride (Blood Gas) 92 L 98-107 MMOL/L Bedside Glucose (Blood Gas) 96 H 65-95 MG/DL Bedside Ionized Calcium (Blood Gas) 1.02 L 1.15-1.33 MMOL/L Bedside Lactic Acid (Blood Gas) 1.11 H 0.36-0.75 MMOL/L Blood Gas Temperature 37.0 35.5-37.0 CELSIUS Blood Gas Flow-by 3.00 0.00-15.00 L/min Blood Gas Vent Mode 3L NC ROOM AIR FiO2 32.0 % Blood Gas Specimen Comment DR MERCHANT Current Medications Medications (Trade) Dose Ordered Sig/Haven Route PRN Reason Start Time Stop Time Status Last Admin Dose Admin Acetaminophen (TYLenol 325MG TAB) 650 mg Q6H PRN PO MILD PAIN (1-3) 02/20/25 14:00 03/22/25 13:59 02/22/25 11:48 650 MG Acetaminophen/ Codeine Phosphate (TYLenol-coDEINE TAB) 1 tab Q6H6 PRN PO MODERATE PAIN (4-6) 02/22/25 12:30 03/24/25 12:29 02/22/25 12:25 1 TAB Albumin Human (Albumin (Human) 25%) 100 ml ONCE IV 02/21/25 10:00 02/22/25 09:59 DC 02/21/25 11:01 100 ML Albuterol (DUOneb) 1 udvial Q6H PRN IH SHORTNESS OF BREATH 02/20/25 14:00 03/22/25 13:59 Aspirin (Aspirin 81mg Chew Tab) 81 mg DAILY PO 02/21/25 09:00 02/20/25 22:04 DC Aspirin (Aspirin 81mg Chew Tab) 81 mg DAILY PO 02/21/25 09:00 03/23/25 08:59 02/22/25 08:15 81 MG Atorvastatin Calcium (LIPItor 40MG) 40 mg HS PO 02/21/25 21:00 03/23/25 20:59 02/21/25 20:05 40 MG Budesonide (Pulmicort 0.5 Mg/2ml) 0.5 mg BIDRESP IH 02/20/25 14:00 03/22/25 13:59 02/22/25 06:48 0.5 MG Cinacalcet (Sensipar 30mg Tab) 30 mg DAILY PO 02/21/25 09:00 03/23/25 08:59 02/22/25 08:16 30 MG Dextrose (D50w) 50 ml AD PRN IV HYPOGLYCEMIA PROTOCOL 02/20/25 14:00 03/22/25 13:59 Docusate Sodium (COLace 100MG CAP) 100 mg BID PO 02/21/25 09:00 03/23/25 08:59 02/21/25 20:05 100 MG Epoetin Raúl-epbx (Retacrit) 10,000 unit QTUTHSA[DIALYSIS] SQ 02/22/25 16:00 03/24/25 15:59 Gabapentin (NEURontin 100 mg CAP) 300 mg AD PO 02/20/25 22:00 02/21/25 07:17 DC Gabapentin (NEURontin 300 MG CAP) 300 mg QTUTHSA@2100 PO 02/22/25 21:00 03/22/25 21:59 Gentamicin Sulfate (GENTAmicin SULFate 15 gm cream) 1 APPL DAILY TP 02/21/25 09:00 03/07/25 08:59 02/22/25 10:08 1 APPL Glucagon (Glucagon 1mg Kit) 1 mg AD PRN IM HYPOGLYCEMIA PROTOCOL 02/20/25 14:00 03/22/25 13:59 Heparin Sodium (Porcine) (HEParin 5,000 UNIT VIAL) 5,000 unit Q12H SQ 02/20/25 21:00 03/22/25 20:59 02/22/25 08:27 5,000 UNIT Hydroxyzine HCl (ATArax 25MG TAB) 25 mg Q12H PRN PO ANXIETY 02/20/25 22:00 03/22/25 21:59 02/22/25 04:22 25 MG Insulin Human Regular (humuLIN R 100 UNIT/ML 3ML) INSULIN SLIDING SCAL... ACHS SQ 02/20/25 16:30 03/22/25 16:29 Leptospermum Honey (Medihoney) 1 APPL DAILY TP 02/21/25 09:00 03/23/25 08:59 02/22/25 10:08 1 APPL Meropenem (Merrem 500mg) 500 mg Q24H IVPB 02/20/25 18:00 02/27/25 17:59 02/21/25 18:19 500 MG Metoclopramide HCl (regLAN 5 MG TAB) 5 mg TID PO 02/21/25 09:00 03/23/25 08:59 02/21/25 20:05 5 MG Midodrine (PROAMatine 5 MG TABLET) 5 mg TID PRN PO IF bp less than 90/60 02/20/25 14:00 02/21/25 09:13 DC 02/21/25 04:28 5 MG Midodrine (PROAMatine 5 MG TABLET) 10 mg TID PO 02/21/25 09:30 03/22/25 13:59 02/22/25 13:08 10 MG Nitroglycerin (Nitrostat) 0.4 mg AD PRN SL CHEST PAIN 02/20/25 14:00 03/22/25 13:59 Norepinephrine 250 ml @ 0 mls/hr AD PRN IV DIRECTED 02/22/25 11:00 03/24/25 10:59 Ondansetron HCl (zoFRAN 4MG INJ) 4 mg Q6H PRN IVP NAUSEA/VOMITING 02/20/25 14:00 03/22/25 13:59 02/22/25 11:41 4 MG Pantoprazole Sodium (PROTonix 40MG INJ) 40 mg Q24H IVP 02/20/25 14:00 03/22/25 13:59 02/22/25 13:08 40 MG Pharmacy Profile Note (Lace Assessment) 1 each AD MISC 02/21/25 11:00 02/21/25 10:59 DC Pharmacy Profile Note (Pharmacy Communication) 1 each ONCE MISC 02/20/25 16:00 02/20/25 15:58 DC Piperacillin Sod/ Tazobactam Sod (Zosyn 3.375gm+NS 50ml) 3.375 gm Q12H IVPB 02/20/25 14:00 02/20/25 15:53 DC 02/20/25 14:57 3.375 GM Sennosides (Senna) 1 tab DAILY PO 02/21/25 09:00 03/23/25 08:59 Sevelamer HCl (RENAgel 800 MG TAB) 2,400 mg TID PO 02/21/25 09:00 03/23/25 08:59 02/22/25 13:09 2,400 MG Sodium Hypochlorite (Dakin'S 0.25% Half Strength) 1 APPL DAILY TP 02/22/25 09:00 03/24/25 08:59 02/22/25 08:30 1 APPL Sodium Chloride 250 ml @ 0 mls/hr AD IV 02/21/25 10:00 03/23/25 09:59 Sodium Chloride 1,000 ml @ 0 mls/hr ONCE IV 02/21/25 10:00 03/23/25 09:59 02/21/25 11:05 100 MLS/HR Vancomycin HCl (Vancomycin 750mg) 750 mg QTUTHSA[DIALYSIS] IVPB 02/22/25 16:00 03/04/25 15:59 Vancomycin HCl (Vancomycin Protocol) 1 each AD IV 02/20/25 14:00 03/06/25 13:59 Vitamin B Complex/ Vit C/Folic Acid (Nephrovite Tablet) 1 cap DAILY PO 02/21/25 09:00 03/23/25 08:59 02/22/25 08:15 1 CAP DIAGNOSTICS / RADIOLOGY: [ ] ASSESSMENT: Acute hypoxemic respiratory failure, POA Hypotension status post IV fluids as outpatient, resolving, POA Elevated troponin, rule out active ACS, POA Decompensated heart failure exacerbation, POA Toxic/metabolic encephalopathy, POA Rule out developing community-acquired pneumonia, POA Right-sided pleural effusion, POA r/o Pulmonary HTN, POA Pulmonary edema, POA History of complicated wounds involving bilateral lower extremities with superimposed active cellulitis, POA Debility/frailty, POA History of ESRD, POA Anemia, POA History of GI bleed requiring hospitalization in [facility] in 09/2024, POA Rule out cirrhosis of the liver , POA History of severe tricuspid regurgitation noted on 2D echocardiogram from 01/2024, POA Obesity, POA Hyponatremia, POA Hyperlipidemia, POA PLAN: the patient has been seen and examined at bedside, case discussed with the RN, patient upgraded to the ICU yesterday due to shortness a breath with desaturation, at the time of my visit comfortably in bed, alert oriented x3, supplemental oxygen via nasal cannula at 3 L, saturating 98%, she is scheduled for hemodialysis today. BP 106/62, afebrile. Hemoglobin 8.7, hematocrit 26.9. Sodium 135, potassium 5.1, BUN 62, creatinine 5.2. Chest x-ray stable right moderate pleural effusion with right mid and lower zone consolidation, stable cardiomegaly with pulmonary vascular congestion patient to continue broad- spectrum IV antibiotics, continue to follow critical care input recommendation. Continue hemodialysis per occupational health and safety manager. Chest x-ray reported as follows: 1. Bilateral perihilar and bibasilar airspace disease, possibly representing pulmonary edema, with pulmonary vascular congestion and small to moderate right pleural effusion. 2. Cardiomegaly, unchanged. 3. Persistent elevation of the right hemidiaphragm. CT chest reported as follows: 1. Increased moderate right pleural effusion with partial right lower lobe collapse. 2. Unchanged consolidations in right lower and middle lobes. 3. Moderate cardiomegaly with prominent main pulmonary artery, suggesting persistent pulmonary arterial hypertension. NEURO: Minimize central acting medications as possible. Fall Precautions. Well lighted room through the day and minimize interruptions through the night to prevent acute delirium. PULMONARY: Supplemental 02 as needed BiPAP as necessary, for respiratory distress Titrate Fio2 to keep Spo2 > or = 90% DuoNebs and CPT as needed IS hourly while awake for pulmonary hygiene prn Out of bed to chair as tolerated Maintain aspiration precautions at all times CARDIOVASCULAR: Follow hemodynamics. Vital signs per facility protocol GI & NUTRITION: Continue nutritional support Aspirations precautions Prokinetic agents and laxatives as needed KIDNEYS & ELECTROLYTES: Strict monitoring of intake and output Daily weights Avoid nephrotoxic agents Monitor electrolytes and replace as needed Goal urine output of 30mL/hr or 0.5mL/kg/hr Medications to be dosed according to renal function. Avoid contrast if possible ENDOCRINE: Maintain blood glucose between 100-180 at all times. Insulin sliding scale for blood glucose management Hypoglycemia and hyperglycemia protocol in place INFECTIOUS DISEASE: Trend temperature, WBC and procalcitonin level Follow cultures, deescalate antibiotics as soon as possible. Panculture if new onset fever HEMATOLOGY & COAGULATION: Monitor H&H. Keep Hgb > 7 Transfuse 1 unit of PRBC for Hgb < 7 Transfuse 1 pack of platelets of platelets < 20, 000 Watch for any signs and symptoms of bleeding SKIN: Pressure ulcer prevention per facility protocol Specialty mattress as needed ORTHO/REHAB Continue PT/OT PRN: MEDICATIONS Tylenol 650 mg po every 4 hrs for fever zofran 4 mg IV every 6 hrs for n/v Hydralazine 5 mg IV every 4 hrs systolic pressure > 160 bowel regiment: lactulose 20 gm PO BID PRN constipation Supportive measures: Continue GI and DVT prophylaxis Disposition: Pending improvement in clinical condition All questions answered time spent: > 35 min KADEN WHITE MD Feb 22, 2025 13:17
[2025-02-22] MEDS: ALBUMIN (HUMAN) 25% 50 ML IV.SOLN. IV SCH (15:14)
--- NOTE | 2025-02-22 15:26 | NUR ---
[facility] Follow-up: Patient re-assessed by wound healing team, Wound improving. Assessment and recommendations provided to primary nurse Education provided. Wound care done.
--- NOTE | 2025-02-22 16:31 | PN ---
PROGRESS NOTE Date of Service: Feb 22, 2025 Time of Service: 16:28 SUBJECTIVE: Patient is evaluated at bedside in room 207 for wound care follow up. Patient is awake, alert, oriented x 3. No signs of distress noted. Patient currently receiving dialysis at bedside. Nurse report patient was transferred to ICU due to shortness a breath with desaturation, O2 3l n/c REVIEW OF SYSTEMS CONSTITUTIONAL: Denies fever, chills, or fatigue. HEAD/FACE: No signs of trauma. EENT: Denies eye pain, blurred vision, double vision, or light sensitivity. RESPIRATORY: Positive shortness of breath, cough, wheezing CARDIOVASCULAR: Denies chest pain, palpitation, syncope GASTROINTESTINAL/ABDOMINAL: Denies abdominal pain, constipation, diarrhea, nausea or vomiting GENITOURINARY: Denies dysuria or hematuria. MUSCULOSKELETAL: Denies joint pain, tenderness, or trauma. INTEGUMENTARY: Chronic ulcer to bilateral lower legs with edema and erythema NEUROLOGICAL/PSYCH: Denies anxiety, depression, heat or cold intolerance. PHYSICAL EXAM EYES: Anicteric. Pupils equal and reactive. HENT: No oral thrush seen, moist Oral mucosa NECK: Supple, no JVD or thyromegaly. LUNGS: rales and rhonchi on o2 3L n/c CARDIOVASCULAR: S1, S2 regular. No murmur heard. ABDOMEN: Soft, non tender, bowel sounds present, no organomegaly CENTRAL NERVOUS SYSTEM: Awake, alert, oriented x 3. No focal deficits. SKIN: Bilateral lower legs noted with venous ulcers with granulation and minimal slough with moderate amount of serous drainage, no foul odor noted, no bleeding noted-improved LYMPHATICS: No peripheral lymphadenopathy MUSCULOSKELETAL: +2 edema noted with mild erythema to bilateral lower legs EXTREMITIES: No cyanosis or clubbing BACK: No deformity, no pressure ulcer. GENITOURINARY: No dysuria or hematuria Vital Signs (last 8hr) Date Time Temp Pulse Resp B/P (MAP) Pulse Ox O2 Delivery O2 Flow Rate FiO2 02/22/25 16:00 97 Nasal Cannula* 4 36 02/22/25 15:30 97.5 63 16 119/63 97 Nasal Cannula 4.0 02/22/25 15:00 64 14 121/59 95 Nasal Cannula 4.0 02/22/25 14:00 62 13 107/55 93 Nasal Cannula 4.0 02/22/25 13:10 97.5 60 16 108/58 92 Nasal Cannula 3.0 02/22/25 13:00 66 11 111/51 93 Nasal Cannula 4.0 02/22/25 12:00 93 Nasal Cannula* 4 36 02/22/25 12:00 97.9 66 12 106/62 93 Nasal Cannula 4.0 02/22/25 11:34 66 22 N/Cannula Low lpm 3.0 32 02/22/25 11:00 64 16 131/52 96 Nasal Cannula 4.0 02/22/25 10:00 64 15 103/60 94 Nasal Cannula 4.0 02/22/25 09:00 65 14 110/52 96 Nasal Cannula 4.0 LABS: Laboratory: Test 02/22/25 15:45 02/22/25 03:48 02/21/25 04:33 Range/Units Whole Blood Glucose 104 70-110 MG/DL White Blood Count 4.4 L 4.8-10.8 K/uL Red Blood Count 2.70 L 4.00-5.50 MIL/uL Hemoglobin 8.7 L 12.0-16.0 g/dL Hematocrit 26.9 L 36-48 % Mean Corpuscular Volume 99.6 H 79-99 fL Mean Corpuscular Hemoglobin 32.2 27.0-33.0 pg Mean Corpuscular Hemoglobin Concent 32.3 32.0-36.0 g/dL Red Cell Distribution Width 21.7 H 11.0-15.5 % Platelet Count 217 130-400 K/uL Mean Platelet Volume 8.6 7.5-10.5 fL Immature Granulocyte % (Auto) 0.5 0-1 % Neutrophils (%) (Auto) 61.9 40.0-77.0 % Lymphocytes (%) (Auto) 21.6 21.0-51.0 % Monocytes (%) (Auto) 13.7 H 3.0-13.0 % Eosinophils (%) (Auto) 1.4 0.0-8.0 % Basophils (%) (Auto) 0.9 0.0-5.0 % Neutrophils # (Auto) 2.7 1.8-7.7 K/uL Lymphocytes # (Auto) 1.0 1.0-4.8 K/uL Monocytes # (Auto) 0.6 0.1-1.0 K/uL Eosinophils # (Auto) 0.06 0.00-0.70 K/uL Basophils # (Auto) 0.04 0.00-0.20 K/uL Absolute Immature Granulocyte (auto 0.02 0-1 K/uL Nucleated Red Blood Cells 1.4 H 0.0-0.19 % Sodium Level 125 L 136-145 mmol/L Potassium Level 5.1 3.5-5.1 mmol/L Chloride Level 88 *L 101-111 mmol/L Carbon Dioxide Level 26 21-32 mmol/L Blood Urea Nitrogen 62 H 7-18 mg/dL Creatinine 5.2 H 0.5-1.0 mg/dL Glomerular Filtration Rate Calc 10 >90 mL/min Random Glucose 95 70-105 mg/dL Total Calcium 7.7 L 8.5-10.1 mg/dL Phosphorus Level 4.4 2.5-4.9 mg/dL Magnesium Level 2.70 H 1.80-2.40 mg/dL Total Bilirubin 0.8 0.2-1.0 mg/dL Aspartate Amino Transf (AST/SGOT) 51 H 10-37 U/L Alanine Aminotransferase (ALT/SGPT) 33 12-78 U/L Alkaline Phosphatase 445 H 50-136 U/L Total Protein 8.6 H 6.0-8.3 g/dL Albumin 2.3 L 3.5-5.0 g/dL Prothrombin Time 12.6 H 9.6-11.6 SEC Prothromb Time International Ratio 1.21 H 0.85-1.15 Activated Partial Thromboplast Time 36.2 H 26.3-35.5 SEC Iron Level 79 50-170 mcg/dL Total Iron Binding Capacity 257 250-450 mcg/dL Percent Iron Saturation 30.7 22-44 % Ferritin 1586 H 15-150 ng/mL Vitamin B12 Level 869 193-986 pg/mL Folic Acid (LAB) 13.00 2-20 ng/mL DIAGNOSTICS / RADIOLOGY: [ ] PROBLEM LIST : Medical Problems: Chronic Venous hypertension with ulcer to bilateral lower legs Non pressure chronic ulcer of left lower leg with fat layer exposed Non pressure chronic ulcer of right lower leg with fat layer exposed Cellulitis bilateral lower legs PLAN: Continue Wound care to bilateral lower leg ulcers- Cleanse with normal saline, pat dry, apply Dakin's moistened gauze wet to dry cover with 4x4 gauze, abdominal pad, wrap with kerlix and secure with tape change daily and prn Keep wounds clean and dry Offloading/reposition q 2 hours Continue IV antibiotics Comorbidities per primary care team Further Management per hospital course. Thank You for the consult and allowing us to participate in the care of this patient. DOROTA LEVINE HEMATOLOGIST ONCOLOGIST Feb 22, 2025 16:31
[2025-02-22] MEDS: EPOETIN ALFA-EPBX (NON-ESRD) 10,000 UNIT/ML VIAL SQ SCH (17:16)
[2025-02-22] MEDS: VANCOMYCIN 750MG VIAL IVPB SCH (17:16)
[2025-02-22] MEDS: GABAPENTIN 300 MG CAPSULE PO SCH (20:21)
[2025-02-23] VITALS (18 sets, daily range): BP systolic 97–127; BP diastolic 56–72; PULSE 65–77; RESP 12–22; TEMP 97.4–98.7; O2SAT 92–98
[2025-02-23 05:40] LABS: IMMATURE GRANULOCYTE ABSOLUTE 0.01 K/uL (0-1); NUCLEATED RED BLOOD CELLS 1.1 % (0.0-0.19); PLATELET COUNT (AUTO) 222 K/uL (130-400); RED BLOOD CELL COUNT(AUTO) 2.63 MIL/uL (4.00-5.50); RED CELL DISTRIBUTION WIDTH 21.6 % (11.0-15.5); WHITE BLOOD COUNT (AUTO) 4.5 K/uL (4.8-10.8)
[2025-02-23 05:55] LABS: ASPARTATE AMINOTRANSFERASE 46.0 U/L (10-37); CREATININE 4.3 mg/dL (0.5-1.0); GLOMERULAR FILTR. RATE CALC 12.0 mL/min (>90); GLUCOSE,RANDOM 101.0 mg/dL (70-105); SODIUM SERUM 125.0 mmol/L (136-145); TOTAL PROTEIN, SERUM 8.7 g/dL (6.0-8.3); UREA NITROGEN, BLOOD 47.0 mg/dL (7-18)
--- NOTE | 2025-02-23 08:03 | HMCIMG ---
EXAM: CR Chest,1 View. CLINICAL HISTORY: Breathlessness. COMPARISON: Chest x-ray dated 02/21/2025 FINDINGS: LUNGS: Mild to moderate pulmonary venous congestion in bilateral lung blanc. PLEURAL SPACES: No evidence of pneumothorax. Severe right pleural effusion with underlying atelectasis of the lung segments. MEDIASTINUM: Cardiac size and mediastinal contours appears grossly enlarged. BONES: No aggressive appearing osseous lesion seen. IMPRESSION: Severe right pleural effusion with underlying atelectasis. Mild to moderate pulmonary venous congestion. Cardiomegaly. No significant interval change. /[place]
[2025-02-23 08:45] LABS: INR 1.23 (0.85-1.15)
--- NOTE | 2025-02-23 11:24 | PN ---
[facility] PROGRESS NOTE Date of Service: Feb 23, 2025 Time of Service: 11: SUBJECTIVE: 02/21 patient is seen and examined at bedside, case discussed with the RN, no acute events overnight, patient remains comfortably in bed, alert oriented x3, she has been admitted to the PCU. At the time of my visit she is getting hemodialysis, tolerating well. No chest pain, shortness shortness for breath, no nausea, no vomiting. She remains on supplemental oxygen via nasal cannula at 3 L, saturating 98%. Hemoglobin 9.0, hematocrit 28.4. Sodium 133, potassium 5.7, BUN of 64, creatinine 5.5. Serology test to include influenza and SARS antigen negative. We will downgraded the patient to the medical floor, continue antibiotics, continue hemodialysis per Nephrology recommendation, follow a.m. labs. Chest x-ray reported as follows: 1. Bilateral perihilar and bibasilar airspace disease, possibly representing pulmonary edema, with pulmonary vascular congestion and small to moderate right pleural effusion. 2. Cardiomegaly, unchanged. 3. Persistent elevation of the right hemidiaphragm. CT chest reported as follows: 1. Increased moderate right pleural effusion with partial right lower lobe collapse. 2. Unchanged consolidations in right lower and middle lobes. 3. Moderate cardiomegaly with prominent main pulmonary artery, suggesting persistent pulmonary arterial hypertension. 02/22 the patient has been seen and examined at bedside, case discussed with the RN, patient upgraded to the ICU yesterday due to shortness a breath with desaturation, at the time of my visit comfortably in bed, alert oriented x3, supplemental oxygen via nasal cannula at 3 L, saturating 98%, she is scheduled for hemodialysis today. BP 106/62, afebrile. Hemoglobin 8.7, hematocrit 26.9. Sodium 135, potassium 5.1, BUN 62, creatinine 5.2. Chest x-ray stable right moderate pleural effusion with right mid and lower zone consolidation, stable cardiomegaly with pulmonary vascular congestion patient to continue broad- spectrum IV antibiotics, continue to follow critical care input recommendation. Continue hemodialysis per manager supplier. 02/23 the patient has been seen and examined at bedside, case discussed with the RN. Patient remains admitted to the ICU, awake, following commands. BP 115/71, heart rate of 65, saturating 93-95% on mechanical ventilation, CBC shows a hemoglobin of 8.6, hematocrit 26.2, WBC of 4.5, with a platelet count of 222, sodium 135, potassium 4.6, BUN of 47, creatinine of 4.3, magnesium 2.6. Chest x-ray 02/22/2025 shows severe right pleural effusion with underlying atelectasis, mild to moderate pulmonary venous congestion, cardiomegaly, no significant interval change. Today's chest x-ray pending. Pulmonary input noted and appreciated, patient is scheduled for possible thoracentesis on Wednesday morning, Eliquis on hold since 02/20. Continue the patient on supplemental oxygen via nasal cannula to keep oxygen saturation greater than 92%. REVIEW OF SYSTEMS CONSTITUTIONAL: Lethargy , chills, malaise NEUROLOGICAL: Denies headache, amaurosis fugax, motor weakness, sensory deficit, vertigo/spinning sensation, gait abnormalities, or tremors. ENT: No hearing loss, otalgia, otorrhea, rhinitis, rhinorrhea, hoarseness, or sore throat. CARDIOVASCULAR: Chest did during dialysis today PULMONARY: Reports having shortness of breath and cough SLEEP: Denies morning headaches, daytime somnolence or napping. Denies diffi culty falling asleep, staying asleep, waking from sleep. Denies knowledge of snoring. GASTROINTESTINAL: Denies any type of dysphagia to either liquids or solids. Denies nausea, vomiting, pyrosis, early satiety, abdominal pain, diarrhea, constipation, or changes in stool consistency or caliber. Denies coffee-ground emesis, hematemesis, hematochezia, or melanotic stools. GENITOURINARY: Denies frequency, urgency, nocturia, hematuria or incontinence (Storage/Irritative symptoms.) Low urinary stream, straining to void, urinary intermittency or hesitancy, splitting of the voiding stream, terminal dribbling. ENDOCRINOLOGIC: Denies polyuria, polydipsia, polyphagia or heat/cold int olerances. HEMATOLOGIC: Denies thrombophilia/previous clots, or coagulopathy/bleeding disorders. ONCOLOGIC: Denies personal history of malignancy. DERMATOLOGIC: Denies rashes or pruritus. PSYCHIATRIC: Denies any suicidal or homicidal ideation. Denies hallucinations. PHYSICAL EXAM GENERAL APPEARANCE: Patient is sitting up in bed and appears drowsy, patient awakens to verbal stimuli but falls asleep NEUROLOGICAL: Cranial nerves II-XII grossly intact. Neurological examination is nonfocal, patient is moving her upper and lower extremity HEENT: Face is symmetric. Pupils are equal and reactive. Extraocular movements are intact. NECK: Supple. No JVD. No thyromegaly. No submental, submandibular, pre- /postauricular, occipital or supraclavicular lymphadenopathy. CHEST: Normal chest expansion. No Telemetry. LUNGS: Crackles noted at bilateral lung bases with rhonchorous breath sounds CARDIOVASCULAR: Regular. S1 and S2 normal. No appreciable rubs, murmurs or gallops. ABDOMEN: Soft, nontender, and nondistended. There is no rebound, voluntary guarding, or rigidity. : Deferred. No Georges. EXTREMITIES: 3+ pitting edema noted of bilateral extremity with chronic wounds, there is erythema with bilateral venous stasis SKIN: as noted above Vital Signs (last 8hr) Date Time Temp Pulse Resp B/P (MAP) Pulse Ox O2 Delivery O2 Flow Rate FiO2 02/23/25 08:00 97.7 65 19 115/71 93 Nasal Cannula 02/23/25 07:38 68 22 N/Cannula Low lpm 3.0 32 02/23/25 07:30 93 Nasal Cannula* 3 32 02/23/25 07:00 65 12 101/64 95 Nasal Cannula 02/23/25 06:47 65 20 02/23/25 04:00 97.5 66 16 119/70 94 Nasal Cannula 3.0 02/23/25 04:00 92 Nasal Cannula* 3 32 02/23/25 03:46 75 22 Venti Mask 9.0 35 LABS: Laboratory: Test 02/23/25 08:10 02/23/25 06:16 02/23/25 05:19 02/22/25 03:48 Range/Units Prothrombin Time 12.8 H 9.6-11.6 SEC Prothromb Time International Ratio 1.23 H 0.85-1.15 Activated Partial Thromboplast Time 34.3 26.3-35.5 SEC Whole Blood Glucose 102 70-110 MG/DL White Blood Count 4.5 L 4.8-10.8 K/uL Red Blood Count 2.63 L 4.00-5.50 MIL/uL Hemoglobin 8.6 L 12.0-16.0 g/dL Hematocrit 26.2 L 36-48 % Mean Corpuscular Volume 99.6 H 79-99 fL Mean Corpuscular Hemoglobin 32.7 27.0-33.0 pg Mean Corpuscular Hemoglobin Concent 32.8 32.0-36.0 g/dL Red Cell Distribution Width 21.6 H 11.0-15.5 % Platelet Count 222 130-400 K/uL Mean Platelet Volume 8.7 7.5-10.5 fL Immature Granulocyte % (Auto) 0.2 0-1 % Neutrophils (%) (Auto) 67.1 40.0-77.0 % Lymphocytes (%) (Auto) 18.8 L 21.0-51.0 % Monocytes (%) (Auto) 11.5 3.0-13.0 % Eosinophils (%) (Auto) 1.5 0.0-8.0 % Basophils (%) (Auto) 0.9 0.0-5.0 % Neutrophils # (Auto) 3.0 1.8-7.7 K/uL Lymphocytes # (Auto) 0.9 L 1.0-4.8 K/uL Monocytes # (Auto) 0.5 0.1-1.0 K/uL Eosinophils # (Auto) 0.07 0.00-0.70 K/uL Basophils # (Auto) 0.04 0.00-0.20 K/uL Absolute Immature Granulocyte (auto 0.01 0-1 K/uL Nucleated Red Blood Cells 1.1 H 0.0-0.19 % Sodium Level 125 L 136-145 mmol/L Potassium Level 4.6 3.5-5.1 mmol/L Chloride Level 89 *L 101-111 mmol/L Carbon Dioxide Level 28 21-32 mmol/L Blood Urea Nitrogen 47 H 7-18 mg/dL Creatinine 4.3 H 0.5-1.0 mg/dL Glomerular Filtration Rate Calc 12 >90 mL/min Random Glucose 101 70-105 mg/dL Total Calcium 7.8 L 8.5-10.1 mg/dL Magnesium Level 2.60 H 1.80-2.40 mg/dL Total Bilirubin 0.8 0.2-1.0 mg/dL Aspartate Amino Transf (AST/SGOT) 46 H 10-37 U/L Alanine Aminotransferase (ALT/SGPT) 27 12-78 U/L Alkaline Phosphatase 422 H 50-136 U/L Total Protein 8.7 H 6.0-8.3 g/dL Albumin 2.5 L 3.5-5.0 g/dL Phosphorus Level 4.4 2.5-4.9 mg/dL Current Medications Medications (Trade) Dose Ordered Sig/[place]aven Route PRN Reason Start Time Stop Time Status Last Admin Dose Admin Acetaminophen (TYLenol 325MG TAB) 650 mg Q6H PRN PO MILD PAIN (1-3) 02/20/25 14:00 03/22/25 13:59 02/22/25 22:07 650 MG Acetaminophen/ Codeine Phosphate (TYLenol-coDEINE TAB) 1 tab Q6H6 PRN PO MODERATE PAIN (4-6) 02/22/25 12:30 03/24/25 12:29 02/23/25 00:20 1 TAB Albumin Human (Albumin (Human) 25%) 100 ml ONCE IV 02/21/25 10:00 02/22/25 09:59 DC 02/21/25 11:01 100 ML Albumin Human (Albumin (Human) 25%) 100 ml ONCE IV 02/22/25 14:45 02/23/25 14:44 02/22/25 15:14 100 ML Albuterol (DUOneb) 1 udvial Q6H PRN IH SHORTNESS OF BREATH 02/20/25 14:00 03/22/25 13:59 Aspirin (Aspirin 81mg Chew Tab) 81 mg DAILY PO 02/21/25 09:00 02/20/25 22:04 DC Aspirin (Aspirin 81mg Chew Tab) 81 mg DAILY PO 02/21/25 09:00 03/23/25 08:59 02/23/25 09:02 81 MG Atorvastatin Calcium (LIPItor 40MG) 40 mg HS PO 02/21/25 21:00 03/23/25 20:59 02/22/25 20:22 40 MG Budesonide (Pulmicort 0.5 Mg/2ml) 0.5 mg BIDRESP IH 02/20/25 14:00 03/22/25 13:59 02/23/25 06:47 0.5 MG Cinacalcet (Sensipar 30mg Tab) 30 mg DAILY PO 02/21/25 09:00 03/23/25 08:59 02/23/25 09:04 30 MG Dextrose (D50w) 50 ml AD PRN IV HYPOGLYCEMIA PROTOCOL 02/20/25 14:00 03/22/25 13:59 Docusate Sodium (COLace 100MG CAP) 100 mg BID PO 02/21/25 09:00 03/23/25 08:59 02/23/25 09:02 100 MG Epoetin Raúl-epbx (Retacrit) 10,000 unit QTUTHSA[DIALYSIS] SQ 02/22/25 16:00 03/24/25 15:59 02/22/25 17:16 10,000 UNIT Gabapentin (NEURontin 100 mg CAP) 300 mg AD PO 02/20/25 22:00 02/21/25 07:17 DC Gabapentin (NEURontin 300 MG CAP) 300 mg QTUTHSA@2100 PO 02/22/25 21:00 03/22/25 21:59 02/22/25 20:21 300 MG Gentamicin Sulfate (GENTAmicin SULFate 15 gm cream) 1 APPL DAILY TP 02/21/25 09:00 03/07/25 08:59 02/22/25 10:08 1 APPL Glucagon (Glucagon 1mg Kit) 1 mg AD PRN IM HYPOGLYCEMIA PROTOCOL 02/20/25 14:00 03/22/25 13:59 Heparin Sodium (Porcine) (HEParin 5,000 UNIT VIAL) 5,000 unit Q12H SQ 02/20/25 21:00 03/22/25 20:59 02/23/25 09:06 5,000 UNIT Hydroxyzine HCl (ATArax 25MG TAB) 25 mg Q12H PRN PO ANXIETY 02/20/25 22:00 03/22/25 21:59 02/22/25 21:13 25 MG Insulin Human Regular (humuLIN R 100 UNIT/ML 3ML) INSULIN SLIDING SCAL... ACHS SQ 02/20/25 16:30 03/22/25 16:29 Leptospermum Honey (Medihoney) 1 APPL DAILY TP 02/21/25 09:00 03/23/25 08:59 02/22/25 10:08 1 APPL Meropenem (Merrem 500mg) 500 mg Q24H IVPB 02/20/25 18:00 02/27/25 17:59 02/22/25 17:16 500 MG Metoclopramide HCl (regLAN 5 MG TAB) 5 mg TID PO 02/21/25 09:00 03/23/25 08:59 02/23/25 09:03 5 MG Midodrine (PROAMatine 5 MG TABLET) 5 mg TID PRN PO IF bp less than 90/60 02/20/25 14:00 02/21/25 09:13 DC 02/21/25 04:28 5 MG Midodrine (PROAMatine 5 MG TABLET) 10 mg TID PO 02/21/25 09:30 03/22/25 13:59 02/23/25 09:02 10 MG Nitroglycerin (Nitrostat) 0.4 mg AD PRN SL CHEST PAIN 02/20/25 14:00 03/22/25 13:59 Norepinephrine 250 ml @ 0 mls/hr AD PRN IV DIRECTED 02/22/25 11:00 03/24/25 10:59 Ondansetron HCl (zoFRAN 4MG INJ) 4 mg Q6H PRN IVP NAUSEA/VOMITING 02/20/25 14:00 03/22/25 13:59 02/22/25 11:41 4 MG Pantoprazole Sodium (PROTonix 40MG INJ) 40 mg Q24H IVP 02/20/25 14:00 03/22/25 13:59 02/22/25 13:08 40 MG Pharmacy Profile Note (Lace Assessment) 1 each AD MISC 02/21/25 11:00 02/21/25 10:59 DC Pharmacy Profile Note (Pharmacy Communication) 1 each ONCE MISC 02/20/25 16:00 02/20/25 15:58 DC Piperacillin Sod/ Tazobactam Sod (Zosyn 3.375gm+NS 50ml) 3.375 gm Q12H IVPB 02/20/25 14:00 02/20/25 15:53 DC 02/20/25 14:57 3.375 GM Sennosides (Senna) 1 tab DAILY PO 02/21/25 09:00 03/23/25 08:59 02/23/25 09:03 1 TAB Sevelamer HCl (RENAgel 800 MG TAB) 2,400 mg TID PO 02/21/25 09:00 03/23/25 08:59 02/23/25 09:03 2,400 MG Sodium Hypochlorite (Dakin'S 0.25% Half Strength) 1 APPL DAILY TP 02/22/25 09:00 03/24/25 08:59 02/23/25 09:07 1 APPL Sodium Chloride 250 ml @ 0 mls/hr AD IV 02/21/25 10:00 03/23/25 09:59 Sodium Chloride 1,000 ml @ 0 mls/hr ONCE IV 02/21/25 10:00 03/23/25 09:59 02/22/25 15:14 1,000 MLS/HR Vancomycin HCl (Vancomycin 750mg) 750 mg QTUTHSA[DIALYSIS] IVPB 02/22/25 16:00 03/04/25 15:59 02/22/25 17:16 750 MG Vancomycin HCl (Vancomycin Protocol) 1 each AD IV 02/20/25 14:00 03/06/25 13:59 Vitamin B Complex/ Vit C/Folic Acid (Nephrovite Tablet) 1 cap DAILY PO 02/21/25 09:00 03/23/25 08:59 02/23/25 09:02 1 CAP DIAGNOSTICS / RADIOLOGY: [ ] ASSESSMENT: Acute hypoxemic respiratory failure, POA Hypotension status post IV fluids as outpatient, resolving, POA Elevated troponin, rule out active ACS, POA Decompensated heart failure exacerbation, POA Toxic/metabolic encephalopathy, POA Rule out developing community-acquired pneumonia, POA Right-sided pleural effusion, POA r/o Pulmonary HTN, POA Pulmonary edema, POA History of complicated wounds involving bilateral lower extremities with superimposed active cellulitis, POA Debility/frailty, POA History of ESRD, POA Anemia, POA History of GI bleed requiring hospitalization in [facility] in 09/2024, POA Rule out cirrhosis of the liver , POA History of severe tricuspid regurgitation noted on 2D echocardiogram from 01/2024, POA Obesity, POA Hyponatremia, POA Hyperlipidemia, POA PLAN: the patient has been seen and examined at bedside, case discussed with the RN. Patient remains admitted to the ICU, awake, following commands. BP 115/71, heart rate of 65, saturating 93-95% on mechanical ventilation, CBC shows a hemoglobin of 8.6, hematocrit 26.2, WBC of 4.5, with a platelet count of 222, sodium 135, potassium 4.6, BUN of 47, creatinine of 4.3, magnesium 2.6. Chest x-ray 02/22/2025 shows severe right pleural effusion with underlying atelectasis, mild to moderate pulmonary venous congestion, cardiomegaly, no significant interval change. Today's chest x-ray pending. Pulmonary input noted and appreciated, patient is scheduled for possible thoracentesis on Wednesday morning, Eliquis on hold since 02/20. Continue the patient on supplemental oxygen via nasal cannula to keep oxygen saturation greater than 92%. NEURO: Minimize central acting medications as possible. Fall Precautions. Well lighted room through the day and minimize interruptions through the night to prevent acute delirium. PULMONARY: Supplemental 02 as needed BiPAP as necessary, for respiratory distress Titrate Fio2 to keep Spo2 > or = 90% DuoNebs and CPT as needed IS hourly while awake for pulmonary hygiene prn Out of bed to chair as tolerated Maintain aspiration precautions at all times CARDIOVASCULAR: Follow hemodynamics. Vital signs per facility protocol GI & NUTRITION: Continue nutritional support Aspirations precautions Prokinetic agents and laxatives as needed KIDNEYS & ELECTROLYTES: Strict monitoring of intake and output Daily weights Avoid nephrotoxic agents Monitor electrolytes and replace as needed Goal urine output of 30mL/hr or 0.5mL/kg/hr Medications to be dosed according to renal function. Avoid contrast if possible ENDOCRINE: Maintain blood glucose between 100-180 at all times. Insulin sliding scale for blood glucose management Hypoglycemia and hyperglycemia protocol in place INFECTIOUS DISEASE: Trend temperature, WBC and procalcitonin level Follow cultures, deescalate antibiotics as soon as possible. Panculture if new onset fever HEMATOLOGY & COAGULATION: Monitor H&H. Keep Hgb > 7 Transfuse 1 unit of PRBC for Hgb < 7 Transfuse 1 pack of platelets of platelets < 20, 000 Watch for any signs and symptoms of bleeding SKIN: Pressure ulcer prevention per facility protocol Specialty mattress as needed ORTHO/REHAB Continue PT/OT PRN: MEDICATIONS Tylenol 650 mg po every 4 hrs for fever zofran 4 mg IV every 6 hrs for n/v Hydralazine 5 mg IV every 4 hrs systolic pressure > 160 bowel regiment: lactulose 20 gm PO BID PRN constipation Supportive measures: Continue GI and DVT prophylaxis Disposition: Pending improvement in clinical condition All questions answered time spent: > 35 min KADEN WHITE MD Feb 23, 2025 11:24
--- NOTE | 2025-02-23 12:04 | NUR ---
discharged home with family. Instructions for home meds and followup appt reviewed. wheeled to car via .
--- NOTE | 2025-02-23 12:16 | PN ---
NEPHROLOGY PROGRESS NOTE Date/Time Patient Seen: Feb 23, 2025 SUBJECTIVE: This is a 49-year-old female with a history of diabetes mellitus,hypertension, vascular disease,end-stage renal disease on dialysis Wednesday, , Wednesday. The patient initially presented to the hospital with significant hypotension. The patient with systolic blood pressures in the 90s. The patient had not been receiving any antihypertensive medications. The patient's chest x-ray reveals pulmonary vascular congestion. 2D echo results are all noted and she is being seen in consultation for all of the above. Cardiology workup is ongoing She tolerated dialysis yesterday Continues on Midodrine Continues on antibiotics Continues on Epogen on dialysis days Pending thoracentesis, Eliquis on hold REVIEW OF SYSTEMS: GENERAL: Negative for any nausea, vomiting, fevers, chills, or weight loss. NEUROLOGIC: Negative for any blurry vision, blind spots, double vision, facial asymmetry, dysphagia, dysarthria, hemiparesis, hemisensory deficits, vertigo, ataxia. HEENT: Negative for any head trauma, neck trauma, neck stiffness, photophobia, phonophobia, sinusitis, rhinitis. CARDIAC: Negative for any chest pain, dyspnea on exertion, paroxysmal nocturnal dyspnea, peripheral edema. PULMONARY: Negative for any shortness of breath, wheezing, COPD, or TB exposure. GASTROINTESTINAL: Negative for any abdominal pain, nausea, vomiting, bright red blood per rectum, melena. GENITOURINARY: Negative for any dysuria, hematuria, incontinence. INTEGUMENTARY: Negative for any rashes, cuts, insect bites. RHEUMATOLOGIC: Negative for any joint pains, photosensitive rashes, history of vasculitis or kidney problems. HEMATOLOGIC: Negative for any abnormal bruising, frequent infections or bleeding. Vital Signs (last 8hr) Date Time Temp Pulse Resp B/P (MAP) Pulse Ox O2 Delivery O2 Flow Rate FiO2 02/23/25 11:00 97.5 68 18 100/59 96 Nasal Cannula 3.0 02/23/25 08:00 97.7 65 19 115/71 93 Nasal Cannula 02/23/25 07:38 68 22 N/Cannula Low lpm 3.0 32 02/23/25 07:30 93 Nasal Cannula* 3 32 02/23/25 07:00 65 12 101/64 95 Nasal Cannula 02/23/25 06:47 65 20 PHYSICAL EXAM: GENERAL: Alert and oriented x 3. No acute distress. Well-nourished. EYES: EOMI. Anicteric. HENT: Moist mucous membranes. No scleral icterus. No cervical lymphadenopathy. LUNGS: Clear to auscultation bilaterally. No accessory muscle use. CARDIOVASCULAR: Regular rate and rhythm. No murmur. No JVD. ABDOMEN: Soft, non-tender and non-distended. No palpable masses. EXTREMITIES: No edema. Non-tender. SKIN: No rashes or lesions. Warm. NEUROLOGIC: No focal neurological deficits. CN II-XII grossly intact, but not individually tested. PSYCHIATRIC: Cooperative. Appropriate mood and affect. Current Medications Medications (Trade) Dose Ordered Sig/Haven Route PRN Reason Start Time Stop Time Status Last Admin Dose Admin Acetaminophen (TYLenol 325MG TAB) 650 mg Q6H PRN PO MILD PAIN (1-3) 02/20/25 14:00 03/22/25 13:59 02/22/25 22:07 650 MG Acetaminophen/ Codeine Phosphate (TYLenol-coDEINE TAB) 1 tab Q6H6 PRN PO MODERATE PAIN (4-6) 02/22/25 12:30 03/24/25 12:29 02/23/25 00:20 1 TAB Albumin Human (Albumin (Human) 25%) 100 ml ONCE IV 02/21/25 10:00 02/22/25 09:59 DC 02/21/25 11:01 100 ML Albumin Human (Albumin (Human) 25%) 100 ml ONCE IV 02/22/25 14:45 02/23/25 14:44 02/22/25 15:14 100 ML Albuterol (DUOneb) 1 udvial Q6H PRN IH SHORTNESS OF BREATH 02/20/25 14:00 03/22/25 13:59 Aspirin (Aspirin 81mg Chew Tab) 81 mg DAILY PO 02/21/25 09:00 02/20/25 22:04 DC Aspirin (Aspirin 81mg Chew Tab) 81 mg DAILY PO 02/21/25 09:00 03/23/25 08:59 02/23/25 09:02 81 MG Atorvastatin Calcium (LIPItor 40MG) 40 mg HS PO 02/21/25 21:00 03/23/25 20:59 02/22/25 20:22 40 MG Budesonide (Pulmicort 0.5 Mg/2ml) 0.5 mg BIDRESP IH 02/20/25 14:00 03/22/25 13:59 02/23/25 06:47 0.5 MG Cinacalcet (Sensipar 30mg Tab) 30 mg DAILY PO 02/21/25 09:00 03/23/25 08:59 02/23/25 09:04 30 MG Dextrose (D50w) 50 ml AD PRN IV HYPOGLYCEMIA PROTOCOL 02/20/25 14:00 03/22/25 13:59 Docusate Sodium (COLace 100MG CAP) 100 mg BID PO 02/21/25 09:00 03/23/25 08:59 02/23/25 09:02 100 MG Epoetin Raúl-epbx (Retacrit) 10,000 unit QTUTHSA[DIALYSIS] SQ 02/22/25 16:00 03/24/25 15:59 02/22/25 17:16 10,000 UNIT Gabapentin (NEURontin 100 mg CAP) 300 mg AD PO 02/20/25 22:00 02/21/25 07:17 DC Gabapentin (NEURontin 300 MG CAP) 300 mg QTUTHSA@2100 PO 02/22/25 21:00 03/22/25 21:59 02/22/25 20:21 300 MG Gentamicin Sulfate (GENTAmicin SULFate 15 gm cream) 1 APPL DAILY TP 02/21/25 09:00 03/07/25 08:59 02/22/25 10:08 1 APPL Glucagon (Glucagon 1mg Kit) 1 mg AD PRN IM HYPOGLYCEMIA PROTOCOL 02/20/25 14:00 03/22/25 13:59 Heparin Sodium (Porcine) (HEParin 5,000 UNIT VIAL) 5,000 unit Q12H SQ 02/20/25 21:00 03/22/25 20:59 02/23/25 09:06 5,000 UNIT Hydroxyzine HCl (ATArax 25MG TAB) 25 mg Q12H PRN PO ANXIETY 02/20/25 22:00 03/22/25 21:59 02/22/25 21:13 25 MG Insulin Human Regular (humuLIN R 100 UNIT/ML 3ML) INSULIN SLIDING SCAL... ACHS SQ 02/20/25 16:30 03/22/25 16:29 Leptospermum Honey [facility]) 1 APPL DAILY TP 02/21/25 09:00 125/25 08:59 02/22/25 10:08 1 APPL Meropenem (Merrem 500mg) 500 mg Q24H IVPB 02/20/25 18:00 02/27/25 17:59 02/22/25 17:16 500 MG Metoclopramide HCl (regLAN 5 MG TAB) 5 mg TID PO 02/21/25 09:00 03/23/25 08:59 02/23/25 09:03 5 MG Midodrine (PROAMatine 5 MG TABLET) 5 mg TID PRN PO IF bp less than 90/60 02/20/25 14:00 02/21/25 09:13 DC 02/21/25 04:28 5 MG Midodrine (PROAMatine 5 MG TABLET) 10 mg TID PO 02/21/25 09:30 03/22/25 13:59 02/23/25 09:02 10 MG Nitroglycerin (Nitrostat) 0.4 mg AD PRN SL CHEST PAIN 02/20/25 14:00 03/22/25 13:59 Norepinephrine 250 ml @ 0 mls/hr AD PRN IV DIRECTED 02/22/25 11:00 03/24/25 10:59 Ondansetron HCl (zoFRAN 4MG INJ) 4 mg Q6H PRN IVP NAUSEA/VOMITING 02/20/25 14:00 03/22/25 13:59 02/22/25 11:41 4 MG Pantoprazole Sodium (PROTonix 40MG INJ) 40 mg Q24H IVP 02/20/25 14:00 03/22/25 13:59 02/22/25 13:08 40 MG Pharmacy Profile Note (Lace Assessment) 1 each AD MISC 02/21/25 11:00 02/21/25 10:59 DC Pharmacy Profile Note (Pharmacy Communication) 1 each ONCE MISC 02/20/25 16:00 02/20/25 15:58 DC Piperacillin Sod/ Tazobactam Sod (Zosyn 3.375gm+NS 50ml) 3.375 gm Q12H IVPB 02/20/25 14:00 02/20/25 15:53 DC 02/20/25 14:57 3.375 GM Sennosides (Senna) 1 tab DAILY PO 02/21/25 09:00 03/23/25 08:59 02/23/25 09:03 1 TAB Sevelamer HCl (RENAgel 800 MG TAB) 2,400 mg TID PO 02/21/25 09:00 03/23/25 08:59 02/23/25 09:03 2,400 MG Sodium Hypochlorite (Dakin'S 0.25% Half Strength) 1 APPL DAILY TP 02/22/25 09:00 03/24/25 08:59 02/23/25 09:07 1 APPL Sodium Chloride 250 ml @ 0 mls/hr AD IV 02/21/25 10:00 03/23/25 09:59 Sodium Chloride 1,000 ml @ 0 mls/hr ONCE IV 02/21/25 10:00 03/23/25 09:59 02/22/25 15:14 1,000 MLS/HR Vancomycin HCl (Vancomycin 750mg) 750 mg QTUTHSA[DIALYSIS] IVPB 02/22/25 16:00 03/04/25 15:59 02/22/25 17:16 750 MG Vancomycin HCl (Vancomycin Protocol) 1 each AD IV 02/20/25 14:00 03/06/25 13:59 Vitamin B Complex/ Vit C/Folic Acid (Nephrovite Tablet) 1 cap DAILY PO 02/21/25 09:00 03/23/25 08:59 02/23/25 09:02 1 CAP LABORATORY: [ ] Hematology Labs: Test 02/23/25 05:19 Range/Units White Blood Count 4.5 L 4.8-10.8 K/uL Red Blood Count 2.63 L 4.00-5.50 MIL/uL Hemoglobin 8.6 L 12.0-16.0 g/dL Hematocrit 26.2 L 36-48 % Mean Corpuscular Volume 99.6 H 79-99 fL Mean Corpuscular Hemoglobin 32.7 27.0-33.0 pg Mean Corpuscular Hemoglobin Concent 32.8 32.0-36.0 g/dL Red Cell Distribution Width 21.6 H 11.0-15.5 % Platelet Count 222 130-400 K/uL Mean Platelet Volume 8.7 7.5-10.5 fL Immature Granulocyte % (Auto) 0.2 0-1 % Neutrophils (%) (Auto) 67.1 40.0-77.0 % Lymphocytes (%) (Auto) 18.8 L 21.0-51.0 % Monocytes (%) (Auto) 11.5 3.0-13.0 % Eosinophils (%) (Auto) 1.5 0.0-8.0 % Basophils (%) (Auto) 0.9 0.0-5.0 % Neutrophils # (Auto) 3.0 1.8-7.7 K/uL Lymphocytes # (Auto) 0.9 L 1.0-4.8 K/uL Monocytes # (Auto) 0.5 0.1-1.0 K/uL Eosinophils # (Auto) 0.07 0.00-0.70 K/uL Basophils # (Auto) 0.04 0.00-0.20 K/uL Absolute Immature Granulocyte (auto 0.01 0-1 K/uL Nucleated Red Blood Cells 1.1 H 0.0-0.19 % Chemistry Labs: Test 02/23/25 11:21 02/23/25 05:19 02/22/25 03:48 Range/Units Whole Blood Glucose 82 70-110 MG/DL Sodium Level 125 L 136-145 mmol/L Potassium Level 4.6 3.5-5.1 mmol/L Chloride Level 89 *L 101-111 mmol/L Carbon Dioxide Level 28 21-32 mmol/L Blood Urea Nitrogen 47 H 7-18 mg/dL Creatinine 4.3 H 0.5-1.0 mg/dL Glomerular Filtration Rate Calc 12 >90 mL/min Random Glucose 101 70-105 mg/dL Total Calcium 7.8 L 8.5-10.1 mg/dL Magnesium Level 2.60 H 1.80-2.40 mg/dL Total Bilirubin 0.8 0.2-1.0 mg/dL Aspartate Amino Transf (AST/SGOT) 46 H 10-37 U/L Alanine Aminotransferase (ALT/SGPT) 27 12-78 U/L Alkaline Phosphatase 422 H 50-136 U/L Total Protein 8.7 H 6.0-8.3 g/dL Albumin 2.5 L 3.5-5.0 g/dL Phosphorus Level 4.4 2.5-4.9 mg/dL Coagulation Labs: Test 02/23/25 08:10 Range/Units Prothrombin Time 12.8 H 9.6-11.6 SEC Prothromb Time International Ratio 1.23 H 0.85-1.15 Activated Partial Thromboplast Time 34.3 26.3-35.5 SEC DIAGNOSTICS / RADIOLOGY: [place] [id number] [id number] IMAGING REPORT Signed PATIENT: FLOR MARTIN MR#: [id number] : 1975 SEX: F AGE: 49 LOCATION: 2BH ORDER 2300 STATUS: ADM IN REPORT#: [id number] SERVICE 0600 REASON: pp ORDERING PHYSICIAN: ANNE ARCE PAC PROCEDURE: CXR1VW - CHEST 1VW EXAM: CR Chest,1 View. CLINICAL HISTORY: Breathlessness. COMPARISON: Chest x-ray dated 02/21/2025 FINDINGS: LUNGS: Mild to moderate pulmonary venous congestion in bilateral lung blanc. PLEURAL SPACES: No evidence of pneumothorax. Severe right pleural effusion with underlying atelectasis of the lung segments. MEDIASTINUM: Cardiac size and mediastinal contours appears grossly enlarged. BONES: No aggressive appearing osseous lesion seen. IMPRESSION: Severe right pleural effusion with underlying atelectasis. Mild to moderate pulmonary venous congestion. Cardiomegaly. No significant interval change. /Arvin DICTATED BY: SMITHA PIERRE MD DATE: 02/23/25902 ELECTRONICALLY SIGNED BY: SMITHA PIERRE MD DATE: 02/23/25902 PATIENT: FLOR MARTIN MR#: [id number] : 1975 SEX: F AGE: 49 LOCATION: 2BH ORDER 1014 STATUS: ADM IN REPORT#: [id number] SERVICE 1013 REASON: pp ORDERING PHYSICIAN: ANNE ARCE PAC PROCEDURE: CXR1VW - CHEST 1VW EXAM: CR Chest, 1 View. CLINICAL HISTORY: pp COMPARISON: CR and CT dated 02/20/2025 FINDINGS: LUNGS: Relatively stable right moderate pleural effusion with right mid and lower zone consolidation. No pneumothorax. MEDIASTINUM: Stable cardiomegaly with pulmonary vascular congestion. BONES: No aggressive appearing osseous lesion seen. IMPRESSION: 1. Stable right moderate pleural effusion with right mid and lower zone consolidation. 2. Stable cardiomegaly with pulmonary vascular congestion. No significant interval changes. /Arvin DICTATED BY: RADHA HERRERA Jr., MD DATE: 02/22/25630 ELECTRONICALLY SIGNED BY: RADHA HERRERA Jr., MD DATE: 02/22/25630 PATIENT: FLOR MARTIN MR#: [id number] : 1975 SEX: F AGE: 49 LOCATION: 2AH ORDER 20 STATUS: ADM IN REPORT#: [id number] SERVICE 19 REASON: assess for cirrhosis of the liver, assess for any significant ascites ORDERING PHYSICIAN: TIMMY MERCHANT MD PROCEDURE: ABDOMEN - US ABDOMINAL COMPLETE EXAMINATION: ULTRASOUND OF THE ABDOMEN WITH COLOR DOPPLER. CLINICAL HISTORY: To assess for cirrhosis and ascites. COMPARISON: Prior CT dated 03/05/2024. TECHNIQUE: Real-time grayscale ultrasound images of the abdomen. In addition, color Doppler is medically necessary to perform in order to evaluate vascularity and blood flow. FINDINGS: Liver: Enlarged liver with fatty tissue. There is no focal hepatic abnormality or intrahepatic biliary ductal dilatation. There is normal spectral Doppler of the main portal vein. Gallbladder: Contracted with mild wall thickening (0.55 cm). There is a calculus that measures 1.0 cm. Common bile duct is normal in caliber, measuring 0.5 cm. Spleen is bulky in caliber and measures 12.5 cm in craniocaudal dimension. No focal lesions. Pancreas: Obscured by overlying bowel gas. The kidneys are smaller in caliber, the right kidney measures 6.0 x 4.0 x 4.1 cm and the left kidney measures 7.0 x 3.0 x 3.8 cm in craniocaudal, AP, and transverse dimensions respectively. There is renal cortical thinning and increased cortical echogenicity. There is no renal calculus or hydronephrosis. The abdominal aorta is obscured by overlying bowel gas. The inferior vena cava is dilated and measures 3.8 cm. There is subcutaneous edema in the right and left lower quadrants. IMPRESSION: Hepatosplenomegaly with fatty infiltration of the liver. Contracted gallbladder with calculus. No Brad cholecystic fluid or gallbladder wall thickening. Bilateral smaller kidneys with renal parenchymal disease. No hydronephrosis. Dilated inferior vena cava. /Arvin DICTATED BY: SMITHA PIERRE MD DATE: 02/21/25624 ELECTRONICALLY SIGNED BY: SMITHA PIERRE MD DATE: 02/21/25624 PATIENT: FLOR MARTIN MR#: [id number] : 1975 SEX: F AGE: 49 LOCATION: [facility] ORDER 47 STATUS: ADM IN REPORT#: [id number] SERVICE 46 REASON: elevated troponin, esrd, hx of tr ORDERING PHYSICIAN: TIMMY MERCHANT MD PROCEDURE: ECHO [facility] - ECHO 2-D COMPLETE APPROVED REPORT EXAM: Two-dimensional and M-mode echocardiogram with Doppler and color Doppler. INDICATION ICD: elevated troponin, hx of tr, esrd 2D Dimensions RVDd 6.0 cm LVEF(%) 69.4 (>50%) LVED Vol(simp.) 122.8 mL IVSd 1.2 (0.7-1.1cm) FS(%) 39 % LVES Vol(simp.) 54.1 mL LVDd 4.5 (3.8-5.6cm) LA (2D) 4.6 (1.6-4.0cm) LVEF(%, simp.) 56 % PWd 1.7 (0.7-1.1cm) Ao Root(2D) 2.9 (2.0-3.7cm) LA ESV INDEX (BP) 59.61 mL/m2 LVDs 2.8 (2.5-4.0cm) LVOT diam 1.9 (1.8-2.4cm) IVC diam 3.5 cm Deformation Strain Apical 4 -13.9 % Apical 2 -7.4 % Apical 3 -14.3 % Global Strain -11.9 % M-Mode Dimensions EPSS 0.5 cm LA (MM) 4.8 (1.6-4.0cm) Ao Root(MM) 3.1 (2.0-3.7cm) Aortic Valve AoV Vmax 1.8 m/s Ao Peak GR 13.6 mmHg LVOT Vmax 1.4 m/s AoV VTI 0.4 m Ao Mean GR 6.8 mmHg LVOT VTI 0.36 m TJ (VMAX) 2.19 cm2 TJ (VTI) 2.3 cm2 Mitral Valve MV E Vmax 141.2 cm/s DECEL Time 295 ms MV A Vmax 93.2 cm/s P 1/2 T 120 ms E/A ratio 1.5 MVA (PHT) 1.8 cm2 TDI E/E' Medial 25.4 E/E' Lateral 17.0 Medial E' Peak V 5.56 cm/s Lateral E' Peak V 8.30 cm/s Pulmonary Valve PV Vmax 1.0 m/s PV VTI 0.32 m PV Mean GR 2.0 mmHg PV Peak GR 3.8 mmHg Tricuspid Valve TR Vmax 3.0 m/s RAP (EST) 15 mmHg RVSP 57.4 mmHg TR Peak GR 42.4 mmHg Left Ventricle The left ventricle is normal size. Mild to moderate left ventricular hypertrophy. LVEF is 55-60%. Stage II diastolic dysfunction. Right Ventricle The right ventricle is severely dilated. Right ventricular systolic function is mildly reduced. Atria The left atrium is severely dilated. The right atrium is severely dilated. Aortic Valve The aortic valve is calcified but opens well. No aortic regurgitation is present. There is no aortic valvular stenosis. Mitral Valve Posterior mitral valve leaflet is severely calcified. Mild mitral annular calcification present. There is no evidence of significant mitral regurgitation. There is no mitral valve stenosis. Tricuspid Valve The tricuspid valve is normal in structure. There is severe tricuspid valve regurgitation noted. RVSP 54 mm hg. Pulmonic Valve The pulmonary valve is normal in structure. There is mild pulmonic valvular regurgitation. Great Vessels The aortic root is normal in size. The inferior vena cava is severely dilated with a decrease in inspiratory collapse. Pericardium There is no pericardial effusion. Conclusion The left ventricle is normal size. Mild to moderate left ventricular hypertrophy. LVEF is 55-60%. Stage II diastolic dysfunction. The right ventricle is severely dilated. Right ventricular systolic function is mildly reduced. The left atrium is severely dilated. The right atrium is severely dilated. Posterior mitral valve leaflet is severely calcified. Mild mitral annular calcification present. There is severe tricuspid valve regurgitation noted. RVSP 54 mm hg. The inferior vena cava is severely dilated with a decrease in inspiratory collapse. There is no pericardial effusion. DICTATED BY: JARED HERNANDEZ MD DATE: 02/20/25 1436 ELECTRONICALLY SIGNED BY: JARED HERNANDEZ MD DATE: 02/20/25 1839 PATIENT: FLOR MARTIN MR#: [id number] : 1975 SEX: F AGE: 49 LOCATION: [facility] ORDER 1346 STATUS: ADM IN REPORT#: [id number] SERVICE 1340 REASON: SEVERE LOWER EXTREMITY EDEMA, R/O DVT ORDERING PHYSICIAN: TIMMY MERCHANT MD PROCEDURE: VENOUS RYAN - US VENOUS DOPPLER BILATERAL EXAM: US for Deep Venous Thrombosis, bilateral Lower Extremity. CLINICAL HISTORY: Leg Pain and Swelling TECHNIQUE: Real-time ultrasound scan of the veins of the bilateral lower extremity with color Doppler flow, spectral waveform analysis and compression. COMPARISON: None provided. FINDINGS: Technologist reports severe edema limiting exam. DEEP VEINS: The common femoral, superficial femoral, and popliteal veins are echolucent and compressible. There is normal color Doppler flow throughout. The visualized calf veins appear patent. SOFT TISSUES: No popliteal fossa cyst or other abnormalities. IMPRESSION: No deep venous thrombosis evident on bilateral lower extremity examination. /Arvin DICTATED BY: RADHA HERRERA Jr., MD DATE: 02/20/25 154 ELECTRONICALLY SIGNED BY: RADHA HERRERA Jr., MD DATE: 02/20/25 154 PATIENT: FLOR MARTIN MR#: [id number] : 1975 SEX: F AGE: 49 LOCATION: [facility] ORDER 45 STATUS: ADM IN [facility] REPORT#: [id number] SERVICE 39 REASON: LETHARGY, HYPOTENSION ORDERING PHYSICIAN: TIMMY MERCHANT MD PROCEDURE: HEAD WO - CT HEAD/BRAIN W/O CONTRAST EXAM: CT Head Without IV contrast. CLINICAL HISTORY: LETHARGY, HYPOTENSION TECHNIQUE: Axial computed tomography images of the head/brain without intravenous contrast. COMPARISON: None provided. FINDINGS: BRAIN: No evidence of acute hemorrhage. No mass lesion. No CT evidence for acute territorial infarct. No midline shift or extra-axial collections. VENTRICLES: No hydrocephalus. ORBITS: The orbits are unremarkable. SINUSES AND MASTOIDS: The paranasal sinuses and mastoid air cells are clear. BONES: No fracture. SOFT TISSUES: Unremarkable. Probable lipoma in the nasal region IMPRESSION: No acute intracranial abnormality. /Arvin DICTATED BY: OTIS MERCEDES MD DATE: 02/20/251735 ELECTRONICALLY SIGNED BY: OTIS MERCEDES MD DATE: 02/20/251735 PATIENT: FLOR MARTIN MR#: [id number] : 1975 SEX: F AGE: 49 LOCATION: [facility] ORDER 45 STAT[facility]: [facility] REPORT#: [id number] SERVICE 39 REASON: ASSESS RIGHT SIDED PLEURAL EFFUSION, RIGHT LUNG INFILTRATES ORDERING PHYSICIAN: TIMMY MERCHANT MD PROCEDURE: CHEST WO - CT CHEST W/O CONTRAST EXAM: CT Chest Without IV contrast. CLINICAL HISTORY: Right pleural effusion and lung infiltrates TECHNIQUE: Thin collimated axial CT images of the chest were obtained with sagittal and coronal reformatted images also submitted for interpretation. The total dose length product has been recorded in the electronic medical record. CT scan done according to ALARA (As Low As Reasonably Achievable). COMPARISON: CR and CT chest dated 02/20/2025 and 12/09/2024, respectively. FINDINGS: Redemonstrated relatively unchanged, consolidations in the right lower lobe and right middle lobe. Mosaic attenuation in the bilateral lung blanc. Relatively increased moderate right pleural effusion with underlying partial collapse of the right lower lobe. Linear and subsegmental atelectasis in the bilateral lung blanc. No pericardial effusion. Moderate cardiomegaly. The main pulmonary artery is prominent, suggesting persistent pulmonary arterial hypertension. No axillary, supraclavicular, or mediastinal lymphadenopathy. Diffuse enlargement of the thyroid gland with small hyperdense nodules. Limited views of the upper abdomen demonstrate hepatomegaly. Splenic arterial wall calcifications. No acute or suspicious osseous abnormality. IMPRESSION: 1. Increased moderate right pleural effusion with partial right lower lobe collapse. 2. Unchanged consolidations in right lower and middle lobes. 3. Moderate cardiomegaly with prominent main pulmonary artery, suggesting persistent pulmonary arterial hypertension. /Arvin DICTATED BY: SMITHA PIERRE MD DATE: 02/21/25610 ELECTRONICALLY SIGNED BY: SMITHA PIERRE MD DATE: 02/21/25610 PATIENT: FLOR MARTIN MR#: [id number] : 1975 SEX: F AGE: 49 LOCATION: [facility] ORDER 24 STATUS: REG REPORT#: [id number] SERVICE 23 REASON: CHEST PAIN ORDERING PHYSICIAN: DAVID CAVAZOS PROCEDURE: CXR1VW - CHEST 1VW EXAM: CR Chest, 1 View. CLINICAL HISTORY: CHEST PAIN COMPARISON: Radiograph dated December 11, 2024 FINDINGS: There is bilateral perihilar and bibasilar airspace disease that may reflect pulmonary edema. Unchanged elevation of the right hemidiaphragm. Small to moderate right pleural effusion. Stable cardiomegaly. Pulmonary vascular congestion. No pneumothorax is appreciated. IMPRESSION: 1. Bilateral perihilar and bibasilar airspace disease, possibly representing pulmonary edema, with pulmonary vascular congestion and small to moderate right pleural effusion. 2. Cardiomegaly, unchanged. 3. Persistent elevation of the right hemidiaphragm. /Arvin DICTATED BY: RADHA HERRERA Jr., MD DATE: 02/20/251338 ELECTRONICALLY SIGNED BY: RADHA HERRERA Jr., MD DATE: 02/20/251338 ASSESSMENT: Acute hypoxemic respiratory failure Hypotension Elevated troponin, rule out active ACS Decompensated heart failure exacerbation, POA Toxic/metabolic encephalopathy, POA Rule out developing community-acquired pneumonia, POA Right-sided pleural effusion, POA r/o Pulmonary HTN, POA Pulmonary edema, POA History of complicated wounds involving bilateral lower extremities with superimposed active cellulitis, POA Debility/frailty, POA History of ESRD, POA Anemia, POA History of GI bleed requiring hospitalization in [facility] in 09/2024, POA Rule out cirrhosis of the liver , POA History of severe tricuspid regurgitation noted on 2D echocardiogram from 01/2024, POA Obesity, POA Hyponatremia, POA Hyperlipidemia, POA PLAN: Labs and Diagnostics/ Radiology personally reviewed and interpreted by myself and supervising physician We have reviewed dialysis and external records in detail Continue dialysis schedule Wednesday Cardiology workup is ongoing Pending thoracentesis. 1 L fluid restriction Continue to monitor H&H Epogen on dialysis days, as needed Continue with frequent monitoring of renal function, anemia, and electrolytes Order CBC, BMP, and electrolytes in the morning May use Dilaudid 0.5 mg IV every 6 hours as needed for severe pain Monitor blood pressure adjust medication doses as needed Strict intake, output, and daily weight should be monitored Please renally adjust medications. Avoid nephrotoxics and nonsteroidal drugs. We will continue to monitor the patient closely We have discussed with the other team physicians in detail about the care plan ATTESTATION BY PHYSICIAN I have seen and examined the patient. I reviewed the documentation, medical decision making, and treatment plan as noted by the mid-level provider above. I agree with the findings and plan of care. ARELIS CAMPOS MD, [facility] Feb 23, 2025 12:16
--- NOTE | 2025-02-23 13:10 | PN ---
[facility] PROGRESS NOTE Date Patient Seen: Feb 23, 2025 Time of Visit: 13:03 Supervising Physician: Dr Suzie Pablo Primary Care Physician: [ ] Outpatient Specialists: [ ] Inpatient Consults: [Dr Leonard, PROBLEM LIST: Acute hypoxemic respiratory failure Pulmonary Edema Chronic pleural effusion Elevated diaphragm Atelectasis ESRD in need of HD PAD Bilateral lower extremity wounds Noncompliance with hemodialysis INTERVAL HISTORY: Patient is awake alert and oriented, she tolerated her 2nd day of hemodialysis yesterday with a little more than 2.5 L being pulled out without the need for pressors. Day 1 she got a little over 500 She has been off the Eliquis now since the , plan is to do a CT in the morning and possible thoracentesis. Patient on nasal cannula at 3 L Patient tolerating her diet, we will place her NPO at midnight No acute events overnight Afebrile Plan: Following Nephrology recommendations Continue with midodrine CT tomorrow morning followed by thoracentesis We will resume Eliquis post procedure Total critical care time 41 minutes, time excludes any procedures or educational time. REVIEW OF SYSTEMS: 12 point ROS reviewed with patient. Pertinent positives mentioned above. Otherwise negative. PHYSICAL EXAM: GENERAL: alert, weak, awake oriented x 3 HEENT: EOMI, Sclera non icteric, moist mucosa NECK: Supple, no JVD, trachea midline LUNGS: Clear breath sounds bilaterally. No wheezes HEART: Regular rate and rhythm. Normal S1 and S2, without murmurs ABD: Abdomen soft, nontender. Bowel sounds present EXT: No clubbing cyanosis or edema NEURO: Alert and oriented to person, follows commands Vital Signs (last 8hr) Date Time Temp Pulse Resp B/P (MAP) Pulse Ox O2 Delivery O2 Flow Rate FiO2 02/23/25 11:00 97.5 68 18 100/59 96 Nasal Cannula 3.0 02/23/25 08:00 97.7 65 19 115/71 93 Nasal Cannula 02/23/25 07:38 68 22 N/Cannula Low lpm 3.0 32 02/23/25 07:30 93 Nasal Cannula* 3 32 02/23/25 07:00 65 12 101/64 95 Nasal Cannula 02/23/25 06:47 65 20 LABS: Hematology Labs: Test 02/23/25 05:19 Range/Units White Blood Count 4.5 L 4.8-10.8 K/uL Red Blood Count 2.63 L 4.00-5.50 MIL/uL Hemoglobin 8.6 L 12.0-16.0 g/dL Hematocrit 26.2 L 36-48 % Mean Corpuscular Volume 99.6 H 79-99 fL Mean Corpuscular Hemoglobin 32.7 27.0-33.0 pg Mean Corpuscular Hemoglobin Concent 32.8 32.0-36.0 g/dL Red Cell Distribution Width 21.6 H 11.0-15.5 % Platelet Count 222 130-400 K/uL Mean Platelet Volume 8.7 7.5-10.5 fL Immature Granulocyte % (Auto) 0.2 0-1 % Neutrophils (%) (Auto) 67.1 40.0-77.0 % Lymphocytes (%) (Auto) 18.8 L 21.0-51.0 % Monocytes (%) (Auto) 11.5 3.0-13.0 % Eosinophils (%) (Auto) 1.5 0.0-8.0 % Basophils (%) (Auto) 0.9 0.0-5.0 % Neutrophils # (Auto) 3.0 1.8-7.7 K/uL Lymphocytes # (Auto) 0.9 L 1.0-4.8 K/uL Monocytes # (Auto) 0.5 0.1-1.0 K/uL Eosinophils # (Auto) 0.07 0.00-0.70 K/uL Basophils # (Auto) 0.04 0.00-0.20 K/uL Absolute Immature Granulocyte (auto 0.01 0-1 K/uL Nucleated Red Blood Cells 1.1 H 0.0-0.19 % Chemistry Labs: Test 02/23/25 11:21 02/23/25 05:19 02/22/25 03:48 Range/Units Whole Blood Glucose 82 70-110 MG/DL Sodium Level 125 L 136-145 mmol/L Potassium Level 4.6 3.5-5.1 mmol/L Chloride Level 89 *L 101-111 mmol/L Carbon Dioxide Level 28 21-32 mmol/L Blood Urea Nitrogen 47 H 7-18 mg/dL Creatinine 4.3 H 0.5-1.0 mg/dL Glomerular Filtration Rate Calc 12 >90 mL/min Random Glucose 101 70-105 mg/dL Total Calcium 7.8 L 8.5-10.1 mg/dL Magnesium Level 2.60 H 1.80-2.40 mg/dL Total Bilirubin 0.8 0.2-1.0 mg/dL Aspartate Amino Transf (AST/SGOT) 46 H 10-37 U/L Alanine Aminotransferase (ALT/SGPT) 27 12-78 U/L Alkaline Phosphatase 422 H 50-136 U/L Total Protein 8.7 H 6.0-8.3 g/dL Albumin 2.5 L 3.5-5.0 g/dL Phosphorus Level 4.4 2.5-4.9 mg/dL Coagulation Labs: Test 02/23/25 08:10 Range/Units Prothrombin Time 12.8 H 9.6-11.6 SEC Prothromb Time International Ratio 1.23 H 0.85-1.15 Activated Partial Thromboplast Time 34.3 26.3-35.5 SEC DIAGNOSTICS / RADIOLOGY RESULTS: [ ] PLAN NEURO: Minimize central acting medications as possible. Fall Precautions. Well lighted room through the day and minimize interruptions through the night to prevent acute delirium. PULMONARY: Supplemental 02 as needed Titrate Fio2 to keep Spo2 > or = 90% DuoNebs and CPT as needed IS hourly while awake for pulmonary hygiene Out of bed to chair as tolerated VAP Bundle Vent/BIPAP Settings: [ ] Driving pressure: [ ] P Plat: [ ] Static C: [ ] Static R: [ ] P/F Ratio: [ ] CARDIOVASCULAR: Follow hemodynamics. Titrate vasopressor to keep MAP >65 or systolic blood pressure >95mmHg DIPS: [ ] LINES: [ ] GI & NUTRITION: Continue nutritional support Aspirations precautions Prokinetic agents and laxatives as needed KIDNEYS & ELECTROLYTES: Strict monitoring of intake and output Daily weights Avoid nephrotoxic agents Monitor electrolytes and replace as needed Goal urine output of 30mL/hr or 0.5mL/kg/hr Urine output: [ ] Fluid Balance: [ ] ENDOCRINE: Maintain blood glucose between 100-180 at all times. Insulin sliding scale for blood glucose management INFECTIOUS DISEASE: Trend temperature. Moran-culture if febrile. Micro: [ ] Antibiotics: [ ] HEMATOLOGY & COAGULATION: Monitor H&H. Keep Hgb > 7 Transfuse 1 unit of PRBC for Hgb < 7 Transfuse 1 pack of platelets of platelets < 20, 000 Watch for any signs and symptoms of bleeding SKIN: Pressure ulcer prevention per facility protocol Rehab: PT/OT Prophylaxis: GI: [ ] DVT: [ ] Code Status: Full Resuscitation Disposition: [ ] Case was discussed and seen with my supervising physician. The above plan was formulated and agreed upon. ANNE ARCE Feb 23, 2025 13:10 SUZIE MONTANEZ MD Feb 24, 2025 07:20
--- NOTE | 2025-02-23 16:15 | PN ---
PROGRESS NOTE Date of Service: Feb 23, 2025 Time of Service: 16:14 SUBJECTIVE: Patient is evaluated at bedside in room 207 for wound care follow up. Patient is awake, alert, oriented x 3. No signs of distress noted. Patient currently receiving dialysis at bedside. Nurse report patient was transferred to ICU due to shortness a breath with desaturation, O2 3l n/c REVIEW OF SYSTEMS CONSTITUTIONAL: Denies fever, chills, or fatigue. HEAD/FACE: No signs of trauma. EENT: Denies eye pain, blurred vision, double vision, or light sensitivity. RESPIRATORY: Positive shortness of breath, cough, wheezing CARDIOVASCULAR: Denies chest pain, palpitation, syncope GASTROINTESTINAL/ABDOMINAL: Denies abdominal pain, constipation, diarrhea, nausea or vomiting GENITOURINARY: Denies dysuria or hematuria. MUSCULOSKELETAL: Denies joint pain, tenderness, or trauma. INTEGUMENTARY: Chronic ulcer to bilateral lower legs with edema and erythema NEUROLOGICAL/PSYCH: Denies anxiety, depression, heat or cold intolerance. PHYSICAL EXAM EYES: Anicteric. Pupils equal and reactive. HENT: No oral thrush seen, moist Oral mucosa NECK: Supple, no JVD or thyromegaly. LUNGS: rales and rhonchi on o2 3L n/c CARDIOVASCULAR: S1, S2 regular. No murmur heard. ABDOMEN: Soft, non tender, bowel sounds present, no organomegaly CENTRAL NERVOUS SYSTEM: Awake, alert, oriented x 3. No focal deficits. SKIN: Bilateral lower legs noted with venous ulcers with granulation and minimal slough with moderate amount of serous drainage, no foul odor noted, no bleeding noted-improved LYMPHATICS: No peripheral lymphadenopathy MUSCULOSKELETAL: +2 edema noted with mild erythema to bilateral lower legs EXTREMITIES: No cyanosis or clubbing BACK: No deformity, no pressure ulcer. GENITOURINARY: No dysuria or hematuria Vital Signs (last 8hr) Date Time Temp Pulse Resp B/P (MAP) Pulse Ox O2 Delivery O2 Flow Rate FiO2 02/23/25 14:20 72 22 N/Cannula Low lpm 3.0 32 02/23/25 11:00 97.5 68 18 100/59 96 Nasal Cannula 3.0 LABS: Laboratory: Test 02/23/25 15:59 02/23/25 08:10 02/23/25 05:19 02/22/25 03:48 Range/Units Whole Blood Glucose 88 70-110 MG/DL Prothrombin Time 12.8 H 9.6-11.6 SEC Prothromb Time International Ratio 1.23 H 0.85-1.15 Activated Partial Thromboplast Time 34.3 26.3-35.5 SEC White Blood Count 4.5 L 4.8-10.8 K/uL Red Blood Count 2.63 L 4.00-5.50 MIL/uL Hemoglobin 8.6 L 12.0-16.0 g/dL Hematocrit 26.2 L 36-48 % Mean Corpuscular Volume 99.6 H 79-99 fL Mean Corpuscular Hemoglobin 32.7 27.0-33.0 pg Mean Corpuscular Hemoglobin Concent 32.8 32.0-36.0 g/dL Red Cell Distribution Width 21.6 H 11.0-15.5 % Platelet Count 222 130-400 K/uL Mean Platelet Volume 8.7 7.5-10.5 fL Immature Granulocyte % (Auto) 0.2 0-1 % Neutrophils (%) (Auto) 67.1 40.0-77.0 % Lymphocytes (%) (Auto) 18.8 L 21.0-51.0 % Monocytes (%) (Auto) 11.5 3.0-13.0 % Eosinophils (%) (Auto) 1.5 0.0-8.0 % Basophils (%) (Auto) 0.9 0.0-5.0 % Neutrophils # (Auto) 3.0 1.8-7.7 K/uL Lymphocytes # (Auto) 0.9 L 1.0-4.8 K/uL Monocytes # (Auto) 0.5 0.1-1.0 K/uL Eosinophils # (Auto) 0.07 0.00-0.70 K/uL Basophils # (Auto) 0.04 0.00-0.20 K/uL Absolute Immature Granulocyte (auto 0.01 0-1 K/uL Nucleated Red Blood Cells 1.1 H 0.0-0.19 % Sodium Level 125 L 136-145 mmol/L Potassium Level 4.6 3.5-5.1 mmol/L Chloride Level 89 *L 101-111 mmol/L Carbon Dioxide Level 28 21-32 mmol/L Blood Urea Nitrogen 47 H 7-18 mg/dL Creatinine 4.3 H 0.5-1.0 mg/dL Glomerular Filtration Rate Calc 12 >90 mL/min Random Glucose 101 70-105 mg/dL Total Calcium 7.8 L 8.5-10.1 mg/dL Magnesium Level 2.60 H 1.80-2.40 mg/dL Total Bilirubin 0.8 0.2-1.0 mg/dL Aspartate Amino Transf (AST/SGOT) 46 H 10-37 U/L Alanine Aminotransferase (ALT/SGPT) 27 12-78 U/L Alkaline Phosphatase 422 H 50-136 U/L Total Protein 8.7 H 6.0-8.3 g/dL Albumin 2.5 L 3.5-5.0 g/dL Phosphorus Level 4.4 2.5-4.9 mg/dL DIAGNOSTICS / RADIOLOGY: [ ] PROBLEM LIST : Medical Problems: Chronic Venous hypertension with ulcer to bilateral lower legs Non pressure chronic ulcer of left lower leg with fat layer exposed Non pressure chronic ulcer of right lower leg with fat layer exposed Cellulitis bilateral lower legs PLAN: Continue Wound care to bilateral lower leg ulcers- Cleanse with normal saline, pat dry, apply Dakin's moistened gauze wet to dry cover with 4x4 gauze, abdominal pad, wrap with kerlix and secure with tape change daily and prn Keep wounds clean and dry Offloading/reposition q 2 hours Continue IV antibiotics Comorbidities per primary care team Further Management per hospital course. Thank You for the consult and allowing us to participate in the care of this patient. DOROTA LEVINE WATCH AND CLOCK REPAIRER Feb 23, 2025 16:15
--- NOTE | 2025-02-23 21:00 | NUR ---
BLEEDING FROM NOSE NOTICED PATIENT BLEEDING FROM NOSE INTERMITTENTLY, PER PATIENT ALL THIS STARTED COUPLE DAYS AGO WHILE SHE WAS STILL IN ICU, [facility] FOR [facility] CALLED AND MADE AWARE, ORDER RECEIVED TO HOLD HEPARIN FOR TONIGHT AND MONITOR WITH HEMOGLOBIN LAB EVERY 6HOURS FOR 24 HOURS, WILL CONT TO MONITOR
[2025-02-24] VITALS (23 sets, daily range): BP systolic 95–136; BP diastolic 56–76; PULSE 67–80; RESP 14–20; TEMP 96.3–98.9; O2SAT 94–98
[2025-02-24] MEDS ORDERED: PHARMACY COMMUNICATION MISC SCH (01:30)
[2025-02-24 05:11] LABS: IMMATURE GRANULOCYTE ABSOLUTE 0.02 K/uL (0-1); NUCLEATED RED BLOOD CELLS 0.9 % (0.0-0.19); PLATELET COUNT (AUTO) 207 K/uL (130-400); RED BLOOD CELL COUNT(AUTO) 2.71 MIL/uL (4.00-5.50); RED CELL DISTRIBUTION WIDTH 21.6 % (11.0-15.5); WHITE BLOOD COUNT (AUTO) 5.4 K/uL (4.8-10.8)
[2025-02-24 05:28] LABS: INR 1.19 (0.85-1.15)
[2025-02-24 05:35] LABS: ASPARTATE AMINOTRANSFERASE 40.0 U/L (10-37); CREATININE 5.4 mg/dL (0.5-1.0); GLOMERULAR FILTR. RATE CALC 9.0 mL/min (>90); GLUCOSE,RANDOM 91.0 mg/dL (70-105); SODIUM SERUM 120.0 mmol/L (136-145); TOTAL PROTEIN, SERUM 8.7 g/dL (6.0-8.3); UREA NITROGEN, BLOOD 56.0 mg/dL (7-18); VANCOMYCIN LEVEL 11.4 mcg/mL (20.0-30.0)
--- NOTE | 2025-02-24 07:35 | PN ---
[facility] PROGRESS NOTE Date of Service: Feb 24, 2025 Time of Service: 07:33 SUBJECTIVE: 02/21 patient is seen and examined at bedside, case discussed with the RN, no acute events overnight, patient remains comfortably in bed, alert oriented x3, she has been admitted to the PCU. At the time of my visit she is getting hemodialysis, tolerating well. No chest pain, shortness shortness for breath, no nausea, no vomiting. She remains on supplemental oxygen via nasal cannula at 3 L, saturating 98%. Hemoglobin 9.0, hematocrit 28.4. Sodium 133, potassium 5.7, BUN of 64, creatinine 5.5. Serology test to include influenza and SARS antigen negative. We will downgraded the patient to the medical floor, continue antibiotics, continue hemodialysis per Nephrology recommendation, follow a.m. labs. Chest x-ray reported as follows: 1. Bilateral perihilar and bibasilar airspace disease, possibly representing pulmonary edema, with pulmonary vascular congestion and small to moderate right pleural effusion. 2. Cardiomegaly, unchanged. 3. Persistent elevation of the right hemidiaphragm. CT chest reported as follows: 1. Increased moderate right pleural effusion with partial right lower lobe collapse. 2. Unchanged consolidations in right lower and middle lobes. 3. Moderate cardiomegaly with prominent main pulmonary artery, suggesting persistent pulmonary arterial hypertension. 02/22 the patient has been seen and examined at bedside, case discussed with the RN, patient upgraded to the ICU yesterday due to shortness a breath with desaturation, at the time of my visit comfortably in bed, alert oriented x3, supplemental oxygen via nasal cannula at 3 L, saturating 98%, she is scheduled for hemodialysis today. BP 106/62, afebrile. Hemoglobin 8.7, hematocrit 26.9. Sodium 135, potassium 5.1, BUN 62, creatinine 5.2. Chest x-ray stable right moderate pleural effusion with right mid and lower zone consolidation, stable cardiomegaly with pulmonary vascular congestion patient to continue broad- spectrum IV antibiotics, continue to follow critical care input recommendation. Continue hemodialysis per churn driller helper. 02/23 the patient has been seen and examined at bedside, case discussed with the RN. Patient remains admitted to the ICU, awake, following commands. BP 115/71, heart rate of 65, saturating 93-95% on supplemental oxygen via nasal cannula at 2 L. CBC shows a hemoglobin of 8.6, hematocrit 26.2, WBC of 4.5, with a platelet count of 222, sodium 135, potassium 4.6, BUN of 47, creatinine of 4.3, magnesium 2.6. Chest x-ray 02/22/2025 shows severe right pleural effusion with underlying atelectasis, mild to moderate pulmonary venous congestion, cardiomegaly, no significant interval change. Today's chest x-ray pending. Pulmonary input noted and appreciated, patient is scheduled for possible thoracentesis on Wednesday morning, Eliquis on hold since 02/20. Continue the p atient on supplemental oxygen via nasal cannula to keep oxygen saturation greater than 92%. 02/24 the patient has been seen and examined at bedside, case discussed with the RN. Patient has been downgraded to the PCCU. Patient alert oriented x3, hemodynamically stable, remains on supplemental oxygen via nasal cannula, saturating 98%. Chest x-ray with a severe right-sided pleural effusion with underlying atelectasis, mild to moderate pulmonary venous congestion, cardiomegaly. Continue to follow Pulmonary input and recommendation in terms of possible thoracentesis today. Eliquis remains on hold. REVIEW OF SYSTEMS CONSTITUTIONAL: Lethargy , chills, malaise NEUROLOGICAL: Denies headache, amaurosis fugax, motor weakness, sensory deficit, vertigo/spinning sensation, gait abnormalities, or tremors. ENT: No hearing loss, otalgia, otorrhea, rhinitis, rhinorrhea, hoarseness, or sore throat. CARDIOVASCULAR: Chest did during dialysis today PULMONARY: Reports having shortness of breath and cough SLEEP: Denies morning headaches, daytime somnolence or napping. Denies difficulty falling asleep, staying asleep, waking from sleep. Denies knowledge of snoring. GASTROINTESTINAL: Denies any type of dysphagia to either liquids or solids. Denies nausea, vomiting, pyrosis, early satiety, abdominal pain, diarrhea, constipation, or changes in stool consistency or caliber. Denies coffee-ground emesis, hematemesis, hematochezia, or melanotic stools. GENITOURINARY: Denies frequency, urgency, nocturia, hematuria or incontinence (Storage/Irritative symptoms.) Low urinary stream, straining to void, urinary intermittency or hesitancy, splitting of the voiding stream, terminal dribbling. ENDOCRINOLOGIC: Denies polyuria, polydipsia, polyphagia or heat/cold intolerances. HEMATOLOGIC: Denies thrombophilia/previous clots, or coagulopathy/bleeding disorders. ONCOLOGIC: Denies personal history of malignancy. DERMATOLOGIC: Denies rashes or pruritus. PSYCHIATRIC: Denies any suicidal or homicidal ideation. Denies hallucinations. PHYSICAL EXAM GENERAL APPEARANCE: Patient is sitting up in bed and appears drowsy, patient awakens to verbal stimuli but falls asleep NEUROLOGICAL: Cranial nerves II-XII grossly intact. Neurological examination is nonfocal, patient is moving her upper and lower extremity HEENT: Face is symmetric. Pupils are equal and reactive. Extraocular movements are intact. NECK: Supple. No JVD. No thyromegaly. No submental, submandibular, pre-/postauricular, occipital or supraclavicular lymphadenopathy. CHEST: Normal chest expansion. No Telemetry. LUNGS: Crackles noted at bilateral lung bases with rhonchorous breath sounds CARDIOVASCULAR: Regular. S1 and S2 normal. No appreciable rubs, murmurs or gallops. ABDOMEN: Soft, nontender, and nondistended. There is no rebound, voluntary guarding, or rigidity. : Deferred. No Georges. EXTREMITIES: 3+ pitting edema noted of bilateral extremity with chronic wounds, there is erythema with bilateral venous stasis SKIN: as noted above Vital Signs (last 8hr) Date Time Temp Pulse Resp B/P (MAP) Pulse Ox O2 Delivery O2 Flow Rate FiO2 02/24/25 04:38 99.0 69 18 105/65 90 Venti Mask 02/24/25 01:29 98.1 69 18 112/62 96 Venti Mask 02/24/25 00:30 80 20 Venti Mask 12.0 40 LABS: Laboratory: Test 02/24/25 05:11 02/24/25 05:05 02/23/25 05:19 Range/Units Whole Blood Glucose 85 70-110 MG/DL White Blood Count 5.4 4.8-10.8 K/uL Red Blood Count 2.71 L 4.00-5.50 MIL/uL Hemoglobin 8.7 L 12.0-16.0 g/dL Hematocrit 27.1 L 36-48 % Mean Corpuscular Volume 100.0 H 79-99 fL Mean Corpuscular Hemoglobin 32.1 27.0-33.0 pg Mean Corpuscular Hemoglobin Concent 32.1 32.0-36.0 g/dL Red Cell Distribution Width 21.6 H 11.0-15.5 % Platelet Count 207 130-400 K/uL Mean Platelet Volume 8.9 7.5-10.5 fL Immature Granulocyte % (Auto) 0.4 0-1 % Neutrophils (%) (Auto) 64.8 40.0-77.0 % Lymphocytes (%) (Auto) 21.9 21.0-51.0 % Monocytes (%) (Auto) 10.9 3.0-13.0 % Eosinophils (%) (Auto) 1.1 0.0-8.0 % Basophils (%) (Auto) 0.9 0.0-5.0 % Neutrophils # (Auto) 3.5 1.8-7.7 K/uL Lymphocytes # (Auto) 1.2 1.0-4.8 K/uL Monocytes # (Auto) 0.6 0.1-1.0 K/uL Eosinophils # (Auto) 0.06 0.00-0.70 K/uL Basophils # (Auto) 0.05 0.00-0.20 K/uL Absolute Immature Granulocyte (auto 0.02 0-1 K/uL Nucleated Red Blood Cells 0.9 H 0.0-0.19 % Prothrombin Time 12.4 H 9.6-11.6 SEC Prothromb Time International Ratio 1.19 H 0.85-1.15 Activated Partial Thromboplast Time 34.3 26.3-35.5 SEC Fibrinogen 583 *H 180-350 mg/dL Sodium Level 120 L 136-145 mmol/L Potassium Level 4.9 3.5-5.1 mmol/L Chloride Level 83 *L 101-111 mmol/L Carbon Dioxide Level 28 21-32 mmol/L Blood Urea Nitrogen 56 H 7-18 mg/dL Creatinine 5.4 H 0.5-1.0 mg/dL Glomerular Filtration Rate Calc 9 >90 mL/min Random Glucose 91 70-105 mg/dL Total Calcium 7.6 L 8.5-10.1 mg/dL Total Bilirubin 0.8 0.2-1.0 mg/dL Aspartate Amino Transf (AST/SGOT) 40 H 10-37 U/L Alanine Aminotransferase (ALT/SGPT) 24 12-78 U/L Alkaline Phosphatase 414 H 50-136 U/L Total Protein 8.7 H 6.0-8.3 g/dL Albumin 2.5 L 3.5-5.0 g/dL Vancomycin Level 11.4 L 20.0-30.0 mcg/mL Magnesium Level 2.60 H 1.80-2.40 mg/dL Current Medications Medications (Trade) Dose Ordered Sig/Haven Route PRN Reason Start Time Stop Time Status Last Admin Dose Admin Acetaminophen (TYLenol 325MG TAB) 650 mg Q6H PRN PO MILD PAIN (1-3) 02/20/25 14:00 03/22/25 13:59 02/22/25 22:07 650 MG Acetaminophen/ Codeine Phosphate (TYLenol-coDEINE TAB) 1 tab Q6H6 PRN PO MODERATE PAIN (4-6) 02/22/25 12:30 03/24/25 12:29 02/24/25 00:58 1 TAB Albumin Human (Albumin (Human) 25%) 100 ml ONCE IV 02/21/25 10:00 02/22/25 09:59 DC 02/21/25 11:01 100 ML Albumin Human (Albumin (Human) 25%) 100 ml ONCE IV 02/22/25 14:45 02/23/25 14:44 DC 02/22/25 15:14 100 ML Albuterol (DUOneb) 1 udvial Q6H PRN IH SHORTNESS OF BREATH 02/20/25 14:00 03/22/25 13:59 Aspirin (Aspirin 81mg Chew Tab) 81 mg DAILY PO 02/21/25 09:00 02/20/25 22:04 DC Aspirin (Aspirin 81mg Chew Tab) 81 mg DAILY PO 02/21/25 09:00 03/23/25 08:59 02/23/25 09:02 81 MG Atorvastatin Calcium (LIPItor 40MG) 40 mg HS PO 02/21/25 21:00 03/23/25 20:59 02/23/25 20:50 40 MG Budesonide (Pulmicort 0.5 Mg/2ml) 0.5 mg BIDRESP IH 02/20/25 14:00 03/22/25 13:59 02/23/25 19:22 0.5 MG Cinacalcet (Sensipar 30mg Tab) 30 mg DAILY PO 02/21/25 09:00 03/23/25 08:59 02/23/25 09:04 30 MG Dextrose (D50w) 50 ml AD PRN IV HYPOGLYCEMIA PROTOCOL 02/20/25 14:00 03/22/25 13:59 Docusate Sodium (COLace 100MG CAP) 100 mg BID PO 02/21/25 09:00 03/23/25 08:59 02/23/25 20:50 100 MG Epoetin Raúl-epbx (Retacrit) 10,000 unit QTUTHSA[DIALYSIS] SQ 02/22/25 16:00 03/24/25 15:59 02/22/25 17:16 10,000 UNIT Gabapentin (NEURontin 100 mg CAP) 300 mg AD PO 02/20/25 22:00 02/21/25 07:17 DC Gabapentin (NEURontin 300 MG CAP) 300 mg QTUTHSA@2100 PO 02/22/25 21:00 03/22/25 21:59 02/22/25 20:21 300 MG Gentamicin Sulfate (GENTAmicin SULFate 15 gm cream) 1 APPL DAILY TP 02/21/25 09:00 03/07/25 08:59 02/22/25 10:08 1 APPL Glucagon (Glucagon 1mg Kit) 1 mg AD PRN IM HYPOGLYCEMIA PROTOCOL 02/20/25 14:00 03/22/25 13:59 Heparin Sodium (Porcine) (HEParin 5,000 UNIT VIAL) 5,000 unit Q12H SQ 02/20/25 21:00 03/22/25 20:59 02/23/25 09:06 5,000 UNIT Hydroxyzine HCl (ATArax 25MG TAB) 25 mg Q12H PRN PO ANXIETY 02/20/25 22:00 02/23/25 22:09 DC 02/23/25 17:53 25 MG Hydroxyzine HCl (ATArax 25MG TAB) 25 mg TID PRN PO ANXIETY 02/23/25 22:30 03/22/25 21:59 02/23/25 22:59 25 MG Insulin Human Regular (humuLIN R 100 UNIT/ML 3ML) INSULIN SLIDING SCAL... ACHS SQ 02/20/25 16:30 03/22/25 16:29 Leptospermum Honey (Medihoney) 1 APPL DAILY TP 02/21/25 09:00 03/23/25 08:59 02/22/25 10:08 1 APPL Meropenem (Merrem 500mg) 500 mg Q24H IVPB 02/20/25 18:00 02/27/25 17:59 02/23/25 16:32 500 MG Metoclopramide HCl (regLAN 5 MG TAB) 5 mg TID PO 02/21/25 09:00 03/23/25 08:59 02/23/25 20:52 5 MG Midodrine (PROAMatine 5 MG TABLET) 5 mg TID PRN PO IF bp less than 90/60 02/20/25 14:00 02/21/25 09:13 DC 02/21/25 04:28 5 MG Midodrine (PROAMatine 5 MG TABLET) 10 mg TID PO 02/21/25 09:30 03/22/25 13:59 02/23/25 14:05 10 MG Nitroglycerin (Nitrostat) 0.4 mg AD PRN SL CHEST PAIN 02/20/25 14:00 03/22/25 13:59 Norepinephrine 250 ml @ 0 mls/hr AD PRN IV DIRECTED 02/22/25 11:00 03/24/25 10:59 Ondansetron HCl (zoFRAN 4MG INJ) 4 mg Q6H PRN IVP NAUSEA/VOMITING 02/20/25 14:00 03/22/25 13:59 02/22/25 11:41 4 MG Pantoprazole Sodium (PROTonix 40MG INJ) 40 mg Q24H IVP 02/20/25 14:00 03/22/25 13:59 02/23/25 14:04 40 MG Pharmacy Profile Note (Lace Assessment) 1 each AD MISC 02/21/25 11:00 02/21/25 10:59 DC Pharmacy Profile Note (Pharmacy Communication) 1 each ONCE MISC 02/20/25 16:00 02/20/25 15:58 DC Pharmacy Profile Note (Pharmacy Communication) 1 each ONCE MISC 02/24/25 01:30 02/24/25 01:37 DC Phenylephrine HCl (LEVI-synEPHRINE 0.25% NASAL SPRY) 2 spray Q4HPRN PRN NASAL EPISTAXIS/NASAL CONGESTION 02/24/25 01:30 02/28/25 23:00 02/24/25 01:48 2 SPRAY Piperacillin Sod/ Tazobactam Sod (Zosyn 3.375gm+NS 50ml) 3.375 gm Q12H IVPB 02/20/25 14:00 02/20/25 15:53 DC 02/20/25 14:57 3.375 GM Sennosides (Senna) 1 tab DAILY PO 02/21/25 09:00 03/23/25 08:59 02/23/25 09:03 1 TAB Sevelamer HCl (RENAgel 800 MG TAB) 2,400 mg TID PO 02/21/25 09:00 03/23/25 08:59 02/23/25 20:51 2,400 MG Sodium Hypochlorite (Dakin'S 0.25% Half Strength) 1 APPL DAILY TP 02/22/25 09:00 03/24/25 08:59 02/23/25 09:07 1 APPL Sodium Chloride 250 ml @ 0 mls/hr AD IV 02/21/25 10:00 03/23/25 09:59 Sodium Chloride 1,000 ml @ 0 mls/hr ONCE IV 02/21/25 10:00 03/23/25 09:59 02/22/25 15:14 1,000 MLS/HR Vancomycin HCl (Vancomycin 750mg) 750 mg QTUTHSA[DIALYSIS] IVPB 02/22/25 16:00 03/04/25 15:59 02/22/25 17:16 750 MG Vancomycin HCl (Vancomycin Protocol) 1 each AD IV 02/20/25 14:00 03/06/25 13:59 Vitamin B Complex/ Vit C/Folic Acid (Nephrovite Tablet) 1 cap DAILY PO 02/21/25 09:00 03/23/25 08:59 02/23/25 09:02 1 CAP DIAGNOSTICS / RADIOLOGY: [ ] ASSESSMENT: Acute hypoxemic respiratory failure, POA Hypotension status post IV fluids as outpatient, resolving, POA Elevated troponin, rule out active ACS, POA Decompensated heart failure exacerbation, POA Toxic/metabolic encephalopathy, POA Rule out developing community-acquired pneumonia, POA Right-sided pleural effusion, POA r/o Pulmonary HTN, POA Pulmonary edema, POA History of complicated wounds involving bilateral lower extremities with superimposed active cellulitis, POA Debility/frailty, POA History of ESRD, POA Anemia, POA History of GI bleed requiring hospitalization in [facility] in 09/2024, POA Rule out cirrhosis of the liver , POA History of severe tricuspid regurgitation noted on 2D echocardiogram from 01/2024, POA Obesity, POA Hyponatremia, POA Hyperlipidemia, POA PLAN: the patient has been seen and examined at bedside, case discussed with the RN. Patient has been downgraded to the PCCU. Patient alert oriented x3, hemodynamically stable, remains on supplemental oxygen via nasal cannula, saturating 98%. Chest x-ray with a severe right-sided pleural effusion with underlying atelectasis, mild to moderate pulmonary venous congestion, cardiomegaly. Continue to follow Pulmonary input and recommendation in terms of possible thoracentesis today. Eliquis remains on hold. NEURO: Minimize central acting medications as possible. Fall Precautions. Well lighted room through the day and minimize interruptions through the night to prevent acute delirium. PULMONARY: Supplemental 02 as needed BiPAP as necessary, for respiratory distress Titrate Fio2 to keep Spo2 > or = 90% DuoNebs and CPT as needed IS hourly while awake for pulmonary hygiene prn Out of bed to chair as tolerated Maintain aspiration precautions at all times CARDIOVASCULAR: Follow hemodynamics. Vital signs per facility protocol GI & NUTRITION: Continue nutritional support Aspirations precautions Prokinetic agents and laxatives as needed KIDNEYS & ELECTROLYTES: Strict monitoring of intake and output Daily weights Avoid nephrotoxic agents Monitor electrolytes and replace as needed Goal urine output of 30mL/hr or 0.5mL/kg/hr Medications to be dosed according to renal function. Avoid contrast if possible ENDOCRINE: Maintain blood glucose between 100-180 at all times. Insulin sliding scale for blood glucose management Hypoglycemia and hyperglycemia protocol in place INFECTIOUS DISEASE: Trend temperature, WBC and procalcitonin level Follow cultures, deescalate antibiotics as soon as possible. Panculture if new onset fever HEMATOLOGY & COAGULATION: Monitor H&H. Keep Hgb > 7 Transfuse 1 unit of PRBC for Hgb < 7 Transfuse 1 pack of platelets of platelets < 20, 000 Watch for any signs and symptoms of bleeding SKIN: Pressure ulcer prevention per facility protocol Specialty mattress as needed ORTHO/REHAB Continue PT/OT PRN: MEDICATIONS Tylenol 650 mg po every 4 hrs for fever zofran 4 mg IV every 6 hrs for n/v Hydralazine 5 mg IV every 4 hrs systolic pressure > 160 bowel regiment: lactulose 20 gm PO BID PRN constipation Supportive measures: Continue GI and DVT prophylaxis Disposition: Pending improvement in clinical condition All questions answered time spent: > 35 min KADEN WHITE MD Feb 24, 2025 07:35
--- NOTE | 2025-02-24 08:36 | HMCIMG ---
EXAM: CR Chest, 1 View CLINICAL HISTORY: PP COMPARISON: CR Chest, 1 View dated 02/22/2025. FINDINGS: LUNGS: Interstitial and early alveolar pulmonary edema with perihilar prominence and bilateral lower zone opacities. Associated compression atelectasis of both lower lobes due to pleural effusions. PLEURAL SPACES: Bilateral gross pleural effusions, left greater than right. The left-sided effusion is new compared to the prior study. No pneumothorax. MEDIASTINUM: Cardiomegaly with prominent joel and pulmonary venous congestion. BONES: No acute or aggressive osseous abnormality. IMPRESSION: * Cardiomegaly with pulmonary venous congestion. * Interstitial and early alveolar pulmonary edema, a new finding since prior examination. * Bilateral gross pleural effusions with compressive atelectasis of both lower lobes; new left-sided effusion not seen previously. * Findings suggest interval worsening of congestive cardiac failure compared to prior study dated 02/22/2025. /[place]
--- NOTE | 2025-02-24 08:53 | PN ---
[facility] PROGRESS NOTE Date Patient Seen: Feb 24, 2025 Time of Visit: 08:51 Supervising Physician: Dr Elfego Pablo Primary Care Physician: [ ] Outpatient Specialists: [ ] Inpatient Consults: [Dr Leonard, PROBLEM LIST: Acute hypoxemic respiratory failure Pulmonary Edema Chronic pleural effusion Elevated diaphragm Atelectasis ESRD in need of HD PAD Bilateral lower extremity wounds Noncompliance with hemodialysis INTERVAL HISTORY: Patient awake alert and oriented, all labs and imaging have been reviewed Patient continues with the moderate right effusion on the right, the left actually seems to improve She is pending hemodialysis the day and we are going to do a thoracentesis this morning She continues on a Ventimask at 14/40 No acute events overnight Afebrile Plan: Thoracentesis this morning Hemodialysis this afternoon We will resume diet post Thora We are following cardiology recs We will resume Eliquis postprocedure Total critical care time thirty-nine minutes, time excludes any procedures or educational time. REVIEW OF SYSTEMS: 12 point ROS reviewed with patient. Pertinent positives mentioned above. Otherwise negative. PHYSICAL EXAM: GENERAL: alert, weak, awake oriented x 3 HEENT: EOMI, Sclera non icteric, moist mucosa NECK: Supple, no JVD, trachea midline LUNGS: Clear breath sounds bilaterally. No wheezes HEART: Regular rate and rhythm. Normal S1 and S2, without murmurs ABD: Abdomen soft, nontender. Bowel sounds present EXT: No clubbing cyanosis or edema NEURO: Alert and oriented to person, follows commands Vital Signs (last 8hr) Date Time Temp Pulse Resp B/P (MAP) Pulse Ox O2 Delivery O2 Flow Rate FiO2 02/24/25 07:00 98.2 70 18 111/67 97 Venti Mask 02/24/25 04:38 99.0 69 18 105/65 90 Venti Mask 02/24/25 01:29 98.1 69 18 112/62 96 Venti Mask LABS: Hematology Labs: Test 02/24/25 05:05 Range/Units White Blood Count 5.4 4.8-10.8 K/uL Red Blood Count 2.71 L 4.00-5.50 MIL/uL Hemoglobin 8.7 L 12.0-16.0 g/dL Hematocrit 27.1 L 36-48 % Mean Corpuscular Volume 100.0 H 79-99 fL Mean Corpuscular Hemoglobin 32.1 27.0-33.0 pg Mean Corpuscular Hemoglobin Concent 32.1 32.0-36.0 g/dL Red Cell Distribution Width 21.6 H 11.0-15.5 % Platelet Count 207 130-400 K/uL Mean Platelet Volume 8.9 7.5-10.5 fL Immature Granulocyte % (Auto) 0.4 0-1 % Neutrophils (%) (Auto) 64.8 40.0-77.0 % Lymphocytes (%) (Auto) 21.9 21.0-51.0 % Monocytes (%) (Auto) 10.9 3.0-13.0 % Eosinophils (%) (Auto) 1.1 0.0-8.0 % Basophils (%) (Auto) 0.9 0.0-5.0 % Neutrophils # (Auto) 3.5 1.8-7.7 K/uL Lymphocytes # (Auto) 1.2 1.0-4.8 K/uL Monocytes # (Auto) 0.6 0.1-1.0 K/uL Eosinophils # (Auto) 0.06 0.00-0.70 K/uL Basophils # (Auto) 0.05 0.00-0.20 K/uL Absolute Immature Granulocyte (auto 0.02 0-1 K/uL Nucleated Red Blood Cells 0.9 H 0.0-0.19 % Chemistry Labs: Test 02/24/25 05:11 02/24/25 05:05 02/23/25 05:19 Range/Units Whole Blood Glucose 85 70-110 MG/DL Sodium Level 120 L 136-145 mmol/L Potassium Level 4.9 3.5-5.1 mmol/L Chloride Level 83 *L 101-111 mmol/L Carbon Dioxide Level 28 21-32 mmol/L Blood Urea Nitrogen 56 H 7-18 mg/dL Creatinine 5.4 H 0.5-1.0 mg/dL Glomerular Filtration Rate Calc 9 >90 mL/min Random Glucose 91 70-105 mg/dL Total Calcium 7.6 L 8.5-10.1 mg/dL Total Bilirubin 0.8 0.2-1.0 mg/dL Aspartate Amino Transf (AST/SGOT) 40 H 10-37 U/L Alanine Aminotransferase (ALT/SGPT) 24 12-78 U/L Alkaline Phosphatase 414 H 50-136 U/L Total Protein 8.7 H 6.0-8.3 g/dL Albumin 2.5 L 3.5-5.0 g/dL Magnesium Level 2.60 H 1.80-2.40 mg/dL Coagulation Labs: Test 02/24/25 05:05 Range/Units Prothrombin Time 12.4 H 9.6-11.6 SEC Prothromb Time International Ratio 1.19 H 0.85-1.15 Activated Partial Thromboplast Time 34.3 26.3-35.5 SEC Fibrinogen 583 *H 180-350 mg/dL DIAGNOSTICS / RADIOLOGY RESULTS: [ ] PLAN NEURO: Minimize central acting medications as possible. Fall Precautions. Well lighted room through the day and minimize interruptions through the night to prevent acute delirium. PULMONARY: Supplemental 02 as needed Titrate Fio2 to keep Spo2 > or = 90% DuoNebs and CPT as needed IS hourly while awake for pulmonary hygiene Out of bed to chair as tolerated VAP Bundle Vent/BIPAP Settings: [ ] Driving pressure: [ ] P Plat: [ ] Static C: [ ] Static R: [ ] P/F Ratio: [ ] CARDIOVASCULAR: Follow hemodynamics. Titrate vasopressor to keep MAP >65 or systolic blood pressure >95mmHg DIPS: [ ] LINES: [ ] GI & NUTRITION: Continue nutritional support Aspirations precautions Prokinetic agents and laxatives as needed KIDNEYS & ELECTROLYTES: Strict monitoring of intake and output Daily weights Avoid nephrotoxic agents Monitor electrolytes and replace as needed Goal urine output of 30mL/hr or 0.5mL/kg/hr Urine output: [ ] Fluid Balance: [ ] ENDOCRINE: Maintain blood glucose between 100-180 at all times. Insulin sliding scale for blood glucose management INFECTIOUS DISEASE: Trend temperature. Moran-culture if febrile. Micro: [ ] Antibiotics: [ ] HEMATOLOGY & COAGULATION: Monitor H&H. Keep Hgb > 7 Transfuse 1 unit of PRBC for Hgb < 7 Transfuse 1 pack of platelets of platelets < 20, 000 Watch for any signs and symptoms of bleeding SKIN: Pressure ulcer prevention per facility protocol Rehab: PT/OT Prophylaxis: GI: [ ] DVT: [ ] Code Status: Full Resuscitation Disposition: [ ] Case was discussed and seen with my supervising physician. The above plan was formulated and agreed upon. ANNE ARCE PAC Feb 24, 2025 08:53
[2025-02-24] MEDS: ALBUMIN (HUMAN) 25% 50 ML IV.SOLN. IV SCH (12:18)
--- NOTE | 2025-02-24 14:51 | PN ---
This is a 49-year-old female with a history of hypotension on midodrine therapy, chronic right bundle-branch block, end-stage renal disease on hemodialysis, hyperlipidemia, type 2 diabetes mellitus and severe stasis dermatitis of bilateral lower extremities. She was admitted 02/20/2025 secondary to chest pain in the setting of hypotension and volume overload after a missed hemodialysis session. She underwent echocardiogram 02/20/2025 which showed an ejection fraction of 55-60% with stage II diastolic dysfunction, [id number] LVH, severely dilated right ventricle with mildly reduced right ventricular systolic function, severe biatrial enlargement and severely dilated inferior vena cava with a decrease in inspiratory collapse. CT scan of the chest 02/20/2025 showed increased moderate right pleural effusion with partial right lower lobe collapse, consolidations in the right lower and middle lobes and moderate cardiomegaly with prominent main pulmonary artery suggesting persistent pulmonary arterial hypertension. She underwent attempted thoracocentesis this morning however no fluid was aspirated. She underwent CT scan of the chest without contrast, results pending. She is currently in sinus rhythm with a first-degree AV block, right bundle- branch block, heart rates in the 60s. Her most recent blood pressure is 119/66. White blood count 5.4, hemoglobin 8.7, hematocrit 27.1, platelets 207, creatinine 5.4, potassium 4.9, sodium 120, chloride 83, AST 40, ALT 24, alkaline phosphatase 414, albumin 2.5. INR 1.19. Fibrinogen 583. Troponin 123 -- 115.1 (02/20/2025). Blood cultures [id number]- after three days. Left lower extremity culture showing Pseudomonas aeruginosa. She reports mild shortness of breath. She is currently on a Ventimask at 12 L/min. On exam, she is somnolent, regular rate and rhythm, crackles in bilateral lung bases with bilateral rhonchi, severe stasis dermatitis with 2+ lower extremity edema, bandages in place. Assessment: 1. Chest pain in the setting of hypotension. 2. Right-sided heart failure. 3. End-stage renal disease on hemodialysis. 4. History of DVT was oral anticoagulation on hold. 5. Severe bilateral stasis dermatitis. 6. Hyperlipidemia. 7. Type 2 diabetes mellitus. Plan: Discussed with Dr. Vang. 1. She developed chest pain in the setting of hypotension with systolic blood pressures in the 70s to 80s. She was found to be significantly volume overloaded after a missed dialysis session. She also had troponin elevation with a flat pattern in the setting of volume overload. 2. Continue midodrine 10 mg 3 times daily, aspirin 80 mg once daily and atorvastatin 40 mg once daily. 3. Continue hemodialysis as directed by Nephrology. 4. She is pending repeat CT scan of the chest after attempted thoracocentesis. 5. Cardiology will sign off at this time. Consider ischemic evaluation as an outpatient. Follow-up with Dr. Zhu. Recall cardiology for additional cardiac issues. Vitals/Labs Vital Signs Date Time Temp Pulse Resp B/P (MAP) Pulse Ox O2 Delivery O2 Flow Rate FiO2 02/24/25 13:40 69 14 119/63 Venti Mask 12.0 02/24/25 11:00 97.7 98 02/24/25 10:35 40 Laboratory Tests 02/23/25 22:19 02/24/25 05:05 02/24/25 09:44 REEMA JOYCE PAC Feb 24, 2025 14:51
--- NOTE | 2025-02-24 17:34 | PN ---
NEPHROLOGY NOTE SUBJECTIVE: This patient has multiple problems including renal failure, on dialysis, seen several times. The patient has respiratory failure, hypotension. The patient is in ICU and critically ill. The patient has respiratory failure with hypoxemia. The patient has elevated urine creatinine. No other associated findings. No other aggravating or relieving factors. The patient has been quite noncompliant and has been maintained in the ICU. Blood pressure fluctuating. REVIEW OF SYSTEMS: CONSTITUTIONAL: With no fever, chills, or rigors. HEENT: With no headache, oral ulcers, sore throat or difficulty swallowing. RESPIRATORY: With no cough, expectoration, hemoptysis or pleuritic pain. CARDIOVASCULAR: No orthopnea or PND. Has shortness of breath. GASTROINTESTINAL: Negative for nausea, vomiting or constipation or diarrhea. GENITOURINARY: Negative for hematuria. DERMATOLOGICAL: With no rashes, pruritus, or skin lesion. ENDOCRINE: No polyuria, polydipsia, or polyphagia. PHYSICAL EXAMINATION: GENERAL: Pale, in no other distress. VITAL SIGNS: Blood pressure has been 120/59, pulse is 63, respiratory rate is 16. HEENT: Head is atraumatic, normocephalic. Pupils are round and reactive. Sclerae are anicteric. Conjunctivae not pale. Oral mucosa is not dry. NECK: Without masses or bruits. Thyroid is palpable. Neck has no bruits. CHEST: Shows equal thoracic percussion note being resonant in all areas. CARDIAC: Regular rhythm. No rubs. No S3, S4. No paracentral heaves. LABORATORY DATA: We have reviewed available labs in detail with low hemoglobin of 8.7, low sodium of 125, elevated BUN and creatinine. Sugars are fluctuating. Other electrolytes are reviewed. Hemoglobin has been low up to 8.7. IMAGING STUDIES: Chest x-ray personally reviewed, increased marking. PROBLEMS: * Renal failure. * Respiratory failure. * Fluid overload. * Hypotension. * Multiple other comorbidities. * End-stage renal disease, on dialysis. * The patient has noncompliance and history of noncompliance with the fluids. PLAN: The patient seen several times today in the ICU. The patient has been on dialysis also. Intake, output, weight will be monitored. Fluid restriction is advised. IV albumin and the patient will get IV Dilaudid 0.5 to 0.6 for pain. Midodrine for hypertension as needed. Echo results were reviewed. No evidence of pericardial effusion. The patient does have a history of right ventricular hypertension. The patient will need fluid restriction, compliance with dialysis, which has been discussed. Intake, output, weight will be monitored. We have discussed with other team members. Labs, x-rays and imaging studies are personally reviewed and interpreted. We will continue to monitor and follow closely. I will follow up on all these issues. Condition remain critically guarded. The patient was seen several times today. I thank you for this patient and for letting me participate in the care of this patient. The patient was seen several times in the ICU. Total time spent was more than 50 minutes. TID: [id number] RECEIPT: [id number]
--- NOTE | 2025-02-24 17:37 | NUR ---
DISCHARGED TO [facility] AND TELEPAK REMOVED. DISCHARGE INSTRUCTIONS GIVEN AND EXPLAINED TO PATIENT. BELONGS AND COPY CHART GIVEN TO FACILITY PAPER MILL SUPERINTENDENT. PATIENT TAKEN DOWN TO FACILITY VAN BY TWO FACILITY DRIVERS.
--- NOTE | 2025-02-24 20:26 | PN ---
NEPHROLOGY NOTE SUBJECTIVE: This patient has been seen several times. This patient has multiple medical problems including renal failure, on dialysis; respiratory failure, and hypotension. We have extended the dialysis treatment time. The patient is generally weak. Noncompliance. No other associated findings. No other aggravating or relieving factor. The patient is weak. No other associated symptoms. The patient has underlying diabetes, peripheral vascular disease and hypertension. All other systemic review is unchanged and unremarkable. From the past, the patient is on midodrine therapy, right bundle-branch block, end-stage renal disease, hyperlipidemia, diabetes nephropathy with stasis and venous stasis in the lower extremities. All the other systemic review is unchanged. REVIEW OF SYSTEMS: CONSTITUTIONAL: With no fevers, chills, or rigors. HEENT: With no headache, oral ulcer, sore throat or difficulty swallowing. RESPIRATORY: With no cough, expectoration, hemoptysis or pleuritic pain. CARDIOVASCULAR: Has shortness of breath. No orthopnea or PND. GASTROINTESTINAL: Negative for nausea, vomiting or diarrhea reported. GENITOURINARY: Negative for dysuria or hematuria. DERMATOLOGICAL: No new rashes, pruritus, or skin lesion. ENDOCRINE: No polyuria, polydipsia, or polyphagia. Other systemic review is unchanged. PHYSICAL EXAMINATION: GENERAL: Pale, sick looking, lying in bed. VITAL SIGNS: Blood pressure is borderline at 119/63. Pulse is 69. Respiratory rate is 14. HEENT: Head is atraumatic, normocephalic. Pupils are round and reactive to light. Sclerae are anicteric. Conjunctivae not pale. Oral mucosa is not dry. NECK: Without masses or bruits. Thyroid is palpable. Neck has bruits. CHEST: Shows equal thoracic percussion note being resonant in all areas. CARDIAC: Regular rhythm. No rub. No S3 or S4. No parasternal heave. Apical beat is not localized. ABDOMEN: No guarding, tenderness. Bowel sounds are present. No free fluid. EXTREMITIES: No edema, cyanosis or clubbing. BACK: No tenderness or back deformity. LYMPHATIC: No lymph node swelling in the neck and axillary area. NEUROLOGIC: Unchanged, nonfocal. No craniopathy. LABORATORY DATA: We have reviewed available labs in detail and old records reviewed. BUN of 56. Creatinine is 5.4. Sodium is low up to 120. Old records reviewed. IMAGING STUDIES: Imaging studies are personally reviewed. PROBLEMS: * Renal failure. * Anemia * Hyponatremia. * Fluid overload. * History of deep vein thrombosis. * Most likely right-sided heart failure. * Hypotension. * Stasis. * Hyperlipidemia. * Diabetes. PLAN: Midodrine has been given to dialysis support. We will continue with as-needed IV albumin also. Intake output weight will be monitored. The patient has thoracentesis attempted. CT scan of the chest is pending. Intake output weight overall status will be monitored. Please have a fluid restriction advised. Nonsteroidal drugs will be avoided. IV Dilaudid 0.2 mg q. 6 can be used for pain and I have discussed with the team members. Old records, imaging studies, and labs were personally reviewed and interpreted and followup labs have been ordered. Condition remained critically guarded. TID: [id number] RECEIPT: [id number]
--- NOTE | 2025-02-25 08:58 | DS ---
Discharge Summary Hospital Course Summary: Date of service 02/24/2025 The patient admitted to hospital February 20, 2025 with the following history of the present illness: This is a 49-year-old female with history of type 2 diabetes mellitus, peripheral vascular disease, ESRD on hemodialysis since 2018, history of GI bleed, anemia, respiratory failure with pleural effusion who presented to the ER for further evaluation of hypotension. Patient states that she was getting naima lyzed today when she started having hypotension and chest pain. Patient was given 250 cc of bolus of IV fluid with improvement of blood pressure in the 90s. Patient states that the chest pain resolved and denies active chest pain currently. Patient is followed by Dr. Leonard with Nephrology as outpatient for management of hemodialysis. She has been maintained on Wednesday, , Wednesday hemodialysis sessions. She is also followed by wound care and she has a history of significant lower extremity edema and bilateral lower extremity wounds. She has been having some subjective chills, cough as well as shortness of breath since yesterday. She denies any syncopal episodes or recent falls. She has been feeling more sleepy today as well. On presentation to the hospital, patient was noted to be afebrile with T-max of 98.2 F, heart rate of 57, blood pressure of 86/56. Labs on presentation showed WBC count of 5500, hemoglobin of 8.9, MCV of 102.5, platelet count of 345200. BMP showed sodium of 124, potassium 4.7, chloride of 88, BUN of 58, creatinine 4.9, high sensitivity cardiac troponin 123, CRP of 42.5, BNP of 10 70. Chest x-ray showed cardiomegaly with bilateral infiltrates in the lungs with [id number] right-sided pleural effusion. On Review of medications from [facility] [place], patient was being prescribed a IV meropenem that was started on 02/15/2025 as well as Eliquis 2.5 mg bid. Patient is on midodrine as outpatient during dialysis days. Patient also was receiving Eliquis 2.5 mg b.i.d. which was held today due to be bleeding from bilateral lower extremity wounds. , patient with no further bleeding noted from the wounds on presentation to the ER. Patient will be admitted for further management of acute hypoxemic respiratory failure, outpatient hypotension with infiltrates in the lungs and bilateral lower extremity wounds with worsening lower extremity swelling. Patient will receive broad-spectrum antibiotics. Consultation with Nephrology will be requested for dialysis. 2D echocardiogram will be obtained and cardiac troponin will be trended to rule out active ACS. We will see how patient progresses in the next 72 hours. Patient remains high-risk due to multiple comorbidities. HOSPITAL COURSE 02/21 patient is seen and examined at bedside, case discussed with the RN, no acute events overnight, patient remains comfortably in bed, alert oriented x3, she has been admitted to the PCU. At the time of my visit she is getting hemodialysis, tolerating well. No chest pain, shortness shortness for breath, no nausea, no vomiting. She remains on supplemental oxygen via nasal cannula at 3 L, saturating 98%. Hemoglobin 9.0, hematocrit 28.4. Sodium 133, potassium 5.7, BUN of 64, creatinine 5.5. Serology test to include influenza and SARS antigen negative. We will downgraded the patient to the medical floor, continue antibiotics, continue hemodialysis per Nephrology recommendation, follow a.m. labs. Chest x-ray reported as follows: 1. Bilateral perihilar and bibasilar airspace disease, possibly representing pulmonary edema, with pulmonary vascular congestion and small to moderate right pleural effusion. 2. Cardiomegaly, unchanged. 3. Persistent elevation of the right hemidiaphragm. CT chest reported as follows: 1. Increased moderate right pleural effusion with partial right lower lobe collapse. 2. Unchanged consolidations in right lower and middle lobes. 3. Moderate cardiomegaly with prominent main pulmonary artery, suggesting persistent pulmonary arterial hypertension. 02/22 the patient has been seen and examined at bedside, case discussed with the RN, patient upgraded to the ICU yesterday due to shortness a breath with desaturation, at the time of my visit comfortably in bed, alert oriented x3, supplemental oxygen via nasal cannula at 3 L, saturating 98%, she is scheduled for hemodialysis today. BP 106/62, afebrile. Hemoglobin 8.7, hematocrit 26.9. Sodium 135, potassium 5.1, BUN 62, creatinine 5.2. Chest x-ray stable right moderate pleural effusion with right mid and lower zone consolidation, stable cardiomegaly with pulmonary vascular congestion patient to continue broad- spectrum IV antibiotics, continue to follow critical care input recommendation. Continue hemodialysis per chief operator synthesis. 02/23 the patient has been seen and examined at bedside, case discussed with the RN. Patient remains admitted to the ICU, awake, following commands. BP 115/71, heart rate of 65, saturating 93-95% on supplemental oxygen via nasal cannula at 2 L. CBC shows a hemoglobin of 8.6, hematocrit 26.2, WBC of 4.5, with a platelet count of 222, sodium 135, potassium 4.6, BUN of 47, creatinine of 4.3, magnesium 2.6. Chest x-ray 02/22/2025 shows severe right pleural effusion with underlying atelectasis, mild to moderate pulmonary venous congestion, cardiomegaly, no significant interval change. Today's chest x-ray pending. Pulmonary input noted and appreciated, patient is scheduled for possible thoracentesis on Wednesday morning, Eliquis on hold since 02/20. Continue the patient on supplemental oxygen via nasal cannula to keep oxygen saturation greater than 92%. 02/24 the patient has been seen and examined at bedside, case discussed with the RN. Patient has been downgraded to the PCCU. Patient alert oriented x3, hemodynamically stable, remains on supplemental oxygen via nasal cannula, saturating 98%. Chest x-ray with a severe right-sided pleural effusion with underlying atelectasis, mild to moderate pulmonary venous congestion, cardiomegaly. Continue to follow Pulmonary input and recommendation in terms of possible thoracentesis today. Eliquis remains on hold. 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 Assessment/Plan: FINAL DIAGNOSIS Acute hypoxemic respiratory failure, POA Hypotension status post IV fluids as outpatient, resolving, POA Elevated troponin, rule out active ACS, POA Decompensated heart failure exacerbation, POA Toxic/metabolic encephalopathy, POA Rule out developing community-acquired pneumonia, POA Right-sided pleural effusion, POA r/o Pulmonary HTN, POA Pulmonary edema, POA History of complicated wounds involving bilateral lower extremities with superimposed active cellulitis, POA Debility/frailty, POA History of ESRD, POA Anemia, POA History of GI bleed requiring hospitalization in [facility] in 09/2024, POA Rule out cirrhosis of the liver , POA History of severe tricuspid regurgitation noted on 2D echocardiogram from 01/2024, POA Obesity, POA Hyponatremia, POA Hyperlipidemia, POA Discharge Instructions: THE PATIENT TO BE DISCHARGED BACK TO [facility] FOR CONTINUATION OF MEDICAL CARE, RETURN TO HOSPITAL IF CONDITION CHANGES. Home Medications: Reported Medications Temazepam (Temazepam) 15 Mg Capsule, 1 CAP PO HSPRN PRN for ANXIETY for 30 Days, #30 CAP 0 Refills 02/20/25 Apixaban (Eliquis) 2.5 Mg Tablet, 1 TAB PO BID for 30 Days, #60 TAB 0 Refills DVT; NO ADMIN DATE, WAS TO START 02/22/25 02/20/25 Gabapentin (Gabapentin) 100 Mg Capsule, 300 MG PO AD, CAP TUE/THUR/SAT HS 02/20/25 Honey (Medihoney) 100 % Paste..ml., 44 ML TP DAILY APPLY TO L LOWER POST LEG AND L LOWER ANT LEG TOPICALLY QDAY WITH NS; PAT DRY WITH GAUZE, APPLY MEDIHONEY/GENTAMICIN/CALCIUM ALGINATE, COVER. 02/20/25 Gentamicin Sulfate (Gentamicin Sulfate) 0.1 % Cream..g., 1 APPL TP DAILY, #15 GM 0 Refills APPLY TO L LOWER POST LEG AND L LOWER ANT LEG TOPICALLY QDAY WITH NS; PAT DRY WITH GAUZE, APPLY MEDIHONEY/GENTAMICIN/CALCIUM ALGINATE, COVER. 02/20/25 Atorvastatin Calcium (Atorvastatin Calcium) 40 Mg Tablet, 1 TAB PO HS for 30 Days, #30 TAB 0 Refills 02/20/25 Hydroxyzine HCl (Hydroxyzine HCl) 25 Mg Tablet, 25 MG PO Q6HPRN PRN for ANXIETY, TAB 02/20/25 Pantoprazole Sodium (Protonix) 40 Mg Ectab, 1 TAB PO DAILY for 30 Days, #30 TAB 0 Refills 02/20/25 Metoclopramide HCl (Reglan) 5 Mg Tab, 1 TAB PO TID for constipation for 30 Days, #90 TAB 0 Refills 02/20/25 Aspirin (ASPIRIN 81MG CHEW TAB) 81 Mg Tab.chew, 1 TAB PO DAILY for 30 Days, #30 TAB 0 Refills 02/20/25 Cinacalcet HCl (Cinacalcet HCl) 30 Mg Tablet, 30 MG PO DAILY, TAB 02/20/25 Docusate Sodium (Docusate Sodium) 100 Mg Capsule, 1 CAP PO BID for constipation, CAP 0 Refills 02/20/25 Polyethylene Glycol 3350 (Miralax) 17 Gram Powd.pack, 1 PACKET PO DAILY for constipation, PACKET 0 Refills dissolve in water 02/20/25 Sennosides (Senna) 8.6 Mg Tablet, 1 TAB PO DAILY for constipation for 30 Days, #60 TAB 0 Refills 02/20/25 Midodrine HCl (Midodrine HCl) 10 Mg Tablet, 10 MG PO AD, TAB TID TUE/THUR/SAT FOR HYPOTENSION, HOLD GREATER THAN 110 SYSTOLIC 02/20/25 Metoprolol Succinate (Metoprolol Succinate) 25 Mg Tab.er.24h, 1 TAB PO DAILY 08/03/24 Sevelamer HCl (Sevelamer HCl) 800 Mg Tablet, 2400 MG PO TID, #270 TAB 07/03/23 Discontinued Reported Medications Acetaminophen with Codeine (Acetaminophen-Cod #3 Tablet) 300 Mg-30 Mg Tablet, 1 TAB PO Q6HPRN PRN for pain, TAB 0 Refills 02/20/25 Time spent arranging discharge: 31-60 minutes KADEN WHITE MD Feb 25, 2025 08:58
--- NOTE | 2025-02-25 10:26 | HMCIMG ---
EXAM: CR Chest, 1 View. CLINICAL HISTORY: pp COMPARISON: Radiograph dated February 23, 2025 Findings: AP view of the chest is submitted. Bilateral perihilar and bibasilar airspace disease is relatively unchanged. Relatively unchanged bilateral effusions. No pneumothorax. Stable cardiomegaly and persistent pulmonary vascular congestion. IMPRESSION: 1. Unchanged bilateral perihilar and bibasilar airspace disease with stable bilateral pleural effusions. 2. Persistent cardiomegaly and pulmonary vascular congestion. /[place]
--- NOTE | 2025-02-25 16:21 | HMCIMG ---
EXAM: CT Chest Without IV Contrast. CLINICAL HISTORY: Pleural effusions. TECHNIQUE: Axial computed tomography images of the chest obtained without intravenous contrast. COMPARISON: CR Chest, 1 View ??? 02/23/2025. FINDINGS: LUNGS: Dense consolidation involving the right perihilar and right lower lung regions. Patchy ground-glass opacities with interstitial and alveolar pulmonary edema in both lungs, most pronounced in the perihilar and dependent zones. No discrete pulmonary nodule or mass. PLEURAL SPACES: Large right pleural effusion measuring up to 8.8 cm in maximal thickness with thickening of parietal and visceral pleura and internal soft-tissue densities within the collection, concerning for complex or organized effusion. No left pleural effusion. Contrast-enhanced CT recommended for further characterization and to exclude empyema or pleural malignancy. No pneumothorax. HEART: Cardiomegaly with pulmonary venous congestion. No significant pericardial effusion. VASCULATURE: Extensive aortic wall calcification compatible with advanced atherosclerosis. LYMPH NODES: No pathologically enlarged mediastinal or hilar lymph nodes. UPPER ABDOMEN: Hepatomegaly noted. Small hiatal hernia measuring approximately 2 cm. BONES: Age-appropriate degenerative thoracic spondylosis. No acute fracture or lytic lesion. IMPRESSION: * Large right pleural effusion (8.8 cm) with pleural thickening and internal soft-tissue densities, consistent with complex or organized effusion; contrast-enhanced CT chest is advised to differentiate empyema from pleural neoplasm. * Dense consolidation in the right perihilar and lower lung zones with bilateral interstitial and alveolar ground-glass opacities, compatible with alveolar pulmonary edema and possible superimposed right lower lobe pneumonia or neoplasm. Contrast CT is recommended. * Cardiomegaly with pulmonary venous congestion suggesting fluid overload physiology. * Extensive aortic atherosclerotic calcification. * Hepatomegaly and small (2 cm) hiatal hernia. * Degenerative thoracic spondylosis without acute osseous abnormality. /[place]
== END 2025-02-24 17:30 | DRG 194 ==
LOC: EDH 11:21 → EDHIP 11:22 → 2AH 18:57 → 2BH 02-21 17:59 → 2AH 02-23 11:39
PROVIDERS: ADMIT Internal Medicine; ATTEND Internal Medicine
PROC: 5A1D70Z Performance of Urinary Filtration, Intermittent, Less than 6 Hours Per Day (ICD-10-PCS; principal; 2025-02-21)
PROC: 5A1D70Z Performance of Urinary Filtration, Intermittent, Less than 6 Hours Per Day (ICD-10-PCS; 2025-02-22)
PROC: 5A09357 Assistance with Respiratory Ventilation, Less than 24 Consecutive Hours, Continuous Positive Airway Pressure (ICD-10-PCS; 2025-02-23)
PROC: 5A1D70Z Performance of Urinary Filtration, Intermittent, Less than 6 Hours Per Day (ICD-10-PCS; 2025-02-24)
DX: I13.2 Hypertensive heart and chronic kidney disease with heart failure and with stage 5 chronic kidney disease, or end stage renal disease (principal); J96.01 Acute respiratory failure with hypoxia; G92.8 Other toxic encephalopathy; I27.20 Pulmonary hypertension, unspecified; J18.9 Pneumonia, unspecified organism; D63.1 Anemia in chronic kidney disease; I95.9 Hypotension, unspecified; I24.9 Acute ischemic heart disease, unspecified; E87.1 Hypo-osmolality and hyponatremia; N18.6 End stage renal disease; Z99.2 Dependence on renal dialysis; J90 Pleural effusion, not elsewhere classified; B96.5 Pseudomonas (aeruginosa) (mallei) (pseudomallei) as the cause of diseases classified elsewhere; I50.33 Acute on chronic diastolic (congestive) heart failure; E66.9 Obesity, unspecified; E11.22 Type 2 diabetes mellitus with diabetic chronic kidney disease; K76.0 Fatty (change of) liver, not elsewhere classified; I07.1 Rheumatic tricuspid insufficiency; E87.70 Fluid overload, unspecified; D64.9 Anemia, unspecified; E78.5 Hyperlipidemia, unspecified; J98.11 Atelectasis; E11.51 Type 2 diabetes mellitus with diabetic peripheral angiopathy without gangrene; F41.9 Anxiety disorder, unspecified; I45.10 Unspecified right bundle-branch block; I87.2 Venous insufficiency (chronic) (peripheral); R54 Age-related physical debility; L97.922 Non-pressure chronic ulcer of unspecified part of left lower leg with fat layer exposed; L97.912 Non-pressure chronic ulcer of unspecified part of right lower leg with fat layer exposed; K74.60 Unspecified cirrhosis of liver; K21.9 Gastro-esophageal reflux disease without esophagitis; Z79.01 Long term (current) use of anticoagulants; Z79.82 Long term (current) use of aspirin; Z79.899 Other long term (current) drug therapy; Z80.9 Family history of malignant neoplasm, unspecified; Z82.49 Family history of ischemic heart disease and other diseases of the circulatory system; Z83.3 Family history of diabetes mellitus; Z91.158 Patient's noncompliance with renal dialysis for other reason; Z86.718 Personal history of other venous thrombosis and embolism
CPT/HCPCS: 36415; 36600; 70450; 71045; 71250; 76700; 80048; 80053; 80076; 80202; 82140; 82435; 82550; 82607; 82728; 82746; 82803; 82947; 82948; 83540; 83550; 83605; 83615; 83735; 83880; 84100; 84132; 84145; 84295; 84484; 85018; 85025; 85384; 85610; 85651; 85730; 86140; 86850; 86900; 86901; 86905; 86922; 87040; 87070; 87076; 87086; 87186; 87635; 87804; 90935; 93005; 93306; 93970; 94640; 94660; 96360; 99285; C1729; G0378; J1644; J2185; J2405; J2470; J2543; J3490; P9047; J3370; J3375; Q5106